=== PATIENT | male | born 1940 | race Caucasian/White ===

== ENCOUNTER 2017-08-29 15:02 | Inpatient (IN) | payer OTHER ==
[2017-08-29] MEDS: MORPHINE 2 MG/ML 1ML SYRINGE (J2270) IV ×2 (15:31→16:01)
[2017-08-29 15:45] LABS: BASO % 0.4 % (0.0-1.0); EOS # 0.3 10^3/uL (0.0-0.50); EOS % 3.6 % (0.0-3.0); HEMATOCRIT 42.8 % (42.0-52.0); HEMOGLOBIN 14.4 g/dl (13.5-17.5); IMMATURE GRANULOCYTE % 0.4 % (0-3.0); LYMPH % 14.3 % (24.0-44.0); MEAN CORPUSCULAR HGB CONC 33.6 g/dl (32.0-36.5); MEAN CORPUSCULAR VOLUME 92.2 fl (80.0-96.0); MONO # 0.8 10^3/uL (0.0-0.8); MONO % 10.8 % (0.0-5.0); NEUTROPHILS # 5.1 10^3/uL (1.8-7.7); NEUTROPHILS % 70.5 % (36.0-66.0); PLATELET COUNT, AUTOMATED 161 10^3/uL (150-450); RED BLOOD COUNT 4.64 10^6/uL (4.30-6.10); RED CELL DISTRIBUTION WIDTH 14.8 % (11.5-14.5); WHITE BLOOD COUNT 7.2 10^3/uL (4.0-10.0)
[2017-08-29 15:47] LABS: BEDSIDE GLUCOSE 108 MG/DL (83-110)
[2017-08-29 15:57] LABS: INR 1.03; PARTIAL THROMBOPLASTIN TIME 25.2 SECONDS (26.8-37.9); PROTHROMBIN TIME 13.6 SECONDS (12.4-14.5)
[2017-08-29 16:15] LABS: ANION GAP 7 MEQ/L (8-16); BLOOD UREA NITROGEN 32 MG/DL (7-18); CALCIUM LEVEL 8.2 MG/DL (8.8-10.2); CARBON DIOXIDE LEVEL 29 MEQ/L (21-32); CHLORIDE LEVEL 110 MEQ/L (98-107); CPK CREATINE PHOSPHOKINASE 180 U/L (39-308); CREATININE FOR GFR 1.56 MG/DL (0.70-1.30); FREE T4 1.19 NG/DL (0.76-1.46); GLOMERULAR FILTRATION RATE 46.4 (>42); GLUCOSE, FASTING 109 MG/DL (70-100); MAGNESIUM LEVEL 2.1 MG/DL (1.8-2.4); POTASSIUM SERUM 3.9 MEQ/L (3.5-5.1); SODIUM LEVEL 146 MEQ/L (136-145); TROPONIN I 0.05 NG/ML (< 0.10)
[2017-08-29 16:20] LABS: CK-MB VALUE MASS 2.6 NG/ML (<3.6); MB/CK RELATIVE INDEX 1.44 (< OR =4)
[2017-08-29] MEDS ORDERED: ONDANSETRON 4MG/2ML VIAL (J2405) IV (17:15)
[2017-08-29] MEDS ORDERED: GLUCOSE 4 GM CHEW TABLET PO (17:15)
[2017-08-29] MEDS ORDERED: GLUCAGON FOR INJ 1 MG VIAL (J1610) SC (17:15)
[2017-08-29] MEDS ORDERED: DEXTROSE 50% 50 ML SYRINGE IV (17:15)
[2017-08-29] MEDS: MORPHINE 4 MG/ML 1ML VIAL/SYRINGE (J2270) IV (18:07)
[2017-08-29 19:39] LABS: BEDSIDE GLUCOSE 93 MG/DL (83-110)
[2017-08-29] MEDS: NORCO, ANEXSIA 5/325MG TABLET (HYDROcodone/ACETAMINOPHEN) PO (19:47)
[2017-08-29] MEDS: HumaLOG INSULIN (NovoLOG) PER UNIT SC (19:58)
[2017-08-29] MEDS: LEVEMIR (INSULIN DETEMIR) 1 UNITS/0.01ML SC ×2 (21:00→21:39)
[2017-08-29 21:04] LABS: BEDSIDE GLUCOSE 113 MG/DL (83-110)
[2017-08-29] MEDS: HEPARIN SOD (PORCINE) 5000 UNITS/ML VIAL SC (21:23)
[2017-08-29] MEDS: CYCLOBENZAPRINE 5MG TABLET PO (21:29)
[2017-08-29] MEDS: SENOKOT S TAB PO (21:40)
[2017-08-29] MEDS: METOPROLOL TART 25 MG TABLET PO (21:40)
[2017-08-29] MEDS: DOCUSATE SODIUM 100 MG CAP PO (21:40)
[2017-08-29] MEDS: ASPIRIN 325 MG TAB PO (21:40)
[2017-08-29] MEDS: MAGNESIUM CHLORIDE 64 MG TABCR (SLO MAG) PO (23:02)
[2017-08-29] MEDS: HYDROmorphone HCL 1 MG/ML SYRINGE (J1170) IV (23:41)
[2017-08-30] MEDS: NORCO, ANEXSIA 5/325MG TABLET (HYDROcodone/ACETAMINOPHEN) PO ×2 (01:29→13:59)
[2017-08-30] MEDS: HYDROmorphone HCL 1 MG/ML SYRINGE (J1170) IV ×2 (02:16→08:57)
[2017-08-30] MEDS: CYCLOBENZAPRINE 5MG TABLET PO (05:39)
[2017-08-30] MEDS: HEPARIN SOD (PORCINE) 5000 UNITS/ML VIAL SC (05:51)
[2017-08-30] MEDS: HumaLOG INSULIN (NovoLOG) PER UNIT SC ×5 (06:00→20:24)
[2017-08-30] MEDS ORDERED: DEXTROSE 50% 50 ML SYRINGE IV (08:00)
[2017-08-30] MEDS ORDERED: GLUCAGON FOR INJ 1 MG VIAL (J1610) SC (08:00)
[2017-08-30] MEDS ORDERED: GLUCOSE 4 GM CHEW TABLET PO (08:00)
[2017-08-30 08:49] LABS: BEDSIDE GLUCOSE 96 MG/DL (83-110)
[2017-08-30] MEDS: DOCUSATE SODIUM 100 MG CAP PO ×2 (08:53→20:27)
[2017-08-30] MEDS: VITAMIN D 1,000 INTERNATIONAL UNITS TABLET PO (08:53)
[2017-08-30] MEDS: SENOKOT S TAB PO ×2 (08:53→20:27)
[2017-08-30] MEDS: PANTOPRAZOLE 40MG TAB (PROTONIX) PO (08:53)
[2017-08-30] MEDS: AMIODARONE 200 MG TAB (PACERONE) PO (08:53)
[2017-08-30] MEDS: NS 1,000 ML IV (08:53)
[2017-08-30] MEDS: METOPROLOL TART 25 MG TABLET PO ×2 (08:54→20:27)
[2017-08-30] MEDS: FUROSEMIDE 20 MG TAB PO (08:54)
[2017-08-30] MEDS: MAGNESIUM CHLORIDE 64 MG TABCR (SLO MAG) PO ×2 (08:56→20:26)
[2017-08-30] MEDS: oxyBUTYnin *DITROPAN XL* 5 MG TABCR PO (08:56)
[2017-08-30 09:25] LABS: HEMATOCRIT 45.5 % (42.0-52.0); HEMOGLOBIN 14.6 g/dl (13.5-17.5); MEAN CORPUSCULAR HEMOGLOBIN 30.5 pg (27.0-33.0); MEAN CORPUSCULAR HGB CONC 32.1 g/dl (32.0-36.5); MEAN CORPUSCULAR VOLUME 95.2 fl (80.0-96.0); PLATELET COUNT, AUTOMATED 145 10^3/uL (150-450); RED BLOOD COUNT 4.78 10^6/uL (4.30-6.10); RED CELL DISTRIBUTION WIDTH 14.9 % (11.5-14.5); WHITE BLOOD COUNT 6.4 10^3/uL (4.0-10.0)
[2017-08-30 10:16] LABS: ANION GAP 6 MEQ/L (8-16); BLOOD UREA NITROGEN 29 MG/DL (7-18); CALCIUM LEVEL 8.6 MG/DL (8.8-10.2); CARBON DIOXIDE LEVEL 30 MEQ/L (21-32); CHLORIDE LEVEL 108 MEQ/L (98-107); CREATININE FOR GFR 1.37 MG/DL (0.70-1.30); GLOMERULAR FILTRATION RATE 53.9 (>42); GLUCOSE, FASTING 99 MG/DL (70-100); MAGNESIUM LEVEL 2.4 MG/DL (1.8-2.4); POTASSIUM SERUM 4.3 MEQ/L (3.5-5.1); SODIUM LEVEL 144 MEQ/L (136-145)
[2017-08-30 11:59] LABS: BEDSIDE GLUCOSE 94 MG/DL (83-110)
[2017-08-30] MEDS: MORPHINE 4 MG/ML 1ML VIAL/SYRINGE (J2270) IV (12:15)
[2017-08-30] MEDS: HEPARIN SOD (PORCINE) 5000 UNITS/ML VIAL SQ ×2 (13:58→22:06)
[2017-08-30 17:06] LABS: BEDSIDE GLUCOSE 162 MG/DL (83-110)
[2017-08-30 20:21] LABS: BEDSIDE GLUCOSE 112 MG/DL (83-110)
[2017-08-30] MEDS: ATORVASTATIN 20 MG TAB PO (20:26)
[2017-08-30] MEDS: ASPIRIN 325 MG TAB PO (20:27)
[2017-08-31] MEDS: CYCLOBENZAPRINE 5MG TABLET PO (05:18)
[2017-08-31] MEDS: HEPARIN SOD (PORCINE) 5000 UNITS/ML VIAL SQ ×3 (05:18→21:35)
[2017-08-31 05:44] LABS: BASO % 0.4 % (0.0-1.0); EOS # 0.3 10^3/uL (0.0-0.50); EOS % 4.5 % (0.0-3.0); HEMOGLOBIN 14.2 g/dl (13.5-17.5); IMMATURE GRANULOCYTE % 0.5 % (0-3.0); LYMPH # 0.9 10^3/uL (1.5-4.5); MEAN CORPUSCULAR VOLUME 93.9 fl (80.0-96.0); MONO # 1.1 10^3/uL (0.0-0.8); MONO % 15.5 % (0.0-5.0); NEUTROPHILS # 4.9 10^3/uL (1.8-7.7); NEUTROPHILS % 67.1 % (36.0-66.0); PLATELET COUNT, AUTOMATED 138 10^3/uL (150-450); RED BLOOD COUNT 4.58 10^6/uL (4.30-6.10); RED CELL DISTRIBUTION WIDTH 14.9 % (11.5-14.5); WHITE BLOOD COUNT 7.4 10^3/uL (4.0-10.0)
[2017-08-31 05:57] LABS: ANION GAP 9 MEQ/L (8-16); BLOOD UREA NITROGEN 27 MG/DL (7-18); CALCIUM LEVEL 8.7 MG/DL (8.8-10.2); CARBON DIOXIDE LEVEL 30 MEQ/L (21-32); CHLORIDE LEVEL 103 MEQ/L (98-107); GLOMERULAR FILTRATION RATE 52.6 (>42); GLUCOSE, FASTING 119 MG/DL (70-100); MAGNESIUM LEVEL 2.1 MG/DL (1.8-2.4); POTASSIUM SERUM 3.9 MEQ/L (3.5-5.1); SODIUM LEVEL 142 MEQ/L (136-145)
[2017-08-31] MEDS: MOM 30ML SUSPENSION UDC PO (08:09)
[2017-08-31] MEDS: DOCUSATE SODIUM 100 MG CAP PO ×2 (08:09→21:34)
[2017-08-31] MEDS: MAGNESIUM CHLORIDE 64 MG TABCR (SLO MAG) PO ×2 (08:09→21:35)
[2017-08-31] MEDS: PANTOPRAZOLE 40MG TAB (PROTONIX) PO (08:09)
[2017-08-31] MEDS: VITAMIN D 1,000 INTERNATIONAL UNITS TABLET PO (08:10)
[2017-08-31] MEDS: FUROSEMIDE 20 MG TAB PO (08:10)
[2017-08-31] MEDS: oxyBUTYnin *DITROPAN XL* 5 MG TABCR PO (08:10)
[2017-08-31] MEDS: AMIODARONE 200 MG TAB (PACERONE) PO (08:10)
[2017-08-31] MEDS: SENOKOT S TAB PO ×2 (08:10→21:34)
[2017-08-31] MEDS: METOPROLOL TART 25 MG TABLET PO ×2 (08:10→21:34)
[2017-08-31] MEDS: MIRALAX *UNIT DOSE* 17GM PACKET PO (08:11)
[2017-08-31] MEDS: HumaLOG INSULIN (NovoLOG) PER UNIT SC ×4 (08:11→21:00)
[2017-08-31] MEDS: HYDROMORPHONE HCL 0.5 MG/ 0.5 ML SYRINGE (J1170 PER 1) IV ×2 (08:12→16:58)
[2017-08-31] MEDS: NYSTATIN 100,000 UNITS/GM TOPICAL PWD 15 GM TOP ×2 (09:00→21:00)
[2017-08-31 11:49] LABS: BEDSIDE GLUCOSE 106 MG/DL (83-110)
[2017-08-31 16:43] LABS: BEDSIDE GLUCOSE 116 MG/DL (83-110)
[2017-08-31 20:26] LABS: BEDSIDE GLUCOSE 133 MG/DL (83-110)
[2017-08-31] MEDS: ASPIRIN 325 MG TAB PO (21:34)
[2017-08-31] MEDS: ATORVASTATIN 20 MG TAB PO (21:34)
[2017-09-01] MEDS: HYDROMORPHONE HCL 0.5 MG/ 0.5 ML SYRINGE (J1170 PER 1) IV ×3 (00:23→21:16)
[2017-09-01 06:14] LABS: BASO % 0.2 % (0.0-1.0); EOS # 0.4 10^3/uL (0.0-0.50); EOS % 6.8 % (0.0-3.0); HEMATOCRIT 41.2 % (42.0-52.0); HEMOGLOBIN 13.6 g/dl (13.5-17.5); IMMATURE GRANULOCYTE % 0.6 % (0-3.0); LYMPH # 1.2 10^3/uL (1.5-4.5); LYMPH % 18.7 % (24.0-44.0); MEAN CORPUSCULAR HEMOGLOBIN 30.6 pg (27.0-33.0); MEAN CORPUSCULAR VOLUME 92.6 fl (80.0-96.0); MONO % 15.7 % (0.0-5.0); NEUTROPHILS # 3.7 10^3/uL (1.8-7.7); PLATELET COUNT, AUTOMATED 123 10^3/uL (150-450); RED BLOOD COUNT 4.45 10^6/uL (4.30-6.10); RED CELL DISTRIBUTION WIDTH 14.8 % (11.5-14.5); WHITE BLOOD COUNT 6.4 10^3/uL (4.0-10.0)
[2017-09-01] MEDS: HEPARIN SOD (PORCINE) 5000 UNITS/ML VIAL SQ ×3 (06:23→21:15)
[2017-09-01 06:32] LABS: ANION GAP 7 MEQ/L (8-16); BLOOD UREA NITROGEN 27 MG/DL (7-18); CALCIUM LEVEL 8.3 MG/DL (8.8-10.2); CARBON DIOXIDE LEVEL 31 MEQ/L (21-32); CHLORIDE LEVEL 104 MEQ/L (98-107); CREATININE FOR GFR 1.39 MG/DL (0.70-1.30); GLUCOSE, FASTING 95 MG/DL (70-100); MAGNESIUM LEVEL 2.3 MG/DL (1.8-2.4); POTASSIUM SERUM 3.6 MEQ/L (3.5-5.1); SODIUM LEVEL 142 MEQ/L (136-145)
[2017-09-01] MEDS: HumaLOG INSULIN (NovoLOG) PER UNIT SC ×4 (07:30→21:00)
[2017-09-01] MEDS ORDERED: SLF 3 ML SYR IV (09:00)
[2017-09-01] MEDS: MOM 30ML SUSPENSION UDC PO (09:13)
[2017-09-01] MEDS: VITAMIN D 1,000 INTERNATIONAL UNITS TABLET PO (09:14)
[2017-09-01] MEDS: SENOKOT S TAB PO ×2 (09:14→21:12)
[2017-09-01] MEDS: MAGNESIUM CHLORIDE 64 MG TABCR (SLO MAG) PO ×2 (09:14→21:12)
[2017-09-01] MEDS: PANTOPRAZOLE 40MG TAB (PROTONIX) PO (09:14)
[2017-09-01] MEDS: DOCUSATE SODIUM 100 MG CAP PO ×2 (09:14→21:12)
[2017-09-01] MEDS: MIRALAX *UNIT DOSE* 17GM PACKET PO (09:14)
[2017-09-01] MEDS: AMIODARONE 200 MG TAB (PACERONE) PO (09:14)
[2017-09-01] MEDS: oxyBUTYnin *DITROPAN XL* 5 MG TABCR PO (09:15)
[2017-09-01] MEDS: METOPROLOL TART 25 MG TABLET PO ×2 (09:15→21:12)
[2017-09-01] MEDS: NYSTATIN 100,000 UNITS/GM TOPICAL PWD 15 GM TOP ×2 (09:16→21:15)
[2017-09-01] MEDS: FUROSEMIDE 20 MG TAB PO (09:16)
[2017-09-01] MEDS: LEVEMIR (INSULIN DETEMIR) 1 UNITS/0.01ML SC ×2 (10:04→21:00)
[2017-09-01 11:50] LABS: BEDSIDE GLUCOSE 109 MG/DL (83-110)
[2017-09-01] MEDS: SLF 3 ML SYR IV ×2 (13:21→21:15)
[2017-09-01 16:40] LABS: BEDSIDE GLUCOSE 165 MG/DL (83-110)
[2017-09-01 20:43] LABS: BEDSIDE GLUCOSE 125 MG/DL (83-110)
[2017-09-01] MEDS: ASPIRIN 325 MG TAB PO (21:12)
[2017-09-01] MEDS: ATORVASTATIN 20 MG TAB PO (21:12)
[2017-09-02] MEDS: HYDROMORPHONE HCL 0.5 MG/ 0.5 ML SYRINGE (J1170 PER 1) IV (05:02)
[2017-09-02] MEDS: HEPARIN SOD (PORCINE) 5000 UNITS/ML VIAL SQ ×3 (06:00→21:40)
[2017-09-02] MEDS: SLF 3 ML SYR IV ×3 (06:01→21:45)
[2017-09-02 06:17] LABS: BASO % 0.5 % (0.0-1.0); EOS # 0.5 10^3/uL (0.0-0.50); EOS % 8.6 % (0.0-3.0); HEMATOCRIT 41.9 % (42.0-52.0); HEMOGLOBIN 13.7 g/dl (13.5-17.5); IMMATURE GRANULOCYTE % 0.5 % (0-3.0); LYMPH # 0.9 10^3/uL (1.5-4.5); MEAN CORPUSCULAR HEMOGLOBIN 30.5 pg (27.0-33.0); MEAN CORPUSCULAR HGB CONC 32.7 g/dl (32.0-36.5); MEAN CORPUSCULAR VOLUME 93.3 fl (80.0-96.0); MONO # 0.9 10^3/uL (0.0-0.8); MONO % 15.1 % (0.0-5.0); NEUTROPHILS # 3.6 10^3/uL (1.8-7.7); NEUTROPHILS % 60.3 % (36.0-66.0); PLATELET COUNT, AUTOMATED 134 10^3/uL (150-450); RED BLOOD COUNT 4.49 10^6/uL (4.30-6.10); RED CELL DISTRIBUTION WIDTH 14.5 % (11.5-14.5)
[2017-09-02 06:37] LABS: ANION GAP 7 MEQ/L (8-16); BLOOD UREA NITROGEN 32 MG/DL (7-18); CALCIUM LEVEL 8.3 MG/DL (8.8-10.2); CARBON DIOXIDE LEVEL 29 MEQ/L (21-32); CHLORIDE LEVEL 105 MEQ/L (98-107); CREATININE FOR GFR 1.22 MG/DL (0.70-1.30); GLOMERULAR FILTRATION RATE > 60.0 (>42); GLUCOSE, FASTING 105 MG/DL (70-100); MAGNESIUM LEVEL 2.4 MG/DL (1.8-2.4); POTASSIUM SERUM 3.7 MEQ/L (3.5-5.1); SODIUM LEVEL 141 MEQ/L (136-145)
[2017-09-02] MEDS: oxyBUTYnin *DITROPAN XL* 5 MG TABCR PO (08:15)
[2017-09-02] MEDS: VITAMIN D 1,000 INTERNATIONAL UNITS TABLET PO (08:15)
[2017-09-02] MEDS: AMIODARONE 200 MG TAB (PACERONE) PO (08:15)
[2017-09-02] MEDS: NORCO, ANEXSIA 5/325MG TABLET (HYDROcodone/ACETAMINOPHEN) PO ×2 (08:15→14:51)
[2017-09-02] MEDS: DOCUSATE SODIUM 100 MG CAP PO ×2 (08:15→21:41)
[2017-09-02] MEDS: METOPROLOL TART 25 MG TABLET PO ×2 (08:16→21:44)
[2017-09-02] MEDS: SENOKOT S TAB PO ×2 (08:17→21:41)
[2017-09-02] MEDS: PANTOPRAZOLE 40MG TAB (PROTONIX) PO (08:17)
[2017-09-02] MEDS: FUROSEMIDE 20 MG TAB PO (08:18)
[2017-09-02] MEDS: MOM 30ML SUSPENSION UDC PO (08:19)
[2017-09-02] MEDS: MAGNESIUM CHLORIDE 64 MG TABCR (SLO MAG) PO ×2 (08:19→21:40)
[2017-09-02] MEDS: MIRALAX *UNIT DOSE* 17GM PACKET PO (08:19)
[2017-09-02] MEDS: HumaLOG INSULIN (NovoLOG) PER UNIT SC ×4 (08:21→21:00)
[2017-09-02] MEDS: LEVEMIR (INSULIN DETEMIR) 1 UNITS/0.01ML SC ×2 (08:21→21:45)
[2017-09-02] MEDS: NYSTATIN 100,000 UNITS/GM TOPICAL PWD 15 GM TOP ×2 (08:25→21:45)
[2017-09-02 11:39] LABS: BEDSIDE GLUCOSE 115 MG/DL (83-110)
[2017-09-02 17:17] LABS: BEDSIDE GLUCOSE 107 MG/DL (83-110)
[2017-09-02 20:32] LABS: BEDSIDE GLUCOSE 123 MG/DL (83-110)
[2017-09-02] MEDS: ASPIRIN 325 MG TAB PO (21:41)
[2017-09-02] MEDS: ATORVASTATIN 20 MG TAB PO (21:41)
[2017-09-03] MEDS: NORCO, ANEXSIA 5/325MG TABLET (HYDROcodone/ACETAMINOPHEN) PO ×3 (01:12→21:09)
[2017-09-03] MEDS: SLF 3 ML SYR IV ×3 (05:05→22:00)
[2017-09-03] MEDS: HEPARIN SOD (PORCINE) 5000 UNITS/ML VIAL SQ ×3 (05:05→21:10)
[2017-09-03 05:47] LABS: BASO % 0.5 % (0.0-1.0); EOS # 0.4 10^3/uL (0.0-0.50); EOS % 7.6 % (0.0-3.0); HEMATOCRIT 40.8 % (42.0-52.0); HEMOGLOBIN 13.8 g/dl (13.5-17.5); IMMATURE GRANULOCYTE % 0.4 % (0-3.0); LYMPH # 1.2 10^3/uL (1.5-4.5); LYMPH % 21.3 % (24.0-44.0); MEAN CORPUSCULAR HEMOGLOBIN 30.9 pg (27.0-33.0); MEAN CORPUSCULAR HGB CONC 33.8 g/dl (32.0-36.5); MEAN CORPUSCULAR VOLUME 91.3 fl (80.0-96.0); MONO # 0.8 10^3/uL (0.0-0.8); MONO % 14.1 % (0.0-5.0); NEUTROPHILS # 3.1 10^3/uL (1.8-7.7); NEUTROPHILS % 56.1 % (36.0-66.0); PLATELET COUNT, AUTOMATED 143 10^3/uL (150-450); RED BLOOD COUNT 4.47 10^6/uL (4.30-6.10); RED CELL DISTRIBUTION WIDTH 14.4 % (11.5-14.5); WHITE BLOOD COUNT 5.5 10^3/uL (4.0-10.0)
[2017-09-03 06:20] LABS: ANION GAP 7 MEQ/L (8-16); BLOOD UREA NITROGEN 33 MG/DL (7-18); CALCIUM LEVEL 8.4 MG/DL (8.8-10.2); CARBON DIOXIDE LEVEL 30 MEQ/L (21-32); CHLORIDE LEVEL 105 MEQ/L (98-107); CREATININE FOR GFR 1.23 MG/DL (0.70-1.30); GLOMERULAR FILTRATION RATE > 60.0 (>42); GLUCOSE, FASTING 87 MG/DL (70-100); MAGNESIUM LEVEL 2.7 MG/DL (1.8-2.4); POTASSIUM SERUM 3.9 MEQ/L (3.5-5.1); SODIUM LEVEL 142 MEQ/L (136-145)
[2017-09-03] MEDS: HumaLOG INSULIN (NovoLOG) PER UNIT SC ×4 (07:13→21:00)
[2017-09-03] MEDS: VITAMIN D 1,000 INTERNATIONAL UNITS TABLET PO (09:03)
[2017-09-03] MEDS: MOM 30ML SUSPENSION UDC PO (09:03)
[2017-09-03] MEDS: oxyBUTYnin *DITROPAN XL* 5 MG TABCR PO (09:04)
[2017-09-03] MEDS: METOPROLOL TART 25 MG TABLET PO ×2 (09:04→21:10)
[2017-09-03] MEDS: SENOKOT S TAB PO ×2 (09:04→21:07)
[2017-09-03] MEDS: FUROSEMIDE 20 MG TAB PO (09:04)
[2017-09-03] MEDS: AMIODARONE 200 MG TAB (PACERONE) PO (09:04)
[2017-09-03] MEDS: MAGNESIUM CHLORIDE 64 MG TABCR (SLO MAG) PO ×2 (09:05→21:11)
[2017-09-03] MEDS: DOCUSATE SODIUM 100 MG CAP PO ×2 (09:05→21:09)
[2017-09-03] MEDS: PANTOPRAZOLE 40MG TAB (PROTONIX) PO (09:05)
[2017-09-03] MEDS: NYSTATIN 100,000 UNITS/GM TOPICAL PWD 15 GM TOP ×2 (09:08→21:18)
[2017-09-03] MEDS: LEVEMIR (INSULIN DETEMIR) 1 UNITS/0.01ML SC ×2 (09:08→21:12)
[2017-09-03] MEDS: MIRALAX *UNIT DOSE* 17GM PACKET PO (09:08)
[2017-09-03] MEDS: ENALAPRIL MALEATE 5 MG TAB PO (09:57)
[2017-09-03 11:48] LABS: BEDSIDE GLUCOSE 89 MG/DL (83-110)
[2017-09-03] MEDS: HYDROMORPHONE HCL 0.5 MG/ 0.5 ML SYRINGE (J1170 PER 1) IV (11:56)
[2017-09-03 16:58] LABS: BEDSIDE GLUCOSE 138 MG/DL (83-110)
[2017-09-03] MEDS: ATORVASTATIN 20 MG TAB PO (21:07)
[2017-09-03] MEDS: ASPIRIN 325 MG TAB PO (21:09)
[2017-09-03 21:22] LABS: BEDSIDE GLUCOSE 127 MG/DL (83-110)
[2017-09-04 05:09] LABS: BASO % 0.7 % (0.0-1.0); EOS # 0.5 10^3/uL (0.0-0.50); EOS % 8.7 % (0.0-3.0); HEMATOCRIT 41.7 % (42.0-52.0); HEMOGLOBIN 13.8 g/dl (13.5-17.5); IMMATURE GRANULOCYTE % 0.4 % (0-3.0); LYMPH # 1.2 10^3/uL (1.5-4.5); LYMPH % 20.6 % (24.0-44.0); MEAN CORPUSCULAR HEMOGLOBIN 30.5 pg (27.0-33.0); MEAN CORPUSCULAR HGB CONC 33.1 g/dl (32.0-36.5); MEAN CORPUSCULAR VOLUME 92.3 fl (80.0-96.0); MONO # 0.9 10^3/uL (0.0-0.8); MONO % 15.7 % (0.0-5.0); NEUTROPHILS % 53.9 % (36.0-66.0); PLATELET COUNT, AUTOMATED 164 10^3/uL (150-450); RED BLOOD COUNT 4.52 10^6/uL (4.30-6.10); RED CELL DISTRIBUTION WIDTH 14.6 % (11.5-14.5); WHITE BLOOD COUNT 5.6 10^3/uL (4.0-10.0)
[2017-09-04 05:24] LABS: ANION GAP 7 MEQ/L (8-16); BLOOD UREA NITROGEN 34 MG/DL (7-18); CALCIUM LEVEL 8.4 MG/DL (8.8-10.2); CARBON DIOXIDE LEVEL 30 MEQ/L (21-32); CHLORIDE LEVEL 105 MEQ/L (98-107); CREATININE FOR GFR 1.28 MG/DL (0.70-1.30); GLOMERULAR FILTRATION RATE 58.3 (>42); GLUCOSE, FASTING 83 MG/DL (70-100); MAGNESIUM LEVEL 2.7 MG/DL (1.8-2.4); POTASSIUM SERUM 3.9 MEQ/L (3.5-5.1); SODIUM LEVEL 142 MEQ/L (136-145)
[2017-09-04] MEDS: SLF 3 ML SYR IV ×3 (05:45→21:50)
[2017-09-04] MEDS: HEPARIN SOD (PORCINE) 5000 UNITS/ML VIAL SQ ×3 (05:45→21:50)
[2017-09-04] MEDS: HumaLOG INSULIN (NovoLOG) PER UNIT SC ×4 (07:30→20:23)
[2017-09-04] MEDS: LEVEMIR (INSULIN DETEMIR) 1 UNITS/0.01ML SC ×2 (08:18→20:24)
[2017-09-04] MEDS: MOM 30ML SUSPENSION UDC PO (08:19)
[2017-09-04] MEDS: SENOKOT S TAB PO ×2 (08:19→20:17)
[2017-09-04] MEDS: oxyBUTYnin *DITROPAN XL* 5 MG TABCR PO (08:19)
[2017-09-04] MEDS: DOCUSATE SODIUM 100 MG CAP PO ×2 (08:19→20:17)
[2017-09-04] MEDS: PANTOPRAZOLE 40MG TAB (PROTONIX) PO (08:19)
[2017-09-04] MEDS: ENALAPRIL MALEATE 5 MG TAB PO (08:20)
[2017-09-04] MEDS: VITAMIN D 1,000 INTERNATIONAL UNITS TABLET PO (08:20)
[2017-09-04] MEDS: FUROSEMIDE 20 MG TAB PO (08:20)
[2017-09-04] MEDS: METOPROLOL TART 25 MG TABLET PO ×2 (08:20→20:16)
[2017-09-04] MEDS: AMIODARONE 200 MG TAB (PACERONE) PO (08:21)
[2017-09-04] MEDS: MIRALAX *UNIT DOSE* 17GM PACKET PO (08:32)
[2017-09-04] MEDS: NORCO, ANEXSIA 5/325MG TABLET (HYDROcodone/ACETAMINOPHEN) PO ×3 (08:33→21:52)
[2017-09-04] MEDS: MAGNESIUM CHLORIDE 64 MG TABCR (SLO MAG) PO ×2 (09:00→20:17)
[2017-09-04 11:56] LABS: BEDSIDE GLUCOSE 89 MG/DL (83-110)
[2017-09-04] MEDS: NYSTATIN 100,000 UNITS/GM TOPICAL PWD 15 GM TOP ×2 (12:00→20:18)
[2017-09-04] MEDS: HYDROMORPHONE HCL 0.5 MG/ 0.5 ML SYRINGE (J1170 PER 1) IV (15:00)
[2017-09-04 17:35] LABS: BEDSIDE GLUCOSE 84 MG/DL (83-110)
[2017-09-04] MEDS: ATORVASTATIN 20 MG TAB PO (20:16)
[2017-09-04] MEDS: ASPIRIN 325 MG TAB PO (20:16)
[2017-09-04 20:40] LABS: BEDSIDE GLUCOSE 92 MG/DL (83-110)
[2017-09-05] MEDS: NORCO, ANEXSIA 5/325MG TABLET (HYDROcodone/ACETAMINOPHEN) PO ×3 (02:24→19:24)
[2017-09-05 04:56] LABS: BASO % 0.7 % (0.0-1.0); EOS # 0.5 10^3/uL (0.0-0.50); EOS % 8.6 % (0.0-3.0); HEMATOCRIT 40.6 % (42.0-52.0); HEMOGLOBIN 13.7 g/dl (13.5-17.5); IMMATURE GRANULOCYTE % 0.4 % (0-3.0); LYMPH % 17.3 % (24.0-44.0); MEAN CORPUSCULAR HEMOGLOBIN 30.9 pg (27.0-33.0); MEAN CORPUSCULAR HGB CONC 33.7 g/dl (32.0-36.5); MEAN CORPUSCULAR VOLUME 91.6 fl (80.0-96.0); MONO # 0.9 10^3/uL (0.0-0.8); MONO % 15.7 % (0.0-5.0); NEUTROPHILS # 3.3 10^3/uL (1.8-7.7); NEUTROPHILS % 57.3 % (36.0-66.0); PLATELET COUNT, AUTOMATED 167 10^3/uL (150-450); RED BLOOD COUNT 4.43 10^6/uL (4.30-6.10); RED CELL DISTRIBUTION WIDTH 14.6 % (11.5-14.5); WHITE BLOOD COUNT 5.7 10^3/uL (4.0-10.0)
[2017-09-05 05:08] LABS: ANION GAP 7 MEQ/L (8-16); BLOOD UREA NITROGEN 37 MG/DL (7-18); CALCIUM LEVEL 8.4 MG/DL (8.8-10.2); CARBON DIOXIDE LEVEL 29 MEQ/L (21-32); CHLORIDE LEVEL 105 MEQ/L (98-107); CREATININE FOR GFR 1.32 MG/DL (0.70-1.30); GLOMERULAR FILTRATION RATE 56.3 (>42); GLUCOSE, FASTING 71 MG/DL (70-100); MAGNESIUM LEVEL 2.6 MG/DL (1.8-2.4); POTASSIUM SERUM 4.1 MEQ/L (3.5-5.1); SODIUM LEVEL 141 MEQ/L (136-145)
[2017-09-05] MEDS: HEPARIN SOD (PORCINE) 5000 UNITS/ML VIAL SQ ×3 (05:51→20:25)
[2017-09-05] MEDS: SLF 3 ML SYR IV ×3 (05:52→20:25)
[2017-09-05] MEDS: HumaLOG INSULIN (NovoLOG) PER UNIT SC ×4 (07:30→20:24)
[2017-09-05] MEDS: PANTOPRAZOLE 40MG TAB (PROTONIX) PO (08:14)
[2017-09-05] MEDS: DOCUSATE SODIUM 100 MG CAP PO ×2 (08:14→20:22)
[2017-09-05] MEDS: MOM 30ML SUSPENSION UDC PO (08:14)
[2017-09-05] MEDS: LEVEMIR (INSULIN DETEMIR) 1 UNITS/0.01ML SC ×2 (08:14→20:24)
[2017-09-05] MEDS: MIRALAX *UNIT DOSE* 17GM PACKET PO (08:14)
[2017-09-05] MEDS: SENOKOT S TAB PO ×2 (08:14→20:23)
[2017-09-05] MEDS: METOPROLOL TART 25 MG TABLET PO ×2 (08:15→20:23)
[2017-09-05] MEDS: VITAMIN D 1,000 INTERNATIONAL UNITS TABLET PO (08:15)
[2017-09-05] MEDS: FUROSEMIDE 20 MG TAB PO (08:15)
[2017-09-05] MEDS: oxyBUTYnin *DITROPAN XL* 5 MG TABCR PO (08:15)
[2017-09-05] MEDS: AMIODARONE 200 MG TAB (PACERONE) PO (08:15)
[2017-09-05] MEDS: NYSTATIN 100,000 UNITS/GM TOPICAL PWD 15 GM TOP ×2 (08:16→20:24)
[2017-09-05] MEDS: MAGNESIUM CHLORIDE 64 MG TABCR (SLO MAG) PO ×2 (08:21→20:23)
[2017-09-05 11:37] LABS: BEDSIDE GLUCOSE 75 MG/DL (83-110)
[2017-09-05 17:55] LABS: BEDSIDE GLUCOSE 82 MG/DL (83-110)
[2017-09-05 20:22] LABS: BEDSIDE GLUCOSE 96 MG/DL (83-110)
[2017-09-05] MEDS: ATORVASTATIN 20 MG TAB PO (20:22)
[2017-09-05] MEDS: ASPIRIN 325 MG TAB PO (20:22)
[2017-09-05] MEDS: BUPIVACAINE/EPIN 0.5% 30 ML VIAL As Ordered (20:30)
[2017-09-06 05:51] LABS: BASO % 0.8 % (0.0-1.0); EOS # 0.4 10^3/uL (0.0-0.50); EOS % 8.4 % (0.0-3.0); HEMATOCRIT 41.9 % (42.0-52.0); IMMATURE GRANULOCYTE % 0.6 % (0-3.0); LYMPH # 1.1 10^3/uL (1.5-4.5); LYMPH % 21.8 % (24.0-44.0); MEAN CORPUSCULAR HEMOGLOBIN 30.4 pg (27.0-33.0); MEAN CORPUSCULAR HGB CONC 33.4 g/dl (32.0-36.5); MEAN CORPUSCULAR VOLUME 91.1 fl (80.0-96.0); MONO # 0.8 10^3/uL (0.0-0.8); MONO % 16.5 % (0.0-5.0); NEUTROPHILS # 2.7 10^3/uL (1.8-7.7); NEUTROPHILS % 51.9 % (36.0-66.0); PLATELET COUNT, AUTOMATED 184 10^3/uL (150-450); RED CELL DISTRIBUTION WIDTH 14.6 % (11.5-14.5); WHITE BLOOD COUNT 5.1 10^3/uL (4.0-10.0)
[2017-09-06] MEDS: SLF 3 ML SYR IV ×3 (05:51→22:00)
[2017-09-06 06:00] LABS: ANION GAP 7 MEQ/L (8-16); BLOOD UREA NITROGEN 34 MG/DL (7-18); CALCIUM LEVEL 8.6 MG/DL (8.8-10.2); CARBON DIOXIDE LEVEL 27 MEQ/L (21-32); CHLORIDE LEVEL 107 MEQ/L (98-107); CREATININE FOR GFR 1.36 MG/DL (0.70-1.30); GLOMERULAR FILTRATION RATE 54.4 (>42); GLUCOSE, FASTING 79 MG/DL (70-100); MAGNESIUM LEVEL 2.7 MG/DL (1.8-2.4); POTASSIUM SERUM 4.1 MEQ/L (3.5-5.1); SODIUM LEVEL 141 MEQ/L (136-145)
[2017-09-06] MEDS: HumaLOG INSULIN (NovoLOG) PER UNIT SC ×4 (07:20→21:00)
[2017-09-06] MEDS: LEVEMIR (INSULIN DETEMIR) 1 UNITS/0.01ML SC ×2 (07:36→21:00)
[2017-09-06] MEDS: MOM 30ML SUSPENSION UDC PO (08:33)
[2017-09-06] MEDS: MIRALAX *UNIT DOSE* 17GM PACKET PO (08:33)
[2017-09-06] MEDS: METOPROLOL TART 25 MG TABLET PO ×2 (08:33→21:00)
[2017-09-06] MEDS: FUROSEMIDE 20 MG TAB PO (08:33)
[2017-09-06] MEDS: SENOKOT S TAB PO ×2 (08:33→21:00)
[2017-09-06] MEDS: PANTOPRAZOLE 40MG TAB (PROTONIX) PO (08:33)
[2017-09-06] MEDS: DOCUSATE SODIUM 100 MG CAP PO ×2 (08:33→21:00)
[2017-09-06] MEDS: oxyBUTYnin *DITROPAN XL* 5 MG TABCR PO (08:33)
[2017-09-06] MEDS: AMIODARONE 200 MG TAB (PACERONE) PO (08:33)
[2017-09-06] MEDS: NYSTATIN 100,000 UNITS/GM TOPICAL PWD 15 GM TOP ×2 (08:34→21:00)
[2017-09-06] MEDS: VITAMIN D 1,000 INTERNATIONAL UNITS TABLET PO (08:34)
[2017-09-06] MEDS: MAGNESIUM CHLORIDE 64 MG TABCR (SLO MAG) PO ×2 (08:34→21:00)
[2017-09-06 12:03] LABS: BEDSIDE GLUCOSE 108 MG/DL (83-110)
[2017-09-06] MEDS: ceFAZolin 1GM INJ (J0690 PER 500MG) As Ordered ×2 (20:20→20:45)
[2017-09-06] MEDS: ASPIRIN 325 MG TAB PO (21:00)
[2017-09-06] MEDS: ATORVASTATIN 20 MG TAB PO (21:00)
[2017-09-06 21:13] LABS: BEDSIDE GLUCOSE 89 MG/DL (83-110)
[2017-09-06] MEDS ORDERED: LIDOCAINE 2% INJ 100 MG/5 ML SDV (FOR ANES.) As Ordered (21:19)
[2017-09-06] MEDS ORDERED: PHENYLEPHRINE INJ 10MG/ML VIAL (J2370) As Ordered (21:19)
[2017-09-06] MEDS ORDERED: fentaNYL 100 MCG/2 ML INJECTION (J3010) As Ordered (21:19)
[2017-09-06] MEDS ORDERED: ONDANSETRON 4MG/2ML VIAL (J2405) As Ordered (21:19)
[2017-09-06] MEDS ORDERED: KETAMINE HCL 200 MG/20 ML VIAL As Ordered (21:19)
[2017-09-06] MEDS ORDERED: MIDAZOLAM INJ 2 MG/2 ML VIAL (J2250) As Ordered (21:19)
[2017-09-06] MEDS ORDERED: PROPOFOL 500 MG/50 ML VIAL As Ordered (21:19)
[2017-09-06] MEDS ORDERED: BUPIVACAINE/DEXTROSE 0.75% 2 ML AMP As Ordered (21:19)
[2017-09-06] MEDS: EPINEPHrine INJ 1 MG/ML 1ML AMP As Ordered (21:30)
[2017-09-06] MEDS: TRANEXAMIC ACID 100 MG/ML 10ML VIAL As Ordered (21:50)
[2017-09-06] MEDS ORDERED: PROPOFOL 200 MG/20 ML VIAL As Ordered (21:51)
[2017-09-06] MEDS ORDERED: ONDANSETRON 4MG/2ML VIAL (J2405) IV ×2 (23:00→23:45)
[2017-09-06] MEDS: LR 1,000 ML IV (23:00)
[2017-09-06] MEDS ORDERED: fentaNYL 100 MCG/2 ML INJECTION (J3010) IV (23:00)
[2017-09-07] MEDS: PERCOCET 5MG/325MG TAB PO ×4 (00:46→21:14)
[2017-09-07] MEDS: ceFAZolin SOD 1 GM in D5W MINI-BAG PLUS 50 ML IV (05:42)
[2017-09-07] MEDS: SLF 3 ML SYR IV ×4 (05:43→21:13)
[2017-09-07] MEDS: MAGNESIUM CHLORIDE 64 MG TABCR (SLO MAG) PO ×2 (08:37→21:12)
[2017-09-07] MEDS: MIRALAX *UNIT DOSE* 17GM PACKET PO (08:37)
[2017-09-07] MEDS: MOM 30ML SUSPENSION UDC PO (08:37)
[2017-09-07] MEDS: LEVEMIR (INSULIN DETEMIR) 1 UNITS/0.01ML SC ×2 (08:38→21:13)
[2017-09-07] MEDS: FUROSEMIDE 20 MG TAB PO (08:39)
[2017-09-07] MEDS: HumaLOG INSULIN (NovoLOG) PER UNIT SC ×4 (08:39→21:00)
[2017-09-07] MEDS: SENOKOT S TAB PO ×2 (08:40→21:11)
[2017-09-07] MEDS: METOPROLOL TART 25 MG TABLET PO ×2 (08:40→21:12)
[2017-09-07] MEDS: oxyBUTYnin *DITROPAN XL* 5 MG TABCR PO (08:40)
[2017-09-07] MEDS: VITAMIN D 1,000 INTERNATIONAL UNITS TABLET PO (08:40)
[2017-09-07] MEDS: PANTOPRAZOLE 40MG TAB (PROTONIX) PO (08:40)
[2017-09-07] MEDS: DOCUSATE SODIUM 100 MG CAP PO ×2 (08:40→21:11)
[2017-09-07] MEDS: AMIODARONE 200 MG TAB (PACERONE) PO (08:42)
[2017-09-07] MEDS: NYSTATIN 100,000 UNITS/GM TOPICAL PWD 15 GM TOP ×2 (08:43→21:13)
[2017-09-07 09:23] LABS: HEMATOCRIT 43.1 % (42.0-52.0); HEMOGLOBIN 14.3 g/dl (13.5-17.5); MEAN CORPUSCULAR HEMOGLOBIN 30.6 pg (27.0-33.0); MEAN CORPUSCULAR HGB CONC 33.2 g/dl (32.0-36.5); MEAN CORPUSCULAR VOLUME 92.3 fl (80.0-96.0); PLATELET COUNT, AUTOMATED 184 10^3/uL (150-450); RED BLOOD COUNT 4.67 10^6/uL (4.30-6.10); RED CELL DISTRIBUTION WIDTH 14.4 % (11.5-14.5); WHITE BLOOD COUNT 9.6 10^3/uL (4.0-10.0)
[2017-09-07 10:02] LABS: ANION GAP 15 MEQ/L (8-16); BLOOD UREA NITROGEN 40 MG/DL (7-18); CALCIUM LEVEL 8.2 MG/DL (8.8-10.2); CARBON DIOXIDE LEVEL 23 MEQ/L (21-32); CHLORIDE LEVEL 103 MEQ/L (98-107); GLUCOSE, FASTING 175 MG/DL (70-100); POTASSIUM SERUM 4.8 MEQ/L (3.5-5.1); SODIUM LEVEL 141 MEQ/L (136-145)
[2017-09-07] MEDS: ENALAPRIL MALEATE 5 MG TAB PO (12:08)
[2017-09-07] MEDS: RIVAROXABAN 10 MG TAB (XARELTO) PO (17:08)
[2017-09-07 21:00] LABS: BEDSIDE GLUCOSE 168 MG/DL (83-110)
[2017-09-07 21:00] LABS: BEDSIDE GLUCOSE 218 MG/DL (83-110)
[2017-09-07 21:00] LABS: BEDSIDE GLUCOSE 215 MG/DL (83-110)
[2017-09-07 21:00] LABS: BEDSIDE GLUCOSE 174 MG/DL (83-110)
[2017-09-07] MEDS: ATORVASTATIN 20 MG TAB PO (21:11)
[2017-09-08 06:03] LABS: HEMATOCRIT 40.4 % (42.0-52.0); HEMOGLOBIN 13.3 g/dl (13.5-17.5); MEAN CORPUSCULAR HEMOGLOBIN 30.4 pg (27.0-33.0); MEAN CORPUSCULAR HGB CONC 32.9 g/dl (32.0-36.5); MEAN CORPUSCULAR VOLUME 92.4 fl (80.0-96.0); PLATELET COUNT, AUTOMATED 184 10^3/uL (150-450); RED BLOOD COUNT 4.37 10^6/uL (4.30-6.10); RED CELL DISTRIBUTION WIDTH 14.4 % (11.5-14.5); WHITE BLOOD COUNT 10.2 10^3/uL (4.0-10.0)
[2017-09-08] MEDS: PERCOCET 5MG/325MG TAB PO ×3 (06:03→18:30)
[2017-09-08] MEDS: SLF 3 ML SYR IV ×3 (06:04→21:08)
[2017-09-08 06:21] LABS: ANION GAP 9 MEQ/L (8-16); BLOOD UREA NITROGEN 43 MG/DL (7-18); CALCIUM LEVEL 8.9 MG/DL (8.8-10.2); CARBON DIOXIDE LEVEL 27 MEQ/L (21-32); CHLORIDE LEVEL 104 MEQ/L (98-107); CREATININE FOR GFR 1.52 MG/DL (0.70-1.30); GLOMERULAR FILTRATION RATE 47.8 (>42); GLUCOSE, FASTING 132 MG/DL (70-100); POTASSIUM SERUM 4.2 MEQ/L (3.5-5.1); SODIUM LEVEL 140 MEQ/L (136-145)
[2017-09-08] MEDS: HumaLOG INSULIN (NovoLOG) PER UNIT SC ×4 (08:06→21:00)
[2017-09-08] MEDS: MAGNESIUM CHLORIDE 64 MG TABCR (SLO MAG) PO ×2 (08:06→21:07)
[2017-09-08] MEDS: LEVEMIR (INSULIN DETEMIR) 1 UNITS/0.01ML SC ×2 (08:07→21:07)
[2017-09-08] MEDS: METOPROLOL TART 25 MG TABLET PO ×2 (08:07→21:08)
[2017-09-08] MEDS: AMIODARONE 200 MG TAB (PACERONE) PO (08:07)
[2017-09-08] MEDS: PANTOPRAZOLE 40MG TAB (PROTONIX) PO (08:07)
[2017-09-08] MEDS: VITAMIN D 1,000 INTERNATIONAL UNITS TABLET PO (08:07)
[2017-09-08] MEDS: SENOKOT S TAB PO ×2 (08:07→21:07)
[2017-09-08] MEDS: NYSTATIN 100,000 UNITS/GM TOPICAL PWD 15 GM TOP ×2 (08:08→21:07)
[2017-09-08] MEDS: DOCUSATE SODIUM 100 MG CAP PO ×2 (08:08→21:07)
[2017-09-08] MEDS: oxyBUTYnin *DITROPAN XL* 5 MG TABCR PO (08:08)
[2017-09-08] MEDS: FUROSEMIDE 20 MG TAB PO (08:08)
[2017-09-08] MEDS: MOM 30ML SUSPENSION UDC PO (08:11)
[2017-09-08] MEDS: MIRALAX *UNIT DOSE* 17GM PACKET PO (08:12)
[2017-09-08] MEDS: ENALAPRIL MALEATE 5 MG TAB PO (09:00)
[2017-09-08 14:18] LABS: BEDSIDE GLUCOSE 174 MG/DL (83-110)
[2017-09-08 17:03] LABS: BEDSIDE GLUCOSE 105 MG/DL (83-110)
[2017-09-08] MEDS: RIVAROXABAN 10 MG TAB (XARELTO) PO (17:28)
[2017-09-08 21:05] LABS: BEDSIDE GLUCOSE 143 MG/DL (83-110)
[2017-09-08] MEDS: ATORVASTATIN 20 MG TAB PO (21:07)
[2017-09-09] MEDS: PERCOCET 5MG/325MG TAB PO ×4 (02:04→19:31)
[2017-09-09 05:37] LABS: HEMATOCRIT 38.4 % (42.0-52.0); HEMOGLOBIN 12.6 g/dl (13.5-17.5); MEAN CORPUSCULAR HEMOGLOBIN 30.4 pg (27.0-33.0); MEAN CORPUSCULAR HGB CONC 32.8 g/dl (32.0-36.5); MEAN CORPUSCULAR VOLUME 92.5 fl (80.0-96.0); PLATELET COUNT, AUTOMATED 197 10^3/uL (150-450); RED BLOOD COUNT 4.15 10^6/uL (4.30-6.10); RED CELL DISTRIBUTION WIDTH 14.4 % (11.5-14.5); WHITE BLOOD COUNT 8.4 10^3/uL (4.0-10.0)
[2017-09-09 05:57] LABS: ANION GAP 8 MEQ/L (8-16); BLOOD UREA NITROGEN 45 MG/DL (7-18); CALCIUM LEVEL 8.7 MG/DL (8.8-10.2); CARBON DIOXIDE LEVEL 29 MEQ/L (21-32); CHLORIDE LEVEL 102 MEQ/L (98-107); CREATININE FOR GFR 1.34 MG/DL (0.70-1.30); GLOMERULAR FILTRATION RATE 55.3 (>42); GLUCOSE, FASTING 93 MG/DL (70-100); SODIUM LEVEL 139 MEQ/L (136-145)
[2017-09-09] MEDS: SLF 3 ML SYR IV ×3 (06:18→20:48)
[2017-09-09] MEDS: HumaLOG INSULIN (NovoLOG) PER UNIT SC ×4 (07:30→20:47)
[2017-09-09] MEDS: MOM 30ML SUSPENSION UDC PO (08:22)
[2017-09-09] MEDS: MAGNESIUM CHLORIDE 64 MG TABCR (SLO MAG) PO ×2 (08:23→20:44)
[2017-09-09] MEDS: LEVEMIR (INSULIN DETEMIR) 1 UNITS/0.01ML SC ×2 (08:23→20:48)
[2017-09-09] MEDS: NYSTATIN 100,000 UNITS/GM TOPICAL PWD 15 GM TOP ×2 (08:23→20:43)
[2017-09-09] MEDS: MIRALAX *UNIT DOSE* 17GM PACKET PO (08:23)
[2017-09-09] MEDS: DOCUSATE SODIUM 100 MG CAP PO ×2 (08:24→20:43)
[2017-09-09] MEDS: PANTOPRAZOLE 40MG TAB (PROTONIX) PO (08:24)
[2017-09-09] MEDS: FUROSEMIDE 20 MG TAB PO (08:24)
[2017-09-09] MEDS: ENALAPRIL MALEATE 5 MG TAB PO (08:24)
[2017-09-09] MEDS: AMIODARONE 200 MG TAB (PACERONE) PO (08:24)
[2017-09-09] MEDS: oxyBUTYnin *DITROPAN XL* 5 MG TABCR PO (08:25)
[2017-09-09] MEDS: VITAMIN D 1,000 INTERNATIONAL UNITS TABLET PO (08:25)
[2017-09-09] MEDS: SENOKOT S TAB PO ×2 (08:25→20:43)
[2017-09-09] MEDS: METOPROLOL TART 25 MG TABLET PO ×2 (08:26→20:43)
[2017-09-09 11:51] LABS: BEDSIDE GLUCOSE 118 MG/DL (83-110)
[2017-09-09 17:14] LABS: BEDSIDE GLUCOSE 82 MG/DL (83-110)
[2017-09-09] MEDS: RIVAROXABAN 10 MG TAB (XARELTO) PO (18:12)
[2017-09-09 20:25] LABS: BEDSIDE GLUCOSE 106 MG/DL (83-110)
[2017-09-09] MEDS: ATORVASTATIN 20 MG TAB PO (20:43)
[2017-09-10] MEDS: PERCOCET 5MG/325MG TAB PO ×5 (00:09→22:54)
[2017-09-10] MEDS: SLF 3 ML SYR IV ×3 (04:21→20:53)
[2017-09-10 06:22] LABS: HEMATOCRIT 37.9 % (42.0-52.0); HEMOGLOBIN 12.5 g/dl (13.5-17.5); PLATELET COUNT, AUTOMATED 226 10^3/uL (150-450); RED BLOOD COUNT 4.03 10^6/uL (4.30-6.10); RED CELL DISTRIBUTION WIDTH 14.4 % (11.5-14.5); WHITE BLOOD COUNT 6.7 10^3/uL (4.0-10.0)
[2017-09-10 06:29] LABS: ANION GAP 7 MEQ/L (8-16); BLOOD UREA NITROGEN 45 MG/DL (7-18); CALCIUM LEVEL 8.4 MG/DL (8.8-10.2); CARBON DIOXIDE LEVEL 32 MEQ/L (21-32); CHLORIDE LEVEL 102 MEQ/L (98-107); CREATININE FOR GFR 1.41 MG/DL (0.70-1.30); GLOMERULAR FILTRATION RATE 52.2 (>42); GLUCOSE, FASTING 79 MG/DL (70-100); POTASSIUM SERUM 4.1 MEQ/L (3.5-5.1); SODIUM LEVEL 141 MEQ/L (136-145)
[2017-09-10] MEDS: HumaLOG INSULIN (NovoLOG) PER UNIT SC ×4 (07:23→21:00)
[2017-09-10] MEDS: MAGNESIUM CHLORIDE 64 MG TABCR (SLO MAG) PO ×2 (08:31→20:55)
[2017-09-10] MEDS: NYSTATIN 100,000 UNITS/GM TOPICAL PWD 15 GM TOP ×2 (08:31→20:52)
[2017-09-10] MEDS: LEVEMIR (INSULIN DETEMIR) 1 UNITS/0.01ML SC ×2 (08:32→20:52)
[2017-09-10] MEDS: MIRALAX *UNIT DOSE* 17GM PACKET PO (08:32)
[2017-09-10] MEDS: oxyBUTYnin *DITROPAN XL* 5 MG TABCR PO (08:32)
[2017-09-10] MEDS: ENALAPRIL MALEATE 5 MG TAB PO (08:32)
[2017-09-10] MEDS: MOM 30ML SUSPENSION UDC PO (08:32)
[2017-09-10] MEDS: SENOKOT S TAB PO ×2 (08:33→20:50)
[2017-09-10] MEDS: VITAMIN D 1,000 INTERNATIONAL UNITS TABLET PO (08:33)
[2017-09-10] MEDS: DOCUSATE SODIUM 100 MG CAP PO ×2 (08:33→20:50)
[2017-09-10] MEDS: PANTOPRAZOLE 40MG TAB (PROTONIX) PO (08:33)
[2017-09-10] MEDS: FUROSEMIDE 20 MG TAB PO (08:33)
[2017-09-10] MEDS: AMIODARONE 200 MG TAB (PACERONE) PO (08:33)
[2017-09-10] MEDS: METOPROLOL TART 25 MG TABLET PO ×2 (08:34→20:51)
[2017-09-10 11:31] LABS: BEDSIDE GLUCOSE 121 MG/DL (83-110)
[2017-09-10] MEDS: RIVAROXABAN 10 MG TAB (XARELTO) PO (17:37)
[2017-09-10 17:51] LABS: BEDSIDE GLUCOSE 108 MG/DL (83-110)
[2017-09-10 20:45] LABS: BEDSIDE GLUCOSE 146 MG/DL (83-110)
[2017-09-10] MEDS: ATORVASTATIN 20 MG TAB PO (20:50)
[2017-09-11] MEDS: PERCOCET 5MG/325MG TAB PO ×3 (04:36→22:16)
[2017-09-11 05:19] LABS: HEMATOCRIT 37.8 % (42.0-52.0); HEMOGLOBIN 12.3 g/dl (13.5-17.5); MEAN CORPUSCULAR HEMOGLOBIN 30.5 pg (27.0-33.0); MEAN CORPUSCULAR HGB CONC 32.5 g/dl (32.0-36.5); MEAN CORPUSCULAR VOLUME 93.8 fl (80.0-96.0); PLATELET COUNT, AUTOMATED 267 10^3/uL (150-450); RED BLOOD COUNT 4.03 10^6/uL (4.30-6.10); RED CELL DISTRIBUTION WIDTH 14.2 % (11.5-14.5); WHITE BLOOD COUNT 6.1 10^3/uL (4.0-10.0)
[2017-09-11] MEDS: SLF 3 ML SYR IV ×3 (05:29→22:15)
[2017-09-11 05:34] LABS: ANION GAP 8 MEQ/L (8-16); BLOOD UREA NITROGEN 41 MG/DL (7-18); CALCIUM LEVEL 8.3 MG/DL (8.8-10.2); CARBON DIOXIDE LEVEL 31 MEQ/L (21-32); CHLORIDE LEVEL 102 MEQ/L (98-107); CREATININE FOR GFR 1.21 MG/DL (0.70-1.30); GLOMERULAR FILTRATION RATE > 60.0 (>42); GLUCOSE, FASTING 67 MG/DL (70-100); POTASSIUM SERUM 3.9 MEQ/L (3.5-5.1); SODIUM LEVEL 141 MEQ/L (136-145)
[2017-09-11] MEDS: HumaLOG INSULIN (NovoLOG) PER UNIT SC ×4 (07:30→22:12)
[2017-09-11] MEDS: DOCUSATE SODIUM 100 MG CAP PO ×2 (09:00→22:12)
[2017-09-11] MEDS: MIRALAX *UNIT DOSE* 17GM PACKET PO (09:00)
[2017-09-11] MEDS: VITAMIN D 1,000 INTERNATIONAL UNITS TABLET PO (09:28)
[2017-09-11] MEDS: MOM 30ML SUSPENSION UDC PO (09:28)
[2017-09-11] MEDS: LEVEMIR (INSULIN DETEMIR) 1 UNITS/0.01ML SC ×2 (09:29→22:13)
[2017-09-11] MEDS: NYSTATIN 100,000 UNITS/GM TOPICAL PWD 15 GM TOP ×2 (09:29→22:14)
[2017-09-11] MEDS: oxyBUTYnin *DITROPAN XL* 5 MG TABCR PO (09:29)
[2017-09-11] MEDS: FUROSEMIDE 20 MG TAB PO (09:30)
[2017-09-11] MEDS: PANTOPRAZOLE 40MG TAB (PROTONIX) PO (09:30)
[2017-09-11] MEDS: SENOKOT S TAB PO ×2 (09:30→22:12)
[2017-09-11] MEDS: AMIODARONE 200 MG TAB (PACERONE) PO (09:32)
[2017-09-11] MEDS: ENALAPRIL MALEATE 5 MG TAB PO (09:33)
[2017-09-11] MEDS: METOPROLOL TART 25 MG TABLET PO ×2 (09:33→22:09)
[2017-09-11] MEDS: MAGNESIUM CHLORIDE 64 MG TABCR (SLO MAG) PO ×3 (09:36→22:11)
[2017-09-11 12:18] LABS: BEDSIDE GLUCOSE 106 MG/DL (83-110)
[2017-09-11 17:31] LABS: BEDSIDE GLUCOSE 130 MG/DL (83-110)
[2017-09-11] MEDS: RIVAROXABAN 10 MG TAB (XARELTO) PO (18:22)
[2017-09-11 20:36] LABS: BEDSIDE GLUCOSE 91 MG/DL (83-110)
[2017-09-11] MEDS: ATORVASTATIN 20 MG TAB PO (22:10)
[2017-09-12 05:11] LABS: HEMATOCRIT 37.5 % (42.0-52.0); HEMOGLOBIN 12.4 g/dl (13.5-17.5); MEAN CORPUSCULAR HEMOGLOBIN 30.2 pg (27.0-33.0); MEAN CORPUSCULAR HGB CONC 33.1 g/dl (32.0-36.5); MEAN CORPUSCULAR VOLUME 91.5 fl (80.0-96.0); PLATELET COUNT, AUTOMATED 301 10^3/uL (150-450); RED CELL DISTRIBUTION WIDTH 14.1 % (11.5-14.5); WHITE BLOOD COUNT 6.9 10^3/uL (4.0-10.0)
[2017-09-12 05:28] LABS: ANION GAP 9 MEQ/L (8-16); BLOOD UREA NITROGEN 40 MG/DL (7-18); CALCIUM LEVEL 8.4 MG/DL (8.8-10.2); CARBON DIOXIDE LEVEL 27 MEQ/L (21-32); CHLORIDE LEVEL 104 MEQ/L (98-107); CREATININE FOR GFR 1.23 MG/DL (0.70-1.30); GLOMERULAR FILTRATION RATE > 60.0 (>42); GLUCOSE, FASTING 99 MG/DL (70-100); SODIUM LEVEL 140 MEQ/L (136-145)
[2017-09-12] MEDS: SLF 3 ML SYR IV ×3 (06:07→20:55)
[2017-09-12] MEDS: HumaLOG INSULIN (NovoLOG) PER UNIT SC ×4 (07:30→20:54)
[2017-09-12] MEDS: MIRALAX *UNIT DOSE* 17GM PACKET PO (09:00)
[2017-09-12] MEDS: MOM 30ML SUSPENSION UDC PO (09:00)
[2017-09-12] MEDS: MAGNESIUM CHLORIDE 64 MG TABCR (SLO MAG) PO ×2 (09:44→20:54)
[2017-09-12] MEDS: METOPROLOL TART 25 MG TABLET PO ×2 (09:45→20:53)
[2017-09-12] MEDS: ENALAPRIL MALEATE 5 MG TAB PO (09:45)
[2017-09-12] MEDS: SENOKOT S TAB PO ×2 (09:45→20:52)
[2017-09-12] MEDS: PANTOPRAZOLE 40MG TAB (PROTONIX) PO (09:45)
[2017-09-12] MEDS: DOCUSATE SODIUM 100 MG CAP PO ×2 (09:46→20:52)
[2017-09-12] MEDS: VITAMIN D 1,000 INTERNATIONAL UNITS TABLET PO (09:46)
[2017-09-12] MEDS: FUROSEMIDE 20 MG TAB PO (09:46)
[2017-09-12] MEDS: AMIODARONE 200 MG TAB (PACERONE) PO (09:46)
[2017-09-12] MEDS: oxyBUTYnin *DITROPAN XL* 5 MG TABCR PO (09:47)
[2017-09-12] MEDS: LEVEMIR (INSULIN DETEMIR) 1 UNITS/0.01ML SC ×2 (09:47→20:55)
[2017-09-12] MEDS: NYSTATIN 100,000 UNITS/GM TOPICAL PWD 15 GM TOP ×2 (09:52→20:54)
[2017-09-12 11:47] LABS: BEDSIDE GLUCOSE 147 MG/DL (83-110)
[2017-09-12] MEDS: PERCOCET 5MG/325MG TAB PO ×3 (12:16→20:54)
[2017-09-12 17:07] LABS: BEDSIDE GLUCOSE 108 MG/DL (83-110)
[2017-09-12] MEDS: RIVAROXABAN 10 MG TAB (XARELTO) PO (17:31)
[2017-09-12 20:37] LABS: BEDSIDE GLUCOSE 128 MG/DL (83-110)
[2017-09-12] MEDS: ATORVASTATIN 20 MG TAB PO (20:52)
[2017-09-13] MEDS ORDERED: UNRESOLVED CLARIFICATION ENTRY XX (00:01)
[2017-09-13 05:06] LABS: HEMATOCRIT 37.1 % (42.0-52.0); HEMOGLOBIN 12.3 g/dl (13.5-17.5); MEAN CORPUSCULAR HEMOGLOBIN 30.2 pg (27.0-33.0); MEAN CORPUSCULAR HGB CONC 33.2 g/dl (32.0-36.5); MEAN CORPUSCULAR VOLUME 91.2 fl (80.0-96.0); PLATELET COUNT, AUTOMATED 313 10^3/uL (150-450); RED BLOOD COUNT 4.07 10^6/uL (4.30-6.10); RED CELL DISTRIBUTION WIDTH 14.1 % (11.5-14.5); WHITE BLOOD COUNT 6.1 10^3/uL (4.0-10.0)
[2017-09-13 05:21] LABS: ANION GAP 8 MEQ/L (8-16); BLOOD UREA NITROGEN 39 MG/DL (7-18); CALCIUM LEVEL 8.1 MG/DL (8.8-10.2); CARBON DIOXIDE LEVEL 29 MEQ/L (21-32); CHLORIDE LEVEL 105 MEQ/L (98-107); CREATININE FOR GFR 1.34 MG/DL (0.70-1.30); GLOMERULAR FILTRATION RATE 55.3 (>42); GLUCOSE, FASTING 106 MG/DL (70-100); POTASSIUM SERUM 3.7 MEQ/L (3.5-5.1); SODIUM LEVEL 142 MEQ/L (136-145)
[2017-09-13] MEDS: SLF 3 ML SYR IV ×3 (05:34→20:18)
[2017-09-13] MEDS: PERCOCET 5MG/325MG TAB PO ×2 (07:38→16:39)
[2017-09-13] MEDS: MIRALAX *UNIT DOSE* 17GM PACKET PO (09:15)
[2017-09-13] MEDS: DOCUSATE SODIUM 100 MG CAP PO ×2 (09:16→20:17)
[2017-09-13] MEDS: LEVEMIR (INSULIN DETEMIR) 1 UNITS/0.01ML SC ×2 (09:16→20:16)
[2017-09-13] MEDS: AMIODARONE 200 MG TAB (PACERONE) PO (09:16)
[2017-09-13] MEDS: FUROSEMIDE 20 MG TAB PO (09:17)
[2017-09-13] MEDS: oxyBUTYnin *DITROPAN XL* 5 MG TABCR PO (09:17)
[2017-09-13] MEDS: METOPROLOL TART 25 MG TABLET PO ×2 (09:17→20:17)
[2017-09-13] MEDS: SENOKOT S TAB PO ×2 (09:17→20:17)
[2017-09-13] MEDS: MOM 30ML SUSPENSION UDC PO (09:18)
[2017-09-13] MEDS: VITAMIN D 1,000 INTERNATIONAL UNITS TABLET PO (09:18)
[2017-09-13] MEDS: PANTOPRAZOLE 40MG TAB (PROTONIX) PO (09:18)
[2017-09-13] MEDS: ENALAPRIL MALEATE 5 MG TAB PO (09:18)
[2017-09-13] MEDS: HumaLOG INSULIN (NovoLOG) PER UNIT SC ×4 (09:19→20:17)
[2017-09-13] MEDS: MAGNESIUM CHLORIDE 64 MG TABCR (SLO MAG) PO ×2 (09:19→20:16)
[2017-09-13] MEDS: NYSTATIN 100,000 UNITS/GM TOPICAL PWD 15 GM TOP ×2 (09:20→20:18)
[2017-09-13 11:34] LABS: BEDSIDE GLUCOSE 117 MG/DL (83-110)
[2017-09-13] MEDS: ACETAMINOPHEN 500 MG TAB PO ×2 (12:38→21:46)
[2017-09-13 17:09] LABS: BEDSIDE GLUCOSE 95 MG/DL (83-110)
[2017-09-13] MEDS: RIVAROXABAN 10 MG TAB (XARELTO) PO (17:25)
[2017-09-13 20:09] LABS: BEDSIDE GLUCOSE 149 MG/DL (83-110)
[2017-09-13] MEDS: ATORVASTATIN 20 MG TAB PO (20:17)
[2017-09-14] MEDS: SLF 3 ML SYR IV ×3 (05:32→20:37)
[2017-09-14 05:40] LABS: HEMATOCRIT 36.4 % (42.0-52.0); HEMOGLOBIN 12.2 g/dl (13.5-17.5); MEAN CORPUSCULAR HEMOGLOBIN 30.5 pg (27.0-33.0); MEAN CORPUSCULAR HGB CONC 33.5 g/dl (32.0-36.5); PLATELET COUNT, AUTOMATED 347 10^3/uL (150-450); RED CELL DISTRIBUTION WIDTH 14.3 % (11.5-14.5)
[2017-09-14 06:00] LABS: ANION GAP 9 MEQ/L (8-16); BLOOD UREA NITROGEN 35 MG/DL (7-18); CALCIUM LEVEL 8.7 MG/DL (8.8-10.2); CARBON DIOXIDE LEVEL 28 MEQ/L (21-32); CHLORIDE LEVEL 105 MEQ/L (98-107); GLOMERULAR FILTRATION RATE 57.3 (>42); GLUCOSE, FASTING 83 MG/DL (70-100); POTASSIUM SERUM 3.9 MEQ/L (3.5-5.1); SODIUM LEVEL 142 MEQ/L (136-145)
[2017-09-14] MEDS: HumaLOG INSULIN (NovoLOG) PER UNIT SC ×4 (07:30→20:38)
[2017-09-14] MEDS: PERCOCET 5MG/325MG TAB PO (08:37)
[2017-09-14] MEDS: LEVEMIR (INSULIN DETEMIR) 1 UNITS/0.01ML SC ×2 (08:52→20:39)
[2017-09-14] MEDS: NYSTATIN 100,000 UNITS/GM TOPICAL PWD 15 GM TOP ×2 (08:52→20:36)
[2017-09-14] MEDS: oxyBUTYnin *DITROPAN XL* 5 MG TABCR PO (08:52)
[2017-09-14] MEDS: ENALAPRIL MALEATE 5 MG TAB PO (08:53)
[2017-09-14] MEDS: SENOKOT S TAB PO ×2 (08:53→20:37)
[2017-09-14] MEDS: VITAMIN D 1,000 INTERNATIONAL UNITS TABLET PO (08:53)
[2017-09-14] MEDS: DOCUSATE SODIUM 100 MG CAP PO ×2 (08:53→20:37)
[2017-09-14] MEDS: PANTOPRAZOLE 40MG TAB (PROTONIX) PO (08:53)
[2017-09-14] MEDS: AMIODARONE 200 MG TAB (PACERONE) PO (08:53)
[2017-09-14] MEDS: FUROSEMIDE 20 MG TAB PO (08:53)
[2017-09-14] MEDS: MOM 30ML SUSPENSION UDC PO (08:54)
[2017-09-14] MEDS: METOPROLOL TART 25 MG TABLET PO (08:54)
[2017-09-14] MEDS: MIRALAX *UNIT DOSE* 17GM PACKET PO (08:54)
[2017-09-14] MEDS: MAGNESIUM CHLORIDE 64 MG TABCR (SLO MAG) PO ×2 (09:00→20:40)
[2017-09-14 09:57] LABS: MAGNESIUM LEVEL 2.4 MG/DL (1.8-2.4)
[2017-09-14 11:39] LABS: BEDSIDE GLUCOSE 116 MG/DL (83-110)
[2017-09-14] MEDS: ACETAMINOPHEN 500 MG TAB PO (15:22)
[2017-09-14 16:59] LABS: BEDSIDE GLUCOSE 70 MG/DL (83-110)
[2017-09-14] MEDS: RIVAROXABAN 10 MG TAB (XARELTO) PO (17:23)
[2017-09-14 19:58] LABS: BEDSIDE GLUCOSE 132 MG/DL (83-110)
[2017-09-14] MEDS: ATORVASTATIN 20 MG TAB PO (20:37)
[2017-09-14] MEDS: METOPROLOL TART 12.5 MG PER 1/2 TAB PO (20:38)
[2017-09-15 06:27] LABS: HEMATOCRIT 35.5 % (42.0-52.0); HEMOGLOBIN 11.9 g/dl (13.5-17.5); MEAN CORPUSCULAR HEMOGLOBIN 30.6 pg (27.0-33.0); MEAN CORPUSCULAR HGB CONC 33.5 g/dl (32.0-36.5); MEAN CORPUSCULAR VOLUME 91.3 fl (80.0-96.0); PLATELET COUNT, AUTOMATED 332 10^3/uL (150-450); RED BLOOD COUNT 3.89 10^6/uL (4.30-6.10); RED CELL DISTRIBUTION WIDTH 14.5 % (11.5-14.5)
[2017-09-15 06:43] LABS: ANION GAP 8 MEQ/L (8-16); BLOOD UREA NITROGEN 33 MG/DL (7-18); CALCIUM LEVEL 8.5 MG/DL (8.8-10.2); CARBON DIOXIDE LEVEL 28 MEQ/L (21-32); CHLORIDE LEVEL 105 MEQ/L (98-107); CREATININE FOR GFR 1.28 MG/DL (0.70-1.30); GLOMERULAR FILTRATION RATE 58.3 (>42); GLUCOSE, FASTING 107 MG/DL (70-100); SODIUM LEVEL 141 MEQ/L (136-145)
[2017-09-15 08:12] LABS: MAGNESIUM LEVEL 2.3 MG/DL (1.8-2.4)
[2017-09-15] MEDS: MOM 30ML SUSPENSION UDC PO (08:13)
[2017-09-15] MEDS: HumaLOG INSULIN (NovoLOG) PER UNIT SC ×4 (08:14→20:41)
[2017-09-15] MEDS: LEVEMIR (INSULIN DETEMIR) 1 UNITS/0.01ML SC ×2 (08:14→20:40)
[2017-09-15] MEDS: MIRALAX *UNIT DOSE* 17GM PACKET PO (08:14)
[2017-09-15] MEDS: SLF 3 ML SYR IV ×3 (08:14→20:42)
[2017-09-15] MEDS: ENALAPRIL MALEATE 5 MG TAB PO (08:15)
[2017-09-15] MEDS: DOCUSATE SODIUM 100 MG CAP PO ×2 (08:15→20:41)
[2017-09-15] MEDS: FUROSEMIDE 20 MG TAB PO (08:16)
[2017-09-15] MEDS: METOPROLOL TART 12.5 MG PER 1/2 TAB PO ×2 (08:16→20:39)
[2017-09-15] MEDS: SENOKOT S TAB PO ×2 (08:16→20:41)
[2017-09-15] MEDS: PANTOPRAZOLE 40MG TAB (PROTONIX) PO (08:16)
[2017-09-15] MEDS: oxyBUTYnin *DITROPAN XL* 5 MG TABCR PO (08:16)
[2017-09-15] MEDS: VITAMIN D 1,000 INTERNATIONAL UNITS TABLET PO (08:17)
[2017-09-15] MEDS: MAGNESIUM CHLORIDE 64 MG TABCR (SLO MAG) PO ×2 (08:17→20:39)
[2017-09-15] MEDS: AMIODARONE 200 MG TAB (PACERONE) PO (08:17)
[2017-09-15] MEDS: NYSTATIN 100,000 UNITS/GM TOPICAL PWD 15 GM TOP ×2 (08:18→20:41)
[2017-09-15 11:48] LABS: BEDSIDE GLUCOSE 111 MG/DL (83-110)
[2017-09-15] MEDS: PERCOCET 5MG/325MG TAB PO ×2 (12:12→20:40)
[2017-09-15 17:15] LABS: BEDSIDE GLUCOSE 93 MG/DL (83-110)
[2017-09-15] MEDS: RIVAROXABAN 10 MG TAB (XARELTO) PO (18:46)
[2017-09-15 20:01] LABS: BEDSIDE GLUCOSE 148 MG/DL (83-110)
[2017-09-15] MEDS: ATORVASTATIN 20 MG TAB PO (20:40)
[2017-09-16 05:32] LABS: HEMATOCRIT 35.8 % (42.0-52.0); HEMOGLOBIN 11.9 g/dl (13.5-17.5); MEAN CORPUSCULAR HEMOGLOBIN 30.8 pg (27.0-33.0); MEAN CORPUSCULAR HGB CONC 33.2 g/dl (32.0-36.5); MEAN CORPUSCULAR VOLUME 92.7 fl (80.0-96.0); PLATELET COUNT, AUTOMATED 334 10^3/uL (150-450); RED BLOOD COUNT 3.86 10^6/uL (4.30-6.10); RED CELL DISTRIBUTION WIDTH 14.6 % (11.5-14.5); WHITE BLOOD COUNT 6.9 10^3/uL (4.0-10.0)
[2017-09-16] MEDS: SLF 3 ML SYR IV ×3 (05:32→20:11)
[2017-09-16 05:45] LABS: ANION GAP 9 MEQ/L (8-16); BLOOD UREA NITROGEN 33 MG/DL (7-18); CALCIUM LEVEL 8.4 MG/DL (8.8-10.2); CARBON DIOXIDE LEVEL 28 MEQ/L (21-32); CHLORIDE LEVEL 104 MEQ/L (98-107); GLOMERULAR FILTRATION RATE 52.6 (>42); GLUCOSE, FASTING 93 MG/DL (70-100); MAGNESIUM LEVEL 2.4 MG/DL (1.8-2.4); POTASSIUM SERUM 3.8 MEQ/L (3.5-5.1); SODIUM LEVEL 141 MEQ/L (136-145)
[2017-09-16] MEDS: HumaLOG INSULIN (NovoLOG) PER UNIT SC ×4 (07:30→20:10)
[2017-09-16] MEDS: MOM 30ML SUSPENSION UDC PO (08:40)
[2017-09-16] MEDS: oxyBUTYnin *DITROPAN XL* 5 MG TABCR PO (08:40)
[2017-09-16] MEDS: ACETAMINOPHEN 500 MG TAB PO ×2 (08:40→14:52)
[2017-09-16] MEDS: AMIODARONE 200 MG TAB (PACERONE) PO (08:41)
[2017-09-16] MEDS: DOCUSATE SODIUM 100 MG CAP PO ×2 (08:41→20:10)
[2017-09-16] MEDS: PANTOPRAZOLE 40MG TAB (PROTONIX) PO (08:41)
[2017-09-16] MEDS: ENALAPRIL MALEATE 5 MG TAB PO (08:41)
[2017-09-16] MEDS: METOPROLOL TART 12.5 MG PER 1/2 TAB PO ×2 (08:41→20:10)
[2017-09-16] MEDS: VITAMIN D 1,000 INTERNATIONAL UNITS TABLET PO (08:41)
[2017-09-16] MEDS: SENOKOT S TAB PO ×2 (08:42→20:10)
[2017-09-16] MEDS: LEVEMIR (INSULIN DETEMIR) 1 UNITS/0.01ML SC ×2 (08:42→20:11)
[2017-09-16] MEDS: TAMSULOSIN 0.4 MG CAP PO (08:42)
[2017-09-16] MEDS: MAGNESIUM CHLORIDE 64 MG TABCR (SLO MAG) PO ×2 (08:42→20:10)
[2017-09-16] MEDS: NYSTATIN 100,000 UNITS/GM TOPICAL PWD 15 GM TOP ×2 (08:46→20:05)
[2017-09-16] MEDS: MIRALAX *UNIT DOSE* 17GM PACKET PO (09:00)
[2017-09-16 11:28] LABS: BEDSIDE GLUCOSE 149 MG/DL (83-110)
[2017-09-16 16:55] LABS: BEDSIDE GLUCOSE 105 MG/DL (83-110)
[2017-09-16] MEDS: RIVAROXABAN 10 MG TAB (XARELTO) PO (17:56)
[2017-09-16 19:55] LABS: BEDSIDE GLUCOSE 108 MG/DL (83-110)
[2017-09-16] MEDS: ATORVASTATIN 20 MG TAB PO (20:07)
[2017-09-17] MEDS: ACETAMINOPHEN 500 MG TAB PO ×2 (03:38→14:54)
[2017-09-17 05:14] LABS: HEMOGLOBIN 12.1 g/dl (13.5-17.5); MEAN CORPUSCULAR HEMOGLOBIN 31.3 pg (27.0-33.0); MEAN CORPUSCULAR HGB CONC 33.6 g/dl (32.0-36.5); PLATELET COUNT, AUTOMATED 322 10^3/uL (150-450); RED BLOOD COUNT 3.87 10^6/uL (4.30-6.10); RED CELL DISTRIBUTION WIDTH 14.4 % (11.5-14.5); WHITE BLOOD COUNT 5.8 10^3/uL (4.0-10.0)
[2017-09-17 05:40] LABS: ANION GAP 9 MEQ/L (8-16); BLOOD UREA NITROGEN 31 MG/DL (7-18); CALCIUM LEVEL 8.6 MG/DL (8.8-10.2); CARBON DIOXIDE LEVEL 27 MEQ/L (21-32); CHLORIDE LEVEL 105 MEQ/L (98-107); CREATININE FOR GFR 1.34 MG/DL (0.70-1.30); GLOMERULAR FILTRATION RATE 55.3 (>42); GLUCOSE, FASTING 76 MG/DL (70-100); SODIUM LEVEL 141 MEQ/L (136-145)
[2017-09-17 05:40] LABS: MAGNESIUM LEVEL 2.6 MG/DL (1.8-2.4)
[2017-09-17] MEDS: SLF 3 ML SYR IV (06:00)
[2017-09-17] MEDS: HumaLOG INSULIN (NovoLOG) PER UNIT SC ×4 (07:30→21:00)
[2017-09-17] MEDS: DOCUSATE SODIUM 100 MG CAP PO ×2 (09:00→21:24)
[2017-09-17] MEDS: SENOKOT S TAB PO ×2 (09:00→21:24)
[2017-09-17] MEDS: MOM 30ML SUSPENSION UDC PO (09:00)
[2017-09-17] MEDS: MIRALAX *UNIT DOSE* 17GM PACKET PO (09:00)
[2017-09-17] MEDS: VITAMIN D 1,000 INTERNATIONAL UNITS TABLET PO (10:30)
[2017-09-17] MEDS: PANTOPRAZOLE 40MG TAB (PROTONIX) PO (10:30)
[2017-09-17] MEDS: TAMSULOSIN 0.4 MG CAP PO (10:31)
[2017-09-17] MEDS: AMIODARONE 200 MG TAB (PACERONE) PO (10:31)
[2017-09-17] MEDS: oxyBUTYnin *DITROPAN XL* 5 MG TABCR PO (10:31)
[2017-09-17] MEDS: ENALAPRIL MALEATE 5 MG TAB PO (10:31)
[2017-09-17] MEDS: METOPROLOL TART 12.5 MG PER 1/2 TAB PO ×2 (10:33→21:00)
[2017-09-17] MEDS: PERCOCET 5MG/325MG TAB PO ×3 (10:33→22:06)
[2017-09-17] MEDS: LEVEMIR (INSULIN DETEMIR) 1 UNITS/0.01ML SC ×2 (10:34→22:06)
[2017-09-17] MEDS: FUROSEMIDE 20 MG TAB PO (10:46)
[2017-09-17 11:50] LABS: BEDSIDE GLUCOSE 106 MG/DL (83-110)
[2017-09-17] MEDS: NYSTATIN 100,000 UNITS/GM TOPICAL PWD 15 GM TOP ×2 (12:14→22:13)
[2017-09-17 16:47] LABS: BEDSIDE GLUCOSE 126 MG/DL (83-110)
[2017-09-17] MEDS: RIVAROXABAN 10 MG TAB (XARELTO) PO (17:26)
[2017-09-17 21:31] LABS: BEDSIDE GLUCOSE 132 MG/DL (83-110)
[2017-09-17] MEDS: ATORVASTATIN 20 MG TAB PO (22:12)
[2017-09-18 05:16] LABS: BEDSIDE GLUCOSE 92 MG/DL (83-110)
[2017-09-18 06:38] LABS: MAGNESIUM LEVEL 2.5 MG/DL (1.8-2.4)
[2017-09-18] MEDS: HumaLOG INSULIN (NovoLOG) PER UNIT SC ×4 (07:30→21:48)
[2017-09-18 08:19] LABS: BASO # 0.1 10^3/uL (0.0-0.2); BASO % 0.9 % (0.0-1.0); EOS # 0.2 10^3/uL (0.0-0.50); EOS % 3.5 % (0.0-3.0); HEMATOCRIT 35.4 % (42.0-52.0); HEMOGLOBIN 11.5 g/dl (13.5-17.5); IMMATURE GRANULOCYTE % 0.9 % (0-3.0); LYMPH # 1.4 10^3/uL (1.5-4.5); MEAN CORPUSCULAR HEMOGLOBIN 30.8 pg (27.0-33.0); MEAN CORPUSCULAR HGB CONC 32.5 g/dl (32.0-36.5); MEAN CORPUSCULAR VOLUME 94.9 fl (80.0-96.0); MONO # 0.8 10^3/uL (0.0-0.8); MONO % 13.1 % (0.0-5.0); NEUTROPHILS # 3.3 10^3/uL (1.8-7.7); NEUTROPHILS % 57.6 % (36.0-66.0); PLATELET COUNT, AUTOMATED 330 10^3/uL (150-450); RED BLOOD COUNT 3.73 10^6/uL (4.30-6.10); RED CELL DISTRIBUTION WIDTH 14.6 % (11.5-14.5); WHITE BLOOD COUNT 5.7 10^3/uL (4.0-10.0)
[2017-09-18 08:20] LABS: ANION GAP 7 MEQ/L (8-16); BLOOD UREA NITROGEN 35 MG/DL (7-18); CALCIUM LEVEL 8.8 MG/DL (8.8-10.2); CARBON DIOXIDE LEVEL 29 MEQ/L (21-32); CHLORIDE LEVEL 105 MEQ/L (98-107); CREATININE FOR GFR 1.51 MG/DL (0.70-1.30); GLOMERULAR FILTRATION RATE 48.2 (>42); GLUCOSE, FASTING 83 MG/DL (70-100); POTASSIUM SERUM 3.9 MEQ/L (3.5-5.1); SODIUM LEVEL 141 MEQ/L (136-145)
[2017-09-18] MEDS: SENOKOT S TAB PO ×2 (09:00→21:47)
[2017-09-18] MEDS: DOCUSATE SODIUM 100 MG CAP PO ×2 (09:00→21:47)
[2017-09-18] MEDS: MIRALAX *UNIT DOSE* 17GM PACKET PO (09:00)
[2017-09-18] MEDS: LEVEMIR (INSULIN DETEMIR) 1 UNITS/0.01ML SC ×3 (09:00→21:47)
[2017-09-18] MEDS: ENALAPRIL MALEATE 5 MG TAB PO (09:00)
[2017-09-18] MEDS: METOPROLOL TART 12.5 MG PER 1/2 TAB PO ×2 (09:00→21:47)
[2017-09-18] MEDS: MOM 30ML SUSPENSION UDC PO (09:00)
[2017-09-18] MEDS: PERCOCET 5MG/325MG TAB PO ×2 (09:26→21:48)
[2017-09-18] MEDS: TAMSULOSIN 0.4 MG CAP PO (09:26)
[2017-09-18] MEDS: AMIODARONE 200 MG TAB (PACERONE) PO (09:27)
[2017-09-18] MEDS: VITAMIN D 1,000 INTERNATIONAL UNITS TABLET PO (09:28)
[2017-09-18] MEDS: oxyBUTYnin *DITROPAN XL* 5 MG TABCR PO (09:28)
[2017-09-18] MEDS: FUROSEMIDE 20 MG TAB PO (09:29)
[2017-09-18] MEDS: PANTOPRAZOLE 40MG TAB (PROTONIX) PO (09:29)
[2017-09-18] MEDS: NYSTATIN 100,000 UNITS/GM TOPICAL PWD 15 GM TOP ×2 (10:50→21:48)
[2017-09-18 12:05] LABS: BEDSIDE GLUCOSE 102 MG/DL (83-110)
[2017-09-18] MEDS: ACETAMINOPHEN 500 MG TAB PO (14:31)
[2017-09-18 16:37] LABS: BEDSIDE GLUCOSE 133 MG/DL (83-110)
[2017-09-18] MEDS: RIVAROXABAN 10 MG TAB (XARELTO) PO (17:43)
[2017-09-18 20:00] LABS: BEDSIDE GLUCOSE 116 MG/DL (83-110)
[2017-09-18] MEDS: ATORVASTATIN 20 MG TAB PO (21:47)
[2017-09-19 06:47] LABS: BASO # 0.1 10^3/uL (0.0-0.2); BASO % 1.3 % (0.0-1.0); EOS # 0.2 10^3/uL (0.0-0.50); EOS % 4.2 % (0.0-3.0); HEMATOCRIT 34.2 % (42.0-52.0); HEMOGLOBIN 11.5 g/dl (13.5-17.5); IMMATURE GRANULOCYTE % 0.7 % (0-3.0); LYMPH # 1.5 10^3/uL (1.5-4.5); LYMPH % 27.5 % (24.0-44.0); MEAN CORPUSCULAR HEMOGLOBIN 30.8 pg (27.0-33.0); MEAN CORPUSCULAR HGB CONC 33.6 g/dl (32.0-36.5); MEAN CORPUSCULAR VOLUME 91.7 fl (80.0-96.0); MONO # 0.7 10^3/uL (0.0-0.8); MONO % 12.8 % (0.0-5.0); NEUTROPHILS # 2.9 10^3/uL (1.8-7.7); NEUTROPHILS % 53.5 % (36.0-66.0); PLATELET COUNT, AUTOMATED 334 10^3/uL (150-450); RED BLOOD COUNT 3.73 10^6/uL (4.30-6.10); RED CELL DISTRIBUTION WIDTH 14.5 % (11.5-14.5); WHITE BLOOD COUNT 5.5 10^3/uL (4.0-10.0)
[2017-09-19 06:56] LABS: ANION GAP 9 MEQ/L (8-16); BLOOD UREA NITROGEN 32 MG/DL (7-18); CALCIUM LEVEL 8.4 MG/DL (8.8-10.2); CARBON DIOXIDE LEVEL 27 MEQ/L (21-32); CHLORIDE LEVEL 105 MEQ/L (98-107); CREATININE FOR GFR 1.58 MG/DL (0.70-1.30); GLOMERULAR FILTRATION RATE 45.7 (>42); GLUCOSE, FASTING 87 MG/DL (70-100); MAGNESIUM LEVEL 2.1 MG/DL (1.8-2.4); POTASSIUM SERUM 3.6 MEQ/L (3.5-5.1); SODIUM LEVEL 141 MEQ/L (136-145)
[2017-09-19] MEDS: HumaLOG INSULIN (NovoLOG) PER UNIT SC ×4 (07:30→21:00)
[2017-09-19] MEDS: METOPROLOL TART 12.5 MG PER 1/2 TAB PO ×2 (08:36→21:35)
[2017-09-19] MEDS: TAMSULOSIN 0.4 MG CAP PO (08:36)
[2017-09-19] MEDS: AMIODARONE 200 MG TAB (PACERONE) PO (08:37)
[2017-09-19] MEDS: VITAMIN D 1,000 INTERNATIONAL UNITS TABLET PO (08:37)
[2017-09-19] MEDS: PERCOCET 5MG/325MG TAB PO ×3 (08:37→21:36)
[2017-09-19] MEDS: ENALAPRIL MALEATE 5 MG TAB PO (08:38)
[2017-09-19] MEDS: MOM 30ML SUSPENSION UDC PO (08:38)
[2017-09-19] MEDS: PANTOPRAZOLE 40MG TAB (PROTONIX) PO (08:38)
[2017-09-19] MEDS: DOCUSATE SODIUM 100 MG CAP PO ×2 (08:38→21:00)
[2017-09-19] MEDS: oxyBUTYnin *DITROPAN XL* 5 MG TABCR PO (08:38)
[2017-09-19] MEDS: MIRALAX *UNIT DOSE* 17GM PACKET PO (08:38)
[2017-09-19] MEDS: SENOKOT S TAB PO ×2 (08:39→21:00)
[2017-09-19] MEDS: NYSTATIN 100,000 UNITS/GM TOPICAL PWD 15 GM TOP ×2 (08:39→21:39)
[2017-09-19] MEDS: LEVEMIR (INSULIN DETEMIR) 1 UNITS/0.01ML SC ×2 (10:41→21:35)
[2017-09-19 12:07] LABS: BEDSIDE GLUCOSE 107 MG/DL (83-110)
[2017-09-19 17:52] LABS: BEDSIDE GLUCOSE 95 MG/DL (83-110)
[2017-09-19] MEDS: RIVAROXABAN 10 MG TAB (XARELTO) PO (18:55)
[2017-09-19] MEDS: ATORVASTATIN 20 MG TAB PO (21:36)
[2017-09-19 21:43] LABS: BEDSIDE GLUCOSE 133 MG/DL (83-110)
[2017-09-20 06:32] LABS: BASO % 0.8 % (0.0-1.0); EOS # 0.3 10^3/uL (0.0-0.50); HEMATOCRIT 33.1 % (42.0-52.0); IMMATURE GRANULOCYTE % 0.6 % (0-3.0); LYMPH # 1.2 10^3/uL (1.5-4.5); LYMPH % 21.9 % (24.0-44.0); MEAN CORPUSCULAR HEMOGLOBIN 30.6 pg (27.0-33.0); MEAN CORPUSCULAR HGB CONC 33.2 g/dl (32.0-36.5); MEAN CORPUSCULAR VOLUME 92.2 fl (80.0-96.0); MONO # 0.6 10^3/uL (0.0-0.8); MONO % 11.6 % (0.0-5.0); NEUTROPHILS # 3.2 10^3/uL (1.8-7.7); NEUTROPHILS % 60.1 % (36.0-66.0); PLATELET COUNT, AUTOMATED 299 10^3/uL (150-450); RED BLOOD COUNT 3.59 10^6/uL (4.30-6.10); RED CELL DISTRIBUTION WIDTH 14.6 % (11.5-14.5); WHITE BLOOD COUNT 5.3 10^3/uL (4.0-10.0)
[2017-09-20 06:44] LABS: ANION GAP 8 MEQ/L (8-16); BLOOD UREA NITROGEN 29 MG/DL (7-18); CALCIUM LEVEL 8.3 MG/DL (8.8-10.2); CARBON DIOXIDE LEVEL 27 MEQ/L (21-32); CHLORIDE LEVEL 106 MEQ/L (98-107); CREATININE FOR GFR 1.46 MG/DL (0.70-1.30); GLOMERULAR FILTRATION RATE 50.1 (>42); GLUCOSE, FASTING 64 MG/DL (70-100); MAGNESIUM LEVEL 2.2 MG/DL (1.8-2.4); POTASSIUM SERUM 3.7 MEQ/L (3.5-5.1); SODIUM LEVEL 141 MEQ/L (136-145)
[2017-09-20] MEDS: HumaLOG INSULIN (NovoLOG) PER UNIT SC ×4 (07:30→22:15)
[2017-09-20] MEDS: METOPROLOL TART 12.5 MG PER 1/2 TAB PO ×2 (08:56→22:14)
[2017-09-20] MEDS: oxyBUTYnin *DITROPAN XL* 5 MG TABCR PO (08:56)
[2017-09-20] MEDS: PANTOPRAZOLE 40MG TAB (PROTONIX) PO (08:56)
[2017-09-20] MEDS: VITAMIN D 1,000 INTERNATIONAL UNITS TABLET PO (08:57)
[2017-09-20] MEDS: AMIODARONE 200 MG TAB (PACERONE) PO (08:57)
[2017-09-20] MEDS: DOCUSATE SODIUM 100 MG CAP PO ×2 (08:57→22:13)
[2017-09-20] MEDS: TAMSULOSIN 0.4 MG CAP PO (08:57)
[2017-09-20] MEDS: ENALAPRIL MALEATE 5 MG TAB PO (08:57)
[2017-09-20] MEDS: SENOKOT S TAB PO ×2 (08:57→22:13)
[2017-09-20] MEDS: MOM 30ML SUSPENSION UDC PO (08:57)
[2017-09-20] MEDS: NYSTATIN 100,000 UNITS/GM TOPICAL PWD 15 GM TOP ×2 (08:58→22:16)
[2017-09-20] MEDS: MIRALAX *UNIT DOSE* 17GM PACKET PO (08:58)
[2017-09-20] MEDS: LEVEMIR (INSULIN DETEMIR) 1 UNITS/0.01ML SC ×2 (08:59→22:15)
[2017-09-20 12:07] LABS: BEDSIDE GLUCOSE 113 MG/DL (83-110)
[2017-09-20] MEDS: ACETAMINOPHEN 500 MG TAB PO ×2 (12:27→18:44)
[2017-09-20] MEDS: RIVAROXABAN 10 MG TAB (XARELTO) PO (18:43)
[2017-09-20 18:55] LABS: BEDSIDE GLUCOSE 72 MG/DL (83-110)
[2017-09-20 21:08] LABS: BEDSIDE GLUCOSE 131 MG/DL (83-110)
[2017-09-20] MEDS: ATORVASTATIN 20 MG TAB PO (22:14)
[2017-09-20] MEDS: PERCOCET 5MG/325MG TAB PO (22:16)
[2017-09-21 07:04] LABS: BASO % 0.5 % (0.0-1.0); EOS # 0.3 10^3/uL (0.0-0.50); EOS % 5.5 % (0.0-3.0); HEMATOCRIT 35.4 % (42.0-52.0); HEMOGLOBIN 11.5 g/dl (13.5-17.5); IMMATURE GRANULOCYTE % 0.5 % (0-3.0); LYMPH # 1.3 10^3/uL (1.5-4.5); LYMPH % 22.7 % (24.0-44.0); MEAN CORPUSCULAR HEMOGLOBIN 30.9 pg (27.0-33.0); MEAN CORPUSCULAR HGB CONC 32.5 g/dl (32.0-36.5); MEAN CORPUSCULAR VOLUME 95.2 fl (80.0-96.0); MONO # 0.7 10^3/uL (0.0-0.8); MONO % 11.6 % (0.0-5.0); NEUTROPHILS # 3.3 10^3/uL (1.8-7.7); NEUTROPHILS % 59.2 % (36.0-66.0); PLATELET COUNT, AUTOMATED 291 10^3/uL (150-450); RED BLOOD COUNT 3.72 10^6/uL (4.30-6.10); RED CELL DISTRIBUTION WIDTH 14.6 % (11.5-14.5); WHITE BLOOD COUNT 5.6 10^3/uL (4.0-10.0)
[2017-09-21 07:28] LABS: ANION GAP 7 MEQ/L (8-16); BLOOD UREA NITROGEN 30 MG/DL (7-18); CALCIUM LEVEL 8.4 MG/DL (8.8-10.2); CARBON DIOXIDE LEVEL 29 MEQ/L (21-32); CHLORIDE LEVEL 106 MEQ/L (98-107); CREATININE FOR GFR 1.57 MG/DL (0.70-1.30); GLOMERULAR FILTRATION RATE 46.1 (>42); GLUCOSE, FASTING 65 MG/DL (70-100); POTASSIUM SERUM 3.7 MEQ/L (3.5-5.1); SODIUM LEVEL 142 MEQ/L (136-145)
[2017-09-21] MEDS: HumaLOG INSULIN (NovoLOG) PER UNIT SC ×4 (07:30→20:51)
[2017-09-21] MEDS: MOM 30ML SUSPENSION UDC PO (08:54)
[2017-09-21] MEDS: MIRALAX *UNIT DOSE* 17GM PACKET PO (08:54)
[2017-09-21] MEDS: METOPROLOL TART 12.5 MG PER 1/2 TAB PO ×2 (08:58→20:51)
[2017-09-21] MEDS: DOCUSATE SODIUM 100 MG CAP PO ×2 (08:58→20:51)
[2017-09-21] MEDS: oxyBUTYnin *DITROPAN XL* 5 MG TABCR PO (08:58)
[2017-09-21] MEDS: ENALAPRIL MALEATE 5 MG TAB PO (08:58)
[2017-09-21] MEDS: LEVEMIR (INSULIN DETEMIR) 1 UNITS/0.01ML SC ×2 (08:58→20:52)
[2017-09-21] MEDS: TAMSULOSIN 0.4 MG CAP PO (08:58)
[2017-09-21] MEDS: SENOKOT S TAB PO ×2 (09:00→20:51)
[2017-09-21] MEDS: AMIODARONE 200 MG TAB (PACERONE) PO (09:00)
[2017-09-21] MEDS: PANTOPRAZOLE 40MG TAB (PROTONIX) PO (09:00)
[2017-09-21] MEDS: PERCOCET 5MG/325MG TAB PO ×2 (09:01→15:54)
[2017-09-21] MEDS: VITAMIN D 1,000 INTERNATIONAL UNITS TABLET PO (09:01)
[2017-09-21] MEDS: NYSTATIN 100,000 UNITS/GM TOPICAL PWD 15 GM TOP ×2 (09:02→20:52)
[2017-09-21 12:01] LABS: BEDSIDE GLUCOSE 128 MG/DL (83-110)
[2017-09-21 17:18] LABS: BEDSIDE GLUCOSE 134 MG/DL (83-110)
[2017-09-21] MEDS: RIVAROXABAN 10 MG TAB (XARELTO) PO (18:04)
[2017-09-21 19:43] LABS: BEDSIDE GLUCOSE 105 MG/DL (83-110)
[2017-09-21] MEDS: ATORVASTATIN 20 MG TAB PO (20:51)
[2017-09-21] MEDS: ACETAMINOPHEN 500 MG TAB PO (20:52)
[2017-09-22] MEDS: HumaLOG INSULIN (NovoLOG) PER UNIT SC ×4 (07:30→21:00)
[2017-09-22 07:35] LABS: BASO # 0.1 10^3/uL (0.0-0.2); BASO % 0.9 % (0.0-1.0); EOS # 0.4 10^3/uL (0.0-0.50); EOS % 6.3 % (0.0-3.0); HEMATOCRIT 36.5 % (42.0-52.0); HEMOGLOBIN 11.9 g/dl (13.5-17.5); IMMATURE GRANULOCYTE % 0.3 % (0-3.0); LYMPH # 1.8 10^3/uL (1.5-4.5); LYMPH % 30.6 % (24.0-44.0); MEAN CORPUSCULAR HEMOGLOBIN 30.5 pg (27.0-33.0); MEAN CORPUSCULAR HGB CONC 32.6 g/dl (32.0-36.5); MEAN CORPUSCULAR VOLUME 93.6 fl (80.0-96.0); MONO # 0.8 10^3/uL (0.0-0.8); MONO % 13.8 % (0.0-5.0); NEUTROPHILS # 2.8 10^3/uL (1.8-7.7); NEUTROPHILS % 48.1 % (36.0-66.0); PLATELET COUNT, AUTOMATED 311 10^3/uL (150-450); WHITE BLOOD COUNT 5.7 10^3/uL (4.0-10.0)
[2017-09-22 07:52] LABS: ANION GAP 7 MEQ/L (8-16); BLOOD UREA NITROGEN 26 MG/DL (7-18); CALCIUM LEVEL 8.7 MG/DL (8.8-10.2); CARBON DIOXIDE LEVEL 28 MEQ/L (21-32); CHLORIDE LEVEL 107 MEQ/L (98-107); CREATININE FOR GFR 1.53 MG/DL (0.70-1.30); GLOMERULAR FILTRATION RATE 47.5 (>42); GLUCOSE, FASTING 91 MG/DL (70-100); POTASSIUM SERUM 3.8 MEQ/L (3.5-5.1); SODIUM LEVEL 142 MEQ/L (136-145)
[2017-09-22] MEDS: LEVEMIR (INSULIN DETEMIR) 1 UNITS/0.01ML SC ×2 (08:36→21:33)
[2017-09-22] MEDS: DOCUSATE SODIUM 100 MG CAP PO ×2 (08:36→21:00)
[2017-09-22] MEDS: MIRALAX *UNIT DOSE* 17GM PACKET PO (08:36)
[2017-09-22] MEDS: MOM 30ML SUSPENSION UDC PO (08:36)
[2017-09-22] MEDS: PERCOCET 5MG/325MG TAB PO ×3 (08:36→21:33)
[2017-09-22] MEDS: SENOKOT S TAB PO ×2 (08:36→21:00)
[2017-09-22] MEDS: PANTOPRAZOLE 40MG TAB (PROTONIX) PO (08:37)
[2017-09-22] MEDS: VITAMIN D 1,000 INTERNATIONAL UNITS TABLET PO (08:37)
[2017-09-22] MEDS: oxyBUTYnin *DITROPAN XL* 5 MG TABCR PO (08:37)
[2017-09-22] MEDS: TAMSULOSIN 0.4 MG CAP PO (08:37)
[2017-09-22] MEDS: AMIODARONE 200 MG TAB (PACERONE) PO (08:41)
[2017-09-22] MEDS: ENALAPRIL MALEATE 5 MG TAB PO (08:41)
[2017-09-22] MEDS: METOPROLOL TART 12.5 MG PER 1/2 TAB PO ×2 (08:41→21:35)
[2017-09-22] MEDS: NYSTATIN 100,000 UNITS/GM TOPICAL PWD 15 GM TOP ×2 (08:41→21:33)
[2017-09-22 12:20] LABS: BEDSIDE GLUCOSE 137 MG/DL (83-110)
[2017-09-22 16:57] LABS: BEDSIDE GLUCOSE 103 MG/DL (83-110)
[2017-09-22] MEDS: RIVAROXABAN 10 MG TAB (XARELTO) PO (17:54)
[2017-09-22 20:04] LABS: BEDSIDE GLUCOSE 109 MG/DL (83-110)
[2017-09-22] MEDS: ATORVASTATIN 20 MG TAB PO (21:33)
[2017-09-23 06:57] LABS: BASO % 0.4 % (0.0-1.0); EOS # 0.4 10^3/uL (0.0-0.50); EOS % 8.2 % (0.0-3.0); HEMATOCRIT 34.7 % (42.0-52.0); HEMOGLOBIN 11.2 g/dl (13.5-17.5); IMMATURE GRANULOCYTE % 0.4 % (0-3.0); LYMPH # 1.3 10^3/uL (1.5-4.5); LYMPH % 27.3 % (24.0-44.0); MEAN CORPUSCULAR HEMOGLOBIN 30.7 pg (27.0-33.0); MEAN CORPUSCULAR HGB CONC 32.3 g/dl (32.0-36.5); MEAN CORPUSCULAR VOLUME 95.1 fl (80.0-96.0); MONO # 0.7 10^3/uL (0.0-0.8); MONO % 14.2 % (0.0-5.0); NEUTROPHILS # 2.3 10^3/uL (1.8-7.7); NEUTROPHILS % 49.5 % (36.0-66.0); PLATELET COUNT, AUTOMATED 264 10^3/uL (150-450); RED BLOOD COUNT 3.65 10^6/uL (4.30-6.10); RED CELL DISTRIBUTION WIDTH 14.9 % (11.5-14.5); WHITE BLOOD COUNT 4.7 10^3/uL (4.0-10.0)
[2017-09-23 07:11] LABS: ANION GAP 6 MEQ/L (8-16); BLOOD UREA NITROGEN 23 MG/DL (7-18); CALCIUM LEVEL 8.4 MG/DL (8.8-10.2); CARBON DIOXIDE LEVEL 29 MEQ/L (21-32); CHLORIDE LEVEL 107 MEQ/L (98-107); CREATININE FOR GFR 1.51 MG/DL (0.70-1.30); GLOMERULAR FILTRATION RATE 48.2 (>42); GLUCOSE, FASTING 73 MG/DL (70-100); POTASSIUM SERUM 3.8 MEQ/L (3.5-5.1); SODIUM LEVEL 142 MEQ/L (136-145)
[2017-09-23] MEDS: HumaLOG INSULIN (NovoLOG) PER UNIT SC ×4 (07:30→21:00)
[2017-09-23] MEDS: oxyBUTYnin *DITROPAN XL* 5 MG TABCR PO (08:43)
[2017-09-23] MEDS: TAMSULOSIN 0.4 MG CAP PO (08:43)
[2017-09-23] MEDS: VITAMIN D 1,000 INTERNATIONAL UNITS TABLET PO (08:44)
[2017-09-23] MEDS: PANTOPRAZOLE 40MG TAB (PROTONIX) PO (08:44)
[2017-09-23] MEDS: ENALAPRIL MALEATE 5 MG TAB PO (08:44)
[2017-09-23] MEDS: AMIODARONE 200 MG TAB (PACERONE) PO (08:44)
[2017-09-23] MEDS: METOPROLOL TART 12.5 MG PER 1/2 TAB PO ×2 (08:44→21:46)
[2017-09-23] MEDS: LEVEMIR (INSULIN DETEMIR) 1 UNITS/0.01ML SC ×2 (08:52→21:47)
[2017-09-23] MEDS: NYSTATIN 100,000 UNITS/GM TOPICAL PWD 15 GM TOP ×2 (08:52→21:48)
[2017-09-23] MEDS: MOM 30ML SUSPENSION UDC PO (09:00)
[2017-09-23] MEDS: MIRALAX *UNIT DOSE* 17GM PACKET PO (09:00)
[2017-09-23] MEDS: DOCUSATE SODIUM 100 MG CAP PO ×2 (09:00→21:46)
[2017-09-23] MEDS: SENOKOT S TAB PO ×2 (09:00→21:46)
[2017-09-23 12:35] LABS: BEDSIDE GLUCOSE 117 MG/DL (83-110)
[2017-09-23 16:49] LABS: BEDSIDE GLUCOSE 96 MG/DL (83-110)
[2017-09-23] MEDS: RIVAROXABAN 10 MG TAB (XARELTO) PO (17:33)
[2017-09-23 20:26] LABS: BEDSIDE GLUCOSE 127 MG/DL (83-110)
[2017-09-23] MEDS ORDERED: LEVEMIR (INSULIN DETEMIR) 1 UNITS/0.01ML SC (21:00)
[2017-09-23] MEDS: ATORVASTATIN 20 MG TAB PO (21:46)
[2017-09-24 06:55] LABS: BASO % 0.8 % (0.0-1.0); EOS # 0.4 10^3/uL (0.0-0.50); EOS % 7.2 % (0.0-3.0); HEMATOCRIT 34.4 % (42.0-52.0); HEMOGLOBIN 11.1 g/dl (13.5-17.5); IMMATURE GRANULOCYTE % 0.2 % (0-3.0); LYMPH # 1.3 10^3/uL (1.5-4.5); LYMPH % 26.1 % (24.0-44.0); MEAN CORPUSCULAR HEMOGLOBIN 30.2 pg (27.0-33.0); MEAN CORPUSCULAR HGB CONC 32.3 g/dl (32.0-36.5); MEAN CORPUSCULAR VOLUME 93.7 fl (80.0-96.0); MONO # 0.7 10^3/uL (0.0-0.8); MONO % 13.5 % (0.0-5.0); NEUTROPHILS # 2.6 10^3/uL (1.8-7.7); NEUTROPHILS % 52.2 % (36.0-66.0); PLATELET COUNT, AUTOMATED 256 10^3/uL (150-450); RED BLOOD COUNT 3.67 10^6/uL (4.30-6.10); RED CELL DISTRIBUTION WIDTH 15.1 % (11.5-14.5)
[2017-09-24 07:06] LABS: ANION GAP 6 MEQ/L (8-16); BLOOD UREA NITROGEN 21 MG/DL (7-18); CALCIUM LEVEL 8.4 MG/DL (8.8-10.2); CARBON DIOXIDE LEVEL 28 MEQ/L (21-32); CHLORIDE LEVEL 110 MEQ/L (98-107); CREATININE FOR GFR 1.29 MG/DL (0.70-1.30); GLOMERULAR FILTRATION RATE 57.8 (>42); GLUCOSE, FASTING 97 MG/DL (70-100); POTASSIUM SERUM 4.1 MEQ/L (3.5-5.1); SODIUM LEVEL 144 MEQ/L (136-145)
[2017-09-24] MEDS: HumaLOG INSULIN (NovoLOG) PER UNIT SC (07:17)
[2017-09-24] MEDS: METOPROLOL TART 12.5 MG PER 1/2 TAB PO (08:45)
[2017-09-24] MEDS: TAMSULOSIN 0.4 MG CAP PO (08:45)
[2017-09-24] MEDS: VITAMIN D 1,000 INTERNATIONAL UNITS TABLET PO (08:45)
[2017-09-24] MEDS: AMIODARONE 200 MG TAB (PACERONE) PO (08:45)
[2017-09-24] MEDS: LEVEMIR (INSULIN DETEMIR) 1 UNITS/0.01ML SC (08:45)
[2017-09-24] MEDS: PANTOPRAZOLE 40MG TAB (PROTONIX) PO (08:46)
[2017-09-24] MEDS: SENOKOT S TAB PO (08:46)
[2017-09-24] MEDS: ENALAPRIL MALEATE 5 MG TAB PO (08:46)
[2017-09-24] MEDS: oxyBUTYnin *DITROPAN XL* 5 MG TABCR PO (08:46)
[2017-09-24] MEDS: NYSTATIN 100,000 UNITS/GM TOPICAL PWD 15 GM TOP (08:46)
[2017-09-24] MEDS: MIRALAX *UNIT DOSE* 17GM PACKET PO (08:46)
[2017-09-24] MEDS: MOM 30ML SUSPENSION UDC PO (08:46)
[2017-09-24] MEDS: DOCUSATE SODIUM 100 MG CAP PO (08:46)
== END 2017-09-24 11:20 | disposition home or self-care (01) | DRG 470 ==
LOC: M PCU 08-30 11:20 → M MS5PR 09-20 16:38 → M PCU 09-16 22:11 → M MS5PR 09-17 20:29 → M ED 15:02 → M ED INP 17:12
PROC: 0SRR01Z Replacement of Right Hip Joint, Femoral Surface with Metal Synthetic Substitute, Open Approach (ICD-10-PCS; principal; 2017-09-06 15:15)
DX: S72.001A Fracture of unspecified part of neck of right femur, initial encounter for closed fracture (principal); Z68.43 Body mass index [BMI] 50.0-59.9, adult; I50.22 Chronic systolic (congestive) heart failure; I13.0 Hypertensive heart and chronic kidney disease with heart failure and stage 1 through stage 4 chronic kidney disease, or unspecified chronic kidney disease; N18.3 Chronic kidney disease, stage 3 (moderate); E66.01 Morbid (severe) obesity due to excess calories; I25.10 Atherosclerotic heart disease of native coronary artery without angina pectoris; G47.33 Obstructive sleep apnea (adult) (pediatric); I25.5 Ischemic cardiomyopathy; E11.22 Type 2 diabetes mellitus with diabetic chronic kidney disease; E78.5 Hyperlipidemia, unspecified; K21.9 Gastro-esophageal reflux disease without esophagitis; E78.00 Pure hypercholesterolemia, unspecified; Z95.810 Presence of automatic (implantable) cardiac defibrillator; Z95.5 Presence of coronary angioplasty implant and graft; W10.8XXA Fall (on) (from) other stairs and steps, initial encounter; Y92.007 Garden or yard of unspecified non-institutional (private) residence as the place of occurrence of the external cause; Y93.01 Activity, walking, marching and hiking; Z79.82 Long term (current) use of aspirin; Z79.4 Long term (current) use of insulin; Z87.891 Personal history of nicotine dependence; I25.2 Old myocardial infarction; Z79.02 Long term (current) use of antithrombotics/antiplatelets; Z79.899 Other long term (current) drug therapy

== ENCOUNTER → 2017-09-27 | Outpatient (REF) | payer OTHER ==
[2017-09-27 13:30] LABS: INR 2.24; PROTHROMBIN TIME 25.2 SECONDS (12.1-14.4)
== END ==
LOC: M SHH 13:03
DX: Z51.81 Encounter for therapeutic drug level monitoring (principal); Z79.01 Long term (current) use of anticoagulants
CPT/HCPCS: 85610

== ENCOUNTER → 2017-09-30 | Outpatient (REF) | payer OTHER ==
[2017-09-30 11:11] LABS: INR 3.13; PROTHROMBIN TIME 32.9 SECONDS (12.1-14.4)
== END ==
LOC: M SHH 10:20
DX: Z51.81 Encounter for therapeutic drug level monitoring (principal); Z79.01 Long term (current) use of anticoagulants
CPT/HCPCS: 85610

== ENCOUNTER → 2017-10-04 | Outpatient (REF) | payer OTHER ==
[2017-10-04 10:22] LABS: INR 3.47; PROTHROMBIN TIME 35.7 SECONDS (12.1-14.4)
== END ==
LOC: M SHH 10:03
DX: Z51.81 Encounter for therapeutic drug level monitoring (principal); Z79.01 Long term (current) use of anticoagulants; Z47.1 Aftercare following joint replacement surgery
CPT/HCPCS: 86140

== ENCOUNTER → 2017-10-04 | Outpatient (REF) | payer OTHER ==
[2017-10-04 13:53] LABS: C REACTIVE PROTEIN QUANTITATIV 1.04 MG/DL (0.00-0.30)
[2017-10-04 14:27] LABS: ERYTHROCYTE SEDIMENTATION RATE 52 mm/hr (0-20)
== END ==
LOC: M LABDRAW1 13:11
DX: Z47.1 Aftercare following joint replacement surgery (principal)

== ENCOUNTER → 2017-10-07 | Outpatient (REF) | payer OTHER ==
[2017-10-07 10:47] LABS: INR 2.07; PROTHROMBIN TIME 23.7 SECONDS (12.1-14.4)
== END ==
LOC: M SHH 10:13
DX: Z51.81 Encounter for therapeutic drug level monitoring (principal); Z79.01 Long term (current) use of anticoagulants
CPT/HCPCS: 85610

== ENCOUNTER → 2017-10-26 | Outpatient (REF) | payer OTHER ==
[2017-10-26 16:30] LABS: C REACTIVE PROTEIN QUANTITATIV 0.52 MG/DL (0.00-0.30)
== END ==
LOC: M LABDRAWP 13:07
DX: Z47.1 Aftercare following joint replacement surgery (principal)
CPT/HCPCS: 86140

== ENCOUNTER → 2017-12-15 | Outpatient (REF) | payer OTHER ==
[2017-12-15 12:14] LABS: HEMATOCRIT 46.1 % (42.0-52.0); HEMOGLOBIN 14.9 g/dl (13.5-17.5); MEAN CORPUSCULAR HEMOGLOBIN 30.2 pg (27.0-33.0); MEAN CORPUSCULAR HGB CONC 32.3 g/dl (32.0-36.5); MEAN CORPUSCULAR VOLUME 93.3 fl (80.0-96.0); PLATELET COUNT, AUTOMATED 191 10^3/uL (150-450); RED BLOOD COUNT 4.94 10^6/uL (4.30-6.10); RED CELL DISTRIBUTION WIDTH 14.6 % (11.5-14.5); WHITE BLOOD COUNT 5.4 10^3/uL (4.0-10.0)
[2017-12-15 12:48] LABS: ALBUMIN 3.5 GM/DL (3.2-5.2); ALBUMIN/GLOBULIN RATIO 1.06 (1.00-1.93); ALKALINE PHOSPHATASE 66 U/L (45-117); ALT/SGPT 21 U/L (12-78); ANION GAP 7 MEQ/L (8-16); AST/SGOT 23 U/L (7-37); BILIRUBIN,TOTAL 0.8 MG/DL (0.2-1.0); BLOOD UREA NITROGEN 28 MG/DL (7-18); CALCIUM LEVEL 9.5 MG/DL (8.8-10.2); CARBON DIOXIDE LEVEL 31 MEQ/L (21-32); CHLORIDE LEVEL 107 MEQ/L (98-107); CHOLESTEROL LEVEL 133 MG/DL (<200); CHOLESTEROL RISK RATIO 2.955 (<5); CREATININE FOR GFR 1.36 MG/DL (0.70-1.30); GLOMERULAR FILTRATION RATE 54.4 (>42); GLUCOSE, FASTING 86 MG/DL (70-100); HDL CHOLESTEROL 45 MG/DL (>40); LDL CHOLESTEROL 61 MG/DL (<100); MAGNESIUM LEVEL 2.3 MG/DL (1.8-2.4); NON-HDL-C 88 MG/DL; POTASSIUM SERUM 4.2 MEQ/L (3.5-5.1); SODIUM LEVEL 145 MEQ/L (136-145); TOTAL PROTEIN 6.8 GM/DL (6.4-8.2); TRIGLYCERIDES LEVEL 134 MG/DL (<150)
[2017-12-15 12:55] LABS: TOTAL 25(OH) VITAMIN D 32.6 NG/ML (30.0-100.0)
== END ==
LOC: M SFHCPLAZ 09:50
DX: I25.5 Ischemic cardiomyopathy (principal); E78.2 Mixed hyperlipidemia; E61.2 Magnesium deficiency; E55.9 Vitamin D deficiency, unspecified

== ENCOUNTER → 2018-09-20 | Outpatient (REF) | payer OTHER ==
[~2018-09-20] MED LIST: AMIO200T PO; ASPI325T PO; CLOP75TA2 PO; COLA100C5 PO; CRES40TA PO; ENAL5TAB PO; FURO20TA2 PO; INSULANT SC; LASI40TA PO; MAGN64TASA PO; METF1000 PO; METO1TAB87 PO; OXYB10TA PO; PANT40TA2 PO; PANT40TA3 PO; PERC5TAB12 PO; SERT-138 PO; SPIR25TA2 PO; TYLE325T5 PO; VITA-122 PO; XARE10TA PO; magnesium PO
[2018-09-20 19:36] LABS: ALBUMIN 3.6 GM/DL (3.2-5.2); BILIRUBIN,TOTAL 0.6 MG/DL (0.2-1.0); CALCIUM LEVEL 9.1 MG/DL (8.8-10.2); CHOLESTEROL RISK RATIO 3.13 (<5); CREATININE FOR GFR 1.85 MG/DL (0.70-1.30); POTASSIUM SERUM 4.3 MEQ/L (3.5-5.1)
== END ==
LOC: M SFHCADAM 15:13
PROVIDERS: ATTEND Physician Assistant
DX: I25.5 Ischemic cardiomyopathy (principal)

== ENCOUNTER → 2020-01-15 | Outpatient (CLI) | payer OTHER ==
[~2020-01-15] MED LIST changes: -AMIO200T PO; +AMIO200T3 PO; -OXYB10TA PO; +OXYB10TA23 PO; +PANT40TA29 PO; -PANT40TA3 PO
--- NOTE | 2020-01-15 14:24 | PFTRPT ---
Height: 68.00 Inches Weight: 310.00 Lbs BSA: 2.46 Diagnosis: Z79.899 DATE: 01/15/2020 ORDERING PHYSICIAN: Golden Benitez Pre and post bronchodilator studies have excellent technical quality. Forced vital capacity is normal. FEV1 is in proportion, obstructive index is therefore normal. Expiratory limit within the flow-volume loop is reasonably normal. No significant bronchodilator response is identified. Total lung capacity is normal. Residual volume is in proportion. Diffusing capacity is mildly reduced but appropriate for alveolar volume. No hemoglobin available for correction. Airway resistance and conductance are normal. IMPRESSION: Mild reduction in the absolute diffusing capacity requires further clinical correlation. Otherwise normal study. MTDD
== END ==
LOC: M CARPUL 13:45
PROVIDERS: ATTEND Nurse Practitioner Family
DX: Z79.899 Other long term (current) drug therapy (principal)

== ENCOUNTER 2020-04-06 13:15 | Inpatient (IN) | payer MEDICARE, OTHER ==
[~2020-04-06] VITALS: Ht 177.8 cm; Wt 176.2 kg
[2020-04-06] MEDS: LEVEMIR (INSULIN DETEMIR) 1 UNITS/0.01ML SC SCH (09:00)
[2020-04-06 13:50] LABS: ABG BASE EXCESS 1.2 (-2.0-2.0); ABG HCO3 23.2 MEQ/L (22.0-26.0); ABG O2 SATURATION 90.2 % (95.0-99.0); ABG PARTIAL PRESSURE CO2 30.4 mmHg (35.0-45.0); ABG STANDARD HCO3 25.3 MEQ/L (22.0-26.0); ABG TOTAL CO2 24.1 MEQ/L (23.0-31.0)
[2020-04-06 13:56] LABS: BASO % 0.4 % (0.0-1.0); EOS % 0.3 % (0.0-3.0); HEMATOCRIT 49.8 % (42.0-52.0); HEMOGLOBIN 16.4 g/dl (13.5-17.5); LYMPH # 0.9 10^3/uL (1.5-5.0); LYMPH % 12.7 % (24.0-44.0); MEAN CORPUSCULAR HEMOGLOBIN 30.1 pg (27.0-33.0); MEAN CORPUSCULAR HGB CONC 32.9 g/dl (32.0-36.5); MEAN CORPUSCULAR VOLUME 91.4 fl (80.0-96.0); MONO # 0.8 10^3/uL (0.0-0.8); MONO % 11.4 % (0.0-5.0); NEUTROPHILS # 5.4 10^3/uL (1.5-8.5); NEUTROPHILS % 74.6 % (36.0-66.0); PLATELET COUNT, AUTOMATED 266 10^3/uL (150-450); RED BLOOD COUNT 5.45 10^6/uL (4.30-6.10); WHITE BLOOD COUNT 7.3 10^3/uL (4.0-10.0)
[2020-04-06] MEDS ORDERED: NS 1,000 ML IV ONE ×2 (14:00→15:00)
[2020-04-06 14:08] LABS: FIBRINOGEN 751 MG/DL (221-452); INR 1.12; PROTHROMBIN TIME 14.6 SECONDS (12.5-14.3)
[2020-04-06 14:09] LABS: PARTIAL THROMBOPLASTIN TIME 44.7 SECONDS (24.2-38.5)
--- NOTE | 2020-04-06 14:16 | REP ---
INDICATION: Coronavirus workup. COMPARISON: 08/29/2017 TECHNIQUE: Portable FINDINGS: The technique utilized in obtaining the radiograph has magnified the cardiac silhouette and accentuated the interstitial markings. There is cardiomegaly accentuated by technique. Note is again made of previous median sternotomy. The dual chamber bipolar pacemaker to with AICD stable. The pleural angles are sharp. There is a diffuse increase in the interstitial markings throughout the lung wasserman representing a change from the prior exam. And early airspace opacity may be developing in the right upper lobe. IMPRESSION: There is evidence of interstitial edema and a possible developing right upper lobe airspace opacity. This is seen in conjunction with chronic cardiac changes as described above. Pulmonary edema from cardiogenic versus infectious etiology versus both. This needs to be correlated clinically with follow-up. <Electronically signed by Thomas Iraheta > 04/06/20 [id number]
[2020-04-06 14:17] LABS: RSV AMPLIFICATION NEGATIVE (NEGATIVE)
[2020-04-06 14:30] LABS: ALBUMIN 2.7 GM/DL (3.2-5.2); BILIRUBIN,TOTAL 1.3 MG/DL (0.2-1.0); C REACTIVE PROTEIN QUANTITATIV 17.2 MG/DL (0.00-0.30); CALCIUM LEVEL 9.5 MG/DL (8.8-10.2); CK-MB VALUE MASS 6.8 NG/ML (<3.6); CREATININE FOR GFR 3.73 MG/DL (0.70-1.30); GLOMERULAR FILTRATION RATE 16.8 (>42); MAGNESIUM LEVEL 2.8 MG/DL (1.8-2.4); MB/CK RELATIVE INDEX 1.26 (< OR =4); POTASSIUM SERUM 3.4 MEQ/L (3.5-5.1); TOTAL PROTEIN 8.1 GM/DL (6.4-8.2); TROPONIN I 0.28 NG/ML (< 0.10)
[2020-04-06 14:37] LABS: D-DIMER QUANT > 4000 ng/ml (<500)
[2020-04-06] MEDS ORDERED: ACETAMINOPHEN TAB 650MG DOSE (2X325MG) PO PRN (15:30)
[2020-04-06] MEDS ORDERED: ROSU40TA4 PO (15:39)
[2020-04-06] MEDS ORDERED: PLAV1TAB2 PO (15:39)
[2020-04-06] MEDS ORDERED: INSULADS SC (15:39)
[2020-04-06] MEDS ORDERED: FURO40TA2 PO (15:39)
[2020-04-06] MEDS ORDERED: SPIR-10 PO (15:39)
[2020-04-06] MEDS ORDERED: BAYE325T12 PO (15:39)
[2020-04-06] MEDS ORDERED: METO25TA4 PO (15:39)
[2020-04-06] MEDS ORDERED: VITA500030 PO (15:39)
[2020-04-06] MEDS ORDERED: APAP325T4 PO (15:39)
[2020-04-06] MEDS ORDERED: BUME1TAB3 PO (15:39)
--- NOTE | 2020-04-06 15:47 | HPEPDOC ---
General Date of Admission Apr 06, 2020 at 15:24 Date of Service: Apr 06, 2020 Chief Complaint The patient is a 80-year-old male admitted with a reason for visit of Wayne, Covid-19. Source: Patient Exam Limitations: No limitations Severity: Moderate History of Present Illness Patient is 80 years old male with past history of coronary artery diseases, type 2 diabetes, CHF, hypertension presented hospital with generalized weakness. Patient stated that around 5 days ago his has been tested positive for Covid 19. For past 3 days he has been having increased weakness with shortness of breath. In ER she was found to have no leukocytosis, creatinine 3.7, lactic acid 3.4, d-dimer more than 4000, ferritin 1173. There is evidence of interstitial edema and a possible developing right upper lobe airspace opacity. This is seen in conjunction with chronic cardiac changes as described above. Pulmonary edema from cardiogenic versus infectious etiology versus both. This needs to be correlated clinically with follow-up. Home Medications Scheduled Amiodarone HCl (Amiodarone HCl) 200 Mg Tab, 200 MG PO DAILY, (Reported) Aspirin (Aspirin) 325 Mg Tablet, 325 MG PO QHS, (Reported) Bumetanide (Bumetanide) 1 Mg Tablet, 1 MG PO DAILY, (Reported) Cholecalciferol (Vitamin D3) (Vitamin D3) 125 Mcg Tablet, 125 MCG PO DAILY, (Reported) Clopidogrel Bisulfate (Plavix) 75 Mg Tablet, 75 MG PO DAILY, (Reported) Docusate Sodium (Colace) 100 Mg Cap, 100 MG PO BID, (Reported) Furosemide (Furosemide) 40 Mg Tablet, 40 MG PO DAILY, (Reported) Insulin Glargine (Lantus) 100 Unit/1 Ml Vial, 40 UNITS SC BID, (Reported) Magnesium Chloride (Mag64) 64 Mg Tabcr, 64 MG PO BID, (Reported) Metoprolol Tartrate (Metoprolol Tartrate) 25 Mg Tablet, 25 MG PO BID, (Reported) Oxybutynin Chloride (Oxybutynin Chloride ER) 10 Mg Tab, 10 MG PO DAILY, (Reported) Pantoprazole Sodium (Pantoprazole Sodium) 40 Mg Tab, 40 MG PO DAILY, (Reported) Rosuvastatin Calcium (Rosuvastatin Calcium) 40 Mg Tablet, 40 MG PO DAILY, (Rep orted) Spironolactone (Spironolactone) 25 Mg Tablet, 12.5 MG PO QHS, (Reported) Scheduled PRN Acetaminophen (Acetaminophen) 325 Mg Tablet, 325 MG PO Q4H PRN for PAIN / FEVER, (Reported) Oxycodone HCl/Acetaminophen (Percocet 5-325 mg Tablet) 1 Tab Tab, 1 TAB PO Q4H PRN for PAIN Allergies Coded Allergies: No Known Allergies (Verified , 03/10/04) Past Medical History Medical History 1. CAD. 2. Insulin dependent diabetes. 3. CHF 4. Hypertension 5. Hypercholesterolemia 6. GERD Surgical History 1. CABG 2004- patient does not remember exactly 2. Cardiac cath and stent placement 3. AICD implantation 4. Ankle ORIF Family History I personally reviewed family history and found not pertinent Social History * Smoker: former Smoker Alcohol: Denies Drugs: denies A-FIB/CHADSVASC A-FIB History Current/History of A-Fib/PAF?: No Current PO Anticoag Therapy: No Review of Systems Constitutional: Reports: Chills, Weakness Eyes: Denies: Pain Skin: Denies: Rash, Lesions Pulmonary: Reports: Dyspnea Cardiovascular: Denies: Chest Pain Gastrointestinal: Denies: Nausea Genitourinary: Denies: Dysuria Hematologic: Denies: Bruising Endocrine: Denies: Polydipsia Musculoskeletal: Denies: Neck Pain Neurological: Denies: Weakness Psych: Reports: Mood Normal Physical Examination General Exam: Positive: Alert, Cooperative Eye Exam: Positive: PERRLA Neck Exam: Positive: Supple; Negative: thyromegaly Chest Exam: Positive: Diminished Heart Exam: Positive: Rate Normal Abdomen Exam: Positive: Normal bowel sounds Extremity Exam: Negative: Clubbing Skin Exam: Positive: Nl turgor and temperature Neuro Exam: Positive: Strength at 5/5 X4 ext Psych Exam: Positive: Mental status NL Vital Signs Vital Signs Date Time Temp Pulse Resp B/P (MAP) Pulse Ox O2 Delivery O2 Flow Rate FiO2 04/06/20 15:15 97.4 75 18 117/58 (77) 92 Nasal Cannula 2.0 Laboratory Data Labs 24H Laboratory Tests 2 04/06/20 13:18: Immature Granulocyte % (Auto) 0.6, Neutrophils (%) (Auto) 74.6H, Lymphocytes (%) (Auto) 12.7L, Monocytes (%) (Auto) 11.4H, Eosinophils (%) (Auto) 0.3, Basophils (%) (Auto) 0.4, Neutrophils # (Auto) 5.4, Lymphocytes # (Auto) 0.9L, Monocytes # (Auto) 0.8, Eosinophils # (Auto) 0.0, Basophils # (Auto) 0.0, Nucleated Red Blood Cells % (auto) 0.0, Prothrombin Time 14.6H, Prothromb Time International Ratio 1.12, Activated Partial Thromboplast Time 44.7H, Fibrinogen 751H, D-Dimer, Quantitative > 4000H, Anion Gap 10, Glomerular Filtration Rate 16.8L, Lactic Acid Level 3.4*H, Calcium Level 9.5, Magnesium Level 2.8H, Ferritin 1173H, Total Bilirubin 1.3H, Aspartate Amino Transf (AST/SGOT) 182H, Alanine Aminotransferase (ALT/SGPT) 119H, Alkaline Phosphatase 111, Lactate Dehydrogenase 534H, Total Creatine Kinase 540H, Creatine Kinase MB 6.8H, Creatine Kinase MB Relative Index 1.26, Troponin I 0.28H, C-Reactive Protein, Quantitative 17.20H, Total Protein 8.1, Albumin 2.7L, Albumin/Globulin Ratio 0.5 04/06/20 13:30: Blood Gas Bicarbonate Standard 25.3, Arterial Blood pH 7.500H, Arterial Blood Partial Pressure CO2 30.4L, Arterial Blood Partial Pressure O2 54.0L, Arterial Blood Total CO2 24.1, Arterial Blood HCO3 23.2, Arterial Blood Base Excess 1.2, Arterial Blood Oxygen Saturation 90.2L, Coronavirus (COVID-19)(PCR) POSITIVEA, Influenza Type A (RT-PCR) NEGATIVE, Influenza Type B (RT-PCR) NEGATIVE, Respiratory Syncytial Virus (PCR) NEGATIVE CBC/BMP Laboratory Tests 04/06/20 13:18 Microbiology Microbiology 04/06/20 Blood Culture, Received Pending 04/06/20 Blood Culture, Received Pending Assessment/Plan Patient is 80 years old male with past history of coronary artery diseases, type 2 diabetes, CHF, hypertension presented hospital with generalized weakness. Patient stated that around 5 days ago his has been tested positive for Covid 19. For past 3 days he has been having increased weakness with shortness of breath. In ER she was found to have no leukocytosis, creatinine 3.7, lactic acid 3.4, d-dimer more than 4000, ferritin 1173. There is evidence of interstitial edema and a possible developing right upper lobe airspace opacity. This is seen in conjunction with chronic cardiac changes as described above. Pulmonary edema from cardiogenic versus infectious etiology versus both. This needs to be correlated clinically with follow-up. Problems (1) COVID-19 Status: Acute Problem Text: Labs according to Covid protocol Remdesevir Iv, dexamethasone Telemetry Therapeutic anticoagulation with Lovenox (2) WAYNE (acute kidney injury) Status: Acute Problem Text: Acute on chronic Most likely secondary to dehydration Gentle IV fluids Continue to monitor (3) Diabetes mellitus Status: Chronic Problem Text: Diabetes diet Detemir twice a day Insulin sliding scale (4) Physical deconditioning Status: Acute Problem Text: Secondary to COVID 19 PT/OT (5) Hyperlipidemia Status: Chronic Problem Text: Continue statin (6) CHF (congestive heart failure) Status: Chronic Problem Text: Combined systolic and diastolic CHF Continue cardioprotective medications Diuretics on hold due to WAYNE and lactic acidosis (7) Pneumonia Status: Acute Problem Text: Secondary to Covid 19 Levofloxacin IV Await procalcitonin Plan / VTE VTE Prophylaxis Ordered?: Yes CHIP DUNN DO Apr 06, 2020 15:47
[2020-04-06] MEDS ORDERED: DEXTROSE 50% 50 ML SYRINGE IV PRN (16:00)
[2020-04-06] MEDS ORDERED: GLUCAGON INJ 1MG VIAL SC PRN (16:00)
[2020-04-06] MEDS ORDERED: GLUCOSE 4GM CHEW TABLET PO PRN (16:00)
[2020-04-06] MEDS ORDERED: COMMENTS (16:12)
[2020-04-06 17:15] VITALS: BP 108/55
[2020-04-06] MEDS: HumaLOG INSULIN (NovoLOG) PER UNIT SC SCH ×2 (17:30→20:19)
[2020-04-06] MEDS ORDERED: REMDESIVIR 200 MG in NS 250 ML IV ONE (18:00)
[2020-04-06] MEDS: dexameTHASONE 4 MG/ML 1ML VIAL (J1100 PER 1MG) IV SCH (18:31)
[2020-04-06] MEDS: NS 1,000 ML IV SCH (18:32)
[2020-04-06] MEDS: LevoFLOXacin IV 500 MG in IV 1 EA IV SCH (18:32)
[2020-04-06] MEDS ORDERED: SODIUM CHLORIDE 0.9% INJ 10 ML SYR IV ONE (20:00)
[2020-04-06] MEDS: ENOXAPARIN 100MG/1ML SYRINGE (J1650 PER 10MG) SC SCH (20:13)
[2020-04-06] MEDS: ASPIRIN 325 MG TAB PO SCH (20:14)
[2020-04-06] MEDS: ROSUVASTATIN 10 MG TAB (CRESTOR) PO SCH (20:14)
[2020-04-06] MEDS: METOPROLOL TART 25 MG TABLET PO SCH (20:17)
[2020-04-06 20:23] VITALS: BP 110/54
[2020-04-06 23:52] VITALS: BP 112/56
[2020-04-07 03:50] VITALS: BP 105/58
[2020-04-07 06:11] LABS: BASO % 0.2 % (0.0-1.0); HEMATOCRIT 42.1 % (42.0-52.0); LYMPH # 0.5 10^3/uL (1.5-5.0); LYMPH % 9.2 % (24.0-44.0); MEAN CORPUSCULAR HEMOGLOBIN 30.6 pg (27.0-33.0); MEAN CORPUSCULAR HGB CONC 33.7 g/dl (32.0-36.5); MEAN CORPUSCULAR VOLUME 90.7 fl (80.0-96.0); MONO # 0.4 10^3/uL (0.0-0.8); MONO % 6.9 % (0.0-5.0); NEUTROPHILS # 4.6 10^3/uL (1.5-8.5); NEUTROPHILS % 83.2 % (36.0-66.0); PLATELET COUNT, AUTOMATED 218 10^3/uL (150-450); RED BLOOD COUNT 4.64 10^6/uL (4.30-6.10); WHITE BLOOD COUNT 5.5 10^3/uL (4.0-10.0)
[2020-04-07 06:20] LABS: HEMOGLOBIN 14.2 g/dl (13.5-17.5)
[2020-04-07 07:05] LABS: ALBUMIN 2.1 GM/DL (3.2-5.2); BILIRUBIN,DIRECT 0.4 MG/DL (0.0-0.2); BILIRUBIN,TOTAL 0.7 MG/DL (0.2-1.0); CALCIUM LEVEL 7.9 MG/DL (8.8-10.2); CREATININE FOR GFR 3.23 MG/DL (0.70-1.30); GLOMERULAR FILTRATION RATE 19.9 (>42); MAGNESIUM LEVEL 2.4 MG/DL (1.8-2.4); POTASSIUM SERUM 2.9 MEQ/L (3.5-5.1); TOTAL PROTEIN 5.7 GM/DL (6.4-8.2)
[2020-04-07 07:39] LABS: D-DIMER QUANT 3158.42 ng/ml (<500)
[2020-04-07 07:41] LABS: C REACTIVE PROTEIN QUANTITATIV 16.7 MG/DL (0.00-0.30); TROPONIN I 0.23 NG/ML (< 0.10)
[2020-04-07 08:00] VITALS: BP 113/59
--- NOTE | 2020-04-07 08:12 | ECGEPIP ---
[facility] - ED Test Date: 2020-04-06 Pat Name: ANA BERMAN Department: Room: [place] [address] Gender: Male Keno Attendant: : 1940 Requested By: JERMAINE HILLMAN Order Number: [id number] Reading MD: Sathish Arzola Measurements Intervals [place] Rate: 77 P: 128 VT: 186 QRS: 157 QRSD: 218 T: -6 QT: 477 QTc: 541 Interpretive Statements ELECTRONIC ATRIAL PACEMAKER ELECTRONIC VENTRICULAR PACEMAKER SIMILAR TO 08/29/17 Electronically Signed on 04-07-2020 8:12:31 EST by Sathish Arzola
[2020-04-07] MEDS ORDERED: POTASSIUM CHLORIDE 10 MEQ SR TABLET PO ONE ×3 (09:00→17:00)
[2020-04-07] MEDS: HumaLOG INSULIN (NovoLOG) PER UNIT SC SCH ×4 (09:20→20:56)
[2020-04-07] MEDS: NS 1,000 ML IV SCH (09:20)
[2020-04-07] MEDS: LEVEMIR (INSULIN DETEMIR) 1 UNITS/0.01ML SC SCH (09:21)
[2020-04-07] MEDS: NYSTATIN 100,000 UNITS/GM TOPICAL PWD 15 GM TOP PRN ×2 (09:21→20:16)
[2020-04-07] MEDS: AMIODARONE 200 MG TAB (PACERONE) PO SCH (09:23)
[2020-04-07] MEDS: CLOPIDOGREL 75 MG TAB PO SCH (09:23)
[2020-04-07] MEDS: METOPROLOL TART 25 MG TABLET PO SCH ×2 (09:23→20:13)
[2020-04-07] MEDS: oxyBUTYnin *DITROPAN XL* 5 MG TABCR PO SCH (09:24)
[2020-04-07] MEDS: dexameTHASONE 4 MG/ML 1ML VIAL (J1100 PER 1MG) IV SCH (09:25)
--- NOTE | 2020-04-07 11:45 | IPNPDOC ---
Text Note Date of Service The patient was seen on 04/07/20. NOTE Subjective: Patient is a 80-year-old male with a PMHx of CAD, Diastolic CHF, HTN, DLP, IDDM2, GERD who presented to the emergency room with generalized weakness. Patient reported that he tested positive for COVID on 04/01. She has been expressing progressive weakness and shortness of breath. Patient was admitted to the hospital service for further evaluation and management. Patient was seen and examined at the bedside. Patient reports that his breathing is doing relatively fine. Reports a mild cough. Denies any chest pain, palpitations, nausea, vomiting, abdominal pain, diarrhea, or urinary discomfort Objective: Vitals (See below) General: Lying in bed, no acute distress, comfortable, AAOx3 HEENT: NC, AT CVS: +S1S2 Lungs: Fair air entry b/l, -w/r/r Abdomen: Soft, ND, NT Extremities: No appreciable edema, - Calf tenderness Imaging: CXR 04/06: There is evidence of interstitial edema and a possible developing right upper lobe airspace opacity. This is seen in conjunction with chronic cardiac changes as described above. Pulmonary edema from cardiogenic versus infectious etiology versus both. This needs to be correlated clinically with follow-up. Assessment and plan: Acute hypoxic respiratory failure - likely 2/2 COVID 19 pneumonia; possibly 2/2 superimposed bacterial infection - Clinically reports that his breathing is doing fine - Hemodynamically stable and afebrile - Currently saturating well on 2 L nasal cannula oxygen - Inflammatory markers improving - c/w Remdesivir and Dexamethasone (Day #2) - c/w Levofloxacin (Day #2); will trend procalcitonin - Will start incentive spirometry / acapella JAYCEE - likely 2/2 pre-renal etiology - Baseline creatinine of 1.85 (09/2018) - Creatinine is trending down - c/w Gentle IV fluid hydration only HTN - BP well controlled - c/w Metoprolol IDDM2 - c/w ISS and Levemir Decondition - c/w PT and OT DLP - c/w Rosuvastatin Diabolic CHF - No evidence of exacerbation clinically; no signs of volume overload - Imaging noted - however in light of COVID19; likely 2/2 viral infection - Will check BNP - Diuretics on hold DVT prophylaxis - c/w Lovenox weight-based prophylactic dosing Disposition: - Awaiting clinical improvement VS,Ronibone, I+O VS, Fishbone, I+O Laboratory Tests 04/06/20 13:18 04/07/20 05:58 Vital Signs Date Time Temp Pulse Resp B/P (MAP) Pulse Ox O2 Delivery O2 Flow Rate FiO2 04/07/20 09:23 75 117/58 04/07/20 08:00 97.9 19 92 Nasal Cannula 1.0 I&O- Last 24 Hours up to 6 AM 04/07/20 06:00 Intake Total 2070 ml Output Total 400 ml Balance 1670 ml JOSE ARMANDO ARNOLD MD Apr 07, 2020 11:45
[2020-04-07 14:00] VITALS: BP 110/56
[2020-04-07 16:00] LABS: CALCIUM LEVEL 8.4 MG/DL (8.8-10.2); CREATININE FOR GFR 3.43 MG/DL (0.70-1.30); GLOMERULAR FILTRATION RATE 18.6 (>42); MAGNESIUM LEVEL 2.5 MG/DL (1.8-2.4); POTASSIUM SERUM 3.2 MEQ/L (3.5-5.1)
[2020-04-07] MEDS: LevoFLOXacin IV 500 MG in IV 1 EA IV SCH (16:55)
--- NOTE | 2020-04-07 17:36 | REPVR ---
PROCEDURE INFORMATION: Exam: US Retroperitoneal Limited, Kidneys Exam date and time: 04/07/2020 5:09 PM Age: 80 years old Clinical indication: Condition or disease; Other: Wayne TECHNIQUE: Imaging protocol: Real-time ultrasound of the retroperitoneum with image documentation. Examination was focused on the kidneys. COMPARISON: No relevant prior studies available. FINDINGS: Right kidney measures 12 cm in length. Left kidney measures 12.4 cm in length. Renal parenchymal echotexture and cortical thickness are normal. No solid renal mass, hydronephrosis or shadowing, echogenic foci suggestive of stones. Bilateral simple renal cysts. Right kidney demonstrates a 3.7 cm upper pole cyst and a 3.9 cm midpole cyst. Left kidney demonstrates a 2.1 cm upper pole cyst and 19 mm midpole cyst. These have simple fluid density Bladder is unremarkable. IMPRESSION: No evidence of obstructive uropathy or sonographic evidence of medical renal disease. Bilateral simple fluid density renal cysts. These are benign Electronically signed by: Arun Ba On 04/07/2020 17:36:16 PM
[2020-04-07] MEDS: REMDESIVIR 100 MG in NS 250 ML IV SCH (18:50)
[2020-04-07] MEDS: SODIUM CHLORIDE 0.9% INJ 10 ML SYR IV SCH (19:00)
[2020-04-07 20:00] VITALS: BP 108/77
[2020-04-07] MEDS: ASPIRIN 325 MG TAB PO SCH (20:13)
[2020-04-07] MEDS: ROSUVASTATIN 10 MG TAB (CRESTOR) PO SCH (20:14)
[2020-04-07] MEDS: ENOXAPARIN 100MG/1ML SYRINGE (J1650 PER 10MG) SC SCH (20:14)
[2020-04-07] MEDS ORDERED: CEPACOL LOZENGE PO PRN (21:45)
[2020-04-08] VITALS: BP 111/50
[2020-04-08] MEDS: NS 1,000 ML IV SCH ×2 (00:26→05:30)
[2020-04-08 02:33] LABS: OSMOLALITY URINE 469 MOSM/KG (500-800)
[2020-04-08 02:57] LABS: CREATININE,RANDOM URINE 85.3 MG/DL; SODIUM,RANDOM URINE 37 MEQ/L
[2020-04-08 03:13] VITALS: BP 117/57
[2020-04-08] MEDS: HumaLOG INSULIN (NovoLOG) PER UNIT SC SCH ×4 (07:30→20:55)
[2020-04-08 07:51] VITALS: BP 108/57
[2020-04-08] MEDS: CLOPIDOGREL 75 MG TAB PO SCH (08:36)
[2020-04-08] MEDS: oxyBUTYnin *DITROPAN XL* 5 MG TABCR PO SCH (08:36)
[2020-04-08] MEDS: dexameTHASONE 4 MG/ML 1ML VIAL (J1100 PER 1MG) IV SCH (08:36)
[2020-04-08] MEDS: LEVEMIR (INSULIN DETEMIR) 1 UNITS/0.01ML SC SCH (08:37)
[2020-04-08] MEDS: AMIODARONE 200 MG TAB (PACERONE) PO SCH (08:37)
[2020-04-08] MEDS: METOPROLOL TART 25 MG TABLET PO SCH ×2 (08:37→21:00)
[2020-04-08 09:36] LABS: BASO % 0.2 % (0.0-1.0); HEMATOCRIT 42.1 % (42.0-52.0); HEMOGLOBIN 13.6 g/dl (13.5-17.5); LYMPH # 0.8 10^3/uL (1.5-5.0); MEAN CORPUSCULAR HEMOGLOBIN 29.8 pg (27.0-33.0); MEAN CORPUSCULAR HGB CONC 32.3 g/dl (32.0-36.5); MEAN CORPUSCULAR VOLUME 92.1 fl (80.0-96.0); MONO # 0.9 10^3/uL (0.0-0.8); MONO % 7.6 % (0.0-5.0); NEUTROPHILS # 9.8 10^3/uL (1.5-8.5); NEUTROPHILS % 84.2 % (36.0-66.0); PLATELET COUNT, AUTOMATED 295 10^3/uL (150-450); RED BLOOD COUNT 4.57 10^6/uL (4.30-6.10); WHITE BLOOD COUNT 11.6 10^3/uL (4.0-10.0)
[2020-04-08 09:48] LABS: INR 1.41; PROTHROMBIN TIME 17.6 SECONDS (12.5-14.3)
[2020-04-08 09:49] LABS: PARTIAL THROMBOPLASTIN TIME 69.7 SECONDS (24.2-38.5)
[2020-04-08 10:04] LABS: ALBUMIN 2.1 GM/DL (3.2-5.2); BILIRUBIN,DIRECT 0.3 MG/DL (0.0-0.2); BILIRUBIN,TOTAL 0.5 MG/DL (0.2-1.0); CALCIUM LEVEL 8.2 MG/DL (8.8-10.2); CREATININE FOR GFR 3.09 MG/DL (0.70-1.30); GLOMERULAR FILTRATION RATE 20.9 (>42); MAGNESIUM LEVEL 2.4 MG/DL (1.8-2.4); POTASSIUM SERUM 3.8 MEQ/L (3.5-5.1); TOTAL PROTEIN 5.7 GM/DL (6.4-8.2); TROPONIN I 0.18 NG/ML (< 0.10)
[2020-04-08 12:00] VITALS: BP 97/54
[2020-04-08] MEDS ORDERED: NS 1,000 ML IV SCH (15:00)
--- NOTE | 2020-04-08 15:19 | IPNPDOC ---
Date Seen The patient was seen on 04/08/20. Progress Note SUBJECTIVE: 80 yo M with a hx of CAD, Diastolic CHF, HTN, DLP, IDDM2, GERD who presented to the emergency room with generalized weakness. Patient reported that he tested positive for COVID on 04/01. Admitted for management of COVID-19. Patient was seen at bedside. He appears comfortable in bed, although the deconditioned. He is oxygenating appropriately on 1 L nasal cannula. He is not acutely short of breath. Denies chest pain, palpitations, nausea, vomiting, subjective fevers and chills. OBJECTIVE PHYSICAL EXAMINATION: VITAL SIGNS: please see below General: Obese HEENT: PERRLA, EOMI, sclerae clear Neck: supple, normal ROM, no JVD Respiratory: lungs CTAB, no wheeze, no rales, no crackles CVS: RRR, normal S1, S2, no murmurs Abdo: soft, no masses, no hepatosplenomegaly, BS+, no rebound tenderness Extremities: no edema, pulses 2+ MSK: no joint deformities, normal ROM Neuro: no focal neuro deficits, moving all 4 extremities, CN2-12 intact. Strength 5/5 in all 4 extremities. No nystagmus. Psych: calm, cooperative, AAO x 3 LABORATORY DATA, IMAGING STUDIES, MICROBIOLOGY: Please see below. CXR 04/06: There is evidence of interstitial edema and a possible developing right upper lobe airspace opacity. This is seen in conjunction with chronic cardiac changes as described above. Pulmonary edema from cardiogenic versus infectious etiology versus both. This needs to be correlated clinically with follow-up. DVT prophylaxis ordered?: SCDs. TEDs. Lovenox. ASSESSMENT AND PLAN: #COVID-19 - saturating appopriately on 1L NC. Clinically appears to be stable - Remdesivir (Day 3), Dexamethasone (Day 3) - Levaquin (Day 3) - continue to trend procalcitonin - C/w incentive spirometer and acapella. #Bacterial Pneumonia - WBC slightly elevated on 04/08, likely due to steroid use - procal 0.13 - c/w levaquin (day 3) - tessalon, mucinex #JAYCEE - likely prerenal secondary to fluid depletion, FeNa 0.9% - Baseline Cr 1.85. 3.73 on arrival. - presently improving with gently IVF to 3.09 - continue NS at 80 cc/hr - judicious use of fluids due to poor EF ~20% #HTN - monitor BP - metoprolol #DM2 - ISS, FSBS AC and HS, hypoglycemic precautions #HLD - statin #Chx of biventricular CHF - poor EF, ~20%, secondary to ischemic cardiomyopathy - appears euvolemic on exam - BNP 08849 - c/w cardioprotective meds - gently IVF #Hx of CAD - ASA/plavix/statin - troponin mildly elevated at 0.28 on admission, trending down. - no anginal symptoms - hx og CABG, single vessel to LAD - follows with Dr. Barker #Hx of ventricular tachycardia - I spoke to Dr. Barker to obtain more hx - patient has hx of VT, s/p AICD - follows with EP time study statistician in [place] - Dr. Tinsley - he was planned for AICD replacement as it was due for exchange due to battery - delayed due to covid-19 - requires close f/u with Dr. Barker and EP Dr. Tinsley in [place] for AICD exchange - continue amiodarone. - check TSH DVT ppx: lovenox weight based prophylactic dosing VS, I&O, 24H, Fishbone Vital Signs/I&O Vital Signs Date Time Temp Pulse Resp B/P (MAP) Pulse Ox O2 Delivery O2 Flow Rate FiO2 04/08/20 12:00 1.0 04/08/20 12:00 95.9 75 19 97/54 (68) 93 Room Air I&O- Last 24 Hours up to 6 AM 04/08/20 06:00 Intake Total 1700 ml Output Total 500 ml Balance 1200 ml Laboratory Data 24H LABS Laboratory Tests 2 04/07/20 15:16: Anion Gap 11, Glomerular Filtration Rate 18.6L, Osmolality 308H, Calcium Level 8.4L, Magnesium Level 2.5H 04/07/20 16:47: Bedside Glucose (Misc Panel) 164H 04/07/20 19:21: Bedside Glucose (Misc Panel) 171H 04/08/20 02:19: Urine Color YELLOW, Urine Appearance CLOUDYH, Urine pH 5.0, Urine Specific Pierce 1.015, Urine Protein 2+H, Urine Glucose (UA) NEGATIVE, Urine Ketones NEGATIVE, Urine Blood 2+H, Urine Nitrite NEGATIVE, Urine Bilirubin NEGATIVE, Urine Urobilinogen 0.2, Urine Leukocyte Esterase NEGATIVE, Urine WBC (Auto) 4H, Urine RBC (Auto) 2, Urine Hyaline Casts (Auto) 0, Urine Bacteria (Auto) 1+H, Urine Squamous Epithelial Cells 0, Urine Transitional Epithelial Cells <1, Urine Amorphous Sediment SMALLH, Urine Sperm (Auto) , Urine Random Osmolality 469L, Urine Random Creatinine 85.3, Urine Random Sodium 37 04/08/20 07:47: Bedside Glucose (Misc Panel) 103 04/08/20 08:54: Immature Granulocyte % (Auto) 1.0, Neutrophils (%) (Auto) 84.2H, Lymphocytes (%) (Auto) 7.0L, Monocytes (%) (Auto) 7.6H, Eosinophils (%) (Auto) 0.0, Basophils (%) (Auto) 0.2, Neutrophils # (Auto) 9.8H, Lymphocytes # (Auto) 0.8L, Monocytes # (Auto) 0.9H, Eosinophils # (Auto) 0.0, Basophils # (Auto) 0.0, Nucleated Red Blood Cells % (auto) 0.0, Prothrombin Time 17.6H, Prothromb Time International R atio 1.41, Activated Partial Thromboplast Time 69.7H, Fibrinogen 586H, Anion Gap 12, Glomerular Filtration Rate 20.9L, Calcium Level 8.2L, Magnesium Level 2.4, Ferritin 853H, Total Bilirubin 0.5, Direct Bilirubin 0.3H, Aspartate Amino Transf (AST/SGOT) 110H, Alanine Aminotransferase (ALT/SGPT) 85H, Alkaline Phosphatase 91, Lactate Dehydrogenase 457H, Total Creatine Kinase 296, Troponin I 0.18#H, BO-Peo-R-Type Natriuretic Peptide 44560Y, Total Protein 5.7L, Albumin 2.1L, Albumin/Globulin Ratio 0.6, Procalcitonin 0.13 04/08/20 12:02: Bedside Glucose (Misc Panel) 178H CBC/BMP Laboratory Tests 04/07/20 15:16 04/08/20 08:54 Microbiology Microbiology 04/06/20 Blood Culture - Preliminary, Resulted No Growth after 48 hours. All Specime... 04/06/20 Blood Culture - Preliminary, Resulted No Growth after 48 hours. All Specime... POLINKEVYCH,PATIENCE MD Apr 08, 2020 15:19
[2020-04-08] MEDS: LevoFLOXacin IV 500 MG in IV 1 EA IV SCH (16:12)
[2020-04-08] MEDS: REMDESIVIR 100 MG in NS 250 ML IV SCH (18:02)
[2020-04-08] MEDS: SODIUM CHLORIDE 0.9% INJ 10 ML SYR IV SCH (18:03)
[2020-04-08 20:00] VITALS: BP 137/66; O2SAT 94
[2020-04-08] MEDS: ASPIRIN 325 MG TAB PO SCH (21:00)
[2020-04-08] MEDS: ROSUVASTATIN 10 MG TAB (CRESTOR) PO SCH (21:00)
[2020-04-08] MEDS: ENOXAPARIN 100MG/1ML SYRINGE (J1650 PER 10MG) SC SCH (21:00)
[2020-04-09] VITALS (7 sets, daily range): BP systolic 106–137; BP diastolic 51–64; O2SAT 93–96
[2020-04-09] MEDS: HumaLOG INSULIN (NovoLOG) PER UNIT SC SCH ×4 (07:30→21:00)
[2020-04-09 07:50] LABS: BASO % 0.2 % (0.0-1.0); HEMATOCRIT 40.4 % (42.0-52.0); HEMOGLOBIN 13.4 g/dl (13.5-17.5); LYMPH # 0.7 10^3/uL (1.5-5.0); LYMPH % 7.7 % (24.0-44.0); MEAN CORPUSCULAR HEMOGLOBIN 30.6 pg (27.0-33.0); MEAN CORPUSCULAR HGB CONC 33.2 g/dl (32.0-36.5); MEAN CORPUSCULAR VOLUME 92.2 fl (80.0-96.0); MONO # 0.9 10^3/uL (0.0-0.8); NEUTROPHILS # 6.9 10^3/uL (1.5-8.5); NEUTROPHILS % 80.7 % (36.0-66.0); PLATELET COUNT, AUTOMATED 254 10^3/uL (150-450); RED BLOOD COUNT 4.38 10^6/uL (4.30-6.10); WHITE BLOOD COUNT 8.6 10^3/uL (4.0-10.0)
[2020-04-09 08:21] LABS: CALCIUM LEVEL 8.3 MG/DL (8.8-10.2); CREATININE FOR GFR 2.69 MG/DL (0.70-1.30); GLOMERULAR FILTRATION RATE 24.6 (>42); MAGNESIUM LEVEL 2.3 MG/DL (1.8-2.4)
[2020-04-09 08:26] LABS: C REACTIVE PROTEIN QUANTITATIV 6.99 MG/DL (0.00-0.30)
[2020-04-09] MEDS: dexameTHASONE 4 MG/ML 1ML VIAL (J1100 PER 1MG) IV SCH (09:54)
[2020-04-09] MEDS: LEVEMIR (INSULIN DETEMIR) 1 UNITS/0.01ML SC SCH (09:54)
[2020-04-09] MEDS: METOPROLOL TART 25 MG TABLET PO SCH ×2 (09:55→21:24)
[2020-04-09] MEDS: oxyBUTYnin *DITROPAN XL* 5 MG TABCR PO SCH (09:55)
[2020-04-09] MEDS: CLOPIDOGREL 75 MG TAB PO SCH (09:55)
[2020-04-09] MEDS: AMIODARONE 200 MG TAB (PACERONE) PO SCH (09:55)
--- NOTE | 2020-04-09 12:54 | IPNPDOC ---
Text Note Date of Service The patient was seen on 04/09/20. NOTE Subjective: Patient is a 80-year-old male with a PMHx of CAD, Diastolic CHF, HTN, DLP, IDDM2, GERD who presented to the emergency room with generalized weakness. Patient reported that he tested positive for COVID on 04/01. She has been expressing progressive weakness and shortness of breath. Patient was admitted to the hospital service for further evaluation and management. Patient was seen and examined at the bedside. Patient was seen sitting up at that adjusted the bed working with physical therapy. He denies any nausea, vomiting, abdominal pain, constipation or diarrhea. Denies any urinary discomfort. Patient reports his breathing is doing relatively fine. Denies any significant cough. Objective: Vitals (See below) General: Sitting up at the edge of the bed, appears to be comfortable, is awake, alert and oriented 3 HEENT: NC, AT CVS: +S1S2 Lungs: Fair air entry b/l, no significant wheezing, rhonchi or rales Abdomen: Soft but obese, nondistended, nontender Extremities: Again lower extremities are free of any pitting edema, - Calf tenderness Imaging: CXR 04/06: There is evidence of interstitial edema and a possible developing right upper lobe airspace opacity. This is seen in conjunction with chronic cardiac changes as described above. Pulmonary edema from cardiogenic versus infectious etiology versus both. This needs to be correlated clinically with follow-up. Assessment and plan: Acute hypoxic respiratory failure - likely 2/2 COVID 19 pneumonia; possibly 2/2 superimposed bacterial infection - Patient reports that his breathing has improved. No significant cough or shortness of breath noted this morning - Hemodynamically stable and afebrile - Saturating well on room air to 1 L nasal cannula oxygen - Inflammatory markers continue to improve - c/w Remdesivir and Dexamethasone (Day #4) - c/w Levofloxacin (Day #4); Procardia calcitonin trending down - c/w incentive spirometry / acapella JAYCEE - likely 2/2 pre-renal etiology - Baseline creatinine of 1.85 (09/2018) - FENa of 0.9% - Creatinine is improving - Diuretics on hold - s/p IV fluids - Nephrology on consultation Chronic Diabolic CHF - likely 2/2 ischemic cardiomyopathy - No evidence of exacerbation clinically; no signs of volume overload - poor EF, ~20% - Diuretics on hold - s/p Fluids CAD s/p CABG - Patient denies any chest pain or palpitations - Troponin trending down / stable - c/w ASA, Plavix, Rosuvastatin - Follows with Dr. Barker Hx of Ventricular tachycardia - s/p AICD - c/w Amiodarone - follows with EP pipe coverer in [place] - Dr. Tinsley - he was planned for AICD replacement as it was due for exchange due to battery; delayed due to covid-19 - requires close f/u with Dr. Barker and EP Dr. Tinsley in [place] for AICD exchange upon discharge HTN - BP well controlled - c/w Metoprolol IDDM2 - c/w ISS and Levemir Decondition - c/w PT and OT DLP - c/w Rosuvastatin DVT prophylaxis - c/w Lovenox weight-based prophylactic dosing Disposition: - Anticipate discharge within the next 24 hours VS,Ronibone, I+O VS, Fishbone, I+O Laboratory Tests 04/09/20 07:03 Vital Signs Date Time Temp Pulse Resp B/P (MAP) Pulse Ox O2 Delivery O2 Flow Rate FiO2 04/09/20 09:55 76 125/58 04/09/20 08:00 96.8 18 93 Nasal Cannula 1.0 I&O- Last 24 Hours up to 6 AM 04/09/20 06:00 Intake Total 1080 ml Output Total 1500 ml Balance -420 ml JOSE ARMANDO ARNOLD MD Apr 09, 2020 12:54
[2020-04-09] MEDS: LevoFLOXacin IV 500 MG in IV 1 EA IV SCH (16:48)
[2020-04-09] MEDS: REMDESIVIR 100 MG in NS 250 ML IV SCH (18:14)
[2020-04-09] MEDS: SODIUM CHLORIDE 0.9% INJ 10 ML SYR IV SCH (19:00)
[2020-04-09] MEDS: NYSTATIN 100,000 UNITS/GM TOPICAL PWD 15 GM TOP PRN (21:23)
[2020-04-09] MEDS: ENOXAPARIN 100MG/1ML SYRINGE (J1650 PER 10MG) SC SCH (21:23)
[2020-04-09] MEDS: ASPIRIN 325 MG TAB PO SCH (21:24)
[2020-04-09] MEDS: ROSUVASTATIN 10 MG TAB (CRESTOR) PO SCH (21:24)
[2020-04-10] VITALS: O2SAT 89
[2020-04-10 00:05] VITALS: O2SAT 91
[2020-04-10 04:00] VITALS: O2SAT 93
[2020-04-10] MEDS: HumaLOG INSULIN (NovoLOG) PER UNIT SC SCH ×2 (07:30→11:50)
[2020-04-10 08:00] VITALS: BP 125/73
[2020-04-10 08:00] LABS: INR 1.45
[2020-04-10 08:02] LABS: PARTIAL THROMBOPLASTIN TIME 75.4 SECONDS (24.2-38.5)
[2020-04-10 08:07] LABS: BASO % 0.1 % (0.0-1.0); HEMATOCRIT 41.1 % (42.0-52.0); HEMOGLOBIN 13.4 g/dl (13.5-17.5); LYMPH # 0.7 10^3/uL (1.5-5.0); LYMPH % 9.4 % (24.0-44.0); MEAN CORPUSCULAR HEMOGLOBIN 30.1 pg (27.0-33.0); MEAN CORPUSCULAR HGB CONC 32.6 g/dl (32.0-36.5); MEAN CORPUSCULAR VOLUME 92.4 fl (80.0-96.0); MONO # 0.8 10^3/uL (0.0-0.8); MONO % 11.4 % (0.0-5.0); NEUTROPHILS # 5.5 10^3/uL (1.5-8.5); NEUTROPHILS % 76.6 % (36.0-66.0); PLATELET COUNT, AUTOMATED 258 10^3/uL (150-450); RED BLOOD COUNT 4.45 10^6/uL (4.30-6.10); WHITE BLOOD COUNT 7.2 10^3/uL (4.0-10.0)
[2020-04-10] MEDS: AMIODARONE 200 MG TAB (PACERONE) PO SCH (08:27)
[2020-04-10] MEDS: CLOPIDOGREL 75 MG TAB PO SCH (08:27)
[2020-04-10] MEDS: METOPROLOL TART 25 MG TABLET PO SCH (08:27)
[2020-04-10] MEDS: oxyBUTYnin *DITROPAN XL* 5 MG TABCR PO SCH (08:27)
[2020-04-10] MEDS: LEVEMIR (INSULIN DETEMIR) 1 UNITS/0.01ML SC SCH (08:28)
[2020-04-10] MEDS: dexameTHASONE 4 MG/ML 1ML VIAL (J1100 PER 1MG) IV SCH (08:28)
[2020-04-10 08:30] VITALS: O2SAT 92
[2020-04-10 08:37] LABS: BILIRUBIN,DIRECT 0.2 MG/DL (0.0-0.2); BILIRUBIN,TOTAL 0.3 MG/DL (0.2-1.0); CALCIUM LEVEL 8.2 MG/DL (8.8-10.2); CREATININE FOR GFR 2.47 MG/DL (0.70-1.30); GLOMERULAR FILTRATION RATE 27.1 (>42); MAGNESIUM LEVEL 2.3 MG/DL (1.8-2.4); POTASSIUM SERUM 4.2 MEQ/L (3.5-5.1); TOTAL PROTEIN 5.2 GM/DL (6.4-8.2); TROPONIN I 0.11 NG/ML (< 0.10)
[2020-04-10] MEDS ORDERED: LEVO750T13 PO (09:45)
[2020-04-10] MEDS ORDERED: PRED10TA2 PO (09:45)
--- NOTE | 2020-04-10 10:14 | ECHO ---
DATE OF PROCEDURE: 04/08/2020 Age: 80 Gender: Male Height: 178 cm Weight: 176 kg REFERRING PHYSICIAN: Jonny Jorge M.D. INDICATION: Congestive heart failure. MEASUREMENTS: IVS 1.0 cm LV 7.7 cm LVPW 1.1 cm LA 5.8 cm Aorta 3.5 cm IVC 1.6 cm Mitral E wave velocity 82 Mitral A wave 53 FINDINGS: This study is of poor technical quality. Underlying sinus rhythm with ventricular pacing. Left ventricle is severely dilated and globally hypokinetic. Based on very limited views, I estimate EF around 20% to 25%. Right ventricle is also dilated and hypokinetic. Both atria appear enlarged. Aortic valve is sclerotic, but it has three cusps and overall preserved mobility. There are degenerative abnormalities of the mitral valve with mitral annular calcifications. Tricuspid valve appears normal. Pulmonic valve also appears normal. An echo artifact is seen in the right-sided heart chamber is consistent with ICD lead. No pericardial effusion is noted. Inferior vena cava is of normal size. Aortic root is normal. Aortic arch and abdominal aorta were poorly visualized. Doppler interrogation of the aortic valve reveals no stenosis and mild insufficiency. There is also mild mitral insufficiency and mild tricuspid insufficiency. Calculated pulmonary artery pressure is in the 30s corresponding to mild pulmonary hypertension. Trace pulmonic insufficiency is seen. Evaluation of diastolic function is incomplete, but likely advanced diastolic dysfunction is present. CONCLUSIONS: 1. Study is of very limited technical quality. Underlying sinus rhythm with ventricular pacing. 2. Severely dilated globally hypokinetic left ventricle, estimated EF 20% to 25%. Unable to estimate diastolic function. 3. Dilated right ventricle. 4. Biatrial enlargement. 5. Aortic sclerosis with no stenosis and mild insufficiency. 6. Mild mitral and tricuspid insufficiency. 7. Likely normal central venous pressure, but at least mild pulmonary hypertension. MTDD
--- NOTE | 2020-04-10 12:26 | DS.PDOC ---
Discharge Summary General Date of Admission Apr 06, 2020 at 15:24 Date of Discharge 04/10/2020 Discharge Summary PROCEDURES PERFORMED DURING STAY: [None]. ADMITTING DIAGNOSES / DISCHARGE DIAGNOSES: Acute hypoxic respiratory failure - likely 2/2 COVID-19 pneumonia; possibly 2/2 superimposed bacterial infection JAYCEE on CKD3 - likely 2/2 pre-renal etiology Chronic Diabolic CHF - likely 2/2 ischemic cardiomyopathy CAD s/p CABG Hx of Ventricular tachycardia - s/p AICD HTN IDDM2 Decondition DLP DVT prophylaxis COMPLICATIONS/CHIEF COMPLAINT: Generalized weakness HISTORY OF PRESENT ILLNESS: Patient is a 80-year-old male with a PMHx of CAD, Diastolic CHF, HTN, DLP, IDDM2, GERD who presented to the emergency room with generalized weakness. Patient reported that he tested positive for COVID on 04/01. She has been expressing progressive weakness and shortness of breath. Patient was admitted to the hospital service for further evaluation and management. HOSPITAL COURSE: Acute hypoxic respiratory failure - likely 2/2 COVID 19 pneumonia; possibly 2/2 superimposed bacterial infection - Patient reports that his breathing is back to his baseline - Hemodynamically stable and afebrile - Saturating well on RA: requires oxygen with exertion - Inflammatory markers continue to improve - c/w Remdesivir and Dexamethasone (Day #5); Will provide prednisone taper on discharge - c/w Levofloxacin (Day #5); Procardia calcitonin trending down - will complete course as outpatient - c/w incentive spirometry / acapella JAYCEE on CKD3 - likely 2/2 pre-renal etiology - Baseline creatinine of 1.85 (09/2018) - likely higher baseline - FENa of 0.9% - Creatinine is improving - s/p IV fluids - Nephrology on consultation; case discussed - will resume diuresis on discharge (Bumetanide / Spironolactone; Will DC furosemide) Chronic Diabolic CHF - likely 2/2 ischemic cardiomyopathy - No evidence of exacerbation clinically; no signs of volume overload - poor EF, ~20% - s/p Fluids - Will resume diuretics on discharge CAD s/p CABG - Patient denies any chest pain or palpitations - Troponin trending down / stable - c/w ASA, Plavix, Rosuvastatin - Follows with Dr. Barker Hx of Ventricular tachycardia - s/p AICD - c/w Amiodarone - follows with EP refuse driver in [place] - Dr. Tinsley - he was planned for AICD replacement as it was due for exchange due to battery; delayed due to covid-19 - Requires close f/u with Dr. Barker and EP Dr. Tinsley in [place] for AICD exchange upon discharge; will have follow up on discharge HTN - BP well controlled - c/w Metoprolol IDDM2 - c/w ISS and Levemir Decondition - c/w PT and OT; cleared for DC home with services DLP - c/w Rosuvastatin DVT prophylaxis - c/w Lovenox weight-based prophylactic dosing DISCHARGE MEDICATIONS: Please see below. ALLERGIES: Please see below. PHYSICAL EXAMINATION ON DISCHARGE: Vitals (See below) General: Laying in bed, appears to be comfortable, is awake, alert and oriented 3 HEENT: NC, AT CVS: +S1S2 Lungs: Again, air entry is fair bilaterally without any appreciated, rhonchi, rales or wheezing Abdomen: Soft, morbidly obese, nondistended and nontender Extremities: Lower extremities are free of any pitting edema, - Calf tenderness LABORATORY DATA: Please see below. IMAGING: CXR 04/06: There is evidence of interstitial edema and a possible developing right upper lobe airspace opacity. This is seen in conjunction with chronic cardiac changes as described above. Pulmonary edema from cardiogenic versus infectious etiology versus both. This needs to be correlated clinically with follow-up. ACTIVITY: [As tolerated]. DISCHARGE PLAN: Follow-up with primary care provider, refuse driver, and oil rigger within 7 days Remain complaint with treatment plan and medications Return to the ER if you experience any problems DISPOSITION: Home with services DISCHARGE CONDITION: [Stable]. TIME SPENT ON DISCHARGE: 35 minutes Vital Signs/I&Os Vital Signs Date Time Temp Pulse Resp B/P (MAP) Pulse Ox O2 Delivery O2 Flow Rate FiO2 04/10/20 08:30 92 Room Air 04/10/20 08:00 97.8 79 19 125/73 (90) 2.0 I&O- Last 24 Hours up to 6 AM 04/10/20 06:00 Intake Total 1130 ml Output Total 1100 ml Balance 30 ml Laboratory Data Labs 24H Laboratory Tests 2 04/09/20 16:42: Bedside Glucose (Misc Panel) 200H 04/09/20 21:18: Bedside Glucose (Misc Panel) 198H 04/10/20 05:29: Bedside Glucose (Misc Panel) 80L 04/10/20 07:08: Immature Granulocyte % (Auto) 2.5, Neutrophils (%) (Auto) 76.6H, Lymphocytes (%) (Auto) 9.4L, Monocytes (%) (Auto) 11.4H, Eosinophils (%) (Auto) 0.0, Basophils (%) (Auto) 0.1, Neutrophils # (Auto) 5.5, Lymphocytes # (Auto) 0.7L, Monocytes # (Auto) 0.8, Eosinophils # (Auto) 0.0, Basophils # (Auto) 0.0, Nucleated Red Blood Cells % (auto) 0.0, Prothrombin Time 18.0H, Prothromb Time International Ratio 1.45, Activated Partial Thromboplast Time 75.4H, Fibrinogen 500H, Anion Gap 12, Glomerular Filtration Rate 27.1L, Calcium Level 8.2L, Magnesium Level 2.3, Ferritin 727H, Total Bilirubin 0.3, Direct Bilirubin 0.2, Aspartate Amino Transf (AST/SGOT) 93H, Alanine Aminotransferase (ALT/SGPT) 79H, Alkaline Phosphatase 85, Lactate Dehydrogenase 421H, Total Creatine Kinase 128, Troponin I 0.11#H, KQ-Gcl-X-Type Natriuretic Peptide 13527P, Total Protein 5.2L, Albumin 2.0L, Albumin/Globulin Ratio 0.6, Procalcitonin 0.08 04/10/20 11:42: Bedside Glucose (Misc Panel) 88 CBC/BMP Laboratory Tests 04/10/20 07:08 FSBS Laboratory Tests Test 04/09/20 16:42 04/09/20 21:18 04/10/20 05:29 04/10/20 11:42 Range/Units Bedside Glucose (Misc Panel) 200 198 80 88 83-110 MG/DL Microbiology Microbiology 04/06/20 Blood Culture - Preliminary, Resulted No Growth after 72 hours. All specime... 04/06/20 Blood Culture - Preliminary, Resulted No Growth after 72 hours. All specime... Discharge Medications Scheduled Amiodarone HCl (Amiodarone HCl) 200 Mg Tab, 200 MG PO DAILY, (Reported) Aspirin (Aspirin) 325 Mg Tablet, 325 MG PO QHS, (Reported) Bumetanide (Bumetanide) 1 Mg Tablet, 1 MG PO DAILY, (Reported) Cholecalciferol (Vitamin D3) (Vitamin D3) 125 Mcg Tablet, 125 MCG PO DAILY, (Reported) Clopidogrel Bisulfate (Plavix) 75 Mg Tablet, 75 MG PO DAILY, (Reported) Docusate Sodium (Colace) 100 Mg Cap, 100 MG PO BID, (Reported) Insulin Glargine (Lantus) 100 Unit/1 Ml Vial, 40 UNITS SC DAILY, (Reported) Levofloxacin (Levofloxacin) 750 Mg Tablet, 750 MG PO Q48H Magnesium Chloride (Mag64) 64 Mg Tabcr, 64 MG PO BID, (Reported) Metoprolol Tartrate (Metoprolol Tartrate) 25 Mg Tablet, 25 MG PO BID, (Reported) Oxybutynin Chloride (Oxybutynin Chloride ER) 10 Mg Tab, 10 MG PO DAILY, (Reported) Prednisone (Prednisone) 10 Mg Tablet, 10 MG PO TAPER Take 4 tabs daily x 3 days, then 3 tabs daily x 3 days, then 2 tabs daily x 3 days, then 1 tab daily x 3 days and stop Rosuvastatin Calcium (Rosuvastatin Calcium) 40 Mg Tablet, 40 MG PO QHS, (Reported) Spironolactone (Spironolactone) 25 Mg Tablet, 12.5 MG PO QHS, (Reported) Scheduled PRN Acetaminophen (Acetaminophen) 325 Mg Tablet, 325 MG PO Q4H PRN for PAIN / FEVER, (Reported) Miscellaneous Medications [Comments] , (Reported) MED LIST OBTAINED WITH HELP FROM EspinelaRebecca Allergies Coded Allergies: No Known Allergies (Verified , 03/10/04) JOSE ARMANDO ARNOLD MD Apr 10, 2020 12:26
[2020-04-10] MEDS ORDERED: LevoFLOXacin 750 MG TABLET PO SCH (16:00)
== END 2020-04-10 15:00 | disposition home health service (06) | DRG 177 ==
LOC: EDBD 13:15 → M ED 13:15 → M ED INP 15:24 → M 4MAIN 17:07
PROVIDERS: ADMIT Internal Medicine; ATTEND Internal Medicine
PROC: XW033E5 Introduction of Remdesivir Anti-infective into Peripheral Vein, Percutaneous Approach, New Technology Group 5 (ICD-10-PCS; principal; 2020-04-06)
PROC: 3E0333Z Introduction of Anti-inflammatory into Peripheral Vein, Percutaneous Approach (ICD-10-PCS; 2020-04-06)
DX: U07.1 COVID-19 (principal); J15.9 Unspecified bacterial pneumonia; J96.01 Acute respiratory failure with hypoxia; J12.89 Other viral pneumonia; N17.9 Acute kidney failure, unspecified; I50.32 Chronic diastolic (congestive) heart failure; E87.2 Acidosis; I25.10 Atherosclerotic heart disease of native coronary artery without angina pectoris; I11.0 Hypertensive heart disease with heart failure; E78.00 Pure hypercholesterolemia, unspecified; K21.9 Gastro-esophageal reflux disease without esophagitis; E78.5 Hyperlipidemia, unspecified; I25.5 Ischemic cardiomyopathy; E11.9 Type 2 diabetes mellitus without complications; Z95.5 Presence of coronary angioplasty implant and graft; Z95.810 Presence of automatic (implantable) cardiac defibrillator; Z87.81 Personal history of (healed) traumatic fracture; Z79.82 Long term (current) use of aspirin; Z79.899 Other long term (current) drug therapy; Z79.4 Long term (current) use of insulin; Z79.02 Long term (current) use of antithrombotics/antiplatelets

== ENCOUNTER 2020-04-17 18:33 | Inpatient (IN) | payer OTHER, MEDICARE ==
[~2020-04-17] VITALS: Ht 177.8 cm; Wt 135.0 kg
[~2020-04-17 18:33] MED LIST changes: +APAP325T4 PO; +BAYE325T12 PO; +BUME1TAB3 PO; +COMMENTS; +FURO40TA2 PO; +INSULADS SC; +LEVO750T13 PO; +METO25TA4 PO; +PLAV1TAB2 PO; +PRED10TA2 PO; +ROSU40TA4 PO; +SPIR-10 PO; +VITA500030 PO
[2020-04-17 19:22] LABS: BASO % 0.4 % (0.0-1.0); HEMATOCRIT 47.5 % (42.0-52.0); HEMOGLOBIN 15.3 g/dl (13.5-17.5); LYMPH # 0.8 10^3/uL (1.5-5.0); LYMPH % 8.5 % (24.0-44.0); MEAN CORPUSCULAR HEMOGLOBIN 29.7 pg (27.0-33.0); MEAN CORPUSCULAR HGB CONC 32.2 g/dl (32.0-36.5); MEAN CORPUSCULAR VOLUME 92.1 fl (80.0-96.0); MONO # 0.6 10^3/uL (0.0-0.8); MONO % 5.7 % (0.0-5.0); NEUTROPHILS # 8.1 10^3/uL (1.5-8.5); PLATELET COUNT, AUTOMATED 124 10^3/uL (150-450); RED BLOOD COUNT 5.16 10^6/uL (4.30-6.10); WHITE BLOOD COUNT 9.8 10^3/uL (4.0-10.0)
--- NOTE | 2020-04-17 19:22 | REP ---
INDICATION: Coronavirus workup COMPARISON: 04/06/2020 TECHNIQUE: Portable AP view of the chest FINDINGS: The mediastinum and cardiac silhouette are stable and cardiomegaly with sternotomy, pacemaker and CABG again noted. The lung wasserman demonstrate chronic changes and improved aeration with improved decreased scattered infiltrates as compared to prior examination. No effusion. No pneumothorax. IMPRESSION: Improved aeration with decreased infiltrates as compared to prior examination <Electronically signed by Paco Joshua > 04/17/20 [id number]
[2020-04-17 19:34] LABS: CK-MB VALUE MASS 10.8 NG/ML (<3.6); MB/CK RELATIVE INDEX 1.38 (< OR =4); TROPONIN I 0.15 NG/ML (< 0.10)
--- OUTSIDE RECORDS SUMMARY | 2020-04-17 19:48 | CCD ---
Author Author [facility] Organization [facility] Address Unknown Phone Unavailable Care Team Providers Care Certified Rehabilitation Counselor Name Role Phone Shama Mendoza Unavailable PROBLEMS Type Condition ICD9-CM Code [id number] Code Onset Dates Condition S tatus SNOMED Code Notes Problem Mixed hyperlipidemia E78.2 Active 372255119 Problem Hypertriglyceridemia E78.1 Active 147428967 W e discussed that generally fat intake is the cause of elevated triglycerides and we discussed diet in terms of cutting down on fat Problem Vitamin D deficiency E55.9 Active 84182579 Problem Ischemic cardiomyopathy I25.5 Active [id number] 4 Stable, per the records from his ostomy nurse. We will continue to prescribe medications and to order blood work as needed. I asked him to work on diet, and again instructed him on upper body exercises that he can do to achieve aerobic exercise. I will see him back in 6 months, sooner if needed ALLERGIES No Known Allergies ENCOUNTERS from 1940 to 2020-02-02 Encounter Location Date Provider Diagnosis [address] [id number] Jan, Shama Mendoza IMMUNIZATIONS No Information SOCIAL HISTORY Tobacco Use: Social History Observation Description Date Details (start date - stop date) Former Smoker Sex Assigned At : Social History Observation Description Sex Assigned At Unknown Alcohol Screening: Question Answer Notes Did you have a drink containing alcohol in the past year? Ye s Points 1 Interpretation Negative How often did you have a drink containing alcohol in t he past year? Monthly or less (1 point) Tobacco Use: Question Answer Notes Are you a: former smoker How long has it been since you last smoked? > 10 years REASON FOR REFERRAL No Information VITAL SIGNS No information MEDICATIONS Medication SIG (Take, Route, Frequency, Duration) Notes Start Da te End Date Status Pantoprazole Sodium 40 MG 1 tablet Orally Once a day Active Oxybutynin Chloride ER 10 MG 1 tablet Orally Once a day Active Amiodarone HCl 200 MG 1 tablet Orally Once a day Active Stool Softener 100 MG 1 capsule as needed Orally Once a day Active Spironolactone 25 mg 1/2 tablet Orally Once a day for 90 Active Rosuvastatin Calcium 40 MG 1 tablet Orally Once a day Active Insulin Glargine 100 UNIT/ML as directed Subcutaneous 40units/BID Active Metoprolol Tartrate 25 MG 1 tablet with food Orally Twice a day Active Clopidogrel Bisulfate 75 MG 1 tablet Orally Once a day Active Magnesium 65 MG 1 tablet Orally Once a day Active Aspirin 325 MG 1 tablet Orally Once a day Active Furosemide 20 MG 2 tablet Orally Once a day for 90 days Active Vitamin D-3 1000 UNIT 1 capsule Orally Once a day Active Betamethasone Dipropionate 0.05 % 1 application 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 for 14 days Jan, Active PROCEDURES No Information RESULTS No Results REASON FOR VISIT eczema MEDICAL (GENERAL) HISTORY Type Description Date Medical History first heart attack 1976, 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 Medical History multiple catheterizations, C ABG, stents since that time (see records from the [facility]) Medical History ischemic cardiomyopathy Medical History hypertension Medical History hyperlipidemia Medical History GERD Medical History magnesium deficiency Medical History vitamin D deficiency Surgical History multiple heart catheterizations Hospitalization History multiple for heart disease Goals Section No Information Health Concerns No Information MEDICAL EQUIPMENT No Information MENTAL STATUS No Information FUNCTIONAL STATUS No Information ASSESSMENTS No Information PLAN OF TREATMENT Medication Medication Name Sig Start Date Stop Date Betamethasone Dipropionate 0.05 % 1 application 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
--- OUTSIDE RECORDS SUMMARY | 2020-04-17 19:48 | CCD ---
Author Author [facility] Organization [facility] Address Unknown Phone Unavailable Care Team Providers Care Manufacturing Production Manager Name Role Phone NON, PHYSICIAN STAFF Unavailable Unavailable Racquel Sparks MD Unavailable Unavailable Racquel Sparks MD Unavailable Unavailable Racquel Sparks MD Unavailable Unavailable Racquel Sparks MD Unavailable Unavailable Racquel Sparks MD Unavailable Unavailable Racquel Sparks MD Unavailable Unavailable Racquel Sparks MD Unavailable Unavailable Racquel Sparks MD Unavailable Unavailable Racquel Sparks MD Unavailable Unavailable Racquel Sparks MD Unavailable Unavailable Racquel Sparks MD Unavailable Unavailable Racquel Sparks MD Unavailable Unavailable Racquel Sparks MD Unavailable Unavailable Racquel Sparks MD Unavailable Unavailable Racquel Sparks MD Unavailable Unavailable Racquel Sparks MD Unavailable Unavailable Racquel Sparks MD Unavailable Unavailable Racquel Sparks MD Unavailable Unavailable Racquel Sparks MD Unavailable Unavailable Racquel Sparks MD Unavailable Unavailable Racquel Sparks MD Unavailable Unavailable Racquel Sparks MD Unavailable Unavailable Racquel Sparks MD Unavailable Unavailable Racquel Sparks MD Unavailable Unavailable Racquel Sparks MD Unavailable Unavailable Racquel Sparks MD Unavailable Unavailable Racquel Sparks MD Unavailable Unavailable Racquel Sparks MD Unavailable Unavailable Racquel Sparks MD Unavailable Unavailable [place], N Golden FEDERAL LAW CLERK Unavailable Unavailable Eli, N Golden FEDERAL LAW CLERK Unavailable Unavailable Eli, N Golden FEDERAL LAW CLERK Unavailable Unavailable [place], N Golden FEDERAL LAW CLERK Unavailable Unavailable Eli, N Golden FEDERAL LAW CLERK Unavailable Unavailable Eli, N Golden FEDERAL LAW CLERK Unavailable Unavailable Eli, N Golden FEDERAL LAW CLERK Unavailable Unavailable Eli, N Golden FEDERAL LAW CLERK Unavailable Unavailable Eli, N Golden FEDERAL LAW CLERK Unavailable Unavailable Eli, N Golden FEDERAL LAW CLERK Unavailable Unavailable Eli, N Golden FEDERAL LAW CLERK Unavailable Unavailable Eli, N Golden FEDERAL LAW CLERK Unavailable Unavailable [place], N Golden FEDERAL LAW CLERK Unavailable Unavailable Eli, N Golden FEDERAL LAW CLERK Unavailable Unavailable [place], N Golden FEDERAL LAW CLERK Unavailable Unavailable [place], N Golden FEDERAL LAW CLERK Unavailable Unavailable [place], N Golden FEDERAL LAW CLERK Unavailable Unavailable Eli, N Golden FEDERAL LAW CLERK Unavailable Unavailable Eli, N Golden FEDERAL LAW CLERK Unavailable Unavailable Eli, N Golden FEDERAL LAW CLERK Unavailable Unavailable Eli, N Golden FEDERAL LAW CLERK Unavailable Unavailable Eli, N Golden FEDERAL LAW CLERK Unavailable Unavailable [place], N Golden FEDERAL LAW CLERK Unavailable Unavailable [place], N Golden FEDERAL LAW CLERK Unavailable Unavailable Eli, N Golden FEDERAL LAW CLERK Unavailable Unavailable Eli, N Golden FEDERAL LAW CLERK Unavailable Unavailable [place], N Golden FEDERAL LAW CLERK Unavailable Unavailable Eli, N Golden FEDERAL LAW CLERK Unavailable Unavailable [place], N Golden FEDERAL LAW CLERK Unavailable Unavailable [place], N Golden FEDERAL LAW CLERK Unavailable Unavailable [place], N Golden FEDERAL LAW CLERK Unavailable Unavailable Al Kari A Chris GARNETT Unavailable Unavailable Al Pau Pierce MD Unavailable Unavailable Al Pau Pierce MD Unavailable Unavailable Al Pau Pierce MD Unavailable Unavailable Al Kari A Chris GARNETT Unavailable Unavailable Al Kari A Chris GARNETT Unavailable Unavailable Al Kari A Chris GARNETT Unavailable Unavailable Al Kari A Chirs GARNETT Unavailable Unavailable Al Kari A Chris GARNETT Unavailable Unavailable Al Kari A Chris GARNETT Unavailable Unavailable Al Kari A Chris GARNETT Unavailable Unavailable Al Kari A Chris GARNETT Unavailable Unavailable Al Kari A Chris GARNETT Unavailable Unavailable Al Kari A Chris GARNETT Unavailable Unavailable Al Pau Pierce MD Unavailable Unavailable Al Kari A Chris GARNETT Unavailable Unavailable Al Kari A Chris GARNETT Unavailable Unavailable Al Kari A Chris GARNETT Unavailable Unavailable Al Kari, A Chris GARNETT Unavailable Unavailable Al Kari A Chris GARNETT Unavailable Unavailable Al Kari A Chris GARNETT Unavailable Unavailable Al Kari A Chris GARNETT Unavailable Unavailable Al Kari, A Chris GARNETT Unavailable Unavailable Al Kari, A Chris GARNETT Unavailable Unavailable Al Kari, A Chris GARNETT Unavailable Unavailable Al Kari, A Chris GARNETT Unavailable Unavailable Al Kari A Chris GARNETT Unavailable Unavailable Al Mudamgha, A Ali MD Unavailable Unavailable Al Mudamgha, A Ali MD Unavailable Unavailable Al Mudamgha, A Ali MD Unavailable Unavailable Al Mudamgha, A Ali MD Unavailable Unavailable Al Mudamgha, A Ali MD Unavailable Unavailable Al Mudamgha, A Ali MD Unavailable Unavailable Al Mudamgha, A Ali MD Unavailable Unavailable Al Mudamgha, A Ali MD Unavailable Unavailable Al Mudamgha, A Ali MD Unavailable Unavailable Al Mudamgha, A Ali MD Unavailable Unavailable Al Mudamgha, A Ali MD Unavailable Unavailable Al Mudamgha, A Ali MD Unavailable Unavailable Al Mudamgha, A Ali MD Unavailable Unavailable Al Mudamgha, A Ali MD Unavailable Unavailable Al Mudamgha, A Ali MD Unavailable Unavailable Al Mudamgha, A Ali MD Unavailable Unavailable Al Mudamgha, A Ali MD Unavailable Unavailable Al Mudamgha, A Ali MD Unavailable Unavailable Al Mudamgha, A Ali MD Unavailable Unavailable Al Mudamgha, A Ali MD Unavailable Unavailable Al Mudamgha, A Ali MD Unavailable Unavailable Al Mudamgha, A Ali MD Unavailable Unavailable Al Mudamgha, A Ali MD Unavailable Unavailable Al Mudamgha, A Ali MD Unavailable Unavailable Al Mudamgha, A Ali MD Unavailable Unavailable Al Mudamgha, A Ali MD Unavailable Unavailable Al Mudamgha, A Ali MD Unavailable Unavailable Al Mudamgha, A Ali MD Unavailable Unavailable Al Mudamgha, A Ali MD Unavailable Unavailable Al Mudamgha, A Ali MD Unavailable Unavailable Al Mudamgha, A Ali MD Unavailable Unavailable Al Mudamgha, A Ali MD Unavailable Unavailable Al Mudamgha, A Ali MD Unavailable Unavailable Al Mudamgha, A Ali MD Unavailable Unavailable Al Mudamgha, A Ali MD Unavailable Unavailable Al Mudamgha, A Ali MD Unavailable Unavailable Al Mudamgha, A Ali MD Unavailable Unavailable Al Mudamgha, A Ali MD Unavailable Unavailable Al Mudamgha, A Ali MD Unavailable Unavailable Al Mudamgha, A Ali MD Unavailable Unavailable Al Mudamgha, A Ali MD Unavailable Unavailable Al Mudamgha, A Ali MD Unavailable Unavailable Al Mudamgha, A Ali MD Unavailable Unavailable Al Mudamgha, A Ali MD Unavailable Unavailable Al Mudamgha, A Ali MD Unavailable Unavailable Al Mudamgha, A Ali MD Unavailable Unavailable Al Mudamgha, A Chris GARNETT Unavailable Unavailable Al Mudamgha, A Ali MD Unavailable Unavailable Al Mudamgha, A Chris GARNETT Unavailable Unavailable Al Mudamgha, A Chris GARNETT Unavailable Unavailable Al Mudamgha, A Ali MD Unavailable Unavailable Al Mudamgha, A Ali MD Unavailable Unavailable Al Mudamgha, A Ali MD Unavailable Unavailable Re-disclosure Warning The records that you are about to access may contain information from federally-assisted alcohol or drug abuse programs. If such information is present, then the following federally mandated warning applies: This information has been disclosed to you from records protected by federal confidentiality rules (42 CFR part 2). The federal rules prohibit you from making any further disclosure of this information unless further disclosure is expressly permitted by the written consent of the person to whom it pertains or as otherwise permitted by 42 CFR part 2. A general authorization for the release of medical or other information is NOT sufficient for this purpose. The Federal rules restrict any use of the information to criminally investigate or prosecute any alcohol or drug abuse patient.The records that you are about to access may contain highly sensitive health information, the redisclosure of which is protected by Article 27-F of the [facility] Public Health law. If you continue you may have access to information: Regarding HIV / AIDS; Provided by facilities licensed or operated by the [facility] Office of Mental Health; or Provided by the [facility] Office for People With Developmental Disabilities. If such information is present, then the following [facility] mandated warning applies: This information has been disclosed to you from confidential records which are protected by state law. State law prohibits you from making any further disclosure of this information without the specific written consent of the person to whom it pertains, or as otherwise permitted by law. Any unauthorized further disclosure in violation of state law may result in a fine or residential sentence or both. A general authorization for the release of medical or other information is NOT sufficient authorization for further disc losure. Allergies and Adverse Reactions Type Description Substance Reaction Status Data Source(s ) No Known Drug Allergies No Known Drug Allergies [facility] No Known Environmental Allergies No Known Environmental Al lergies [facility] No Known Food Allergies No Known Food Allergies [facility] Family History Family Member Name Family Member Gender Family Member Status Date o f Status Description Data Source(s) Unknown Male Encounters Encounter Providers Location Date Indications Data Source(s ) Outpatient Attender: Chris Tinsley MDAdmitter: Chris Lee MD [email or web address]-[email or web address].CVAU 03/27/2020 09:31:31 AM EST [facility] Outpatient [id number] 03/26/2020 10:44:38 AM EST [facility] Unknown [address], [facility] [address] 02/02/2020 12:00:00 AM EST eCW1 ([facility]) [facility] [place] [address] [address] 01/31/2020 12:00:00 AM EST eCW1 ([facility]) Outpatient Attender: Chris Tinsley MDReferrer: Golden dukes NP BF-BF.CVS 01/24/2020 07:13:08 AM EST [facility] Outpatient [email or web address].CT-[email or web address].SYR 01/05/2020 09:46:15 AM EDT [facility] Outpatient Attender: Golden GONZALEZ.ELSA-SJP.ELSA 020 12:00:00 AM EDT - 01/02/2020 03:34:02 PM EDT [facility] Outpatient SJP.CT-SJP.SYR 11/30/2019 12:23:28 PM EDT [facility] Outpatient [email or web address].CT-[email or web address].SYR 11/03/2019 07:53:19 AM EDT [facility] Outpatient SJP.ELSA-SJP.ELSA 09/28/2019 10:13 :24 AM EDT - 09/28/2019 10:35:39 AM EDT [facility] Outpatient Attender: Golden GONZALEZ.ELSA-SJP.ELSA 020 12:00:00 AM EDT - 09/26/2019 02:22:27 PM EDT [facility] [address] [address] 07/31/2019 12:00:00 AM EDT eCW1 ([facility]) [facility] [place] [address], [facility] [address] 06/28/2019 12:00:00 AM EDT eCW1 ([facility]) Outpatient CT-SJP.SYR 06/22/2019 09:21 :25 AM EDT - 06/22/2019 09:27:41 AM EDT [facility] Outpatient Attender: Golden LACYELSA 020 12:00:00 AM EDT - 06/20/2019 01:40:27 PM EDT [facility] Outpatient Attender: Racquel Sparks MDConsultant: STAFF NON 04/19/2019 07:15:00 AM EST - 04/19/2019 11:37:00 AM EST [facility] Patient discharged. Outpatient Attender: Racquel Sparks MDConsultant: STAFF NON 02/14/2019 10:30:00 AM EST - 02/14/2019 12:35:00 PM EST [facility] Patient discharged. Medications Medication Brand Name Start Date Product Form Dose Route Admi nistrative Instructions Pharmacy Instructions Status Indications Reaction Description Data Source(s) Rosuvastatin calcium 40 MG Oral Tablet rosuvastatin (C RESTOR) 40 MG tablet rosuvastatin (CRESTOR) 40 MG tablet 03/21/2020 12:00:00 AM EST active Hyperlipidemia, unspecified hyperlipidemia type TAKE 1 TABLE T BY MOUTH DAILY [facility] Hyperlipidemia, unspecified hyperlipidem ia type Furosemide 40 MG Oral Tablet furosemide (LASIX) 40 MG tablet furosemide (LASIX) 40 MG tablet 03/21/2020 12:00:00 AM EST activ e TAKE 1 TABLET BY MOUTH DAILY [facility] Amiodarone hydrochloride 200 MG Oral Tablet amiodarone (PACERONE) 200 MG tablet amiodarone (PACERONE) 200 MG tablet 03/21/2020 12:00:00 AM EST active TAKE 1 TABLET BY MOUTH DAILY [facility] Betamethasone 0.5 MG/ML Topical Cream Betamethasone Di propionate 0.05 % Betamethasone Dipropionate 0.05 % 02/02/2020 12:00:00 AM EST 1.0 {application} active Betamethasone Dipropiona te 0.05 % eCW1 ([facility]) Metoprolol Tartrate 25 MG Oral Tablet me toprolol tartrate (LOPRESSOR) 25 MG tablet metoprolol tartrate (LOPRESSOR) 25 MG tablet 11/16/2019 12:0 0:00 AM EDT 25 mg Oral active Take 1 tablet (2 5 mg total) by mouth 2 (two) times a day [facility] clopidogrel 75 MG Oral Tablet clopidogrel (PLAVIX) 75 MG tablet clopidogrel (PLAVIX) 75 MG tablet 08/18/2019 12:00:00 AM EDT 75 mg Oral active Take 1 tablet (75 mg total) by mouth daily [facility] 24 HR Oxybutynin chloride 10 MG Extended Release Oral Tablet oxybutynin (DITROPAN-XL) 10 MG 24 hr tablet oxybutynin (DITROPAN-XL) 10 MG 24 hr tablet 08/16/2019 12:00:00 AM EDT 10 mg Oral active Take 1 tablet (10 mg total) by mouth daily [facility] Spironolactone 25 MG Oral Tablet spironolactone (ALDAC TONE) 25 MG tablet spironolactone (ALDACTONE) 25 MG tablet 06/20/2019 12:00:00 AM EDT 12.5 mg Oral active Take 0.5 tablets (12 .5 mg total) by mouth daily [facility] Insurance Providers Payer name Policy type / Coverage type Policy ID Covered green party ID Covered green party's relationship to godoy Policy God[place] Plan Information OPTUM [facility] [id number] SP [id number] 'S ADMINISTRATION [id number] SP [id number] [facility] [id number] SP [id number] [facility] CLAIM ADMIN WORK COMP [id number] SP [id number] SPECIAL FUNDS [facility] [id number] SP [id number] INSURANCE COVID-19 [id number] WORKER'S COMP [id number] WORKER'S COMP [id number] Emp [id number] COMMERCIAL GENERIC [id number] Sola [id number] COMMERCIAL GENERIC [id number] Sola [id number] COMMERCIAL GENERIC [id number] Sola [id number] COMMERCIAL GENERIC [id number] Sola [id number] WORKER'S COMP [id number] Emp [id number] SPECIAL FUNDS CONSERVATION-DEW [id number] SP [id number] WORKER'S COMP [id number] Emp [id number] WORKER'S COMP UNAVAILABLE Emp UNAV AILABLE WORKER'S COMP [id number] Emp [id number] WORKER'S COMP [id number] Emp [id number] WORKER'S COMP [id number] Emp [id number] ADMINSTRATION -O/P [id number] 18 [id number] ANSI-Commercial [id number] ANSI-Commercial [id number] ANSI-Commercial [id number] [employer] Commercial [id number] Self [id number] [employer] Commercial [id number] Self [id number] TODAYS OPTIONS [id number] SP [id number] MEDICARE [id number] SP [id number] A Todays Options Commercial [id number] Self [id number] [facility] Expa Health Maintenance Organization ([facility]) [id number] Self [id number] [place] Medigap Part B [id number] Self [id number] Medicare Natl Govt Servic Medicare Primary [id number] Self [id number] Special Funds Cons.Com Workers Compensation [id number] Se lf [id number] Todays Option Medicare Commercial [id number] Self [id number] [facility] Expa Health Maintenance Organization ([facility]) [id number] Self [id number] [place] [employer] [place] Medigap Part B [id number] Self [id number] Medicare Natl Govt Servic Medicare Primary [id number] Self [id number] Special Funds Cons.Com Workers Compensation [id number] Se lf [id number] Todays Option Medicare Commercial [id number] Self [id number] [facility] Expa Health Maintenance Organization ([facility]) [id number] Self [id number] [place] [employer] [place] Medigap Part B [id number] Self [id number] Medicare Natl Govt Servic Medicare Primary [id number] Self [id number] Special Funds Cons.Com Workers Compensation [id number] Se lf [id number] Tod[employer] Option Medicare Commercial [id number] Self [id number] SPECIAL FUNDS CONSERVATION-DEW [id number] SP [id number] [facility] Expa Health Maintenance Organization ([facility]) [id number] Self [id number] [place] [employer] [place] Medigap Part B [id number] Self [id number] Medicare Natl Govt Servic Medicare Primary [id number] Self [id number] Special Funds Cons.Com Workers Compensation [id number] Se lf [id number] Todays Option Medicare Commercial [id number] Self [id number] TODAYS OPTIONS [id number] SP [id number] [facility] Blue Health Maintenance Organization (O) Se lf [place] [employer] [place] Medigap Part B Self Medicare Natl Govt Servic Medicare Primary Self Special Funds Cons.Com Workers Compensation Self Todays Option Medicare Commercial Advantage 200 Ppo Self Advantage 200 Ppo [place] Prog-Today's Opt Commercial Self SELF PAY UNAVAILABLE SP UNAVAILA BLE SPECIAL FUNDS CONSERVATION-DEW [id number] SP [id number] TODAYS OPTIONS/SURINAMESE P [id number] S [id number] SPECIAL FUNDS P [id number] S [id number] SPECIAL FUNDS CONSERVATION-DEW [id number] SP [id number] SPECIAL FUNDS CONSERVATION-DEW [id number] SP [id number] SELF PAY 2 UNAVAILABLE 1 UNAVAILA BLE MUTUAL OF [employer]F IRA [id number] 1 [id number] MEDICARE 4 [id number] 1 [id number] A SPECIAL FUNDS 8 [id number] 1 [id number] SPECIAL FUNDS CONSERVATION-DEW [id number] SP [id number] SPECIAL FUNDS CONSERVATION-[facility] [id number] SP [id number] SPECIAL FUNDS CONSERVATION-[facility] [id number] SP [id number] Problems, Conditions, and Diagnoses Code Display Name Description Problem Type Effective Dates Data Source(s) Z79.899 High risk medication use High risk medication use 6457 200009/26/2019 12:00:00 AM EDT [facility] I47.2 Ventricular tachycardia Ventricular tachycardia Diagno sis 03/27/2020 11:47:35 AM EST [facility] Z79.899 Other assistant terminal 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 (current) drug therapy O ther mcc (current) drug therapy Diagnosis 01/02/2020 01:49:10 PM EDT [facility] 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 Presence of automatic (implantable) card Diagnosis 01/02/2020 01:49:10 PM EDT [facility] E66.01 Morbid (severe) obesity due to excess ca lories Morbid (severe) obesity due to excess ca Diagnosis 01/02/2020 01:49:10 PM EDT [facility] I25.5 Ischemic cardiomyopathy Ischemic cardiomyopathy Diagno sis 01/02/2020 01:49:10 PM EDT [facility] I25.10 Atherosclerotic heart diseas e of [place] coronary artery without angina pectoris Atherosclerotic heart disease of [place] Diagnosis 01/02/2020 01:49:10 PM EDT [facility] E78.5 Hyperlipidemia, unspecified Hyperlipidemia, unspecifie d Diagnosis 06/20/2019 01:20:44 PM EDT [facility] N18.9 Chronic kidney disease, unspecified Chronic kidn ey disease, unspecified Diagnosis 06/20/2019 01:20:44 PM EDT [facility] H268 Other specified cataract Other specified cataract Diag nosis 04/19/2019 07:15:00 AM EST [facility] Results ID Date Data Source [id number] 04/06/2020 01:30:00 PM EST [facility] Name Value Range Interpretation Code Description Data Heena rce(s) Supporting Document(s) SARS coronavirus 2 RNA [Presence] in Res piratory specimen by LUIS FERNANDO with probe detection POSITIVE [facility] This lab was ordered by [facility] a nd reported by [facility]. ID Date Data Source [id number] 01/24/2020 10:40:00 AM EST [facility]FORMATIONPatient MRN Name Date of Age Gend*PT [id number] Ana Berman 1940 79 years M ---PT Location Admission Date/Time Visit ID Attending Provider --- --- --- --- EPI ID CSN Admitting Provider [id number] ---[facility] [id number] [facility], [address] (First Floor)[place], [place] [address]Sd.: Fax: Gatient: Ana Berman : 2Date: 01/24/20CARDIOLOGY ELECTROPHYSIOLOGY TELEMEDICINE CONSULTPatient was identified by name and date of .Verbal consent was obtained from the patient for this telemedicine visit.Patient is aware of the risks, limitations, and benefits of a telemedicinevisit.This telemedicine assessment was conducted remotely with the assistance ofHuodongxing communication technology. Telephone Only Codes 21594: 21-30 minutesof medical discussion: Telephone Only .Subjective:I was asked by Dr. Barker to consult on this 79 years male with congestive heartfailureHISTORY OF PRESENT ILLNESS: Patient is a 79-year-old gentleman with a history ofcongestive heart failure as a biventricular ICD which is reached recommendedreplacement time. Patient has not received any shocks. He denies any syncopeor near syncope. He denies any fatigue. He denies any significant shortness ofbreath or dyspnea on exertionPast Medical History:Diagnosis Date Biventricular ICD (implantable cardioverter-defibrillator) in place 2004 epicardial lead placed 2006 an [facility]. 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 Patent MARC to mLAD. LV EF 25%. CKD (chronic kidney disease) CVA (cerebral vascular accident) 1997 DM (diabetes mellitus) EGD 05/2015 [facility], reported negative HLD (hyperlipidemia) HTN (hypertension) OK (myocardial infarction) 1976 medical management Morbid obesity KENJI on CPAP PFTs 11/21/2015 78% FVC, 80% FEV1, 96% DLCO. Regadenoson PET 06/01/2016 EF 28%, extensive infarct without ischemia Ventricular tachycardia On amiodarone since 07/2012FAMILY HISTORY: family history includes Myocardial Infarction (OK) in hisfather.SOCIAL HISTORY: reports that he quit smoking about 43 years ago. He has neverused smokeless tobacco. He reports that he drank alcohol. He reports that hedoes not use drugs.REVIEW OF SYSTEMS: Constitutional: Denies fatigue. Denies fever, chills, weightloss or gain. Eyes: Denies blindness. Cardiovascular: Denies chest pain orpalpitations. Respiratory: Denies shortness of breath and dyspnea on exertion.GI: Denies abdominal pain, nausea or vomiting. : Denies dysuria or hematuria.Musculoskeletal: Negative lower extremity edema. Integumentary: Denies rash.Neurologic: Denies seizures. Psychiatric: Denies depression or anxiety.Hematologic: Denies anemia.Current Outpatient Medications: amiodarone (PACERONE) 200 MG tablet, Take 1 tablet (200 mg total) by mouthdaily, Disp: 90 tablet, Rfl: 3 aspirin 325 MG tablet, Take 325 mg by mouth daily, Disp: , Rfl: cholecalciferol (VITAMIN D3) 25 MCG (1000 UT) capsule, Take 1,000 Units bymouth daily, Disp: , Rfl: clopidogrel (PLAVIX) 75 MG tablet, Take 1 tablet (75 mg total) by mouthdaily, Disp: 14 tablet, Rfl: 0 docusate sodium (COLACE) 100 MG capsule, Take 100 mg by mouth RT ONCE DAILYAS NEEDED, Disp: , Rfl: furosemide (LASIX) 40 MG tablet, Take 1 tablet (40 mg total) by mouth daily,Disp: 90 tablet, Rfl: 3 insulin aspart (NOVOLOG) 100 UNIT/ML injection, NOVOLOG 100 UNIT/ML SOLN,Disp: , Rfl: Insulin Glargine (LANTUS SOLOSTAR) 100 UNIT/ML SOPN, LANTUS SOLOSTAR 100UNIT/ML SOPN, Disp: , Rfl: magnesium chloride ER (SLOW-MAG) 535 (64 MG) MG TBCR, Take 64 mg by mouth 2(two) times a day, Disp: , Rfl: metoprolol tartrate (LOPRESSOR) 25 MG tablet, Take 1 tablet (25 mg total) bymouth 2 (two) times a day, Disp: 180 tablet, Rfl: 1 oxybutynin (DITROPAN-XL) 10 MG 24 hr tablet, Take 1 tablet (10 mg total) bymouth daily, Disp: 90 tablet, Rfl: 2 rosuvastatin (CRESTOR) 40 MG tablet, Take 1 tablet (40 mg total) by mouthdaily, Disp: 90 tablet, Rfl: 3 spironolactone (ALDACTONE) 25 MG tablet, Take 0.5 tablets (12.5 mg total) bymouth daily, Disp: 45 tablet, Rfl: 3ALLERGIES: is allergic to valorie inhibitor s.Objective:PHYSICAL EXAMINATION: Deferred due to Telemedicine encounterEKG: Deferred due to telemedicine encounter.Assessment/Plan:ASSESSMENT/PLAN: This is a 79-year-old gentleman with a history of a Saint Judebiventricular ICD which is reached recommend placement time. This is not thefirst time that the patient has had a generator replacement. The surgicalprocedure was explained to the patient and his . The risks including butnot limited to infection, hematoma formation issues related to sedation anddeath were all explained. He is willing to proceed and will be scheduled on anelective basisI have spent 30 minutes with the patient, counseling/coordinating the patient'scare. I discussed the diagnosis of ICD management and discussed Managementoption risks and benefitsFollow Up generator replacementSignature: Chris Carrington MD, [facility], RSCardiac Electrophysiology and Arrhythmia ServiceDate: January 24, 2020Time: 10:35 AMThis document or parts of this document, were dictated using [employer]. A reasonable attempt at proofreading has been made to minimize errors.Please call with any questions or corrections. Name Value Range Interpretation Code Description Data Heena rce(s) Supporting Document(s) ID Date Data Source [id number] 09/28/2019 10:56:13 AM EDT [facility] Name Value Range Interpretation Code Description Data Heena rce(s) Supporting Document(s) &PDF [facility] DUSODi2hNqRQNhVt57/ISCvzUUYzu8GlCCokXEf6OBbiABRjZ5WshCueNFqSG4tAGLAmM3rPEBcGUVNP 0b3 [file] AgICAgICAgICAgICAgICAgICAgICAgICAgICAgICAgICAgICAgICAgICAgICAgICAgICAgICAgICAgIC UnKCLkIKWnMUFoSXNtAWJjENVfHEDtSQ7UVPHtUNHh ICAgICAgICAgICAgICAgICAgICAgICAgICAgICAgICAgICAgICAgICAgICAgICAgICAgICAgICAgICAg MLKxGDNgFXWiNWQjXCYcCUYlDSSjDKNuIDDwIEEsBXJhDK2HPBMrTTUxYWDpTHDbSWZgKXAlBOCwSYGv ICAgICAgICAgICAgICAgICAgICAgICAgICAgICAgIC WwFXNrYLYxGPYlKUBmDWAuYSZfLGGmYBHhILYpMTNtTPLsPPEfCBOyQHJqZD0BGKQlHMJuHVSuCYBsDM AgICAgICAgICAgICAgICAgICAgICAgICAgICAgICAgICAgICAgICAgICAgICAgICAgICAgICAgICAgIC OkXOOlFOAhFXWxMBTyEATzZQJeBQYhLDLhLJ6HCVDn ICAgICAgICAgICAgICAgICAgICAgICAgICAgICAgICAgICAgICAgICAgICAgICAgICAgICAgICAgICAg LEZwCXQoMFGsYBVgAUUmGRUbDMFfAYMmRDTrMKAwNZEmXWIpSE6UZWOeDLCkPFNiQRHaMGMuKMGhFRJe ICAgICAgICAgICAgICAgICAgICAgICAgICAgICAgIC SqIOQcCPKaVFRcGVQpHZUsQQUfUPItARMrGUWzKEWqJWTdCNBpKVHtZRQlAJZyFO2FEYKjTZRsLGXdVR AgICAgICAgICAgICAgICAgICAgICAgICAgICAgICAgICAgICAgICAgICAgICAgICAgICAgICAgICAgIC HdTOIzNZQdTUGiMBJcMXMtTAHrPMGpORXhSCQpPJ4N ICAgICAgICAgICAgICAgICAgICAgICAgICAgICAgICAgICAgICAgICAgICAgICAgICAgICAgICAgICAg GNBrBFBxXXFvAUTsRCVpHMIzISCkLAKbDDCuUZDyAYQqLDMjKSHiWC6ADPJwMKUjGFFiCTBbWMJyYEYd ICAgICAgICAgICAgICAgICAgICAgICAgICAgICAgIC GuRJOsVXNxEXBzXHJmSPXuAUSeIQFwESCqFKXnLGKtEVPxHCTyKXTpTKRwDXUrTCNyGO9YAHCzENHbAH AgICAgICAgICAgICAgICAgICAgICAgICAgICAgICAgICAgICAgICAgICAgICAgICAgICAgICAgICAgIC AgICAgICAgICAgICAgICAgICAgICAgICAgICAgICAg MS9JMZ91dWYcb5Q6TGIvCD5wcco/Rd0OKSigawJjcCUeII1LMyWkTI9qdr4YJcEwMX6uuv7KLKbNJnSb A8G2eUGyVATfCKEEStFwB69hKAyhIx17XAnvMWVoReIhCQh8Xk0LPmAzJ5hcPMYbKhM3XWVnNoH3HYQi MoTbYOytBC4Yw9NayGIlPRe+Em5XPS1sq5MfHOomYD JqKR9gxu9VTGjQEgVeE7H7rSCcZ3N9OMxjZg7EERJnAZHwGBvcQVPFZOusTS6RGV0jezT8YE8VuVXzLC ClNNOnzPNnHUo7X26egAPkIImbNT4SQHS+Lee Ann+Qh8LMWBnXFOcHMOcAcQcKTSNZdRlT04zuFFwTMZwUN FiEYIrRg8ZIADsG7RgeqMgxLrekwEzGRQyDBCGAZ1A DUqbbmCjyXCceIpcDL65iChvSA3SPm1TAaMhAO1sls7UiUEoIj5MINVqOp4AWJXpLRUhDPGrIAT5QLHw OxBfMAyvKRNyPKXpVOV1KADhYESxLK2TVzMzRAMbXWvbXDAcNCXkKRQenx1THKJsFPZcYNokLPQxAHUr ISBrMPthKJVgTUXwFFx7FQIiWELhUW3YJcRnLDTuWX O5MGPkNTShKSMpiv5HPYYrLIZbGfwyKfWnNCZrGUYbZXufUDWnZUC1DOC2CADuAFQnVG9OWiVsEFIxCV KmMkTpJSUgGAFnxf7UCWYtOWDyHSS2QLSiAHEbFQOkXYagKSMsRVG7QUz7ZGHqFPPjCP6GLpUbQLOeDN I2UNolGOFoLWTzza8LXGBsPHWlOeUbFyXcMCDgQUOz CYhjLLXdXRX2AIP6NVNhXPFwJB6GHzVdRLOtZPioVPRuNLLqCPWxfy9VRQBpXQAeGvl5YDQhQCTgSPJz LIeeLDRjRSK4EDH8CAWlPRNvWC7HCcGvTBBuAHslIUIxVDMsNHYwxn3QMPVsUJQkDLZ9FqRgDKNhBCUv CPvtHRLoHZQ9BXFgBTTvKIJsYP1CJkFyPQKdHHk1QH AyYIPjHPDekw1ZDBWzCALzQLlwSNEfQPWzTPRcATt2cuHfrOEoUWc3LN4IP1XxeoJeTlVZYt9Sh759VW ZtEWNfOt2EG7xnQb9yZLNfMIKNEc8XSPw9XqAjQdgwIxBwCkPcNPWiO3CbPGOwXZIiMDv8KEVlHtA+ID taJYM1OKZkHIT5LuI5KUV3MZFuOwEgDeAoFLyeEyCu UT2cMIUFAu6+UXqlbSAwhCfbCQUCJyT3BLLwULipHYVLPr4X ID Date Data Source [id number] 04/28/2019 11:17:00 [place] [address] OPERATIVE SUMMARYNAME: ANTONELLA Brush DATE OF : 1940TTENDING PHYS: Racquel Sparks MD DATE: 04/19/19 MR#: [id number] PROCEDURE: 04/19/19PREOPERATIVE DIAGNOSIS: Cataract and floppy iris, right eye.POSTOPERATIVE DIAGNOSIS: Cataract and floppy iris, right eye.PROCEDURE: Phacoemulsification with intraocular lens implantation, AUOOTO Power 16.5and also placement of a Malyugin Ring 7 mm.SURGEON: Racquel Sparks MDASSISTANT: None.COMPLICATIONS: None.INDICATION: Decreased vision interfering with daily activities.DETAILS OF PROCEDURE:The patient was brought into the operating room and laid in the supine position. The eye wasprepped and draped in a sterile fashion for ophthalmic surgery, following which a lid speculum wasplaced. A side port incision was made and EndoCoat was injected into the anterior chamber. Aclear corneal incision was made with a 2.4 mm Keratome, followed by capsulorhexis.Hydrodissection was then done using a balanced salt solution and the nucleus rotated within thecapsular bag. Phacoemulsification was then done in a ozlkak-tic-tdctbxm method within thecapsular bag. Excess cortical material was then aspirated using irrigation and aspiration cannula.Visco was then placed into the capsular bag and intraocular lens power 16.5, Model AUOOTO wasthen inserted into the capsular bag. Excess Viscoelastic was then aspirated, followed by hydrationof the corneal wounds. No leaks were noted. Intracameral antibiotics and subtenon steroidinjections were then given. The patient was returned to the recovery room after the lid speculumwas removed and postop instructions were given out in detail.ADDENDUM:Before capsulorhexis, a Malyugin Ring 7 mm was introduced into the anterior with the help of theMalyugin hook. The pupil was dilated because of the floppy iris syndrome and this ring wassubsequently removed after successful placement of the intraocular lens.DD: Racquel Sparks MD 04/27/19 14:53DT: DANIEL 04/28/19 11:12DS: Racquel Sparks MD 05/03/19 14:41 [address] [place] [address] OPERATIVE SUMMARYNAME: ANTONELLA Brush DATE OF : 1940TTENDING PHYS: Racquel Sparks MD DATE: 04/19/19 MR#: [id number] Name Value Range Interpretation Code Description Data Heena rce(s) Supporting Document(s) ID Date Data Source [id number] 03/10/2019 03:44:00 [place] [address] OPERATIVE SUMMARYNAME: ANTONELLA Brush DATE OF : 1940TTENDING PHYS: Racquel Sparks MD DATE: 02/14/19 MR#: [id number] OF PROCEDURE: 02/14/19PREOPERATIVE DIAGNOSIS: Cataract, left eye.POSTOPERATIVE DIAGNOSIS: Cataract, left eyePROCEDURE: Phacoemulsification with intraocular lens implantation, AUOOTO Power 15.5.SURGEON: Racquel Sparks MDASSISTANT: None.COMPLICATIONS: None.INDICATION: Decreased vision interfering with daily activities.DETAILS OF PROCEDURE:The patient was brought into the operating room and laid in the supine position. The eye wasprepped and draped in a sterile fashion for ophthalmic surgery, following which a lid speculum wasplaced. A side port incision was made and EndoCoat was injected into the anterior chamber. Aclear corneal incision was made with a 2.4 mm Keratome, followed by capsulorhexis.Hydrodissection was then done using a balanced salt solution and the nucleus rotated within thecapsular bag. Phacoemulsification was then done in a cmnjah-tyf-dsiqjni method within thecapsular bag. Excess cortical material was then aspirated using irrigation and aspiration cannula.Visco was then placed into the capsular bag and intraocular lens power 15.5, Model AUOOTO wasthen inserted into the capsular bag. Excess Viscoelastic was then aspirated, followed by hydrationof the corneal wounds. No leaks were noted. Intracameral antibiotics and subtenon steroidinjections were then given. The patient was returned to the recovery room after the lid speculumwas removed and postop instructions were given out in detail.DD: Racquel Sparks MD 03/09/19 04:27DT: DANIEL 03/10/19 03:43DS: Racquel Sparks MD 03/22/19 11:00 1 Name Value Range Interpretation Code Description Data Heena rce(s) Supporting Document(s) Procedure Social History Code Duration Value Status Description Data Source(s ) Smoking 02/02/2020 12:00:00 AM EST Former Smoker completed Former Smoker [facility] ([facility]) Alcohol intake 01/23/2020 12:00:00 AM EST Not Currently completed [facility] Smoking 01/23/2020 12:00:00 AM EST Former smoker completed Former smoker [facility] Vital Signs ID Date Data Source UNK Name Value Range Interpretation Code Description Data Source(s) Diastolic blood pressure 58 mm[Hg] 58 mm[Hg] eCW1 ([facility]) Systolic blood pressure 132 mm[Hg] 132 mm[Hg] e CW1 ([facility]) Body temperature 96.5 [degF] 96.5 [degF] eCW1 ( [facility]) Respiratory rate 18 /min 18 /min eCW1 ([facility]) Heart rate 78 /min 78 /min eCW1 ([facility]) Body mass index (BMI) [Ratio] 47.34 kg/m2 47.34 kg/m2 [facility] ([facility]) Body height 69 [in_us] 69 [in_us] W1 ([facility]) Body weight Measured 320.6 [lb_av] 320.6 [lb_av ] [facility] ([facility]) ID Date Data Source [id number] 05/03/2019 02:43:18 PM EST [facility] Name Value Range Interpretation Code Description Data Source(s) WEIGHT RECORDED 305.00 pounds 305.00 pounds [facility] Height 70 Inches 070 Inches [facility] Hospital ID Date Data Source [id number] 03/22/2019 11:02:56 AM EST [facility] Name Value Range Interpretation Code Description Data Source(s) WEIGHT RECORDED 310.00 pounds 310.00 pounds [facility] Height 69 Inches 069 Inches [facility] Patient Treatment Plan of Care Planned Activity Planned Date Details Description Data Source (s) Furosemide 40 MG Oral Tablet 03/21/2020 12:00:00 AM EST [facility] Amiodarone hydrochloride 200 MG Oral Tablet 03/21/2020 12:00:00 AM EST [facility] Rosuvastatin calcium 40 MG Oral Tablet 03/21/2020 12:00:00 AM EST [facility] Betamethasone 0.5 MG/ML Topical Cream 02/02/2020 12:00:00 AM EST eCW1 ([facility]) Metoprolol Tartrate 25 MG Oral Tablet 11/16/2019 12:00:00 AM EDT [facility] clopidogrel 75 MG Oral Tablet 08/18/2019 12:00:00 AM EDT [facility] 24 HR Oxybutynin chloride 10 MG Extended Release Oral Tablet 08/16/2019 12:00:00 AM EDT [facility] Spironolactone 25 MG Oral Tablet 06/20/2019 12:00:00 AM EDT [facility]
[2020-04-17 19:59] LABS: INR 1.02; PROTHROMBIN TIME 13.6 SECONDS (12.5-14.3)
[2020-04-17 20:07] LABS: ALBUMIN 2.3 GM/DL (3.2-5.2); BILIRUBIN,TOTAL 0.7 MG/DL (0.2-1.0); C REACTIVE PROTEIN QUANTITATIV 1.18 MG/DL (0.00-0.30); CALCIUM LEVEL 8.5 MG/DL (8.8-10.2); CREATININE FOR GFR 2.01 MG/DL (0.70-1.30); GLOMERULAR FILTRATION RATE 34.4 (>42); POTASSIUM SERUM 4.9 MEQ/L (3.5-5.1); TOTAL PROTEIN 6.3 GM/DL (6.4-8.2)
[2020-04-17 20:17] LABS: D-DIMER QUANT > 4000 ng/ml (<500)
[2020-04-17 20:24] LABS: ABG BASE EXCESS -4.7 (-2.0-2.0); ABG HCO3 17.9 MEQ/L (22.0-26.0); ABG O2 SATURATION 98.8 % (95.0-99.0); ABG PARTIAL PRESSURE CO2 27.5 mmHg (35.0-45.0); ABG PARTIAL PRESSURE O2 136.8 mmHg (75.0-100.0); ABG STANDARD HCO3 20.7 MEQ/L (22.0-26.0); ABG TOTAL CO2 18.8 MEQ/L (23.0-31.0); ABG pH (ARTERIAL) 7.432 UNITS (7.350-7.450)
[2020-04-17] MEDS ORDERED: PRED10TA2 PO (21:15)
--- NOTE | 2020-04-17 22:11 | HPEPDOC ---
[facility] Medical History & Physical Date of Admission Apr 17, 2020 Date of Service: Apr 17, 2020 History and Physical CHIEF COMPLAINT: Weakness HISTORY OF PRESENT ILLNESS: Patient is 80 year old male with PMH DM, CAD s/p CABG, HTN, CHF, HLD, GERD with recent COVID-19 infection presented to the ER with concern for progressive weakness at home. He was diagnosed with COVID-19 on 04/01 several weeks ago and was admitted to the hospital on 04/06 and treated with Abx, remdesivir, steroids and discharged on 04/10 on course of steroid taper. He stated that he was doing fair for the first 2 days that he was home but continued to get weak again and unable to take care of himself at home due to limited mobility. Denies any significant physical complaints apart from weakness including any chest pain, SOB, fever or chills. PAST MEDICAL HISTORY: Refer to HPI PAST SURGICAL HISTORY: CABG 2004 Cardiac cath with AICD placement L. ankle ORIF SOCIAL HISTORY: Former smoker. Denies alcohol or illicit drug use. FAMILY HISTORY: Mother- PE Father- IN ALLERGIES: Please see below. REVIEW OF SYSTEMS: 10 point review of system negative except as stated in HPI HOME MEDICATIONS: Please see below. PHYSICAL EXAMINATION: General: No acute distress, Alert, morbidly obese Eyes: Normal sclera, EOMI HENT: Atraumatic Cardiovascular: Normal rate, normal rhythm. Pulmonary: Clear to auscultation b/l, no wheezing appreciated. GI: Soft, nontender, nondistended Skin: Warm and dry. Abrasion to R knee. Neuro: CN grossly intact. No focal deficits. Strengths equal b/l with 2/5 weakness in b/l LE. Psych: oriented x 3 LABORATORY DATA: See below. IMAGING: CXR: Improved aeration with decreased infiltrates as compared to prior examin ation. MICROBIOLOGY: Please see below. ASSESSMENT AND PLAN: 1. POST COVID Infection w/ residual weakness - Persistent weakness post infection. Completed treatment with PT at home but did not improve. - s/p treatment with Remesivir, Dexaethasone and Levaquin. Admitted 04/06 and discharged 04/10 from [facility]. - PT and OT to evaluate and treat. 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 3. HTN - PB controlled on metoprolol. 4. HLD - rosuvastatin 5. CAD - s/p CABG. c/w ASA, statin, Plavix. - Follows with Dr. Barker outpatient. 6. Hx Ventricular tachycardia s/p AICD - c/w Amiodarone. - Supposed to get AICD exchange with Dr. Tinsley in [place] post discharge. 7. Chronic HFpEF - euvolemic. c/w bumex. DVT ppx: SCD Code status: Full code Vital Signs Vital Signs Date Time Temp Pulse Resp B/P (MAP) Pulse Ox O2 Delivery O2 Flow Rate FiO2 04/17/20 19:01 98.3 92 20 119/63 92 Room Air Laboratory Data Labs 24H Laboratory Tests 2 04/17/20 18:47: Prothrombin Time 13.6, Prothromb Time International Ratio 1.02, Activated Partial Thromboplast Time 40.0H, D-Dimer, Quantitative > 4000H 04/17/20 18:54: Immature Granulocyte % (Auto) 2.4, Neutrophils (%) (Auto) 83.0H, Lymphocytes (%) (Auto) 8.5L, Monocytes (%) (Auto) 5.7H, Eosinophils (%) (Auto) 0.0, Basophils (%) (Auto) 0.4, Neutrophils # (Auto) 8.1, Lymphocytes # (Auto) 0.8L, Monocytes # (Auto) 0.6, Eosinophils # (Auto) 0.0, Basophils # (Auto) 0.0, Nucleated Red Blood Cells % (auto) 0.0, Lactic Acid Level 1.8 04/17/20 18:55: Anion Gap 7L, Glomerular Filtration Rate 34.4L, Calcium Level 8.5L, Ferritin 806H, Total Bilirubin 0.7, Aspartate Amino Transf (AST/SGOT) 153H, Alanine Aminotransferase (ALT/SGPT) 141H, Alkaline Phosphatase 107, Lactate Dehydrogenase 476H, Total Creatine Kinase 785H, Creatine Kinase MB 10.8H, Creatine Kinase MB Relative Index 1.38, Troponin I 0.15H, C-Reactive Protein, Quantitative 1.18H, Total Protein 6.3L, Albumin 2.3L, Albumin/Globulin Ratio 0.6, Procalcitonin 0.09 04/17/20 20:05: Blood Gas Bicarbonate Standard 20.7L, Arterial Blood pH 7.432, Arterial Blood Partial Pressure CO2 27.5L, Arterial Blood Partial Pressure O2 136.8H, Arterial Blood Total CO2 18.8L, Arterial Blood HCO3 17.9L, Arterial Blood Base Excess - 4.7L, Arterial Blood Oxygen Saturation 98.8 CBC/BMP Laboratory Tests 04/17/20 18:54 04/17/20 18:55 Home Medications Scheduled Amiodarone HCl (Amiodarone HCl) 200 Mg Tab, 200 MG PO DAILY Aspirin (Aspirin) 325 Mg Tablet, 325 MG PO QHS Bumetanide (Bumetanide) 1 Mg Tablet, 1 MG PO DAILY Cholecalciferol (Vitamin D3) (Vitamin D3) 125 Mcg Tablet, 125 MCG PO DAILY Clopidogrel Bisulfate (Plavix) 75 Mg Tablet, 75 MG PO DAILY Docusate Sodium (Colace) 100 Mg Cap, 100 MG PO BID Insulin Glargine (Lantus) 100 Unit/1 Ml Vial, 40 UNITS SC DAILY Magnesium Chloride (Mag64) 64 Mg Tabcr, 64 MG PO BID Metoprolol Tartrate (Metoprolol Tartrate) 25 Mg Tablet, 25 MG PO BID Oxybutynin Chloride (Oxybutynin Chloride ER) 10 Mg Tab, 10 MG PO DAILY Prednisone (Prednisone) 10 Mg Tablet, 10 MG PO TAPER 40MG FOR 3 DAYS, 30MG FOR 3 DAYS, 20MG FOR 3 DAYS, 10MG FOR 3 DAYS. PATIENT IS UNSURE OF WHERE HE IS ON REGIMEN BUT STATED LAST DOSE WAS 30MG. Rosuvastatin Calcium (Rosuvastatin Calcium) 40 Mg Tablet, 40 MG PO QHS Spironolactone (Spironolactone) 25 Mg Tablet, 12.5 MG PO QHS Miscellaneous Medications [Comments] MED REC COMPLETED VIA PREVIOUS DISCHARGE PAPERWORK (04/10/20) Allergies Coded Allergies: No Known Allergies (Verified , 03/10/04) A-FIB/CHADSVASC A-FIB History Current/History of A-Fib/PAF?: No ENDER OCAMPO MD Apr 17, 2020 22:11
--- OUTSIDE RECORDS SUMMARY | 2020-04-17 22:49 | CCD ---
Author Author [facility] Organization [facility] Address Unknown Phone Unavailable Care Team Providers Care Interventional Nurse Name Role Phone NON, PHYSICIAN STAFF Unavailable [...] Unavailable Unavailable Racquel Sparks MD Unavailable Unavailable [place], N Golden CERAMICS MACHINE OPERATOR Unavailable Unavailable Eli, N Golden CERAMICS MACHINE OPERATOR Unavailable Unavailable Eli, N Golden CERAMICS MACHINE OPERATOR Unavailable Unavailable [place], N Golden CERAMICS MACHINE OPERATOR Unavailable Unavailable Eli, N Golden CERAMICS MACHINE OPERATOR Unavailable Unavailable Eli, N Golden CERAMICS MACHINE OPERATOR Unavailable Unavailable Eli, N Golden CERAMICS MACHINE OPERATOR Unavailable Unavailable Eli, N Golden CERAMICS MACHINE OPERATOR Unavailable Unavailable Eli, N Golden CERAMICS MACHINE OPERATOR Unavailable Unavailable Eli, N Golden CERAMICS MACHINE OPERATOR Unavailable Unavailable Eli, N Golden CERAMICS MACHINE OPERATOR Unavailable Unavailable Eli, N Golden CERAMICS MACHINE OPERATOR Unavailable Unavailable [place], N Golden CERAMICS MACHINE OPERATOR Unavailable Unavailable Eli, N Golden CERAMICS MACHINE OPERATOR Unavailable Unavailable [place], N Golden CERAMICS MACHINE OPERATOR Unavailable Unavailable [place], N Golden CERAMICS MACHINE OPERATOR Unavailable Unavailable [place], N Golden CERAMICS MACHINE OPERATOR Unavailable Unavailable Eli, N Golden CERAMICS MACHINE OPERATOR Unavailable Unavailable Eli, N Golden CERAMICS MACHINE OPERATOR Unavailable Unavailable Eli, N Golden CERAMICS MACHINE OPERATOR Unavailable Unavailable Eli, N Golden CERAMICS MACHINE OPERATOR Unavailable Unavailable Eli, N Golden CERAMICS MACHINE OPERATOR Unavailable Unavailable [place], N Golden CERAMICS MACHINE OPERATOR Unavailable Unavailable [place], N Golden CERAMICS MACHINE OPERATOR Unavailable Unavailable Eli, N Golden CERAMICS MACHINE OPERATOR Unavailable Unavailable Eli, N Golden CERAMICS MACHINE OPERATOR Unavailable Unavailable [place], N Golden CERAMICS MACHINE OPERATOR Unavailable Unavailable Eli, N Golden CERAMICS MACHINE OPERATOR Unavailable Unavailable [place], N Golden CERAMICS MACHINE OPERATOR Unavailable Unavailable [place], N Golden CERAMICS MACHINE OPERATOR Unavailable Unavailable [place], N Golden CERAMICS MACHINE OPERATOR Unavailable Unavailable Al Kari A Chris GARNETT [...] is protected by Article 27-F of the [facility] Public Health law. If you continue you may have access to information: Regarding HIV / AIDS; Provided by facilities licensed or operated by the [facility] Office of Mental Health; or Provided by the [facility] Office for People With Developmental Disabilities. If such information is present, then the following [facility] mandated warning applies: This information has been [...] law may result in a fine or chcf sentence or both. A general authorization for the release of medical or other information is NOT sufficient authorization for further disc losure. Allergies and Adverse Reactions Type Description Substance Reaction Status Data Source(s ) No Known Drug Allergies No Known Drug Allergies [facility] No Known Environmental Allergies No Known Environmental Al lergies [facility] No Known Food Allergies No Known Food Allergies [facility] Family History Family Member Name Family Member Gender Family Member Status Date o f Status Description Data Source(s) Unknown Male Encounters Encounter Providers Location Date Indications Data Source(s ) Outpatient Attender: Chris Tinsley MDAdmitter: Chris Lee MD [email or web address].CVAU 03/27/2020 09:31:31 AM EST [facility] Outpatient [id number] 03/26/2020 10:44:38 AM EST [facility] Unknown [address], [facility] [address] 02/02/2020 12:00:00 AM EST eCW1 (Formerly [facility]) [facility] [place] [address] [address] 01/31/2020 12:00:00 AM EST eCW1 (Formerly [facility]) Outpatient Attender: Chris Tinsley MDReferrer: Golden dukes NP BF-BF.CVS 01/24/2020 07:13:08 AM EST [facility] Outpatient SJP.CT-SJP.SYR 01/05/2020 09:46:15 AM EDT [facility] Outpatient Attender: Golden GONZALEZ.ELSA-SJP.ELSA 020 12:00:00 AM EDT - 01/02/2020 03:34:02 PM EDT [facility] Outpatient SJP.CT-SJP.SYR 11/30/2019 12:23:28 PM EDT [facility] Outpatient SJP.CT-SJP.SYR 11/03/2019 07:53:19 AM EDT [facility] Outpatient SJP.ELSA-SJP.ELSA 09/28/2019 10:13 :24 AM EDT - 09/28/2019 10:35:39 AM EDT [facility] Outpatient Attender: Golden GONZALEZ.ELSA-SJP.ELSA 020 12:00:00 AM EDT - 09/26/2019 02:22:27 PM EDT [facility] [address] [address] 07/31/2019 12:00:00 AM EDT eCW1 (Formerly [facility]) [facility] [place] [address], [facility] [address] 06/28/2019 12:00:00 AM EDT eCW1 (Formerly [facility]) Outpatient CT-SJP.SYR 06/22/2019 09:21 :25 AM EDT - 06/22/2019 09:27:41 AM EDT [facility] Outpatient Attender: Golden LACYELSA 020 12:00:00 AM EDT - 06/20/2019 01:40:27 PM EDT [facility] Outpatient Attender: Racquel Sparks MDConsultant: STAFF NON 04/19/2019 07:15:00 AM EST - 04/19/2019 11:37:00 AM EST [facility] Patient discharged. Outpatient Attender: Racquel Sparks MDConsultant: STAFF NON 02/14/2019 10:30:00 AM EST - 02/14/2019 12:35:00 PM EST [facility] Patient discharged. Medications Medication Brand Name Start Date Product Form Dose Route Admi nistrative Instructions Pharmacy Instructions Status Indications Reaction Description Data Source(s) Rosuvastatin calcium 40 MG Oral Tablet rosuvastatin (C RESTOR) 40 MG tablet rosuvastatin (CRESTOR) 40 MG tablet 03/21/2020 12:00:00 AM EST active Hyperlipidemia, unspecified hyperlipidemia type TAKE 1 TABLE T BY MOUTH DAILY [facility] Hyperlipidemia, unspecified hyperlipidem ia type Furosemide 40 MG Oral Tablet furosemide (LASIX) 40 MG tablet furosemide (LASIX) 40 MG tablet 03/21/2020 12:00:00 AM EST activ e TAKE 1 TABLET BY MOUTH DAILY [facility] Amiodarone hydrochloride 200 MG Oral Tablet amiodarone (PACERONE) 200 MG tablet amiodarone (PACERONE) 200 MG tablet 03/21/2020 12:00:00 AM EST active TAKE 1 TABLET BY MOUTH DAILY [facility] Betamethasone 0.5 MG/ML Topical Cream Betamethasone Di propionate 0.05 % Betamethasone Dipropionate 0.05 % 02/02/2020 12:00:00 AM EST 1.0 {application} active Betamethasone Dipropiona te 0.05 % eCW1 ([facility]) Metoprolol Tartrate 25 MG Oral Tablet me toprolol tartrate (LOPRESSOR) 25 MG tablet metoprolol tartrate (LOPRESSOR) 25 MG tablet 11/16/2019 12:0 0:00 AM EDT 25 mg Oral active Take 1 tablet (2 5 mg total) by mouth 2 (two) times a day [facility] clopidogrel 75 MG Oral Tablet clopidogrel (PLAVIX) 75 MG tablet clopidogrel (PLAVIX) 75 MG tablet 08/18/2019 12:00:00 AM EDT 75 mg Oral active Take 1 tablet (75 mg total) by mouth daily [facility] 24 HR Oxybutynin chloride 10 MG Extended Release Oral Tablet oxybutynin (DITROPAN-XL) 10 MG 24 hr tablet oxybutynin (DITROPAN-XL) 10 MG 24 hr tablet 08/16/2019 12:00:00 AM EDT 10 mg Oral active Take 1 tablet (10 mg total) by mouth daily [facility] Spironolactone 25 MG Oral Tablet spironolactone (ALDAC TONE) 25 MG tablet spironolactone (ALDACTONE) 25 MG tablet 06/20/2019 12:00:00 AM EDT 12.5 mg Oral active Take 0.5 tablets (12 .5 mg total) by mouth daily [facility] Insurance Providers Payer name Policy type / Coverage type Policy ID Covered libertarian ID Covered libertarian's relationship to godoy Policy Godoy Plan Information 'S ADMINISTRATION [id number] SP [id number] [facility] [id number] SP [id number] [facility] [id number] SP [id number] ELIER CLAIM ADMIN WORK COMP [id number] SP [id number] SPECIAL FUNDS [facility] [id number] SP [id number] INSURANCE COVID-19 [id number] 2 [id number] WORKER'S COMP [id number] WORKER'S COMP [id number] Emp [id number] COMMERCIAL GENERIC [id number] Sola [id number] COMMERCIAL GENERIC [id number] Sola [id number] COMMERCIAL GENERIC [id number] Sola [id number] COMMERCIAL GENERIC [id number] Sola [id number] WORKER'S COMP [id number] Emp [id number] SPECIAL FUNDS CONSERVATION-DEW [id number] SP [id number] WORKER'S COMP [id number] Emp [id number] WORKER'S COMP UNAVAILABLE Emp UNAV AILABLE WORKER'S COMP [id number] Emp [id number] WORKER'S COMP [id number] Emp [id number] WORKER'S COMP [id number] Emp [id number] ADMINSTRATION -O/P [id number] 18 [id number] ANSI-Commercial [id number] ANSI-Commercial [id number] ANSI-Commercial [id number] [employer] Commercial [id number] Self [id number] [employer] Commercial [id number] Self [id number] TODAYS OPTIONS [id number] SP [id number] MEDICARE [id number] SP [id number] A Tod[employer] Options Commercial [id number] Self [id number] [facility] One True [employer] Health Maintenance Organization ([facility]) [id number] Self [id number] [place] Medigap Part B [id number] Self [id number] Medicare Natl Govt Servic Medicare Primary [id number] Self [id number] Special Funds Cons.Com Workers Compensation [id number] Se lf [id number] Todays Option Medicare Commercial [id number] Self [id number] [facility] [employer] Health Maintenance Organization ([facility]) [id number] Self [id number] [place] Medigap Part B [id number] Self [id number] Medicare Natl Govt Servic Medicare Primary [id number] Self [id number] Special Funds Cons.Com Workers Compensation [id number] Se lf [id number] Todays Option Medicare Commercial [id number] Self [id number] [facility] [employer] Health Maintenance Organization ([facility]) [id number] Self [id number] [place] Medigap Part B [id number] Self [id number] Medicare Natl Govt Servic Medicare Primary [id number] Self [id number] Special Funds Cons.Com Workers Compensation [id number] Se lf [id number] Todays Option Medicare Commercial [id number] Self [id number] SPECIAL FUNDS CONSERVATION-DEW [id number] SP [id number] [facility] [employer] Health Maintenance Organization ([facility]) [id number] Self [id number] [place] Medigap Part B [id number] Self [id number] Medicare Natl Govt Servic Medicare Primary [id number] Self [id number] Special Funds Cons.Com Workers Compensation [id number] Se lf [id number] Todays Option Medicare Commercial [id number] Self [id number] TODAYS OPTIONS [id number] SP [id number] [facility] Blue Health Maintenance Organization (O) Se lf [place] Medigap Part B Self Medicare Natl Govt Servic Medicare Primary Self Special Funds Cons.Com Workers Compensation Self Todays Option Medicare Commercial Advantage 200 Ppo Self Advantage 200 Ppo [place] Prog-Today's Opt Commercial Self SELF PAY UNAVAILABLE SP UNAVAILA BLE SPECIAL FUNDS CONSERVATION-DEW [id number] SP [id number] TODAYS OPTIONS/MALIAN P [id number] S [id number] SPECIAL FUNDS P [id number] S [id number] SPECIAL FUNDS CONSERVATION-DEW [id number] SP [id number] SPECIAL FUNDS CONSERVATION-DEW [id number] SP [id number] SELF PAY 2 UNAVAILABLE 1 UNAVAILA BLE [employer] [place] 2 [id number] MEDICARE 4 [id number] 1 [id number] A SPECIAL FUNDS 8 [id number] SPECIAL FUNDS CONSERVATION-DEW [id number] SP [id number] SPECIAL FUNDS CON[facility]ATION-[facility] [id number] SP [id number] SPECIAL FUNDS CONSERVATION-[facility] [id number] SP [id number] Problems, Conditions, and Diagnoses Code Display Name Description Problem Type Effective Dates Data Source(s) Z79.899 High risk medication use High risk medication use 6457 200009/26/2019 12:00:00 AM EDT [facility] I47.2 Ventricular tachycardia Ventricular tachycardia Diagno sis 03/27/2020 11:47:35 AM EST [facility] Z79.899 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 O ther long-term (current) drug therapy Diagnosis 01/02/2020 01:49:10 PM EDT [facility] 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 Presence of automatic (implantable) card Diagnosis 01/02/2020 01:49:10 PM EDT [facility] E66.01 Morbid (severe) obesity due to excess ca lories Morbid (severe) obesity due to excess ca Diagnosis 01/02/2020 01:49:10 PM EDT [facility] I25.5 Ischemic cardiomyopathy Ischemic cardiomyopathy Diagno sis 01/02/2020 01:49:10 PM EDT [facility] I25.10 Atherosclerotic heart diseas e of [place] coronary artery without angina pectoris Atherosclerotic heart disease of [place] Diagnosis 01/02/2020 01:49:10 PM EDT [facility] E78.5 Hyperlipidemia, unspecified Hyperlipidemia, unspecifie d Diagnosis 06/20/2019 01:20:44 PM EDT [facility] N18.9 Chronic kidney disease, unspecified Chronic kidn ey disease, unspecified Diagnosis 06/20/2019 01:20:44 PM EDT [facility] H268 Other specified cataract Other specified cataract Diag nosis 04/19/2019 07:15:00 AM EST [facility] Results ID Date Data Source [id number] 04/06/2020 01:30:00 PM EST [facility] Name Value Range Interpretation Code Description Data Heena rce(s) Supporting Document(s) SARS coronavirus 2 RNA [Presence] in Res piratory specimen by LUIS FERNANDO with probe detection POSITIVE [facility] This lab was ordered by [facility] a nd reported by [facility]. ID Date Data Source [id number] 01/24/2020 10:40:00 AM EST [facility] INFORMATIONPatient MRN Name Date of Age Gend*PT [id number] Ana Berman 1940 79 years M ---PT Location Admission Date/Time Visit ID Attending Provider --- --- --- --- EPI ID CSN Admitting Provider [id number] ---[facility] Cardiovascular [address] [facility], [address] (First Floor)[place], [place] [address]Th.: Fax: Ratient: Ana Berman : 2Date: 01/24/20CARDIOLOGY ELECTROPHYSIOLOGY TELEMEDICINE CONSULTPatient was identified by name and date of .Verbal consent was obtained from the patient for this telemedicine visit.Patient is aware of the risks, limitations, and benefits of a telemedicinevisit.This telemedicine assessment was conducted remotely with the assistance ofPulse communication technology. Telephone Only Codes 24650: 21-30 minutesof medical discussion: Telephone Only .Subjective:I [...] place 2004 epicardial lead placed 2006 an [facility]. 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 Patent MARC to mLAD. LV EF 25%. CKD (chronic kidney disease) CVA (cerebral vascular accident) 1997 DM (diabetes mellitus) EGD 05/2015 [facility], reported negative HLD (hyperlipidemia) HTN (hypertension) [...] benefitsFollow Up generator replacementSignature: Chris Carrington MD, [facility], RSCardiac Electrophysiology and Arrhythmia ServiceDate: January 24, 2020Time: 10:35 AMThis document or parts of this document, were dictated using [employer]trolware. A reasonable attempt at proofreading has been made to minimize errors.Please call with any questions or corrections. Name Value Range Interpretation Code Description Data Heena rce(s) Supporting Document(s) ID Date Data Source [id number] 09/28/2019 10:56:13 AM EDT [facility] Name Value Range Interpretation Code Description Data Heena rce(s) Supporting Document(s) &PDF [facility] SZBUGe3pWeKPPgQz59/FZMmcPYSoh5PlBEbdSWl2JXlmARAtT1IfsVekYCiET8sSXJEyI3qFNWoJNUMB 0b3 [file] AgICAgICAgICAgICAgICAgICAgICAgICAgICAgICAgICAgICAgICAgICAgICAgICAgICAgICAgICAgIC XdCEUcIPVvXJDpBWSgQZTzZTAkEZTqCC3JJJFgSBJc ICAgICAgICAgICAgICAgICAgICAgICAgICAgICAgICAgICAgICAgICAgICAgICAgICAgICAgICAgICAg MHEfDQHxUBWgFUNpHUOnTLIkJYRmVDIlBDGsQVDbZANiIO5GCSUgJJItWGMwBINzJPMbDJReETMbOILl ICAgICAgICAgICAgICAgICAgICAgICAgICAgICAgIC YdLMTlLSYtOCRmXUUoITOkFIMpINNlNMNmWMSqZAWmMEQkGMXbPDOfNNMzIY3XUXYvNEEpOIKmMTMxEA AgICAgICAgICAgICAgICAgICAgICAgICAgICAgICAgICAgICAgICAgICAgICAgICAgICAgICAgICAgIC BxEZLpFBOjARNbWXWyTJGvPNXaCWRtLRAuHK0PLDJr ICAgICAgICAgICAgICAgICAgICAgICAgICAgICAgICAgICAgICAgICAgICAgICAgICAgICAgICAgICAg XHVkUNLtRHTmPJLjSORxVNSsRYQhMEVaHWYdCHErSSNoTFXzNE9CQVUuDOAwECRmETBzGNKdNXEeLTNp ICAgICAgICAgICAgICAgICAgICAgICAgICAgICAgIC KzRPSqCJJvOYZaYRElSHRvNNPlADHoUAUdNPPaSNVoRAPmMDHsWZDfQBQlPYKgVS9VTKAjRBClBXSmXZ AgICAgICAgICAgICAgICAgICAgICAgICAgICAgICAgICAgICAgICAgICAgICAgICAgICAgICAgICAgIC AaQGVeCWTwSEVgWZFdUTKaFYBqOTUhSFNrIPNbFS9S ICAgICAgICAgICAgICAgICAgICAgICAgICAgICAgICAgICAgICAgICAgICAgICAgICAgICAgICAgICAg MCImFDIkHHLqDDYsQADsKYExWWLzCUZgHQXjDBUyHYFnECMcTOQoGN6HTILwFEOzWLAjPEXmGGDmYCUo ICAgICAgICAgICAgICAgICAgICAgICAgICAgICAgIC XzJORnEIPvVQMwDQPoBEChEENjUQDoHEVlDXVwKLElDMOwJNQvDRXxZIIgMWHmLCEqTG7MTOQoBUEkNF AgICAgICAgICAgICAgICAgICAgICAgICAgICAgICAgICAgICAgICAgICAgICAgICAgICAgICAgICAgIC AgICAgICAgICAgICAgICAgICAgICAgICAgICAgICAg WY4RJS97fRUgp3A6YZAkLG8tfiz/Nu8HKLipleAcyWPvCA8PDePlMH5iim6VUuSvFN2mzr5NWOjRHxSs S7M4eNLqRUPhKTUCNnEjU39kESefAp43YSptJVXmKyFbMWg5Hq4HStEzS5ztEVNwQaE5YGPqMjW7ELNc MsSpRMazMM9Os7EhdNBiUPn+Sr6CLW8nj1VoFJfhJQ XcLB4iin6KCJwETsDaG2P8rCIuL8U7QYtmJk8NGILoVTTtMDegDFJSPXwmDK8PXQ2hxrL1GH3ExDAhPU LaIRAdgSExDDx2G01unIKiGDinZY5NEXP+Lee Ann+Bf8CKPMbTTDdDRSlPoWjYHYQPsDgE70aqLVuRPZgJL WdZONlNr9OJTFlP8OvomOwgOwvfsPsIQGyEGBSFD2D NMcroiYijTVhxJtlQS17fZocIJ1CIq5EEaXjJL9myd3IoKWoIb8LWTMmBb7XBMFoLXFcDNEqLHW1GFYt TcYdSVuuPMDpZSDeNIA1UDXwIIVwOW8XUxYtWCQvKYmfOSMzCMRkGIHzzv6PSEMvMCGqRLkhNZCiRIUb VEEdXQypUTNvFSDwBZp8SCCjDKUcUJ8QLkEyAIDnSK Z3HKRgSKPfLEUxcy9MALRnJQGtRxqhPpKhEBFeVQAyMKwmBWFnCCC4MDV2HRDzOHMuQO6PMjZmOJWgWH JcVnFdXIMiXESzsx8UJTSdERTnSCP3IKEhVGQdOZBuTVvyADSaUSJ9DIb7ZHSyHXJzUB3PKzLlSVKfLU W1YZzuDZSgXLAxrd6VXCMqMFOrYsRvTwImEMNcEFOi JSpqJAGxODU9MCS0SKUxWTFmQP4GFgQhYOPrDIjjMRNpJMCtAJFbeq3FDBVkCRRlYdp2JKHkWEYiNHVb BHxjWJNvZVA4ZVY5QHGnXBWqMH5QToWlWTFyVPvhRARlTZCvFAAkrl8PYAEmFSNmWVL6BwLuYXRmMFOk STqeCHAlEJI1MAPjCXDqKCYbOP1FVkEbHMChKXk5EB KvFGJzHLDkod6BEDIeBCRjINtaYYMlVIVuAIHpUTm4fmPycLYqJNm1QG4XS1RfqlZoKoKCMg4Fe676BA JsYRVoBr9HQ4eySr1yUAQsWRDKJr9TPYz8CiAgJtmmEnDaTjQdGTEuG6TxPNEhZUMvPEb2CJEbBuU+ID ceDOH1TQQtQDF5FlU2OZC0NQCbLsJxAnMhFLqnBnBp UU0pYBCKEu5+HGfanTXuuZbhDOGCIvP7EWKfXAviQQMTAn6G ID Date Data Source [id number] 04/28/2019 11:17:00 [place] [address] OPERATIVE SUMMARYNAME: ANTONELLA Brush DATE OF : 1940TTENDING PHYS: Racquel Sparks MD DATE: 04/19/19 MR#: [id number] OF PROCEDURE: 04/19/19PREOPERATIVE DIAGNOSIS: Cataract and floppy [...] bag. Phacoemulsification was then done in a uccnjz-dgd-ynaooug method within thecapsular bag. Excess cortical material [...] 11:12DS: Racquel Sparks MD 05/03/19 14:41 1 [place] [address] OPERATIVE SUMMARYNAME: ANTONELLA Brush DATE OF : 1940TTENDING PHYS: Racquel Sparks MD DATE: 04/19/19 MR#: [id number] 2 Name Value Range Interpretation Code Description Data Heena rce(s) Supporting Document(s) ID Date Data Source [id number] 03/10/2019 03:44:00 [place] [address] OPERATIVE SUMMARYNAME: ANTONELLA Brush DATE OF : 1940TTENDING PHYS: Racquel Sparks MD DATE: 02/14/19 MR#: [id number] OF PROCEDURE: 02/14/19PREOPERATIVE DIAGNOSIS: Cataract, left eye.POSTOPERATIVE [...] bag. Phacoemulsification was then done in a vharyu-wni-ovzqaak method within thecapsular bag. Excess cortical material [...] AM EST Former Smoker completed Former Smoker [facility] ([facility]) Alcohol intake 01/23/2020 12:00:00 AM EST Not Currently completed [facility] Smoking 01/23/2020 12:00:00 AM EST Former smoker completed Former smoker [facility] Vital Signs ID Date Data Source UNK Name Value Range Interpretation Code Description Data Source(s) Diastolic blood pressure 58 mm[Hg] 58 mm[Hg] eCW1 ([facility]) Systolic blood pressure 132 mm[Hg] 132 mm[Hg] e CW1 ([facility]) Body temperature 96.5 [degF] 96.5 [degF] eCW1 ( [facility]) Respiratory rate 18 /min 18 /min eCW1 ([facility]) Heart rate 78 /min 78 /min eCW1 ([facility]) Body mass index (BMI) [Ratio] 47.34 kg/m2 47.34 kg/m2 [facility] ([facility]) Body height 69 [in_us] 69 [in_us] W1 ([facility]) Body weight Measured 320.6 [lb_av] 320.6 [lb_av ] [facility] ([facility]) ID Date Data Source [id number] 05/03/2019 02:43:18 PM EST [facility] Name Value Range Interpretation Code Description Data Source(s) WEIGHT RECORDED 305.00 pounds 305.00 pounds [facility] Height 70 Inches 070 Inches [facility] ID Date Data Source [id number] 03/22/2019 11:02:56 AM EST [facility] Name Value Range Interpretation Code Description Data Source(s) WEIGHT RECORDED 310.00 pounds 310.00 pounds [facility] Height 69 Inches 069 Inches [facility] Patient Treatment Plan of Care Planned Activity Planned Date Details Description Data Source (s) Furosemide 40 MG Oral Tablet 03/21/2020 12:00:00 AM EST [facility] Amiodarone hydrochloride 200 MG Oral Tablet 03/21/2020 12:00:00 AM EST [facility] Rosuvastatin calcium 40 MG Oral Tablet 03/21/2020 12:00:00 AM EST [facility] Betamethasone 0.5 MG/ML Topical Cream 02/02/2020 12:00:00 AM EST eCW1 ([facility]) Metoprolol Tartrate 25 MG Oral Tablet 11/16/2019 12:00:00 AM EDT [facility] clopidogrel 75 MG Oral Tablet 08/18/2019 12:00:00 AM EDT [facility] 24 HR Oxybutynin chloride 10 MG Extended Release Oral Tablet 08/16/2019 12:00:00 AM EDT [facility] Spironolactone 25 MG Oral Tablet 06/20/2019 12:00:00 AM EDT [facility]
[2020-04-18 01:10] VITALS: BP 134/56
[2020-04-18] MEDS ORDERED: GLUCOSE 4GM CHEW TABLET PO PRN (05:00)
[2020-04-18] MEDS ORDERED: GLUCAGON INJ 1MG VIAL SC PRN (05:00)
[2020-04-18] MEDS ORDERED: DEXTROSE 50% 50 ML SYRINGE IV PRN (05:00)
[2020-04-18 06:00] VITALS: BP 113/54
[2020-04-18] MEDS: HumaLOG INSULIN (NovoLOG) PER UNIT SC SCH ×4 (07:30→22:38)
--- NOTE | 2020-04-18 07:42 | ECGEPIP ---
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
[2020-04-18 07:56] LABS: HEMATOCRIT 46.3 % (42.0-52.0); HEMOGLOBIN 14.7 g/dl (13.5-17.5); MEAN CORPUSCULAR HEMOGLOBIN 29.2 pg (27.0-33.0); MEAN CORPUSCULAR HGB CONC 31.7 g/dl (32.0-36.5); PLATELET COUNT, AUTOMATED 106 10^3/uL (150-450); RED BLOOD COUNT 5.03 10^6/uL (4.30-6.10); WHITE BLOOD COUNT 9.9 10^3/uL (4.0-10.0)
[2020-04-18 08:25] LABS: CALCIUM LEVEL 8.4 MG/DL (8.8-10.2); CREATININE FOR GFR 1.92 MG/DL (0.70-1.30); GLOMERULAR FILTRATION RATE 36.2 (>42); POTASSIUM SERUM 3.3 MEQ/L (3.5-5.1)
[2020-04-18] MEDS: LEVEMIR (INSULIN DETEMIR) 1 UNITS/0.01ML SC SCH (09:00)
[2020-04-18] MEDS: DOCUSATE SODIUM 100MG CAPSULE PO SCH ×2 (09:29→22:29)
[2020-04-18] MEDS: oxyBUTYnin *DITROPAN XL* 5 MG TABCR PO SCH (09:30)
[2020-04-18] MEDS: CLOPIDOGREL 75 MG TAB PO SCH (09:30)
[2020-04-18] MEDS: AMIODARONE 200 MG TAB (PACERONE) PO SCH (09:30)
[2020-04-18] MEDS: METOPROLOL TART 25 MG TABLET PO SCH ×2 (09:30→22:30)
[2020-04-18] MEDS: BUMETANIDE 1 MG TAB PO SCH (09:31)
[2020-04-18] MEDS: predniSONE 10 MG TAB PO SCH (09:31)
[2020-04-18] MEDS: ENOXAPARIN 40MG/0.4ML SYRINGE (J1650 PER 10MG) SC SCH (09:31)
--- NOTE | 2020-04-18 13:05 | IPNPDOC ---
Date Seen The patient was seen on 04/18/20. Progress Note SUBJECTIVE: 80 year old male with PMH DM, CAD s/p CABG, hx of VT (s/p AICD on amiodarone), HTN, CHF, HLD, GERD with recent COVID-19 infection, discharged from [facility] on 04/10 , after treatment with doxycycline, remdesivir and dexamethasone, with prednisone taper on DC. He returns to [facility] due to debility and significant bilateral leg weakness. Patient was seen and examined at bedside. Doing well. No acute events overnight. Vital signs stable. No fever overnight. Patient complains of burning sensation on the roof of the mouth, tongue. Denies chest pain, shortness of breath, nausea, vomiting, diarrhea and subjective fevers or chills OBJECTIVE PHYSICAL EXAMINATION: VITAL SIGNS: please see below General: NAD, comfortable HEENT: PERRLA, EOMI, sclerae clear Neck: supple, normal ROM, no JVD Respiratory: lungs CTAB, no wheeze, no rales, no crackles CVS: RRR, normal S1, S2, no murmurs Abdo: soft, no masses, no hepatosplenomegaly, BS+, no rebound tenderness Extremities: no edema, pulses 2+ MSK: no joint deformities, normal ROM Neuro: no focal neuro deficits, moving all 4 extremities, CN2-12 intact. Strength 4/5 in legs. No nystagmus. Psych: calm, cooperative, AAO x 3 LABORATORY DATA, IMAGING STUDIES, MICROBIOLOGY: Please see below. DVT prophylaxis ordered?: Lovenox 40 mg SC daily, SCDs, TEDs. ASSESSMENT AND PLAN: #Post covid infection #Debility - completed treatment with remdisivir, leva jeovanny, dexamethasone. Prednisone taper - low suspicion for steroid induced myopathy given relatively short course of therapy - patient had completed treatment with home PT after discharge on 04/10/20 - ongoing weakness in bilateral LE - PT and OT eval #Oral pain - patient describes pain on tongue and roof of mouth - on exam, some erythema seen on hard palate, patient does wear dentures - suspect oral candidiasis, possibly atrophic type but likely pseudomembranous - will treat with clotrimazole troches 5x day x 7 days. IDDM - ISS, FSBS AC and HS - hypoglycemic precautions HTN - c/w metoprolol. HLD - rosuvastatin CAD - mild trop elevation, c/w levels seen on prior admission - no CP pain. - Check EKG - s/p CABG. c/w ASA, statin, Plavix. - Follows with Dr. Barker outpatient. CK3 - Cr is near baseline Hx Ventricular tachycardia s/p AICD - c/w Amiodarone. - Supposed to get AICD exchange with Dr. Tinsley in [place] post discharge. Biventricular CHF - echo from 04/12/20, showing EF 20-25%, global hypokinesis of L ventricle. - euvolemic. c/w bumex. metoprolol. VS, I&O, 24H, Fishbone Vital Signs/I&O Vital Signs Date Time Temp Pulse Resp B/P (MAP) Pulse Ox O2 Delivery O2 Flow Rate FiO2 04/18/20 09:30 75 113/54 04/18/20 06:00 97.5 18 90 Room Air I&O- Last 24 Hours up to 6 AM 04/18/20 06:00 Intake Total 200 ml Output Total 450 ml Balance -250 ml Laboratory Data 24H LABS Laboratory Tests 2 04/17/20 18:47: Prothrombin Time 13.6, Prothromb Time International Ratio 1.02, Activated Partial Thromboplast Time 40.0H, D-Dimer, Quantitative > 4000H 04/17/20 18:54: Immature Granulocyte % (Auto) 2.4, Neutrophils (%) (Auto) 83.0H, Lymphocytes (%) (Auto) 8.5L, Monocytes (%) (Auto) 5.7H, Eosinophils (%) (Auto) 0.0, Basophils (%) (Auto) 0.4, Neutrophils # (Auto) 8.1, Lymphocytes # (Auto) 0.8L, Monocytes # (Auto) 0.6, Eosinophils # (Auto) 0.0, Basophils # (Auto) 0.0, Nucleated Red Bloo d Cells % (auto) 0.0, Lactic Acid Level 1.8 04/17/20 18:55: Anion Gap 7L, Glomerular Filtration Rate 34.4L, Calcium Level 8.5L, Ferritin 806H, Total Bilirubin 0.7, Aspartate Amino Transf (AST/SGOT) 153H, Alanine Aminotransferase (ALT/SGPT) 141H, Alkaline Phosphatase 107, Lactate Dehydrogenase 476H, Total Creatine Kinase 785H, Creatine Kinase MB 10.8H, Creatine Kinase MB Relative Index 1.38, Troponin I 0.15H, C-Reactive Protein, Quantitative 1.18H, Total Protein 6.3L, Albumin 2.3L, Albumin/Globulin Ratio 0.6, Procalcitonin 0.09 04/17/20 20:05: Blood Gas Bicarbonate Standard 20.7L, Arterial Blood pH 7.432, Arterial Blood Partial Pressure CO2 27.5L, Arterial Blood Partial Pressure O2 136.8H, Arterial Blood Total CO2 18.8L, Arterial Blood HCO3 17.9L, Arterial Blood Base Excess - 4.7L, Arterial Blood Oxygen Saturation 98.8 04/18/20 00:43: Urine Color YELLOW, Urine Appearance HAZY, Urine pH 5.0, Urine Specific [place] 1.019, Urine Protein 2+H, Urine Glucose (UA) 2+H, Urine Ketones NEGATIVE, Urine Blood 3+H, Urine Nitrite NEGATIVE, Urine Bilirubin NEGATIVE, Urine Urobilinogen 0.2, Urine Leukocyte Esterase NEGATIVE, Urine WBC (Auto) 1, Urine RBC (Auto) 1, Urine Hyaline Casts (Auto) 0, Urine Bacteria (Auto) NEGATIVE, Urine Squamous Epithelial Cells 0, Urine Sperm (Auto) 04/18/20 06:51: Nucleated Red Blood Cells % (auto) 0.0, Anion Gap 11, Glomerular Filtration Rate 36.2L, Calcium Level 8.4L CBC/BMP Laboratory Tests 04/17/20 18:54 04/17/20 18:55 04/18/20 06:51 PATIENCE RETANA MD Apr 18, 2020 13:05
[2020-04-18 13:28] VITALS: BP 132/68
[2020-04-18] MEDS: CLOTRIMAZOLE 10 MG TROCHE PO SCH ×3 (13:53→22:29)
[2020-04-18] MEDS ORDERED: POTASSIUM CHLORIDE 10 MEQ SR TABLET PO ONE (15:00)
[2020-04-18 20:00] VITALS: BP 119/58
[2020-04-18] MEDS: ASPIRIN 325 MG TAB PO SCH (22:27)
[2020-04-18] MEDS: SPIRONOLACTONE 12.5MG PER 1/2 TABLET PO SCH (22:29)
[2020-04-18] MEDS: ROSUVASTATIN 10 MG TAB (CRESTOR) PO SCH (22:29)
[2020-04-19 04:00] VITALS: BP 110/56
[2020-04-19] MEDS: CLOTRIMAZOLE 10 MG TROCHE PO SCH ×5 (06:40→20:15)
[2020-04-19] MEDS: HumaLOG INSULIN (NovoLOG) PER UNIT SC SCH ×4 (07:30→19:52)
[2020-04-19 07:44] LABS: HEMATOCRIT 44.7 % (42.0-52.0); HEMOGLOBIN 14.3 g/dl (13.5-17.5); MEAN CORPUSCULAR HEMOGLOBIN 29.5 pg (27.0-33.0); MEAN CORPUSCULAR VOLUME 92.4 fl (80.0-96.0); PLATELET COUNT, AUTOMATED 89 10^3/uL (150-450); RED BLOOD COUNT 4.84 10^6/uL (4.30-6.10); WHITE BLOOD COUNT 8.8 10^3/uL (4.0-10.0)
[2020-04-19 08:10] LABS: CALCIUM LEVEL 8.1 MG/DL (8.8-10.2); CREATININE FOR GFR 2.14 MG/DL (0.70-1.30); POTASSIUM SERUM 3.6 MEQ/L (3.5-5.1)
[2020-04-19 08:23] VITALS: BP 150/7
[2020-04-19] MEDS: LEVEMIR (INSULIN DETEMIR) 1 UNITS/0.01ML SC SCH (09:00)
[2020-04-19] MEDS: ENOXAPARIN 40MG/0.4ML SYRINGE (J1650 PER 10MG) SC SCH (10:03)
[2020-04-19] MEDS: BUMETANIDE 1 MG TAB PO SCH (10:03)
[2020-04-19] MEDS: METOPROLOL TART 25 MG TABLET PO SCH ×2 (10:04→20:15)
[2020-04-19] MEDS: predniSONE 10 MG TAB PO SCH (10:05)
[2020-04-19] MEDS: DOCUSATE SODIUM 100MG CAPSULE PO SCH ×2 (10:05→20:16)
[2020-04-19] MEDS: CLOPIDOGREL 75 MG TAB PO SCH (10:06)
[2020-04-19] MEDS: AMIODARONE 200 MG TAB (PACERONE) PO SCH (10:06)
[2020-04-19] MEDS: oxyBUTYnin *DITROPAN XL* 5 MG TABCR PO SCH (10:10)
--- NOTE | 2020-04-19 10:39 | IPNPDOC ---
Date Seen The patient was seen on 04/19/20. Progress Note SUBJECTIVE: 80 year old male with PMH DM, CAD s/p CABG, hx of VT (s/p AICD on amiodarone), HTN, CHF, HLD, GERD with recent COVID-19 infection, discharged from [facility] on 04/10 , after treatment with doxycycline, remdesivir and dexamethasone, with prednisone taper on DC. He returns to [facility] due to debility and significant bilateral leg weakness. Patient was seen and examined at bedside. Doing well. No acute events overnight. Vital signs stable. No fever overnight. Patient complains of burning sensation on the roof of the mouth, tongue. Denies chest pain, shortness of breath, nausea, vomiting, diarrhea and subjective fevers or chills OBJECTIVE PHYSICAL EXAMINATION: VITAL SIGNS: please see below General: NAD, comfortable HEENT: PERRLA, EOMI, sclerae clear Neck: supple, normal ROM, no JVD Respiratory: lungs CTAB, no wheeze, no rales, no crackles CVS: RRR, normal S1, S2, no murmurs Abdo: soft, no masses, no hepatosplenomegaly, BS+, no rebound tenderness Extremities: no edema, pulses 2+ MSK: no joint deformities, normal ROM Neuro: no focal neuro deficits, moving all 4 extremities, CN2-12 intact. Strength 4/5 in legs. No nystagmus. Psych: calm, cooperative, AAO x 3 LABORATORY DATA, IMAGING STUDIES, MICROBIOLOGY: Please see below. DVT prophylaxis ordered?: Lovenox 40 mg SC daily, SCDs, TEDs. ASSESSMENT AND PLAN: #Post covid infection #Debility - completed treatment with remdisivir, leva jeovanny, dexamethasone. Prednisone taper - low suspicion for steroid induced myopathy given relatively short course of therapy - patient had completed treatment with home PT after discharge on 04/10/20 - ongoing weakness in bilateral LE - PT and OT eval #Oral pain - patient describes pain on tongue and roof of mouth - on exam, some erythema seen on hard palate, patient does wear dentures - suspect oral candidiasis, possibly atrophic type but likely pseudomembranous - will treat with clotrimazole troches 5x day x 7 days. IDDM - ISS, FSBS AC and HS - hypoglycemic precautions HTN - c/w metoprolol. HLD - rosuvastatin CAD - mild trop elevation, c/w levels seen on prior admission - no CP pain. - Check EKG - s/p CABG. c/w ASA, statin, Plavix. - Follows with Dr. Barker outpatient. CK3 - Cr is near baseline Hx Ventricular tachycardia s/p AICD - c/w Amiodarone. - Supposed to get AICD exchange with Dr. Tinsley in [place] post discharge. Biventricular CHF - echo from 04/12/20, showing EF 20-25%, global hypokinesis of L ventricle. - euvolemic. c/w bumex. metoprolol. VS, I&O, 24H, Fishbone Vital Signs/I&O Vital Signs Date Time Temp Pulse Resp B/P (MAP) Pulse Ox O2 Delivery O2 Flow Rate FiO2 04/19/20 10:04 88 150/70 04/19/20 08:23 20 90 Room Air 04/19/20 04:00 97.8 I&O- Last 24 Hours up to 6 AM 04/19/20 06:00 Intake Total 1300 ml Output Total 1000 ml Balance 300 ml Laboratory Data 24H LABS Laboratory Tests 2 04/18/20 11:50: Bedside Glucose (Misc Panel) 117H 04/18/20 16:47: Bedside Glucose (Misc Panel) 149H 04/18/20 20:05: Bedside Glucose (Misc Panel) 272H 04/19/20 06:17: Bedside Glucose (Misc Panel) 58L 04/19/20 07:14: Bedside Glucose (Misc Panel) 59L 04/19/20 07:25: Nucleated Red Blood Cells % (auto) 0.0, Immature Platelet Fraction 3.6, Bedside Glucose Confirm (Misc) 64, Anion Gap 8, Glomerular Filtration Rate 32.0L, Calcium Level 8.1L 04/19/20 10:00: Bedside Glucose (Misc Panel) 116H CBC/BMP Laboratory Tests 04/19/20 07:25 PATIENCE RETANA MD Apr 19, 2020 10:39
[2020-04-19 13:57] VITALS: BP 118/58
[2020-04-19 19:49] VITALS: BP 124/64
[2020-04-19] MEDS: ROSUVASTATIN 10 MG TAB (CRESTOR) PO SCH (20:14)
[2020-04-19] MEDS: ASPIRIN 325 MG TAB PO SCH (20:15)
[2020-04-19] MEDS: SPIRONOLACTONE 12.5MG PER 1/2 TABLET PO SCH (20:15)
[2020-04-20 04:47] VITALS: BP 103/57
[2020-04-20] MEDS: CLOTRIMAZOLE 10 MG TROCHE PO SCH ×2 (05:20→08:07)
[2020-04-20] MEDS: HumaLOG INSULIN (NovoLOG) PER UNIT SC SCH ×4 (07:30→20:27)
[2020-04-20] MEDS: predniSONE 10 MG TAB PO SCH (08:06)
[2020-04-20] MEDS: BUMETANIDE 1 MG TAB PO SCH (08:06)
[2020-04-20] MEDS: oxyBUTYnin *DITROPAN XL* 5 MG TABCR PO SCH (08:06)
[2020-04-20] MEDS: DOCUSATE SODIUM 100MG CAPSULE PO SCH ×2 (08:06→20:38)
[2020-04-20] MEDS: CLOPIDOGREL 75 MG TAB PO SCH (08:06)
[2020-04-20] MEDS: ENOXAPARIN 40MG/0.4ML SYRINGE (J1650 PER 10MG) SC SCH (08:07)
[2020-04-20 08:13] VITALS: BP 105/59
[2020-04-20] MEDS: METOPROLOL TART 25 MG TABLET PO SCH ×2 (08:20→20:39)
[2020-04-20] MEDS: AMIODARONE 200 MG TAB (PACERONE) PO SCH (08:21)
[2020-04-20 09:29] LABS: HEMATOCRIT 45.5 % (42.0-52.0); HEMOGLOBIN 14.9 g/dl (13.5-17.5); MEAN CORPUSCULAR HEMOGLOBIN 30.4 pg (27.0-33.0); MEAN CORPUSCULAR HGB CONC 32.7 g/dl (32.0-36.5); MEAN CORPUSCULAR VOLUME 92.9 fl (80.0-96.0); WHITE BLOOD COUNT 8.4 10^3/uL (4.0-10.0)
[2020-04-20 09:35] LABS: PLATELET COUNT, AUTOMATED 94 10^3/uL (150-450)
[2020-04-20 09:43] LABS: CALCIUM LEVEL 8.1 MG/DL (8.8-10.2); CREATININE FOR GFR 2.01 MG/DL (0.70-1.30); GLOMERULAR FILTRATION RATE 34.4 (>42); POTASSIUM SERUM 3.7 MEQ/L (3.5-5.1)
[2020-04-20] MEDS ORDERED: AMIODARONE 100MG TABLET (PACERONE) PO ONE (10:00)
--- NOTE | 2020-04-20 11:43 | IPNPDOC ---
Subjective Date Seen The patient was seen on 04/20/20. Subjective Chief Complaint/HPI Complains of soreness of the mouth and throat. No fever or chills, no abdominal pain or nausea or vomiting or odynophagia. Not needing any oxygen. Objective Physical Examination General Exam: Positive: Alert, Cooperative, No Acute Distress Eye Exam: Positive: PERRLA, Conjunctiva & lids normal, EOMI; Negative: Sclera icteric ENT Exam: Positive: Atraumatic, Pharynx Normal, Other ENT (tongue is red with some fissures in it. ) Neck Exam: Positive: Supple; Negative: JVD, thyromegaly Chest Exam: Positive: Clear to auscultation, Normal air movement Heart Exam: Positive: Rate Normal, Regular Rhythm, Normal S1, Normal S2; Negative: Murmurs, Rubs Abdomen Exam: Positive: Normal bowel sounds, Soft; Negative: Tenderness, Hepatospenomegaly Extremity Exam: Negative: Clubbing, Cyanosis, Edema Psych Exam: Positive: Mental status NL, Mood NL, Memory Intact, Oriented x 3 Assessment /Plan Assessment 80 year old male with PMH DM, CAD s/p CABG, hx of VT (s/p AICD on amiodarone), HTN, CHF, HLD, GERD, KENJI with recent COVID-19 infection, discharged from [facility] on 04/10 , after treatment with doxycycline, remdesivir and dexamethasone, with prednisone taper on DC. He returns to [facility] due to debility and significant bilateral leg weakness. #Post covid infection debility - COVID positive on 04/06 - completed treatment with remdisivir, leva jeovanny, dexamethasone. Prednisone taper - low suspicion for steroid induced myopathy given relatively short course of therapy - patient had completed treatment with home PT after discharge on 04/10/20 - ongoing weakness in bilateral LE - PT and OT eval Possible oral candidiasis will give Nystatin and magic mouth wash. IDDM - Hypoglycemia - will hold levemir for now. - ISS, FSBS AC and HS - hypoglycemic precautions HTN - c/w metoprolol. HLD - rosuvastatin CAD - mild trop elevation, c/w levels seen on prior admission - s/p CABG. c/w ASA, statin, Plavix. - Follows with Dr. Barker outpatient. CK3 - Cr is near baseline Hx Ventricular tachycardia s/p AICD - c/w Amiodarone. - Supposed to get AICD exchange with Dr. Tinsley in [place] post discharge. 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 - euvolemic. c/w bumex. spironolactone, metoprolol. Morbid obesity/ BMI 43.1 -complicating care KENJI -reports compliant with CPAP at home Thrombocytopenia - Platelet a little better than yesterday - will continue on Lovenox for now. If drops below 75 k will stop it. Plan/VTE VTE Prophylaxis Ordered?: Yes VS, I&O, 24H, Fishbone Vital Signs/I&O Vital Signs Date Time Temp Pulse Resp B/P (MAP) Pulse Ox O2 Delivery O2 Flow Rate FiO2 04/20/20 08:20 75 105/59 04/20/20 04:47 95.9 17 91 Room Air I&O- Last 24 Hours up to 6 AM 04/20/20 05:59 Intake Total 1140 ml Output Total 1500 ml Balance -360 ml Laboratory Data 24H LABS Laboratory Tests 2 04/19/20 11:53: Bedside Glucose (Misc Panel) 93 04/19/20 17:02: Bedside Glucose (Misc Panel) 165H 04/19/20 19:51: Bedside Glucose (Misc Panel) 179H 04/20/20 07:28: Bedside Glucose (Misc Panel) 78L 04/20/20 07:49: Nucleated Red Blood Cells % (auto) 0.0, Immature Platelet Fraction 4.2, Anion Gap 8, Glomerular Filtration Rate 34.4L, Calcium Level 8.1L CBC/BMP Laboratory Tests 04/20/20 07:49 OCTAVIO CHAVEZ MD Apr 20, 2020 11:26
[2020-04-20] MEDS: MAGIC MOUTHWASH SUSPENSION BTL SSP SCH ×2 (12:00→16:45)
[2020-04-20] MEDS: NYSTATIN 500,000 U/5 ML SUSP UDC SS SCH ×3 (13:56→20:37)
[2020-04-20 14:00] VITALS: BP 120/57
[2020-04-20 20:08] VITALS: BP 103/55
[2020-04-20] MEDS: ASPIRIN 325 MG TAB PO SCH (20:37)
[2020-04-20] MEDS: ROSUVASTATIN 10 MG TAB (CRESTOR) PO SCH (20:37)
[2020-04-20] MEDS: SPIRONOLACTONE 12.5MG PER 1/2 TABLET PO SCH (20:38)
[2020-04-21 05:18] VITALS: BP 112/57
[2020-04-21] MEDS: HumaLOG INSULIN (NovoLOG) PER UNIT SC SCH ×2 (06:55→12:00)
[2020-04-21 08:07] LABS: HEMATOCRIT 46.7 % (42.0-52.0); HEMOGLOBIN 14.7 g/dl (13.5-17.5); MEAN CORPUSCULAR HEMOGLOBIN 29.3 pg (27.0-33.0); MEAN CORPUSCULAR HGB CONC 31.5 g/dl (32.0-36.5); RED BLOOD COUNT 5.02 10^6/uL (4.30-6.10); WHITE BLOOD COUNT 9.5 10^3/uL (4.0-10.0)
[2020-04-21 08:11] LABS: PLATELET COUNT, AUTOMATED 99 10^3/uL (150-450)
[2020-04-21 08:29] LABS: CALCIUM LEVEL 8.7 MG/DL (8.8-10.2); CREATININE FOR GFR 2.03 MG/DL (0.70-1.30); POTASSIUM SERUM 3.7 MEQ/L (3.5-5.1)
[2020-04-21] MEDS: MAGIC MOUTHWASH SUSPENSION BTL SSP SCH ×3 (08:42→16:47)
[2020-04-21] MEDS: ENOXAPARIN 40MG/0.4ML SYRINGE (J1650 PER 10MG) SC SCH (08:43)
[2020-04-21] MEDS: NYSTATIN 500,000 U/5 ML SUSP UDC SS SCH ×4 (08:43→21:20)
[2020-04-21] MEDS: CLOPIDOGREL 75 MG TAB PO SCH (08:44)
[2020-04-21] MEDS: oxyBUTYnin *DITROPAN XL* 5 MG TABCR PO SCH (08:44)
[2020-04-21] MEDS: BUMETANIDE 1 MG TAB PO SCH (08:44)
[2020-04-21] MEDS: DOCUSATE SODIUM 100MG CAPSULE PO SCH ×2 (08:44→21:20)
[2020-04-21] MEDS: AMIODARONE 200 MG TAB (PACERONE) PO SCH (08:45)
[2020-04-21] MEDS: METOPROLOL TART 25 MG TABLET PO SCH ×2 (08:45→21:20)
[2020-04-21] MEDS: ROSUVASTATIN 10 MG TAB (CRESTOR) PO SCH (21:18)
[2020-04-21] MEDS: ASPIRIN 325 MG TAB PO SCH (21:20)
[2020-04-21] MEDS: SPIRONOLACTONE 12.5MG PER 1/2 TABLET PO SCH (21:21)
[2020-04-21 21:25] VITALS: BP 112/56
[2020-04-22 04:00] VITALS: BP 115/86
[2020-04-22] MEDS: MAGIC MOUTHWASH SUSPENSION BTL SSP SCH ×3 (07:16→17:07)
[2020-04-22 08:22] LABS: BASO % 0.2 % (0.0-1.0); EOS # 0.1 10^3/uL (0.0-0.5); EOS % 1.5 % (0.0-3.0); HEMATOCRIT 45.1 % (42.0-52.0); HEMOGLOBIN 14.5 g/dl (13.5-17.5); LYMPH # 1.1 10^3/uL (1.5-5.0); LYMPH % 12.7 % (24.0-44.0); MEAN CORPUSCULAR HEMOGLOBIN 29.5 pg (27.0-33.0); MEAN CORPUSCULAR HGB CONC 32.2 g/dl (32.0-36.5); MEAN CORPUSCULAR VOLUME 91.7 fl (80.0-96.0); MONO # 0.7 10^3/uL (0.0-0.8); MONO % 8.1 % (0.0-5.0); NEUTROPHILS # 6.6 10^3/uL (1.5-8.5); NEUTROPHILS % 76.9 % (36.0-66.0); PLATELET COUNT, AUTOMATED 101 10^3/uL (150-450); RED BLOOD COUNT 4.92 10^6/uL (4.30-6.10); WHITE BLOOD COUNT 8.6 10^3/uL (4.0-10.0)
[2020-04-22] MEDS: ENOXAPARIN 40MG/0.4ML SYRINGE (J1650 PER 10MG) SC SCH (08:40)
[2020-04-22] MEDS: NYSTATIN 500,000 U/5 ML SUSP UDC SS SCH ×4 (08:40→21:43)
[2020-04-22] MEDS: AMIODARONE 200 MG TAB (PACERONE) PO SCH (08:41)
[2020-04-22] MEDS: BUMETANIDE 1 MG TAB PO SCH (08:41)
[2020-04-22] MEDS: METOPROLOL TART 25 MG TABLET PO SCH ×2 (08:41→21:43)
[2020-04-22] MEDS: DOCUSATE SODIUM 100MG CAPSULE PO SCH ×2 (08:41→21:43)
[2020-04-22] MEDS: CLOPIDOGREL 75 MG TAB PO SCH (08:41)
[2020-04-22] MEDS: oxyBUTYnin *DITROPAN XL* 5 MG TABCR PO SCH (08:41)
[2020-04-22 08:48] LABS: CALCIUM LEVEL 8.4 MG/DL (8.8-10.2); GLOMERULAR FILTRATION RATE 34.6 (>42); MAGNESIUM LEVEL 2.1 MG/DL (1.8-2.4); POTASSIUM SERUM 3.3 MEQ/L (3.5-5.1)
[2020-04-22 20:00] VITALS: BP 139/65
[2020-04-22] MEDS: ROSUVASTATIN 10 MG TAB (CRESTOR) PO SCH (21:42)
[2020-04-22] MEDS: SPIRONOLACTONE 12.5MG PER 1/2 TABLET PO SCH (21:43)
[2020-04-22] MEDS: ASPIRIN 325 MG TAB PO SCH (21:43)
[2020-04-23 04:00] VITALS: BP 129/70
[2020-04-23 08:18] VITALS: BP 97/53
[2020-04-23] MEDS: METOPROLOL TART 25 MG TABLET PO SCH ×2 (09:00→21:15)
[2020-04-23] MEDS: MAGIC MOUTHWASH SUSPENSION BTL SSP SCH ×3 (09:02→18:12)
[2020-04-23] MEDS: DOCUSATE SODIUM 100MG CAPSULE PO SCH ×2 (09:02→21:14)
[2020-04-23] MEDS: oxyBUTYnin *DITROPAN XL* 5 MG TABCR PO SCH (09:02)
[2020-04-23] MEDS: NYSTATIN 500,000 U/5 ML SUSP UDC SS SCH ×4 (09:03→21:14)
[2020-04-23] MEDS: AMIODARONE 200 MG TAB (PACERONE) PO SCH (09:03)
[2020-04-23] MEDS: ENOXAPARIN 40MG/0.4ML SYRINGE (J1650 PER 10MG) SC SCH (09:03)
[2020-04-23] MEDS: CLOPIDOGREL 75 MG TAB PO SCH (09:03)
[2020-04-23] MEDS: BUMETANIDE 1 MG TAB PO SCH (09:03)
[2020-04-23 20:00] VITALS: BP 115/75
[2020-04-23] MEDS: SPIRONOLACTONE 12.5MG PER 1/2 TABLET PO SCH (21:14)
[2020-04-23] MEDS: ASPIRIN 325 MG TAB PO SCH (21:14)
[2020-04-23] MEDS: ROSUVASTATIN 10 MG TAB (CRESTOR) PO SCH (21:14)
[2020-04-24 04:00] VITALS: BP 110/65
[2020-04-24] MEDS: ENOXAPARIN 40MG/0.4ML SYRINGE (J1650 PER 10MG) SC SCH (08:14)
[2020-04-24] MEDS: MAGIC MOUTHWASH SUSPENSION BTL SSP SCH ×3 (08:14→16:34)
[2020-04-24] MEDS: oxyBUTYnin *DITROPAN XL* 5 MG TABCR PO SCH (08:15)
[2020-04-24] MEDS: NYSTATIN 500,000 U/5 ML SUSP UDC SS SCH ×4 (08:15→20:03)
[2020-04-24] MEDS: AMIODARONE 200 MG TAB (PACERONE) PO SCH (08:15)
[2020-04-24] MEDS: BUMETANIDE 1 MG TAB PO SCH (08:16)
[2020-04-24] MEDS: METOPROLOL TART 25 MG TABLET PO SCH ×2 (08:16→20:02)
[2020-04-24] MEDS: CLOPIDOGREL 75 MG TAB PO SCH (08:16)
[2020-04-24] MEDS: DOCUSATE SODIUM 100MG CAPSULE PO SCH ×2 (08:16→20:02)
[2020-04-24 12:15] VITALS: BP 109/56
--- NOTE | 2020-04-24 13:41 | IPNPDOC ---
Text Note Date of Service The patient was seen on 04/24/20. NOTE Subjective: Patient is a 80-year-old male with a PMHx of CAD, Diastolic CHF, Hx of VT (on Amiodarone, s/p AICD), HTN, DLP, IDDM2, GERD who presented to the emergency room on 04/06 with generalized weakness and had tested positive for COVID on 04/01. Patient remained in hospital until 04/10. . He completed a course of redness of urine dexamethasone. He was discharged with supplemental oxygen and prednisone taper. He is presented back to the emergency room on 04/17 for generalized weakness. Cathy chodwhury worked with physical therapy and has been transition to ALC status on 04/20. Patient was seen and examined at the bedside. Patient is seen sitting up, does not appear to be in any distress. Denies any chest pain, shortness breath, palpitations. Has not experience any nausea, vomiting, abdominal pain. Bowel movement reported 2 days ago. Objective: Vitals (See below) General: Sitting up in bed, appears comfortable, AAOx3 HEENT: NC, AT CVS: +S1S2 Lungs: Fair air entry b/l, no appreciable wheezing, rhonchi or rales Abdomen: Soft, ND, NT, Obese Extremities: No pitting edema, - Calf tenderness Assessment and plan: Debility - likely 2/2 Post-COVID19 infection; less likely 2/2 steroid induced myopathy (re: relatively short course of therapy) - COVID positive on 04/01 - s/p Treatment with Remdesivir, Levaquin, dexamethasone (and Prednisone taper) - Patient had completed treatment with home PT after discharge on 04/10/20, however had continued to experience ongoing weakness in bilateral LE - c/w PT and OT; recommending rehab Possible oral candidiasis - c/w Nystatin and magic mouth wash PRN IDDM2 with Hypoglycemia - Levemir on hold - c/w ISS HTN - BP well controlled - c/w Bumetanide, Spironolactone, Metoprolol DLP - c/w Rosuvastatin CAD s/p CABG - Mild troponin elevation; appears at prior levels - c/w ASA, Plavix, Rosuvastatin - Follows with Dr. Barker as an outpatient CK3 - Cr is near baseline of approximately 2 Hx Ventricular tachycardia s/p AICD - c/w Amiodarone. - Supposed to get AICD exchange with Dr. 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 - c/w Bumetanide, Spironolactone, Metoprolol Morbid obesity - BMI 43.1 - Complicating care KENJI - c/w home CPAP use while inpatient Thrombocytopenia - Platelet count had remained stable DVT prophylaxis - c/w Lovenox Disposition: - c/w PT and OT; awaiting rehabilitation - c/w ALC status VS,Fishbone, I+O VS, Fishbone, I+O Vital Signs Date Time Temp Pulse Resp B/P (MAP) Pulse Ox O2 Delivery O2 Flow Rate FiO2 04/24/20 12:15 98.0 75 20 109/56 (73) 93 04/23/20 08:18 Room Air I&O- Last 24 Hours up to 6 AM 04/24/20 06:00 Intake Total 1820 ml Output Total 1450 ml Balance 370 ml JOSE ARMANDO ARNOLD MD Apr 24, 2020 13:41
[2020-04-24 14:12] LABS: BASO % 0.3 % (0.0-1.0); EOS # 0.3 10^3/uL (0.0-0.5); EOS % 3.3 % (0.0-3.0); HEMATOCRIT 44.8 % (42.0-52.0); HEMOGLOBIN 14.4 g/dl (13.5-17.5); LYMPH # 0.9 10^3/uL (1.5-5.0); LYMPH % 10.4 % (24.0-44.0); MEAN CORPUSCULAR HEMOGLOBIN 29.9 pg (27.0-33.0); MEAN CORPUSCULAR HGB CONC 32.1 g/dl (32.0-36.5); MEAN CORPUSCULAR VOLUME 93.1 fl (80.0-96.0); MONO # 0.6 10^3/uL (0.0-0.8); MONO % 7.2 % (0.0-5.0); NEUTROPHILS # 6.8 10^3/uL (1.5-8.5); NEUTROPHILS % 78.3 % (36.0-66.0); PLATELET COUNT, AUTOMATED 141 10^3/uL (150-450); RED BLOOD COUNT 4.81 10^6/uL (4.30-6.10); WHITE BLOOD COUNT 8.7 10^3/uL (4.0-10.0)
[2020-04-24 14:35] LABS: CALCIUM LEVEL 8.6 MG/DL (8.8-10.2); CREATININE FOR GFR 2.21 MG/DL (0.70-1.30); GLOMERULAR FILTRATION RATE 30.8 (>42); MAGNESIUM LEVEL 2.2 MG/DL (1.8-2.4); POTASSIUM SERUM 3.4 MEQ/L (3.5-5.1)
[2020-04-24] MEDS ORDERED: POTASSIUM CHLORIDE 10 MEQ SR TABLET PO ONE (15:00)
[2020-04-24] MEDS ORDERED: NYSTATIN 100,000 UNITS/GM TOPICAL PWD 15 GM TOP PRN (19:15)
[2020-04-24] MEDS: ASPIRIN 325 MG TAB PO SCH (20:02)
[2020-04-24] MEDS: SPIRONOLACTONE 12.5MG PER 1/2 TABLET PO SCH (20:02)
[2020-04-24] MEDS: ROSUVASTATIN 10 MG TAB (CRESTOR) PO SCH (20:02)
[2020-04-25 05:00] VITALS: BP 76/40
[2020-04-25 05:12] VITALS: BP 100/60
[2020-04-25 07:06] LABS: BASO % 0.5 % (0.0-1.0); EOS # 0.3 10^3/uL (0.0-0.5); EOS % 5.1 % (0.0-3.0); HEMATOCRIT 39.1 % (42.0-52.0); HEMOGLOBIN 12.9 g/dl (13.5-17.5); LYMPH # 0.8 10^3/uL (1.5-5.0); LYMPH % 12.8 % (24.0-44.0); MEAN CORPUSCULAR HEMOGLOBIN 30.4 pg (27.0-33.0); MEAN CORPUSCULAR VOLUME 92.2 fl (80.0-96.0); MONO # 0.5 10^3/uL (0.0-0.8); MONO % 8.2 % (0.0-5.0); NEUTROPHILS # 4.4 10^3/uL (1.5-8.5); NEUTROPHILS % 72.7 % (36.0-66.0); PLATELET COUNT, AUTOMATED 111 10^3/uL (150-450); RED BLOOD COUNT 4.24 10^6/uL (4.30-6.10); WHITE BLOOD COUNT 6.1 10^3/uL (4.0-10.0)
[2020-04-25 07:26] LABS: CALCIUM LEVEL 8.2 MG/DL (8.8-10.2); CREATININE FOR GFR 1.92 MG/DL (0.70-1.30); GLOMERULAR FILTRATION RATE 36.2 (>42); MAGNESIUM LEVEL 2.1 MG/DL (1.8-2.4); POTASSIUM SERUM 3.4 MEQ/L (3.5-5.1)
[2020-04-25] MEDS: oxyBUTYnin *DITROPAN XL* 5 MG TABCR PO SCH (07:32)
[2020-04-25] MEDS: MAGIC MOUTHWASH SUSPENSION BTL SSP SCH ×2 (07:32→13:02)
[2020-04-25] MEDS: DOCUSATE SODIUM 100MG CAPSULE PO SCH (07:32)
[2020-04-25] MEDS: NYSTATIN 500,000 U/5 ML SUSP UDC SS SCH ×2 (07:32→13:00)
[2020-04-25 07:33] VITALS: BP 100/60
[2020-04-25] MEDS: CLOPIDOGREL 75 MG TAB PO SCH (07:33)
[2020-04-25] MEDS: AMIODARONE 200 MG TAB (PACERONE) PO SCH (07:33)
[2020-04-25] MEDS: METOPROLOL TART 25 MG TABLET PO SCH (07:33)
[2020-04-25] MEDS: ENOXAPARIN 40MG/0.4ML SYRINGE (J1650 PER 10MG) SC SCH (07:34)
[2020-04-25] MEDS: BUMETANIDE 1 MG TAB PO SCH (07:34)
[2020-04-25] MEDS ORDERED: POTASSIUM CHLORIDE 10 MEQ SR TABLET PO ONE (09:30)
--- NOTE | 2020-04-25 10:23 | DS.PDOC ---
Discharge Summary General Date of Admission Apr 17, 2020 at 21:56 Date of Discharge 04/25/2020 Discharge Summary PROCEDURES PERFORMED DURING STAY: [None]. 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 Patient remained in hospital until 04/10. . He completed a course of redness of urine dexamethasone. He was discharged with supplemental oxygen and prednisone taper. He is presented back to the ER on 04/17 for generalized weakness. Patient worked with physical therapy and has been transition to ALC status on 04/20. Patient was seen and examined at the bedside reports that he has had an uneventful evening denies any chest pain, shortness of breath, palpitations, nausea, vomiting, abdominal pain or diarrhea. Has been working with physical therapy. HOSPITAL COURSE: Debility - likely 2/2 Post-COVID19 infection; less likely 2/2 steroid induced myopathy (re: relatively short course of therapy) - COVID positive on 04/01 - s/p Treatment with Remdesivir, Levaquin, dexamethasone (and Prednisone taper) - Patient had completed treatment with home PT after discharge on 04/10/20, however had continued to experience ongoing weakness in bilateral LE - c/w PT and OT; recommending rehab Possible oral candidiasis - c/w Nystatin and magic mouth wash PRN IDDM2 with Hypoglycemia - Levemir on hold; will be discontinue on discharge - Has not required ISS HTN - BP well controlled - c/w Bumetanide, Spironolactone, Metoprolol DLP - c/w Rosuvastatin CAD s/p CABG - Denies any CP, SOB or palpitations - Mild troponin elevation; similar to prior levles - c/w ASA, Plavix, Rosuvastatin - Follows with Dr. Barker as an outpatient CK3 - Cr is near baseline of approximately 2 Hx Ventricular tachycardia s/p AICD - c/w Amiodarone. - Supposed to get AICD exchange with Dr. Tinsley in [place] post discharge - Will have follow up within 7 days Chronic Systolic and diastolic CHF with mild pulmonary hypertension - Currently does not display any signs of fluid overload; appears euvolemic - ECHO 04/12/20: EF 20-25%, global hypokinesis of L ventricle. - c/w Bumetanide, Spironolactone, Metoprolol Morbid obesity - BMI 43.1 - Complicating medical care KENJI - c/w home CPAP use while inpatient Thrombocytopenia - Platelet count continues to remain stable DVT prophylaxis - c/w Lovenox DISCHARGE MEDICATIONS: Please see below. ALLERGIES: Please see below. PHYSICAL EXAMINATION ON DISCHARGE: Vitals (See below) General: Laying in bed, appears to be comfortable, does not appear to be in any acute distress, is awake, alert, oriented to person, place and time HEENT: NC, AT CVS: +S1S2 Lungs: Air entry appears to be fair bilaterally without any appreciated rhonchi, wheezing or crackles on auscultation Abdomen: Remains soft without any appreciated tenderness or distention, but is obese Extremities: Lower tremors are without any edema LABORATORY DATA: Please see below. ACTIVITY: [As tolerated]. DISCHARGE PLAN: Follow-up with primary care provider, and cardiology in [place] within the next 7 days Remain compliant with treatment plan and medications Return to the ER if you experience any problems DISPOSITION: Swing bed at [facility] DISCHARGE CONDITION: [Stable]. TIME SPENT ON DISCHARGE: 35 minutes. Vital Signs/I&Os Vital Signs Date Time Temp Pulse Resp B/P (MAP) Pulse Ox O2 Delivery O2 Flow Rate FiO2 04/25/20 07:33 75 100/60 04/25/20 05:00 99.3 19 92 Room Air I&O- Last 24 Hours up to 6 AM 04/25/20 06:00 Intake Total 1500 ml Output Total 625 ml Balance 875 ml Laboratory Data Labs 24H Laboratory Tests 2 04/24/20 13:50: Immature Granulocyte % (Auto) 0.5, Neutrophils (%) (Auto) 78.3H, Lymphocytes (%) (Auto) 10.4L, Monocytes (%) (Auto) 7.2H, Eosinophils (%) (Auto) 3.3H, Basophils (%) (Auto) 0.3, Neutrophils # (Auto) 6.8, Lymphocytes # (Auto) 0.9L, Monocytes # (Auto) 0.6, Eosinophils # (Auto) 0.3, Basophils # (Auto) 0.0, Nucleated Red Blood Cells % (auto) 0.0, Anion Gap 11, Glomerular Filtration Rate 30.8L, Calcium Level 8.6L, Magnesium Level 2.2 04/24/20 16:50: Bedside Glucose (Misc Panel) 173H 04/25/20 04:59: Bedside Glucose (Misc Panel) 93 04/25/20 06:04: Immature Granulocyte % (Auto) 0.7, Neutrophils (%) (Auto) 72.7H, Lymphocytes (%) (Auto) 12.8L, Monocytes (%) (Auto) 8.2H, Eosinophils (%) (Auto) 5.1H, Basophils (%) (Auto) 0.5, Neutrophils # (Auto) 4.4, Lymphocytes # (Auto) 0.8L, Monocytes # (Auto) 0.5, Eosinophils # (Auto) 0.3, Basophils # (Auto) 0.0, Nucleated Red Blood Cells % (auto) 0.0, Anion Gap 10, Glomerular Filtration Rate 36.2L, Calcium Level 8.2L, Magnesium Level 2.1 CBC/BMP Laboratory Tests 04/24/20 13:50 04/25/20 06:04 FSBS Laboratory Tests Test 04/24/20 16:50 04/25/20 04:59 Range/Units Bedside Glucose (Misc Panel) 173 93 83-110 MG/DL Discharge Medications Scheduled Amiodarone HCl (Amiodarone HCl) 200 Mg Tab, 200 MG PO DAILY, (Reported) Aspirin (Aspirin) 325 Mg Tablet, 325 MG PO QHS, (Reported) Bumetanide (Bumetanide) 1 Mg Tablet, 1 MG PO DAILY, (Reported) Cholecalciferol (Vitamin D3) (Vitamin D3) 125 Mcg Tablet, 125 MCG PO DAILY, (Reported) Clopidogrel Bisulfate (Plavix) 75 Mg Tablet, 75 MG PO DAILY, (Reported) Docusate Sodium (Colace) 100 Mg Cap, 100 MG PO BID, (Reported) Magnesium Chloride (Mag64) 64 Mg Tabcr, 64 MG PO BID, (Reported) Metoprolol Tartrate (Metoprolol Tartrate) 25 Mg Tablet, 25 MG PO BID, (Reported) Oxybutynin Chloride (Oxybutynin Chloride ER) 10 Mg Tab, 10 MG PO DAILY, (Reported) Rosuvastatin Calcium (Rosuvastatin Calcium) 40 Mg Tablet, 40 MG PO QHS, (Reported) Spironolactone (Spironolactone) 25 Mg Tablet, 12.5 MG PO QHS, (Reported) Allergies Coded Allergies: No Known Allergies (Verified , 03/10/04) JOSE ARMANDO ARNOLD MD Apr 25, 2020 10:23
== END 2020-04-25 16:03 | disposition home or self-care (01) | DRG 948 ==
LOC: M ED 18:33 → EDBD 18:33 → M ED INP 21:56 → ENRESERV 23:21 → M 4MAIN 04-18 01:10 → M MS5PR 04-24 12:10
PROVIDERS: ADMIT Student in an Organized Health Care Education/Training Program; ATTEND Internal Medicine
DX: R53.81 Other malaise (principal); I50.42 Chronic combined systolic (congestive) and diastolic (congestive) heart failure; B37.0 Candidal stomatitis; I13.0 Hypertensive heart and chronic kidney disease with heart failure and stage 1 through stage 4 chronic kidney disease, or unspecified chronic kidney disease; Z68.41 Body mass index [BMI] 40.0-44.9, adult; R53.1 Weakness; Z86.16 Personal history of COVID-19; E66.01 Morbid (severe) obesity due to excess calories; B94.8 Sequelae of other specified infectious and parasitic diseases; I25.10 Atherosclerotic heart disease of native coronary artery without angina pectoris; N18.30 Chronic kidney disease, stage 3 unspecified; I27.20 Pulmonary hypertension, unspecified; G47.33 Obstructive sleep apnea (adult) (pediatric); E11.649 Type 2 diabetes mellitus with hypoglycemia without coma; D69.6 Thrombocytopenia, unspecified; K21.9 Gastro-esophageal reflux disease without esophagitis; Z79.82 Long term (current) use of aspirin; Z79.899 Other long term (current) drug therapy; Z95.2 Presence of prosthetic heart valve; Z87.891 Personal history of nicotine dependence

== ENCOUNTER 2021-02-15 13:03 | Inpatient (IN) | payer OTHER, MEDICARE ==
[~2021-02-15] VITALS: Ht 175.3 cm; Wt 131.3 kg
--- OUTSIDE RECORDS SUMMARY | 2021-02-15 13:07 | CCD ---
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 Name Role Phone Shama Mendoza Unavailable PROBLEMS Type Condition ICD9-CM Code UPH62-CF Code Onset Dates Condition S tatus W/U Status Risk SNOMED Code Notes Problem Mixed hyperlipidemia E78.2 Active confirmed 362322736 Problem Hypertriglyceridemia E78.1 Active confirmed [id number] We discussed that generally fat intake is the cause of elevated triglycerides and we discussed diet in terms of cutting down on fat Problem Vitamin D deficiency E55.9 Active confirmed [id number] Problem Ischemic cardiomyopathy I25.5 Active confirmed [id number] Stable, per 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 We will continue to prescribe medications and to order blood work as needed. I asked him to work on diet, and again instructed him on upper body exercises that he can do to achieve aerobic exercise. I will see him back in 6 months, sooner if needed ALLERGIES No Known Allergies ENCOUNTERS from 1940 to 2020-12-03 Encounter Location Date Provider Diagnosis [address] [phone] [place] [address] Nov, Shama Mendoza Ischemic cardiomyopathy I25. 5 and Mixed hyperlipidemia E78.2 IMMUNIZATIONS No Information SOCIAL HISTORY Tobacco Use: [...] REASON FOR REFERRAL No Information VITAL SIGNS Weight 295 lbs Nov, Weight-kg 133.81 kg Nov, Height 69 in Nov, BMI 43.56 kg/m2 Nov, Heart Rate 70 /min Nov, Respiratory Rate 18 /min Nov, Temperature 97.4 degrees Fahrenheit Nov, Oximetry 94 Nov, Blood pressure systolic 124 mm Hg Nov, Blood pressure diastolic 64 mm Hg Nov, MEDICATIONS Medication SIG (Take, Route, Frequency, Duration) Notes Start Da te End Date Status Rosuvastatin Calcium 40 MG 1 tablet Orally Once a day Active Magnesium 65 MG 1 tablet Orally Once a day Active Betamethasone Dipropionate 0.05 % 1 application Neurology Director ally Twice a day for 14 days Jan, Not-Taking Metoprolol Tartrate 25 MG 1 tablet with food Orally Twice a day Active Vitamin D-3 1000 UNIT 1 capsule Orally Once a day Active Aspirin 325 MG 1 tablet Orally Once a day Active Pantoprazole Sodium 40 MG 1 tablet Orally Once a day Not-Taking Insulin Glargine 100 UNIT/ML as directed Subcutaneous 40unit s/BID per pt hold for low BS Active Amiodarone HCl 200 MG 1 tablet Orally Once a day Active Spironolactone 25 mg 1/2 tablet Orally Once a day for 90 Active Clopidogrel Bisulfate 75 MG 1 tablet Orally Once a day Active Stool Softener 100 MG 1 capsule as needed Orally Once a day Not-Taking PROCEDURES No Information RESULTS No Results REASON FOR VISIT 3 Months, 60 min (Reason: w/c - heart disease) MEDICAL (GENERAL) HISTORY Type Description Date Medical History first heart attack 1976, 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 Medical History multiple catheterizations, C ABG, stents since that time (see records from [facility]) Medical History ischemic cardiomyopathy Medical History hypertension Medical History hyperlipidemia Medical History GERD Medical History magnesium deficiency Medical History vitamin D deficiency Surgical History multiple heart catheterizations Surgical History ICD generator change 05/17/2020 Hospitalization History multiple for heart disease Hospitalization History COVID (Kristy) 03/2020 - 06/01 21 Goals Section No Information Health Concerns No Information MEDICAL EQUIPMENT No Information MENTAL STATUS No Information FUNCTIONAL STATUS No Information ASSESSMENTS Encounter Date Diagnosis Assessment Notes Treatment Notes Treatm ent Clinical Notes Nov, Ischemic cardiomyopathy (ICD-10 - I25.5) Stable, per 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 We will continue to prescribe medications and to order blood work as needed. I asked him to work on diet, and again instructed him on upper body exercises that he can do to achieve aerobic exercise. I will see him back in 6 months, sooner if needed Nov, Mixed hyperlipidemia (ICD-10 - E78.2) PLAN OF TREATMENT Next Appt Details 6 Months, 60 minutes Reason:w/c - heart disease Provider Name:Shama Mendoza, 2021-02- 6 03:00:00 PM, [address] [facility], , [place], [address], Follow Up:6 Months, 60 minutesw/c - heart disease Insurance Providers Payer Name Payer Address Payer Phone Insured Name Patient Relati onship to Insured Coverage Start Date Coverage End Date [employer] CLAIM ADMIN WORK COMP [address] [facility] [address] [facility] [id number] ANA BERMAN 1974
--- OUTSIDE RECORDS SUMMARY | 2021-02-15 13:08 | CCD ---
Author Author [facility] Organization [facility] Address Unknown Phone Unavailable Care Team Providers Care Travel Accommodations Rater Name Role Phone DOMINIQUE WINN J CORINNE PA-C Unavailable Unavailable PRAVEENERAL , J CORINNE PA-C Unavailable Unavailable PICKERAL , J CORINNE PA-C Unavailable Unavailable PICKERAL JR, J CORINNE PA-C Unavailable Unavailable PICKERAL , J CORINNE PA-C Unavailable Unavailable PICKERAL JR, J CORINNE PA-C Unavailable Unavailable PICKERAL JR, J CORINNE PA-C Unavailable Unavailable PICKERAL JR, J CORINNE PA-C Unavailable Unavailable PICKERAL JR, J CORINNE PA-C Unavailable Unavailable PICKERAL JR, J CORINNE PA-C Unavailable Unavailable PICKERAL JR, J CORINNE PA-C Unavailable Unavailable PICKERAL JR, J CORINNE PA-C Unavailable Unavailable PICKERAL JR, J CORINNE PA-C Unavailable Unavailable PICKERAL JR, J CORINNE PA-C Unavailable Unavailable PICKERAL JR, J CORINNE PA-C Unavailable Unavailable PICKERAL JR, J CORINNE PA-C Unavailable Unavailable PICKERAL JR, J CORINNE PA-C Unavailable Unavailable PICKERAL JR, J CORINNE PA-C Unavailable Unavailable PICKERAL JR, J CORINNE PA-C Unavailable Unavailable PICKERAL JR, J CORINNE PA-C Unavailable Unavailable PICKERAL JR, J CORINNE PA-C Unavailable Unavailable PICKERAL JR, J CORINNE PA-C Unavailable Unavailable PICKERAL JR, J CORINNE PA-C Unavailable Unavailable PICKERAL JR, J CORINNE PA-C Unavailable Unavailable PICKERAL JR, J CORINNE PA-C Unavailable Unavailable PICKERAL JR, J CORINNE PA-C Unavailable Unavailable PICKERAL , J CORINNE PA-C Unavailable Unavailable Radha Giordano Unavailable Unavailable Radha Giordano Unavailable Unavailable Giordano, L Zita PA Unavailable Unavailable Giordano, L Zita PA Unavailable Unavailable Giordano, L Zita PA Unavailable Unavailable Giordano, L Zita PA Unavailable Unavailable Giordano, L Zita PA Unavailable Unavailable Giordano, L Zita PA Unavailable Unavailable Giordano, L Zita PA Unavailable Unavailable Giordano, L Zita PA Unavailable Unavailable Giordano, L Zita PA Unavailable Unavailable Giordano, L Zita PA Unavailable Unavailable Giordano, L Zita PA Unavailable Unavailable Giordano, L Zita PA Unavailable Unavailable Giordano, L Zita PA Unavailable Unavailable Giordano, L Zita PA Unavailable Unavailable Giordano, L Zita PA Unavailable Unavailable Giordano, L Zita PA Unavailable Unavailable Giordano, L Zita PA Unavailable Unavailable Giordano, L Zita PA Unavailable Unavailable Giordano, L Zita PA Unavailable Unavailable Giordano, L Zita PA Unavailable Unavailable Giordano, L Zita PA Unavailable Unavailable Giordano, L Zita PA Unavailable Unavailable Giordano, L Zita PA Unavailable Unavailable Giordano, L Zita PA Unavailable Unavailable Giordano, L Zita PA Unavailable Unavailable Giordano, L Zita PA Unavailable Unavailable Giordano, L Zita PA Unavailable Unavailable Giordano, L Zita PA Unavailable Unavailable Giordano, L Zita PA Unavailable Unavailable Giordano, L Zita PA Unavailable Unavailable Giordano, L Zita PA Unavailable Unavailable Giordano, L Zita PA Unavailable Unavailable Giordano, L Zita PA Unavailable Unavailable Giordano, L Zita PA Unavailable Unavailable Giordano, L Zita PA Unavailable Unavailable Giordano, L Zita PA Unavailable Unavailable Giordano, L Zita PA Unavailable Unavailable DR TAMIR OCAMPO [facility] Unavailable Unavailable MD ARIAN ENNIS Unavailable Unavailable Miles, N Arian MOBILE UNIT ASSISTANT Unavailable Unavailable Miles, N Arian MOBILE UNIT ASSISTANT Unavailable Unavailable Eli, N Arian MOBILE UNIT ASSISTANT Unavailable Unavailable Eli, N Arian MOBILE UNIT ASSISTANT Unavailable Unavailable Miles, N Arian MOBILE UNIT ASSISTANT Unavailable Unavailable Eli, N Arian MOBILE UNIT ASSISTANT Unavailable Unavailable Eli, N Arian MOBILE UNIT ASSISTANT Unavailable Unavailable Miles, N Arian MOBILE UNIT ASSISTANT Unavailable Unavailable Eli, N Arian MOBILE UNIT ASSISTANT Unavailable Unavailable Eli, N Arian MOBILE UNIT ASSISTANT Unavailable Unavailable Miles, N Arian MOBILE UNIT ASSISTANT Unavailable Unavailable Miles, N Arian MOBILE UNIT ASSISTANT Unavailable Unavailable Miles, N Arian MOBILE UNIT ASSISTANT Unavailable Unavailable Eli, N Arian MOBILE UNIT ASSISTANT Unavailable Unavailable Miles, N Arian MOBILE UNIT ASSISTANT Unavailable Unavailable Miles, N Arian MOBILE UNIT ASSISTANT Unavailable Unavailable Eli, N Arian MOBILE UNIT ASSISTANT Unavailable Unavailable Eli, N Arian MOBILE UNIT ASSISTANT Unavailable Unavailable Eli, N Arian MOBILE UNIT ASSISTANT Unavailable Unavailable Miles, N Arian MOBILE UNIT ASSISTANT Unavailable Unavailable Eli, N Arian MOBILE UNIT ASSISTANT Unavailable Unavailable Eli, N Arian MOBILE UNIT ASSISTANT Unavailable Unavailable Miles, N Arian MOBILE UNIT ASSISTANT Unavailable Unavailable Miles, N Arian MOBILE UNIT ASSISTANT Unavailable Unavailable Eli, N Arian MOBILE UNIT ASSISTANT Unavailable Unavailable Eli, N Arian MOBILE UNIT ASSISTANT Unavailable Unavailable Eli, N Arian MOBILE UNIT ASSISTANT Unavailable Unavailable Miles, N Arian MOBILE UNIT ASSISTANT Unavailable Unavailable Miles, N Arian MOBILE UNIT ASSISTANT Unavailable Unavailable Eli, N Arian MOBILE UNIT ASSISTANT Unavailable Unavailable Eli, N Arian MOBILE UNIT ASSISTANT Unavailable Unavailable Miles, N Arian MOBILE UNIT ASSISTANT Unavailable Unavailable Miles, N Arian MOBILE UNIT ASSISTANT Unavailable Unavailable Al Mudamfreddy, A Chris GARNETT Unavailable Unavailable Al Mudamcampbella, A Chris GARNETT Unavailable Unavailable Al Gabyamfreddy, A Chris GARNETT Unavailable Unavailable Al Kari, A Chris GARNETT Unavailable Unavailable Al Mudamfreddy, A Chris GARNETT Unavailable Unavailable Al Gabyamfreddy, A Chris GARNETT Unavailable Unavailable Al Gabyamfreddy, A Chris GARNETT Unavailable Unavailable Al Kari, A Chris GARNETT Unavailable Unavailable Al Kari, A Chris GARNETT Unavailable Unavailable Al Mudamfreddy, A Chris GARNETT Unavailable Unavailable Al Gabyamfreddy, A Chris GARNETT Unavailable Unavailable Al Gabyamfreddy, A Chris MD Unavailable Unavailable Al Gabyamfreddy, A Chris GARNETT Unavailable Unavailable Al Gabyamfreddy, A Chris GARNETT Unavailable Unavailable Al Gabyamfreddy, A Chris GARNETT Unavailable Unavailable Al Gabyamfreddy, A Chris GARNETT Unavailable Unavailable Al Gabyamfreddy, A Chris GARNETT Unavailable Unavailable Al Gabyamfreddy, A Chris GARNETT Unavailable Unavailable Al Gabyamfreddy, A Chris GARNETT Unavailable Unavailable Al Kari A Chris GARNETT Unavailable Unavailable Al Kari A Chris GARNETT Unavailable Unavailable Al Mudamfreddy, A Chris GARNETT Unavailable Unavailable Al Mudamfreddy, A Chris GARNETT Unavailable Unavailable Al Mudamfreddy, A Ali Unavailable Unavailable Al Gabyamfreddy, A Chris GARNETT Unavailable Unavailable Al Gabyamfreddy, A Chris GARNETT Unavailable Unavailable Al Gabyamfreddy, A Chris GRANETT Unavailable Unavailable Al Gabyamfreddy, A Chris GRANETT Unavailable Unavailable Al Mudamfreddy, A Chris GARNETT Unavailable Unavailable Al Mudamfreddy, A Chris GARNETT Unavailable Unavailable Al Gabyamfreddy, A Chris GARNETT Unavailable Unavailable Al Gabyamfreddy, A Chris GARNETT Unavailable Unavailable Al Gabyamfreddy, A Ali MD Unavailable Unavailable Al Mudamgha, [...] is protected by Article 27-F of the [facility] Public Health law. If you continue you may have access to information: Regarding HIV / AIDS; Provided by facilities licensed or operated by the [facility] Office of Mental Health; or Provided by the [facility] Office for People With Developmental Disabilities. If such information is present, then the following [facility] mandated warning applies: This information has [...] law may result in a fine or prison sentence or both. A general authorization for the release of medical or other information is NOT sufficient authorization for further disc losure. Allergies and Adverse Reactions Type Description Substance Reaction Status Data Source(s ) Miscellaneous allergy No Known Drug Allergies No Known Drug Allergies [facility] Family History Family Member Name Family Member Gender Family Member Status Date o f Status Description Data Source(s) Unknown Male Encounters Encounter Providers Location Date Indications Data Source(s ) Outpatient Attender: CORINNE laboy 02/15/2021 10:00:00 AM EST [facility] ([facility] Outpatient Attender: Arian POSTELSA-SJP.ELSA 021 12:00:00 AM EST - 01/28/2021 10:53:58 AM EST [facility] Outpatient Attender: Arian POSTELSA-SJP.ELSA 12/16/2020 12 :00:00 AM EDT [facility] Outpatient CT-SJP.SYR 12/12/2020 02:40:23 PM EDT [facility] Out[facility] [address] [facility] [place] [address] 11/28/2020 12:00:00 AM EDT eCW1 ([facility]) Outpatient Attender: Arian BIGGS-SJP.ELSA 021 12:00:00 AM EDT - 10/29/2020 01:59:44 PM EDT [facility] Outpatient KALYAN-LISA 09/07/2020 11:46:58 AM EDT [facility] Outpatient ESTHERPJennyELSA-SJP.ELSA 09/05/2020 12:00:00 AM EDT [facility] [address] [facility] [place] [address] 08/16/2020 12:00:00 AM EDT eCW1 ([facility]) Outpatient CT-SJP.SYR 08/09/2020 02:11:02 PM EDT [facility] Unknown [address] [facility] [place] [address] 06/27/2020 12:00:00 AM EDT eCW1 ([facility]) Outpatient Attender: Arian POSTELSA-SJP.ELSA 021 02:39:45 PM EDT - 06/25/2020 03:30:28 PM EDT [facility] Outpatient SJP.ELSA-SJP 06/17/2020 10:30:45 AM EDT [facility] Outpatient Attender: Zita RUSSELL SJP.ELSA-SJP.ELSA 04/2020 12:00:00 AM EDT - 06/14/2020 04:33:08 PM EDT [facility] Outpatient SJP.ELSA-SJP.ELSA 06/13/2020 10:50:49 AM EDT [facility] Outpatient SJP.ELSA-SJP.ELSA 05/31/2020 12:00:00 AM EDT [facility] 05/23/2020 12:00:00 AM EST - 021 08:36:36 AM EST [facility]) Outpatient Attender: Chris Tinsley MD Admitter: Chris Tinsley MDReferrer: Chris Tinsley MD ES1-SJ.CVAU 05/17/2020 11:34:00 AM EST - 05/17/2020 02:17:00 PM EST [facility] Patient discharged. Outpatient [id number] 05/14/2020 02:13:29 PM EST [facility] Inpatient Attender: DR ENDER Young er: DR HANDLEY TRANReferrer: DR ENDER OCAMPOConsultant: ARIAN ENNIS [phone] 04/25/2020 05:29:00 PM EST - 05/21/2020 10:00:00 AM EST SWING BED [facility] SWING BED Patient discharged. Outpatient Attender: Chris Tinsley MDAdmitter: Chris Lee MD ES1-SJ.CVAU 03/27/2020 09:31:31 AM EST [facility] Outpatient [id number] 03/26/2020 10:44:38 AM EST [facility] Unknown [address] [facility] [place] [address] 02/02/2020 12:00:00 AM EST eCW1 ([facility]) [facility] [place] [address] [facility] [place] [address] 01/31/2020 12:00:00 AM EST eCW1 ([facility]) Outpatient Attender: Chris Mccartneybaldo MDReferrer: Arian dukes NP BF-BF.CVS 01/24/2020 07:13:08 AM EST [facility] Outpatient SJP.CT-SJP.SYR 01/05/2020 09:46:15 AM EDT [facility] Outpatient Attender: Arian POSTELSA-SJP.ELSA 020 12:00:00 AM EDT - 01/02/2020 03:34:02 PM EDT [facility] Immunizations Vaccine Date Status Description Data Source(s) COVID-19 VACCINE Moderna 02/07/2021 12:00:00 AM EST completed [facility] Vaccine Series Complete: YESThis Data wa s Submitted to [facility] Via [employer]. COVID-19 VACCINE Alverto 05/20/2020 12:00:00 AM EST completed [facility] Vaccine Series Complete: YESThis Data wa s Submitted to [facility] Via [employer]. Medications Medication Brand Name Start Date Product Form Dose Route Admi nistrative Instructions Pharmacy Instructions Status Indications Reaction Description Data Source(s) Spironolactone 25 MG Oral Tablet Spironolactone 02/15/2021 12:00:00 A M EST active [facility] ([facility], [facility]) clopidogrel 75 MG Oral Tablet [Plavix] Plavix 02/15/2021 12:00:00 A M EST active [facility] ([facility], [facility]) Rosuvastatin calcium 40 MG Oral Tablet rosuvastatin (C RESTOR) 40 MG tablet rosuvastatin (CRESTOR) 40 MG tablet 11/27/2020 12:00:00 AM EDT 40 mg Oral active Take 1 tablet (40 mg total) by m outh daily [facility] Amiodarone hydrochloride 200 MG Oral Tablet amiodarone (PACERONE) 200 MG tablet amiodarone (PACERONE) 200 MG tablet 11/27/2020 12:00:00 AM EDT 200 mg Oral active Take 1 tablet (200 mg total) by mouth daily [facility] clopidogrel 75 MG Oral Tablet clopidogrel (Plavix) 75 MG tablet clopidogrel (Plavix) 75 MG tablet 11/27/2020 12:00:00 AM EDT 75 mg Oral active Cardiomyopathy, ischemic Take 1 tablet (75 mg total) by mout h daily [facility] Cardiomyopathy, ischemic torsemide 20 MG Oral Tablet torsemide (DEMADEX) 20 MG tablet torsemide (DEMADEX) 20 MG tablet 09/02/2020 12:00:00 AM EDT 20 mg Oral active Cardiomyopathy, ischemic Take 1 tablet (20 mg total) by mouth batool ly [facility] Cardiomyopathy, ischemic Amiodarone hydrochloride 200 MG Oral Tablet amiodarone (PACERONE) 200 MG tablet amiodarone (PACERONE) 200 MG tablet 09/02/2020 12:00:00 AM EDT 200 mg Oral active Take 1 tablet (200 mg total) by mouth daily [facility] Rosuvastatin calcium 40 MG Oral Tablet rosuvastatin (C RESTOR) 40 MG tablet rosuvastatin (CRESTOR) 40 MG tablet 09/02/2020 12:00:00 AM EDT 40 mg Oral active Take 1 tablet (40 mg total) by m outh daily [facility] Spironolactone 25 MG Oral Tablet spironolactone (ALDAC TONE) 25 MG tablet spironolactone (ALDACTONE) 25 MG tablet 08/22/2020 12:00:00 AM EDT active TAKE 1/2 TABLET BY MOUTH ONCE A DAY [facility] torsemide 20 MG Oral Tablet torsemide (DEMADEX) 20 MG tablet torsemide (DEMADEX) 20 MG tablet 06/14/2020 12:00:00 AM EDT 20 mg Oral active Cardiomyopathy, ischemic Take 1 tablet (20 mg total) by mouth batool ly [facility] Cardiomyopathy, ischemic clopidogrel 75 MG Oral Tablet clopidogrel (PLAVIX) 75 MG tablet clopidogrel (PLAVIX) 75 MG tablet 06/07/2020 12:00:00 AM EDT 75 mg Oral active Cardiomyopathy, ischemic Take 1 tablet (75 mg total) by mout h daily [facility] Cardiomyopathy, ischemic normal saline flush 0.9 % injection 3 mL 16182-040-03 05/17/2020 02:00:00 PM EST 3 mL Intravenous active 3 mL , Intravenous, Every 8 hours (scheduled), First dose on Wed05/17/20 at 1400, Pre-op
Rapid push positive pressure flushing shall be performed with a 10 cc normal saline syringe to check the PATENCY of a PIV site prior to any infusion therapy initiation unless resistance is met.
[facility] Medication administered onsite Magnesium Chloride 0.87463 MEQ/ML / Pota ssium Chloride 0.0497 MEQ/ML / Sodium Acetate 0.0163 MEQ/ML / Sodium Chloride 0.0899 MEQ/ML / Sodium gluconate 5.02 MG/ML Injectable Solution [Normosol-R] electrolyte-R (NORMOSOL-R/PLASMALYTE-R) solution electrolyte-R (NORMOSOL-R/PLASMALYTE-R) solution 05/17 01:00:00 PM EST Intravenous active at 3 0 mL/hr, Intravenous, Continuous, Starting Wed05/17/20 at 1300, Pre-op [facility] Medication administered onsite Epinephrine 0.01 MG/ML / Lidocaine [place] chloride 10 MG/ML Injectable Solution lidocaine-EPINEPHrine (XYLOCAINE W/EPI) 1 %-1:496407 injection lidocaine- EPINEPHrine (XYLOCAINE W/EPI) 1 %-1:772774 injection 05/17/2020 12:50:31 PM EST active As needed, Start ing Wed05/17/20 at 1250, Intra-Procedure [facility] Medication administered onsite 2 ML Midazolam 1 MG/ML Injection midazolam (VERSED) in jection midazolam (VERSED) injection 05/17/2020 12:45:53 PM EST active As needed, Starting Wed05/17/20 at 1245, IntraProcedure [facility] Medication administered onsite fentaNYL Citrate (PF) (SUBLIMAZE) injection 1506-0285-46 05/17/2020 12:45:48 PM EST active As neede d, Starting Wed05/17/20 at 1245, Intra-Procedure [facility] Medication administered onsite Cefazolin 1000 MG Injection ceFAZolin (ANCEF) injectio n ceFAZolin (ANCEF) injection 05/17/2020 12:45:35 PM EST active As needed, Starting Wed05/17/20 at 1245, Intra-Procedure [facility] Medication administered onsite Furosemide 40 MG Oral Tablet furosemide (LASIX) 40 MG tablet furosemide (LASIX) 40 MG tablet 03/21/2020 12:00:00 AM EST abort ed TAKE 1 TABLET BY MOUTH DAILY [facility] Rosuvastatin calcium 40 MG Oral Tablet rosuvastatin (C RESTOR) 40 MG tablet rosuvastatin (CRESTOR) 40 MG tablet 03/21/2020 12:00:00 AM EST aborted Hyperlipidemia, unspecified hyperlipidemia type TAKE 1 TABLET BY MOUTH DAILY [facility] Hyperlipidemia, unspecified hyperlipidem ia type Amiodarone hydrochloride 200 MG Oral Tablet amiodarone (PACERONE) 200 MG tablet amiodarone (PACERONE) 200 MG tablet 03/21/2020 12:00:00 AM EST active TAKE 1 TABLET BY MOUTH DAILY [facility] Betamethasone 0.5 MG/ML Topical Cream Betamethasone Di propionate 0.05 % Betamethasone Dipropionate 0.05 % 02/02/2020 12:00:00 AM EST 1.0 {application} suspended Betamethasone Dipropio paul 0.05 % eCW1 ([facility]) Betamethasone 0.5 MG/ML Topical Cream Betamethasone Di propionate 0.05 % Betamethasone Dipropionate 0.05 % 02/02/2020 12:00:00 AM EST 1.0 {application} active Betamethasone Dipropiona te 0.05 % eCW1 ([facility]) Betamethasone 0.5 MG/ML Topical Cream Betamethasone Di propionate 0.05 % Betamethasone Dipropionate 0.05 % 02/02/2020 12:00:00 AM EST 1.0 {application} active Betamethasone Dipropiona te 0.05 % eCW1 ([facility]) Betamethasone 0.5 MG/ML Topical Cream Betamethasone Di propionate 0.05 % Betamethasone Dipropionate 0.05 % 02/02/2020 12:00:00 AM EST 1.0 {application} active Betamethasone Dipropiona te 0.05 % eCW1 ([facility]) Metoprolol Tartrate 25 MG Oral Tablet me toprolol tartrate (LOPRESSOR) 25 MG tablet metoprolol tartrate (LOPRESSOR) 25 MG tablet 11/16/2019 12:0 0:00 AM EDT 25 mg Oral aborted Take 1 tablet (2 5 mg total) by mouth 2 (two) times a day [facility] 24 HR Oxybutynin chloride 10 MG Extended Release Oral Tablet oxybutynin (DITROPAN-XL) 10 MG 24 hr tablet oxybutynin (DITROPAN-XL) 10 MG 24 hr tablet 08/16/2019 12:00:00 AM EDT 10 mg Oral aborted Take 1 tablet (10 mg total) by mouth daily [facility] Spironolactone 25 MG Oral Tablet spironolactone (ALDAC TONE) 25 MG tablet spironolactone (ALDACTONE) 25 MG tablet 06/20/2019 12:00:00 AM EDT 12.5 mg Oral aborted Take 0.5 tablets (12 .5 mg total) by mouth daily [facility] Magnesium Chloride 535 MG Delayed Releas e Oral Tablet magnesium chloride ER (SLOW-MAG) 535 (64 MG) MG TBCR magnesium chloride ER (SLOW-MAG) 535 (64 MG) MG TBCR 64 mg Oral aborted Take 64 mg by mout h 2 (two) times a day [facility] atorvastatin 20 MG Oral Tablet atorvastatin (LIPITOR) 20 MG tablet atorvastatin (LIPITOR) 20 MG tablet 20 mg Oral aborted T herlinda 20 mg by mouth daily [facility] Bumetanide 1 MG Oral Tablet bumetanide (BUMEX) 1 MG ta blet bumetanide (BUMEX) 1 MG tablet 1 mg Oral aborted Take 1 mg by m outh daily [facility] tramadol hydrochloride 50 MG Oral Tablet traMADol (ULT TISHA) 50 MG tablet traMADol (ULTRAM) 50 MG tablet 50 mg Oral aborted Take 50 mg by mouth every 6 (six) hours as needed for pain [facility] Insurance Providers Payer name Policy type / Coverage type Policy ID Covered libertarian ID Covered libertarian's relationship to olivas Policy Olivas Plan Information WORKER'S COMP [id number] Emp [id number] WORKER'S COMP [id number] Emp [id number] WORKER'S COMP [id number] Emp [id number] WORKER'S COMP UNAVAILABLE Emp UNAV AILABLE [employer] Workers Compensation [id number] Self 1 [id number] [employer] Workers Compensation [id number] Self 1 [id number] [employer] Workers Compensation [id number] Self 1 [id number] WORKER'S COMP [id number] SPECIAL FUNDS [id number] 1 [id number] [employer] Workers Compensation [id number] Self 1 [id number] WORKER'S COMP [id number] Emp [id number] WORKER'S COMP [id number] Emp [id number] WORKER'S COMP [id number] Emp [id number] WORKER'S COMP [id number] Emp [id number] WORKER'S COMP [id number] Emp [id number] WORKER'S COMP [id number] Emp [id number] WORKER'S COMP [id number] xxxxxxxxxxx [id number] [employer] Workers Compensation [id number] Self Medicare Natl Govt Servic Medicare Primary [id number] Self 0 [id number] Medicare Natl Govt Servic Medicare Primary [id number] Self 0 [id number] Medicare Natl Govt Servic Medicare Primary [id number] Self 0 [id number] Medicare Natl Govt Servic Medicare Primary [id number] Self Medicare Natl Govt Servic Medicare Primary [id number] Self 0 [id number] MEDICARE 4 [id number] 1 [id number] A [facility] [employer] (HMO) [id number] Se lf o [employer] (HMO) [id number] Self Y [id number] [facility] [employer] (O) [id number] Self Y [id number] [facility] [employer] (O) [id number] Self Y [id number] [facility] [employer] (O) [id number] Self Y [id number] [employer] Commercial [id number] Self [id number] [employer] Commercial [id number] Self [id number] [employer] Medicare Commercial Advantage 200 Ppo [id number] Self Advantage 200 Ppo [employer] Medicare Commercial [id number] Self [id number] [employer] Medicare Commercial [id number] Self [id number] [employer] FUN[employer] CONSERVATION-DEW [id number] SP [id number] SPECIAL FUNDS CONSERVATION-DEW [id number] SP [id number] SPECIAL FUNDS CONSERVATION-DEW [id number] SP [id number] SPECIAL FUNDS CONSERVATION-DEW [id number] SP [id number] SPECIAL FUNDS CONSERVATION-DEW [id number] SP [id number] COMMERCIAL GENERIC [id number] Sola [id number] COMMERCIAL GENERIC [id number] Sola [id number] COMMERCIAL GENERIC [id number] xxxxxxxxxxx [id number] COMMERCIAL GENERIC [id number] Sola [id number] COMMERCIAL GENERIC [id number] Sola [id number] INSURANCE COVID-19 [id number] [id number] WORKER'S COMP UNAVAILABLE Sola UNAV AILABLE WORKER'S COMP [id number] Sola [id number] 49 [id number] A [employer] [id number] SP [id number] [employer] CLAIM ADMIN WORK COMP [id number] SP [id number] [employer] [id number] undefined [id number] [employer] HE[employer] PLANS - IP [id number] undefined [id number] [employer] [place] CCN [id number] SP [id number] [place] [place] O [id number] S [id number] SPECIAL FUNDS CONSERVATION-DEW [id number] SP [id number] SPECIAL FUNDS CONSERVATION-DEW [id number] SP [id number] ADMINSTRATION -O/P [id number] 18 [id number] ANSI-Commercial [id number] ANSI-Commercial [id number] ANSI-Commercial [id number] [employer] Commercial [id number] Self [id number] [employer] Commercial [id number] Self [id number] TODAYS OPTIONS [id number] SP [id number] MEDICARE [id number] SP [id number] A [employer]ays Options Commercial [id number] Self [id number] [place] Medigap Part B [id number] Self [id number] [place] Medigap Part B [id number] Self [id number] [place] Medigap Part B [id number] Self [id number] SPECIAL FUNDS CONSERVATION-DEW [id number] SP [id number] [place] Medigap Part B [id number] Self [id number] TOD[employer] OPTIONS [id number] SP [id number] [place] Medigap Part B [id number] Self Japanese Prog-Today's Opt Commercial [id number] Self SELF PAY UNAVAILABLE SP UNAVAILA BLE TODAYS OPTIONS/CYMRAES P [id number] S [id number] SPECIAL FUNDS P [id number] S 16 [id number] SELF PAY 2 UNAVAILABLE 1 UNAVAILA BLE MUTUAL OF THREE AFFILIATED 2 [id number] SPECIAL FUNDS CONSERVATION-DEW [id number] SP [id number] ADMINISTRATION [id number] SP [id number] Problems, Conditions, and Diagnoses Code Display Name Description Problem Type Effective Dates Data Source(s) 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 Presence of automatic (implantable) card Diagnosis 01/28/2021 10:20:37 AM EST [facility] I47.2 Ventricular tachycardia Ventricular tachycardia Diagno sis 01/28/2021 10:20:37 AM EST [facility] I25.5 Ischemic cardiomyopathy Ischemic cardiomyopathy Diagno sis 01/28/2021 10:20:37 AM EST [facility] I25.10 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 Diagnosis 01/28/2021 10:20:37 AM EST [facility] Z79.899 Other custodial (current) drug therapy O ther rn long term care (current) drug therapy Diagnosis 12/16/2020 10:51:48 AM EDT [facility] E66.01 Morbid (severe) obesity due to excess ca lories Morbid (severe) obesity due to excess ca Diagnosis 06/14/2020 02:56:54 PM EDT [facility] K219 Gastro-esophageal reflux disease without esophagitis Gastro-esophageal reflux disease without esophagitis Diagnosis 04/25/2020 05:29:00 PM [facility] I10 Essential (primary) hypertension Essential (primary) h ypertension Diagnosis 04/25/2020 05:29:00 PM [facility] I509 Heart failure, unspecified Heart failure, unspecified Diagnosis 04/25/2020 05:29:00 PM [facility] 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 Diagnosis 04/25/2020 05:29:00 PM [facility] 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 Diagnosis 04/25/2020 05:29:00 PM [facility] E119 Type 2 diabetes mellitus without complic ations Type 2 diabetes mellitus without complications Diagnosis 04/25/2020 05:29:00 PM [facility] R5381 Other malaise Other malaise Diagnosis 04/25/2020 05:29:00 PM EST [facility] U071 COVID-19 COVID-19 Diagnosis 04/25/2020 05:29:00 PM MIYA Palacios [facility] Z5189 Encounter for other specified aftercare Encounter for other specified aftercare Diagnosis 04/25/2020 05:29:00 PM EST [facility] Z01.810 Preop cardiovascular exam Preop cardiovascular exam [id number] 01/28/2021 12:00:00 AM EST [facility] U07.1 COVID-19 COVID-19 Problem 05/01/2020 12:00:00 AM MIYA Palacios [facility]NTHIA ([facility]) Surgeries/Procedures Procedure Description Date Indications Data Source(s) OFFICE OUTPATIENT NEW 45 MINUTES 02/15/2021 12:00:00 A M EST RORY ([facility], [facility]) POCT AMB EKG <td>POCT AMB EKG</td><td>Gian chandler</td><td>06/14/2020 4:46 PM EDT</td><td> Ventricular tachycardia, nonsustained Cardiomyopathy, ischemic Automatic implantable cardioverter-defibrillator</td><td> </td> 06/14/2020 08:46:00 PM EDT Automatic implantable cardioverter-defib rillatorCardiomyopathy, ischemicVentricular tachycardia, nonsustained [facility] Automatic implantable cardioverter-defib rillator Cardiomyopathy, ischemic Ventricular tachycardia, nonsustained EP STUDY <td>EP STUDY</td><td>Routine </td><td>05/17/2020 12:57 PM EST</td><td> Ventricular tachycardia, nonsustained</td><td> </td> 05/17/2020 05:57:54 PM EST Ventricular tachycardia, nonsustained [facility] Ventricular tachycardia, nonsustained GLUC BLD GLUC MNTR DEV CLEARED FDA SPEC HOME USE <td>P OCT GLUCOSE</td><td>Routine</td><td>05/17/2020 11:55 AM EST</td><td></td><td> </td> 05/17/2020 04:55:00 PM EST [facility] TROPONIN QUANTITATIVE <td>TROPONIN I</td><td>Routine</td><td>04/07/2020</td><td></td><td> </td> 04/07/2020 12:00:00 AM EST [facility] BASIC METABOLIC PANEL CALCIUM TOTAL <td>BASIC METABOLI C PANEL</td><td>Routine</td><td>04/07/2020</td><td></td><td> </td> 04/07/2020 12:00:00 AM EST [facility] Results ID Date Data Source [id number] 12/17/2020 10:03:11 PM EDT [facility] Name Value Range Interpretation Code Description Data Heena rce(s) Supporting Document(s) WBC 6.1 10*3/uL (4.1-11.0) [facility] [place] RBC 4.58 10*6/uL (4.60-6.10) L [facility] HGB 14.0 g/dL (13.5-18.0) [facility] HCT 44.3 % (41.0-53.0) [facility] MCV 96.8 fL (80.0-95.0) H [facility] MCH 30.6 pg (27.0-32.0) [facility] MCHC 31.6 g/dL (32.0-36.0) L [facility] RDW 19.7 % (10.5-14.5) H [facility] PLT 182 10*3/uL (150-450) [facility] MPV 9.3 fL (7.1-10.7) [facility] ID Date Data Source [id number] 09/07/2020 11:45:41 AM EDT [facility] Name Value Range Interpretation Code Description Data Heena rce(s) Supporting Document(s) &PDF [facility] FDLALs2lUxLSTcEo38/NMOklDZMbq9OpDLccGVg7SCbbKIBrT7SulGylZDhSD1pDVWVyI1zWRGdECPSF 0b3 [file] dGVyIFsvRmxhdGVEZWNvZGVdDQo+Ys5Ze8LyECIwQUqNxLYrTOOhFoEBNZGb/5+HxBV++f//electronics specialist+338g [file] ICAgICAgICAgICAgICAgICAgICAgICAgICAgICAgIC UgJRNzEMLiTYOaRREqDQAgGOMiMZTlGWApARKrRDLeEC4SNUZmIUShRVXaIQHeFSVwEAMdWEBwUVVqGS AgICAgICAgICAgICAgICAgICAgICAgICAgICAgICAgICAgICAgICAgICAgICAgICAgICAgICAgICAgIC UyAPXwJUUjCNNeMPOmRG2AOCWuKZKuATGzJJLyLVYi ICAgICAgICAgICAgICAgICAgICAgICAgICAgICAgICAgICAgICAgICAgICAgICAgICAgICAgICAgICAg KNApKCBoLUTdJLOkDHUaXUOrNQJrXCZhLU7PVASbFKKaRUWrFKKqGQLjIWWkQTAkCMFoAKFlYZYlRJLd ICAgICAgICAgICAgICAgICAgICAgICAgICAgICAgIC OoWGWfDCIoJJSoBFPtVRHfSTTgSMKjSJZkAHFtJPAnCDAhZS3FNKOnLUDoHCWbOCXkDYWjFRXvDZEaAR AgICAgICAgICAgICAgICAgICAgICAgICAgICAgICAgICAgICAgICAgICAgICAgICAgICAgICAgICAgIC MfXQHlAAJmOCAcFVGhNCWtZY6WDHNqYRCuVDBrQPZj ICAgICAgICAgICAgICAgICAgICAgICAgICAgICAgICAgICAgICAgICAgICAgICAgICAgICAgICAgICAg QVCnNABrBNNyXSDaNIReNNUeDBNqBCEiWPHpSB0GTJDyIHAkCWTaGDJdTOBgVRIaVWQjFZNeOOEhAMNe ICAgICAgICAgICAgICAgICAgICAgICAgICAgICAgIC VjIZEsZGRiZXNmJCOdMGHvIIMcCBKwLEHyFKTiTCTqFIYuBMGrWS6AMWPgMZUgMNUgXRUiYIZtUZPlVX AgICAgICAgICAgICAgICAgICAgICAgICAgICAgICAgICAgICAgICAgICAgICAgICAgICAgICAgICAgIC PdNWJhLDLfNTAbJTOoERAmISBwVH4BSWVmHUBrSSPa ICAgICAgICAgICAgICAgICAgICAgICAgICAgICAgICAgICAgICAgICAgICAgICAgICAgICAgICAgICAg YSOeEAWkJBAiRAAuVABvDPTkTRIzAMThVQDwRQVfCK6ANSOnGGXeGNLcNXIuXNLuUFLzTTUtEACeDEAr ICAgICAgICAgICAgICAgICAgICAgICAgICAgICAgIC RaJXVdJQXxFEJiNWSjUKBxYWFvLYPtSCBjZYIiKPNiQFPnLNEbRCSwIP7MIK35jYOhy0S1PYFsLU3aqb c/Jx3RFJjcxkLyiRAqFC0GMtLqQL6pbu6CUhShII4oeg8LGWtREyUcL4F2fZIvDMAhWPJTPqNtV37dVZ nwYk08YIwnVYInFtHlLDv6Af5ENdUsQ8blACWgKeD0 UMZkQoS0HQXpFoYzEGvzNT4Pz1RzrTUaZFv+Ir3SFH5pv5QjGFfaQrZrMT5uvm1KXWtSMgIjV2D6xKRt L9O4ZYyxPt9YLZIlGXNeNwDeNNFRLKtpQN8XWJ2zrvY6XI4VyHKtWWLlSTIkhWJjGAv3E21sxHIeWWsf CK8KMHO+Lee Ann+Qq4XCGDhWBHoLLGkBuDtJGRTFrRnJ9 9kqADiDXOiLQYiJIHoSp5OQOZkA3AupoOeuJpcpwGpWINkKPLYHD3RFYfzxqJwnIDoeYtqTS09nBnfQA 0CQq3SSeYcCY2wmr6SiHIhNc5QTOLpDA1GOQHaHWEsFAHoRAR3MKJqFwHdHVgbNEHrYGEsGHI9RRCuJG QdSG5ROmAcHDOeETv1DjDaPSGyTPDlvo2XECHeMXGs AFFgHMKbKUKtGTAhAFywKAItRJRqQVj1ODEoKQHdDE7QHhWhWMEwTXY8DECqGHTqLVSnph2OXBXiVRUt Uyy0MMFrZLZiWHJcOZpySCCaYSZ4ZdNbSVYdDMPpGJ4EMjBvHQMwINW5PEQuQASgSYYgof0LPNJuCYGc HTcnCoYmDZHaVKMtBSybACTbZTX8KLK2XCQlSZIsQL 9AGpJvKVXySKBoEZIgSCIxKXJxwo1IVDTpOMDiXpZ9RPRqPRByDLDyOIluZGUyMOZ4YYBcHGGwYQSvWR 9NBmSdSGNvYTq6ZfdjOBXjTUNpdg4KYWYyLIMlYzW8ITOuAHEkUJOeYTyqAYSuMMMhKHVlPABbCDHqWC 8YRlGeAWCrBRViGfBcQKTgYQRkxh6LZZQoFGMxOvM8 TINqUGPsOQDxIEbvGHViDSDuQKIrGBBePZMhTB0DPrAyVWAaHSYrGNWtMHOjJCPyjx4IRCPvMOHuQLEb ZNRlSAAvIGOaUImbCEMjFUU8DrKsGGEuNVIzTB8JHhUoJWMeBHJ5RIFhRMSpAQCrut1ETWNgPHYnTVnh RTKgGNLoVLAjUDjdAACxLDT2HIX5LKUoVQHgGA4JFp BpZPXuZZZyPvzhSGUcVGYckc8WVCQfGFFkQzT5JBGnPXLxXEBwLBwdPRUgTFJ7GOs4ZLTjWYIwWB8NGn IuRSRwWDocMIRfGLUjZJObze0TPODtCRSbRrR2VgRdFQUnICLyBPsfKMNeTIP5BaL7PGLrFXGsOH6BGf UmKNXpGTixVDdeFPYdIPTfnj2JBEYxFTAoTYkcRjEy MSMxJQYhABn1pdYyiHQeOYi9OY5MI8YmonBwRpREGb1Sm003EVYkPHRiMx5OA1hcAi2hOTOePMUGRv7T PSg6DCEiAdfzAkQvCjV4RxG8UKL0IUFxTfH1AHMdXMDnYjX+ZTjhDGC0FXEtKVVbUYB0VYQaFqj4SIAs IdVgHyM4LRLbRu1eNBQKIm6+IAjcnAKhlRwbMXFPFxF0WNTdEGaqRXHNIx0L ID Date Data Source [id number] 06/17/2020 10:29:35 AM EDT [facility] Name Value Range Interpretation Code Description Data Heena rce(s) Supporting Document(s) &PDF [facility] CCLLJq2zTbBZPiGs60/YHNdaCCOck8ZtVZlbYOm1NOagTGUrE3IweLtjASaVB8xHCGLzS2yROQgIMTMX vci [file] ogICAgICAgICAgICAgICAgICAgICAgICAgICAgICAgICAgICAgICAgICAgICAgICAgICAgICAgICAgIC AgICAgICAgICAgICAgICAgICAgICAgICAgICAgICAg ICAgICAgICAgDQogICAgICAgICAgICAgICAgICAgICAgICAgICAgICAgICAgICAgICAgICAgICAgICAg ICAgICAgICAgICAgICAgICAgICAgICAgICAgICAgICAgICAgICAgICAgICAgICAgICAgDQogICAgICAg ICAgICAgICAgICAgICAgICAgICAgICAgICAgICAgIC AgICAgICAgICAgICAgICAgICAgICAgICAgICAgICAgICAgICAgICAgICAgICAgICAgICAgICAgICAgIC AgDQogICAgICAgICAgICAgICAgICAgICAgICAgICAgICAgICAgICAgICAgICAgICAgICAgICAgICAgIC AgICAgICAgICAgICAgICAgICAgICAgICAgICAgICAg ICAgICAgICAgICAgDQogICAgICAgICAgICAgICAgICAgICAgICAgICAgICAgICAgICAgICAgICAgICAg ICAgICAgICAgICAgICAgICAgICAgICAgICAgICAgICAgICAgICAgICAgICAgICAgICAgICAgDQogICAg ICAgICAgICAgICAgICAgICAgICAgICAgICAgICAgIC AgICAgICAgICAgICAgICAgICAgICAgICAgICAgICAgICAgICAgICAgICAgICAgICAgICAgICAgICAgIC AgICAgDQogICAgICAgICAgICAgICAgICAgICAgICAgICAgICAgICAgICAgICAgICAgICAgICAgICAgIC AgICAgICAgICAgICAgICAgICAgICAgICAgICAgICAg ICAgICAgICAgICAgICAgDQogICAgICAgICAgICAgICAgICAgICAgICAgICAgICAgICAgICAgICAgICAg ICAgICAgICAgICAgICAgICAgICAgICAgICAgICAgICAgICAgICAgICAgICAgICAgICAgICAgICAgDQog ICAgICAgICAgICAgICAgICAgICAgICAgICAgICAgIC AgICAgICAgICAgICAgICAgICAgICAgICAgICAgICAgICAgICAgICAgICAgICAgICAgICAgICAgICAgIC AgICAgICAgDQogICAgICAgICAgICAgICAgICAgICAgICAgICAgICAgICAgICAgICAgICAgICAgICAgIC AgICAgICAgICAgICAgICAgICAgICAgICAgICAgICAg RGRaMMQzGPSbRWCjAMXbQIDaNVo7S5rqCPTpWLPeCW1eIEm8Er1+TZzOYtKuINQ8dvNpkU0WLY3bl8Dw EBcxFHIha7CiXNc4XC0GDRXzODztSE7QVSjjae1CKRMgGELljUQTi5rpTwZbOCI6SCAgCxgzNI5TTWFv F7qmsvWqVLTtURIBTMesRKXXSK0REyQiO7LsxE59BY INCj4+QPjnwmOuYhpKEhW9ITVkv7EiZFr3GI7XBWYyEOxaXK9DCWIfnU9mPBpkCM9CSaUbOYIqEOSGLm LtL36orKGnCDt0J8PhEsJzOCMdFpkyHLMjKOqrTmRtWPVxRaGlAQfgWQ3+ID4+NLikIN0MXAklzaSdXB ZeSd2ONNPiUSK0JRJpdHPoGeGtIMRWMRhnKZ6DxSKh KNP4qG9hTTfkISCaEQJeX1kZMwPwaRasVT17aGfchlBldVZqETh+Be3ERD1gc0EqKRr0hnPwWStzNPF8 XWidATCrOODuSTSjPCA1KEE2RBLXTiTkJEAoTBMhAZveIJRdSNIwra5YAOJhVGIxObH7JhWaZJOcZMRr WAckSYTpQAY7KGP2ZRJbNSOfCR5OGlVjSEWpNSVeDJ FcOMAoNLHbvz5NGBRlHODsGxBmSfFgMFRhMDFmWChwTQTzJGTpOhQ2VGGzYGIzYK7KAqBfRHFcNLD7WN sjMSTlPETwec5MMUCzBAQuQOG4CyLzTACnXUHqHAxzPAFuKDI8FzTcXKJlKNMzAC1ZWoCdDFTsVRV6AG ohGMHeHPFogt7AWVKeEWEbNKc1FNQgNPFoKHGhWVir YRPrPMB9BVA8ZLIrGCCgWS7RJqQmDOGjNQhlFRpmRRIfBIAxck1FOSIcGYYbErS8OzEaJWMrGNDoWHgx PBLoLYLxYxYqYQBmUIAbHT7SNxFlSQIoBVC5RlHwNDZzKJEghp4TVXJqRVWwOyxgKlMrVIJhVVWmTNjd OVSzRLCwHJhhYRJwJQIhBC4AOcOpRFYmMHSqMZhzAR WeVZLmwx6FBDQiNDGoUCB9ZOUlXBZuOPYqOTvgBHXgUUA6JaG5ZLDmCBElTD2CLtFdIBIxFYL1DAlePN FbMLPyzn7MMDOyRCRtWJNbGrKoIPSjVQVyQCmmEKHyDGUhTWGaDUNjLWHgUC7WPfDqRNPqIbM2JqanQU ZrJMNfjh2FBSNaZVMvTFGaJbWvNQNyQWGuQDy2lrKh dDAgXXa6TV1TX5ZycdGcXijSWg2Ub272FWY4RXRyMs1XS9vgKh8pHZZhWKJQLj4YBWx9VIL9WcW3WYop BZRoKTnoXiQsG4BgLzKpPLA6UMM6NlG+REz2EQubCQIjQKR5SlP2UEJwWFH3CnC5YrQ1JJzyYvdhKm6s XSANCj4+LZzokOPiwZotUZRWRbG5MOk0XMqrJSNTVn4Z ID Date Data Source [id number] 05/21/2020 08:54:12 AM EST [facility] Name Value Range Interpretation Code Description Data Heena rce(s) Supporting Document(s) Discharge Note [facility] HKIGBa2gXfYMSxgumE9OTUBiXF7ncpt4UThnA3FyDHMwdvBsBJDhK2gfTIHBHYHTNMTlmJ6uKQYlMevM vYm uLZQkFIRBoLhJxQuEmL5ctapb6nUA6ANLfKgpsEW6CuOi6JVJeM7KjDEXbEHKsm4NrPe9+WkT3ikBjrK d4mK4ZI2BEEQuQ20xeIf1zEDDbkTkcqJKq9yTCkwjRn0AkgevYMSHwSREMIKsMVZMSW70IPAVIQuRRBZ kdtu4hm9GoNd7tXxrA92/ZrfmxtVVb+2f7/Yfdu8OX kJLwf4a2pzrDiRuxniBYUTcPwLHZ8py44yYAsiODwIsMF3nIBDjQXg0UQjM54aSEkfOsJB+R08SGEhxm 6wjWc8+Manoj+6Ciyp6R4/Haiecvf6/3etNiLRdtUaQbGpPlZVzrAj63gEVySWqgXUhg9JRPBHPx5fSg9 [file] x4OCgw7kHw3fbWn3+ELECTROTYPE FINISHER/Kd36hmFPYYuMHltPV4756Qgn/z/dC+4ryd0a9fILzzWkTzezh6MIzvhbMXoL [file] 9GCg== ID Date Data Source [id number] 05/21/2020 07:06:00 AM EST [facility] Name Value Range Interpretation Code Description Data Heena rce(s) Supporting Document(s) Glucose [Moles/volume] in Capillary blood by Glucometer 90 mg/dL 70 - 100 [facility] RESULTS < 40 mg/dL OR > 500 mg /dL WILL REQUIRE CONFIRMATION BY LAB ID Date Data Source [id number] 05/20/2020 07:18:00 AM EST [facility] Name Value Range Interpretation Code Description Data Heena rce(s) Supporting Document(s) Glucose [Moles/volume] in Capillary blood by Glucometer 94 mg/dL 70 - 100 [facility] RESULTS < 40 mg/dL OR > 500 mg /dL WILL REQUIRE CONFIRMATION BY LAB ID Date Data Source [id number] 05/19/2020 07:51:00 AM EST [facility] Name Value Range Interpretation Code Description Data Heena rce(s) Supporting Document(s) Glucose [Moles/volume] in Capillary blood by Glucometer 75 mg/dL 70 - 100 [facility] RESULTS < 40 mg/dL OR > 500 mg /dL WILL REQUIRE CONFIRMATION BY LAB ID Date Data Source [id number] 05/18/2020 08:31:00 AM EST [facility] Name Value Range Interpretation Code Description Data Heena rce(s) Supporting Document(s) Glucose [Moles/volume] in Capillary blood by Glucometer 109 mg/d L 70 - 100 Above high normal [facility] RESULTS < 40 mg/dL OR > 500 mg /dL WILL REQUIRE CONFIRMATION BY LAB ID Date Data Source [id number] 05/18/2020 07:35:00 AM EST [facility] Name Value Range Interpretation Code Description Data Heena rce(s) Supporting Document(s) BASIC METABOLIC PANEL [facility] BASIC METABOLIC PANEL Sodium [Moles/volume] in Serum or Plasma 144 mEq/L 136 - 145 [facility] Potassium [Moles/volume] in Serum or Plasma 4.2 mEq/L 3.5 - 5.1 [facility] Chloride [Moles/volume] in Serum or Plasma 107 mEq/L 98 - 107 [facility] Carbon dioxide, total [Moles/volume] in Serum or Plasma 28.5 mEq /L 21.0 - 32.0 [facility] Glucose [Mass/volume] in Serum or Plasma 96 mg/dL 70 - 100 [facility] Urea nitrogen [Mass/volume] in Serum or Plasma 27 mg/dL 7 - 18 Above high normal [facility] CREATININE SERUM 1.98 mg/dL 0.70 - 1.30 Above high normal [facility] 80 [facility].00 INCH[facility] ital eGFR NON-AFR AMR 33 [facility] eGFR AFR AMR 40 [facility] BUN/CREAT 14 6 - 25 [facility] l Calcium [Mass/volume] in Serum or Plasma 8.3 mg/dL 8.8 - 10.2 Below low normal [facility] ANION GAP 9 7 - 15 [facility] l Estimated GFR reference r frederick: > 60 mL/min/1.73m >18 years: Calculated using IDMS traceable MDRD Study Equation <18 years: Calculated using IDMS traceable Bedside Mccullough Equation ID Date Data Source [id number] 05/18/2020 07:35:00 AM EST [facility] Name Value Range Interpretation Code Description Data Heena rce(s) Supporting Document(s) CBC [facility] COMPLETE BLOOD COUNT Leukocytes [#/volume] in Blood by Automated count 6.2 K/uL 4.0 - 10 .0 [facility] Erythrocytes [#/volume] in Blood by Automated count 3.95 M/uL 4.30 - 6.10 Below low normal [facility] Hemoglobin [Mass/volume] in Blood 11.9 g/dL 13.5 - 17.5 Below low no rmal [facility] Hematocrit [Volume Fraction] of Blood by Automated count 38.2 % 39.0 - 50.0 Below low normal [facility] Erythrocyte mean corpuscular volume [Entitic volume] by Auto mated count 96.7 fL 80.0 - 96.0 Above high normal [facility] Erythrocyte mean corpuscular hemoglobin [Entitic mass] by Automated count 30.1 pg 26.0 - 34.0 [facility] Erythrocyte mean corpuscular hemoglobin concentration [Mass/volume] by Automated count 31.2 g/dL 32.0 - 36.0 Below low normal [facility] Erythrocyte distribution width [Ratio] by Automated count 16.9 % 11.6 - 14.8 Above high normal [facility] Platelets [#/volume] in Blood by Automated count 186 K/uL 150 - 450 [facility] Platelet mean volume [Entitic volume] in Blood by Automated count 9.5 fL 7.1 - 10.4 [facility] Neutrophils [#/volume] in Blood by Automated count 3.63 K/uL 1.70 - 7.70 [facility] Lymphocytes [#/volume] in Blood by Automated count 1.16 K/uL 1.50 - 6.00 Below low normal [facility] Monocytes [#/volume] in Blood by Automated count 0.79 K/uL 0.00 - 1. 00 [facility] Eosinophils [#/volume] in Blood by Automated count 0.53 K/uL 0.00 - 0.30 Above high normal [facility] Basophils [#/volume] in Blood by Automated count 0.05 K/uL 0.00 - 0. 10 [facility] 0.04 Urinalysis macro (dipstick) panel - Urine 0.000 10^3/uL 0.000 - 0.012 [facility] Neutrophils/100 leukocytes in Blood by Automated count 58.7 % 42. 2 - 75.2 [facility] Lymphocytes/100 leukocytes in Blood by Automated count 18.7 % 15. 0 - 41.0 [facility] Monocytes/100 leukocytes in Blood by Automated count 12.7 % 0.0 - 12.0 Above high normal [facility] Eosinophils/100 leukocytes in Blood by Automated count 8.5 % 0.0 - 7.0 Above high normal [facility] 0.80.60 NRBC 0.0 % [facility] MANUAL DIFF NOT INDICATED [facility] RBC MORPH NOT INDICATED [facility] ID Date Data Source [id number] 05/17/2020 01:07:53 PM EST [facility] Name Value Range Interpretation Code Description Data Heena rce(s) Supporting Document(s) &PDF [facility] ZTYCTd6hBvAELmOt11/VLLjkKCLjg0LjOZdoPMi6OQanTEOvO0WawTnoYSiZC0kRFTXbT3gZBKiCWZRI vci eDtXcnHXR5f9KfqOCfR92vsW9rABLnf17vLIebMQ7+DQplbmRvYmoNCjQgMCBvYmoNCiAgPDwvRmlsdG IyRW6QnOR7IHPeP18vGSYrZVFsB7OmVHBcOuu+Ao7QGBCchLSiNG9TTpwF9Hflm+M2Ev9+kB9KIDsrfk D02rVdkANo9GdYGq9AD+Jiq0CzF7bcLsv5qGCXGjY/ fUlRr+Nx4ZYg6/MRQgHrM7K/3EloqxNgNDHKz0+sn8BeuDI+qR/HqWNLPa63p3knwreisZh1FeGnrjFW G6HqWufNhVEB4EgSpL6upJFVFjRJuqWCCWR4dNg/Ggr7LdQ2NOKJ2a8FNV9JPZNTScSlOT4N52h/RTf/ HmJRLUv4EZQYEWmQpGOXJlXsY7YVIYYbLmKvUt1pU3 [file] st15PlUkcniZvJxAweI75zhnJxykHu6WbFpz38/[place] [file] FSKIDQmnBD9DTI7zzaV3YI3IuUJpHQFoXWYjpYSvAHg6I42ebMHbJEfqMK3NUSY+Lee Ann+Pd0FUKPaECKm HKEgJbGkREFOCiJxH2VpP5FBw9CoE5RsCE47wTcjao YrJUpsXP1NCT2cNFDvVLYZKT1LcERvmJ5kuoTgTPDeZIDWEqZyR20feDKpRFQfZGP6NWGpVn0UYPPmV0 MyipHnqMougsAeNVKeCGNSIU7GWVueuyPfwVVpeSvsJF33fBjlUY6PVn1UZeTpCH2tnt6KvOOaGc6YQA M2LJ1DCZKpHEPyZHNiGUW5YFMhWgDkVMirWJBsTYYx OMG5QASgNKOrNJ4ZKgWnNMMyIGKhIVFwVSDmHMOjhk2TCYYgVFEsEbolSYJxNJGxFXWiLQupEQTyWHYw UXxgAKNdAVWlJA3ISjBnSXErHXQ9MCYaTDEvBUDpce1HGNWvTSDvNRLfZvHnKJAtYOIkGBrqXJLnUPU4 NzcnAZWzTGSuXL5CGnKrXHFyYEb4OpXhXSXlWTBgrj 8QEEJqCFFjWKjdIaGwAVOpXVFlNWilOOZtNOK4ZLY1LWQaGTNnKP8DSqMhWSWpEWqfDctuOGXlSMFvef 5NGKMbWEJgUJJeVDJsXQUpFIMdFBivKNFwYRK6IgnsAOCkEBZgPS3ASfYlKBHlTSr1YfWqSQIkTVCwnl 7UZZJwFAEbIYqdDGTpWERyVNOmSZtoUXGsMSS4UWjv CVRmNVGcHP7ICdJqLRLjRuJiEGwxJBJqUBBrlw5FYQYwATEjUqXdYiXfZTCzPLItMPznAAWtDMZ6ItNz WNJmHQIxIR6THwNuWPHsMyOkDmHeCVApAJQgmp2XRJKvGUWoODG2ZhYpNKRzXGTwECrgZYSrKIUpHNDl DQBfLCXzVA2VIsMfYBYcMeP7PpEeIGHlWVRryk6PAA TnGYDyVYq5VCOuAAExFOFxXWxvZMOaHPXnHOS2OYIyYBNzUV6VUoZlWZIzNYH4OincVZAdXCQpee3AFL DmIYAqJlK4BcYwKOFwEJFcIXvmCMKsEGH8QHQaTYRcNYRmNK0BMvOlPKCaRUq5WvOsZXVxCNKqgv5EVM UwVRKnCVGsPGImJKXsMBDmRNghOTUxFRL0HjMnELJu HFQkFV5MTeTgDPRfYPMwJdWkUVVfZLWflo1FUQCcVOScRIE6LSHeHYIoOOIaQZlgJBUwXFVpETZlUCVt IVOlBX0QVvVyVFVlKBGvOQUfGNFkDPOhpw0VXGMmAMOuRbP5UCGfXQTfROEcFTgmGHCmMZZ8FPe7GRVo VAZoUL7AYrVcGYMiBQiwRvTqTCYfRAJypt5JDYZlKU PtGWMnAzXoBQMkRTSbZBypZCBgLXSiKkFlABSjYIQbUA8LYtBpTXzwFHXEWaa1NJtkR3t8ZUA4ZF2BB5 Dme1KiAJMdZXWDLWaqTL9lvtNlWXNiSg1WC8kVGbatGqApU5QvGoXjPuGuMVC4HKZeS4YvEcxjIOBbAI fuGo0rXRI5UECoWoQ5PuCtXCB2Arn5ORVtAAAgG4Uv MuD0A8PuKvShJW7YLq5GNfW7KCA7vNYqBg5WVyZ3SwXUNsAtWZ1VHFu= ID Date Data Source [id number] 05/17/2020 11:57:57 AM EST [facility] [place] [facility] [place] Name Value Range Interpretation Code Description Data Heena rce(s) Supporting Document(s) POC NOVA GLU 101 mg/dL (70-99) H [facility] [place] [facility] [place] PERFORMED BY [facility]INICAL STAFF ID Date Data Source [id number] 05/17/2020 11:45:57 AM EST [facility] INFORMATIONPatient MRN Name Date of Age Gend*PT [id number] Ana Nicole 1940 80 years M HOPPT Location Admission Date/Time Visit ID Attending Provider-05/17/20 1134 --- Chris Carrington MD([id number]) EPI ID CSN Admitting Provider [id number] Chris Pierce MD([id number])History and PhysicalPatient Name: Ana Rivera: 1940The patient presents for ICD generator replacement1Past Medical History:Diagnosis Date Biventricular ICD (implantable cardioverter-defibrillator) in place 2005 epicardial lead placed 2006 an [facility]. 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 Patent MARC to mLAD. LV EF 25%. CKD (chronic kidney disease) CVA (cerebral vascular accident) 1997 DM (diabetes mellitus) EGD 05/2015 [facility], reported negative HLD (hyperlipidemia) HTN (hypertension) GA (myocardial infarction) 1976 medical management Morbid obesity KENJI on CPAP PFTs 11/21/2015 78% FVC, 80% FEV1, 96% DLCO. Regadenoson PET 06/01/2016 EF 28%, extensive infarct without ischemia Ventricular tachycardia On amiodarone since 07/2012Past Surgical History:Procedure Laterality Date ANKLE SURGERY Left CARDIAC DEFIBRILLATOR PLACEMENT CORONARY ARTERY BYPASS GRAFT 2004 HIP ARTHROPLASTY 2018 ORCHIECTOMYMedications Prior to AdmissionMedication Sig amiodarone (PACERONE) 200 MG tablet TAKE 1 TABLET BY MOUTH DAILY aspirin 325 MG tablet Take 325 mg by mouth daily cholecalciferol (VITAMIN D3) 25 MCG (1000 UT) capsule Take 1,000 Units bymouth daily clopidogrel (PLAVIX) 75 MG tablet Take 1 tablet (75 mg total) by mouth daily docusate sodium (COLACE) 100 MG capsule Take 100 mg by mouth RT ONCE DAILY A SNEEDED furosemide (LASIX) 40 MG tablet TAKE 1 TABLET BY MOUTH DAILY insulin aspart (NOVOLOG) 100 UNIT/ML injection NOVOLOG 100 UNIT/ML SOLN Insulin Glargine (LANTUS SOLOSTAR) 100 UNIT/ML SOPN LANTUS SOLOSTAR 100UNIT/ML SOPN magnesium chloride ER (SLOW-MAG) 535 (64 MG) MG TBCR Take 64 mg by mouth 2(two) times a day metoprolol tartrate (LOPRESSOR) 25 MG tablet Take 1 tablet (25 mg total) bymouth 2 (two) times a day oxybutynin (DITROPAN-XL) 10 MG 24 hr tablet Take 1 tablet (10 mg total) bymouth daily rosuvastatin (CRESTOR) 40 MG tablet TAKE 1 TABLET BY MOUTH DAILY spironolactone (ALDACTONE) 25 MG tablet Take 0.5 tablets (12.5 mg total) bymouth dailyALLERGIES/SENSITIVITIES: Magen inhibitorsPhysical ExamGeneral: NADHEENT: NC/ATNeck: JVP FlatLungs: CTAHeart: [id number]: This is a 80 years male who presents for ICD generatorreplacement. The risks including but not limited to vascular injury, infection,hematoma formation and were all explained. The patient is agreeable toproceed.Signature: Chris Pierce MD, [facility], [facility] CENTERCardiac Electrophysiology and Arrhythmia ServiceDate: May 17, 2020Time: 11:45 AMThis document or parts of this document, were dictated using [employer]kope[employer]. A reasonable attempt at proofreading has been made to minimize errors.Please call with any questions or corrections. Name Value Range Interpretation Code Description Data Heena rce(s) Supporting Document(s) ID Date Data Source [id number] 05/17/2020 07:05:00 AM EST [facility] Name Value Range Interpretation Code Description Data [facility] rce(s) Supporting Document(s) Phosphate [Mass/volume] in Serum or Plasma 3.5 mg/dL 2.5 - 4.9 [facility] ID Date Data Source [id number] 05/17/2020 07:05:00 AM [facility] Name Value Range Interpretation Code Description Data [facility] rce(s) Supporting Document(s) Magnesium [Mass/volume] in Serum or Plasma 2.0 mg/dL 1.8 - 2.4 [facility] ID Date Data Source [id number] 05/17/2020 07:05:00 AM [facility] Name Value Range Interpretation Code Description Data [facility] rce(s) Supporting Document(s) LIVER PROFILE [facility] pital HEPATIC PANEL Protein [Mass/volume] in Serum or Plasma 5.3 g/dL 6.0 - 8.3 Below low normal [facility] Albumin [Mass/volume] in Serum or Plasma 2.1 g/dL 3.8 - 5.4 Below low normal [facility] GLOBULIN 3.2 g/dL 2.0 - 4.0 [facility] l A/G RATIO 0.7 0.8 - 2.0 Below low normal [facility] Bilirubin.total [Mass/volume] in Serum or Plasma 0.7 mg/dL 0.2 - 1.0 [facility] Bilirubin.direct [Mass/volume] in Serum or Plasma 0.3 mg/dL 0.0 - 0.2 Above high normal [facility] INDIRECT BILI 0.4 mg/dL 0.0 - 1.1 [facility] pital ALK PHOSPHATASE 92 U/L 40 - 129 [facility] ospital Aspartate aminotransferase [Enzymatic ac tivity/volume] in Serum or Plasma by With P-5'-P 38 IU/L 7 - 37 Above high normal [facility] ital Alanine aminotransferase [Enzymatic acti vity/volume] in Serum or Plasma by With P-5'-P 34 IU/L 12 - 78 [facility] ID Date Data Source [id number] 05/17/2020 07:05:00 AM EST [facility] Name Value Range Interpretation Code Description Data Heena rce(s) Supporting Document(s) BASIC METABOLIC PANEL [facility] BASIC METABOLIC PANEL Sodium [Moles/volume] in Serum or Plasma 143 mEq/L 136 - 145 [facility] Potassium [Moles/volume] in Serum or Plasma 3.4 mEq/L 3.5 - 5.1 Below low normal [facility] Chloride [Moles/volume] in Serum or Plasma 105 mEq/L 98 - 107 [facility] Carbon dioxide, total [Moles/volume] in Serum or Plasma 29.2 mEq /L 21.0 - 32.0 [facility] Glucose [Mass/volume] in Serum or Plasma 93 mg/dL 70 - 100 [facility] Urea nitrogen [Mass/volume] in Serum or Plasma 29 mg/dL 7 - 18 Above high normal [facility] CREATININE SERUM 2.15 mg/dL 0.70 - 1.30 Above high normal [facility] AGE 80 yrs [facility] l HEIGHT 70.00 INCHES [facility] ital eGFR NON-AFR AMR 30 [facility] eGFR AFR AMR 36 [facility] ital BUN/CREAT 13 6 - 25 [facility] l Calcium [Mass/volume] in Serum or Plasma 8.2 mg/dL 8.8 - 10.2 Below low normal [facility] ANION GAP 9 7 - 15 [facility] l Estimated GFR reference r frederick: > 60 mL/min/1.73m >18 years: Calculated using IDMS traceable MDRD Study Equation <18 years: Calculated using IDMS traceable Bedside Mccullough Equation ID Date Data Source [id number] 05/17/2020 07:05:00 AM EST [facility] Name Value Range Interpretation Code Description Data Heena rce(s) Supporting Document(s) CBC [facility] l COMPLETE BLOOD COUNT Leukocytes [#/volume] in Blood by Automated count 6.3 K/uL 4.0 - 10 .0 [facility] Erythrocytes [#/volume] in Blood by Automated count 4.04 M/uL 4.30 - 6.10 Below low normal [facility] Hemoglobin [Mass/volume] in Blood 12.2 g/dL 13.5 - 17.5 Below low no rmal [facility] Hematocrit [Volume Fraction] of Blood by Automated count 38.9 % 39.0 - 50.0 Below low normal [facility] Erythrocyte mean corpuscular volume [Entitic volume] by Auto mated count 96.3 fL 80.0 - 96.0 Above high normal [facility] Erythrocyte mean corpuscular hemoglobin [Entitic mass] by Automated count 30.2 pg 26.0 - 34.0 [facility] Erythrocyte mean corpuscular hemoglobin concentration [Mass/volume] by Automated count 31.4 g/dL 32.0 - 36.0 Below low normal [facility] cecile Erythrocyte distribution width [Ratio] by Automated count 16.6 % 11.6 - 14.8 Above high normal [facility] Platelets [#/volume] in Blood by Automated count 211 K/uL 150 - 450 [facility] Platelet mean volume [Entitic volume] in Blood by Automated count 9.3 fL 7.1 - 10.4 [facility] Neutrophils [#/volume] in Blood by Automated count 3.18 K/uL 1.70 - 7.70 [facility] Lymphocytes [#/volume] in Blood by Automated count 1.38 K/uL 1.50 - 6.00 Below low normal [facility] Monocytes [#/volume] in Blood by Automated count 0.85 K/uL 0.00 - 1. 00 [facility] Eosinophils [#/volume] in Blood by Automated count 0.73 K/uL 0.00 - 0.30 Above high normal [facility] Basophils [#/volume] in Blood by Automated count 0.06 K/uL 0.00 - 0. 10 [facility] 0.07 Urinalysis macro (dipstick) panel - Urine 0.000 10^3/uL 0.000 - 0.012 [facility] Neutrophils/100 leukocytes in Blood by Automated count 50.7 % 42. 2 - 75.2 [facility] Lymphocytes/100 leukocytes in Blood by Automated count 22.0 % 15. 0 - 41.0 [facility] Monocytes/100 leukocytes in Blood by Automated count 13.6 % 0.0 - 12.0 Above high normal [facility] Eosinophils/100 leukocytes in Blood by Automated count 11.6 % 0.0 - 7.0 Above high normal [facility] 1.01.10 NRBC 0.0 % [facility] NOT INDICATED [facility] ospital RBC MORPH NOT INDICATED [facility] pital ID Date Data Source [id number] 05/16/2020 07:38:00 AM EST [facility] Name Value Range Interpretation Code Description Data Heena rce(s) Supporting Document(s) Glucose [Moles/volume] in Capillary blood by Glucometer 92 mg/dL 70 - 100 [facility] RESULTS < 40 mg/dL OR > 500 mg /dL WILL REQUIRE CONFIRMATION BY LAB ID Date Data Source [id number] 05/16/2020 06:55:00 AM EST [facility] Name Value Range Interpretation Code Description Data Heena rce(s) Supporting Document(s) COMPREHENSIVE CHEM PROFILE i [facility] COMPREHENSIVE METABOLIC PANEL Sodium [Moles/volume] in Serum or Plasma 143 mEq/L 136 - 145 [facility] Potassium [Moles/volume] in Serum or Plasma 3.2 mEq/L 3.5 - 5.1 Below low normal [facility] Chloride [Moles/volume] in Serum or Plasma 104 mEq/L 98 - 107 [facility] Carbon dioxide, total [Moles/volume] in Serum or Plasma 30.5 mEq /L 21.0 - 32.0 [facility] Glucose [Mass/volume] in Serum or Plasma 97 mg/dL 70 - 100 [facility] Urea nitrogen [Mass/volume] in Serum or Plasma 30 mg/dL 7 - 18 Above high normal [facility] CREATININE SERUM 2.18 mg/dL 0.70 - 1.30 Above high normal [facility] AGE 80 yrs [facility] HEIGHT [facility] 70.00 [facility] NON-AFR AMR 29 [facility] eGFR AFR AMR 36 [facility] ital BUN/CREAT 14 6 - 25 [facility] l Protein [Mass/volume] in Serum or Plasma 5.7 g/dL 6.0 - 8.3 Below low normal [facility] Albumin [Mass/volume] in Serum or Plasma 1.9 g/dL 3.8 - 5.4 Below low normal [facility] GLOBULIN 3.8 g/dL 2.0 - 4.0 [facility] A/G RATIO 0.5 0.8 - 2.0 Below low normal [facility] Calcium [Mass/volume] in Serum or Plasma 8.5 mg/dL 8.8 - 10.2 Below low normal [facility] Bilirubin.total [Mass/volume] in Serum or Plasma 0.8 mg/dL 0.2 - 1.0 [facility] Bilirubin.direct [Mass/volume] in Serum or Plasma 0.3 mg/dL 0.0 - 0.2 Above high normal [facility] INDIRECT BILI 0.5 mg/dL 0.0 - 1.1 [facility] pital ALK PHOSPHATASE 86 U/L 40 - 129 [facility] ospital Aspartate aminotransferase [Enzymatic ac tivity/volume] in Serum or Plasma by With P-5'-P 36 IU/L 7 - 37 [facility] Alanine aminotransferase [Enzymatic acti vity/volume] in Serum or Plasma by With P-5'-P 32 IU/L 12 - 78 [facility] ANION GAP 9 7 - 15 [facility] l Estimated GFR referenc e range: >60ml/min/1.73m >18 years: Calculated using IDMS traceable Study Equation <18 years: Calculated using IDMS tracable Bedside Schartz Equation ID Date Data Source [id number] 05/16/2020 06:55:00 AM EST [facility] Name Value Range Interpretation Code Description Data Heena rce(s) Supporting Document(s) ACTIVATED PARTIAL THROMBOPLASTIN [facility] ACTIVATED PARTIAL THROMBOPLASTIN HEPARIN? NO [facility] PTT-A 32.8 24.3 - 100 [facility] al New PTT Heparin Therapeutic ra nge effective September 13, 2015 Heparin dose Therapeutic Range 0.1 - 0.3 uL 70.7 - 80.3 seconds 0.3 - 0.7 uL 80.3 - 99.6 seconds New normal reference range effective February 02, 2020 Normal 24.3 - 40.8 seconds ID Date Data Source [id number] 05/16/2020 06:55:00 AM EST [facility] PROTHROMBIN TIME Name Value Range Interpretation Code Description Data Heena rce(s) Supporting Document(s) WARFARIN? NO [facility] l 13.8 INR in Platelet poor plasma by Coagulation assay 1.1 1.0 - 4.5 [facility] Reference ranges Warf corrine (Coumadin) Therapy: 21.6 - 40.7 secs Normal (Non-warfarin Therapy): 10.7 - 15.2 secs New Protime Reference Range as of February 02, 2020 ID Date Data Source [id number] 05/16/2020 06:55:00 AM EST [facility] Name Value Range Interpretation Code Description Data Heena rce(s) Supporting Document(s) CBC [facility] l COMPLETE BLOOD COUNT Leukocytes [#/volume] in Blood by Automated count 6.5 K/uL 4.0 - 10 .0 [facility] Erythrocytes [#/volume] in Blood by Automated count 3.95 M/uL 4.30 - 6.10 Below low normal [facility] Hemoglobin [Mass/volume] in Blood 12.0 g/dL 13.5 - 17.5 Below low no rmal [facility] Hematocrit [Volume Fraction] of Blood by Automated count 37.8 % 39.0 - 50.0 Below low normal [facility] Erythrocyte mean corpuscular volume [Entitic volume] by Auto mated count 95.7 fL 80.0 - 96.0 [facility] Erythrocyte mean corpuscular hemoglobin [Entitic mass] by Automated count 30.4 pg 26.0 - 34.0 [facility] Erythrocyte mean corpuscular hemoglobin concentration [Mass/volume] by Automated count 31.7 g/dL 32.0 - 36.0 [facility] Erythrocyte distribution width [Ratio] by Automated count 16.5 % 11.6 - 14.8 Above high normal [facility] Platelets [#/volume] in Blood by Automated count 213 K/uL 150 - 450 [facility] Platelet mean volume [Entitic volume] in Blood by Automated count 9.1 fL 7.1 - 10.4 [facility] Neutrophils [#/volume] in Blood by Automated count 3.24 K/uL 1.70 - 7.70 [facility] Lymphocytes [#/volume] in Blood by Automated count 1.60 K/uL 1.50 - 6.00 [facility] Monocytes [#/volume] in Blood by Automated count 0.88 K/uL 0.00 - 1. 00 [facility] Eosinophils [#/volume] in Blood by Automated count 0.59 K/uL 0.00 - 0.30 Above high normal [facility] Basophils [#/volume] in Blood by Automated count 0.08 K/uL 0.00 - 0. 10 [facility] 0.09 Urinalysis macro (dipstick) panel - Urine 0.000 10^3/uL 0.000 - 0.012 [facility] Neutrophils/100 leukocytes in Blood by Automated count 50.0 % 42. 2 - 75.2 [facility] Lymphocytes/100 leukocytes in Blood by Automated count 24.7 % 15. 0 - 41.0 [facility] Monocytes/100 leukocytes in Blood by Automated count 13.6 % 0.0 - 12.0 Above high normal [facility] Eosinophils/100 leukocytes in Blood by Automated count 9.1 % 0.0 - 7.0 Above high normal [facility] 1.21.40 NRBC 0.0 % [facility] MANUAL DIFF NOT INDICATED [facility] RBC MORPH NOT INDICATED [facility] ID Date Data Source [id number] 05/15/2020 07:28:00 AM EST [facility] Name Value Range Interpretation Code Description Data Heena rce(s) Supporting Document(s) Glucose [Moles/volume] in Capillary blood by Glucometer 107 mg/d L 70 - 100 Above high normal [facility] RESULTS < 40 mg/dL OR > 500 mg /dL WILL REQUIRE CONFIRMATION BY LAB ID Date Data Source [id number] 05/14/2020 09:19:40 AM EST [facility] Name Value Range Interpretation Code Description Data Heena rce(s) Supporting Document(s) Progress Note [facility] ABTBJa5mWhTGOoxgyB3VSBKsBJ4kwsc8KAxaX8AiPBScppVbHUCaO6miKINFOXPNLUBeiN4aXMQcOzeL vYm nZRYhFLHCcBlWxBcNdQ7czncx6hAO8FPQaVixcJM6BqTq2QNUpS4IeSDXbYWNpi9SwJn8+GsP7acMzuP r1aF8RW4AQSYfI74skWd0zHVFiwOyqwOPf0wMGvhfUv7WuctcFBTNmKVLUXMtJXPXVI51MDTOZJeGFIG famq9ub8JaDy9bFdrN57/ZrfmxtVVb+2f7/Zldp4AU yBOrw1l2japPcJixubHAYOtDqIPD8xo09iPFqqLImZhQZ6tDOQvBRm0KKmJ46fWScePmTT+I68VEDktf 6wjWc8+Manoj+0Llwg2T9/Haiecvf6/8qxCnPUeoXtBwMxClESakEu36vPQcPCebMMvf9YSVCJCm6qAg6 [file] u9QVtl0iIw8nhOz0+ELECTROTYPE FINISHER/Yq11csPGGWtRHnbZW4969Wgj/z/dC+8hzl8e5gGSpwEbHdqgd3IJkfmdAAbM [file] NTc+IQsuGK2EwHalODMfWw5+MrP6JYB5cSHnDdyrSTB2TTskZPKTYgv= ID Date Data Source [id number] 05/14/2020 08:08:00 AM EST [facility] Name Value Range Interpretation Code Description Data Heena rce(s) Supporting Document(s) RESP PROFILE RP2.1 NASAL PCR [facility] \\BLDo\\RESPIRATORY PROFILE NASAL PHARYNGEAL BY PCR\\BLDx\\ \\BLDo\\DETECTED _NONE \\BLDx\\ 05/14/20.0933.TMG. \\BLDo\\EQUIVOCAL _NONE \\BLDx\\ 05/14/20.0933.TMG. VIRUSES ADENOVIRUS NOT DETECTED NORMAL: NOT DETECTED [facility] CORONAVIRUS 229E NOT DETECTED NORMAL: NOT DETECTED [facility] CORONAVIRUS HKU1 NOT DETECTED NORMAL: NOT DETECTED [facility] CORONAVIRUS NL63 NOT DETECTED NORMAL: NOT DETECTED [facility] CORONAVIRUS OC43 NOT DETECTED NORMAL: NOT DETECTED [facility] 43462-5 NOT DETECTED NORMAL: NOT DETECTED [facility] REPORT TO DEPARTMENT OF HEAL TH HUMAN METAPNEUMO NOT DETECTED NORMAL: NOT DETECTED [facility] HUMAN RHINO/ENTERO NOT DETECTED NORMAL: NOT DETECTED [facility] NOT DETECTEDNOT DETECTEDNOT DETECTEDNOT DETECTED PARAINFLUENZA V3 NOT DETECTED NORMAL: NOT DETECTED [facility] NOT DETECTED RSV NOT DETECTED NORMAL: NOT DETECTED [facility] BACTERIANOT DET ECTEDNOT DETECTEDNOT DETECTEDNOT DETECTED TESTING PERFORMED USING THE NeurOp RP2.1 MULTIPLEXED NUCLEIC ACID TEST. THIS TEST HAS NOT BEEN FDA CLEARED OR APPROVED; THIS TEST HAS BEEN AUTHORIZED BY FDA UNDER AN EUA FOR USE BY AUTHORIZED LABORATORIES; THIS TEST HAS BEEN AUTHORIZED ONLY FOR THE DETECTION AND DIFFERENTATION OF NUCLEI ACID OF SARS-CoV-2 FROM MULTIPLE RESPIRATORY VIRAL AND BACTERIAL ORGANIMS; AND THIS TEST IS ONLY AUTHORIZED FOR THE DURATION OF THE DECLARATION THAT CIRCUMSTANCES EXIST JUSTIFYING THE AUTHORIZATION OF EMERGENCY USE OF IN VITRO DIAGNOSTIC TESTS FOR THE DETECTION AND/OR DIAGNOSIS OF COVID-19 UNDER SECTION 564(b)(1) OF THE ACT, 21 U.S.C. 360bbb-3(b) (1), UNLESS THE AUTHORIZATION IS TERMINATED OR REVOKED SOONER. ID Date Data Source [id number] 05/14/2020 07:34:00 AM EST [facility] Name Value Range Interpretation Code Description Data Heena rce(s) Supporting Document(s) Glucose [Moles/volume] in Capillary blood by Glucometer 92 mg/dL 70 - 100 [facility] RESULTS < 40 mg/dL OR > 500 mg /dL WILL REQUIRE CONFIRMATION BY LAB ID Date Data Source [id number] 05/13/2020 07:37:00 AM EST [facility] Name Value Range Interpretation Code Description Data Heena rce(s) Supporting Document(s) Glucose [Moles/volume] in Capillary blood by Glucometer 93 mg/dL 70 - 100 [facility] RESULTS < 40 mg/dL OR > 500 mg /dL WILL REQUIRE CONFIRMATION BY LAB ID Date Data Source [id number] 05/12/2020 07:45:00 AM EST [facility] Name Value Range Interpretation Code Description Data Heena rce(s) Supporting Document(s) Glucose [Moles/volume] in Capillary blood by Glucometer 86 mg/dL 70 - 100 [facility] RESULTS < 40 mg/dL OR > 500 mg /dL WILL REQUIRE CONFIRMATION BY LAB ID Date Data Source [id number] 05/11/2020 06:20:52 PM EST [facility] Name Value Range Interpretation Code Description Data Heena rce(s) Supporting Document(s) Progress Note [facility] NOGVDl9dMgJXSjkpwZ7CNMEsMK9hosi4GWhsV3MeEMWmezReEOEwP0glTPXBLNNKVQUpiT9gVPPhUpfZ vYm gRLSaTQOGrGzEhQxXdA3gjzno0jEH2VMXvJpnyOM1QtDc6DNFjP4RiPWWzAQSrs6LfLl4+ScE8nqXglC n2rG5FM5UGDHqE63eyKc0eFKQlmWtfjUVm6aSFbxbTb2RshvsWKMVaPCOKQDrXAJFEZ97ZVJHZTpTSKY axka0jc8KiQo8eYtqE56/ZrfmxtVVb+2f7/Cpeh9ZH hMJgz5d4kedLbPfzufFPPNfHjPEF7rd84bPSlhGLbQiSN7xAGNnILa8TJkX53eJXyrAnDX+H59LPTjrq 6wjWc8+Manoj+1Sdkb8A3/Haiecvf6/9umRwASekFmNfQvXxSEevRa05iSUlFLnrNJjt1FJAADEe7iNx9 [file] m7AGbb8fOu1maOa8+ELECTROTYPE FINISHER/Tb15xxMEAIrKDpuJH7554Iag/z/dC+8qtu8l5bZRooBnFdwzc0BFonhuHPrU [file] CjAwMDAwMDAxNDUgMDAwMDAgbiAKMDAwMDAwMjcwMi SmQOLlWAPlHIahAFFgDZKaTcFxWSTvVPOmZL3bFgHaETGbWEM6JSDmLHWyWIAtjvEZCATaFXRhSvemFD YyKSMbTUMxCDdqFXJqIYSxEYOeCAIwBFNwFR3hErDfIVKkZtAcOKHjGXUiENZpvcWPIFPgJVBvZiijNM GhJIUbNRIwUNwiSIEiDGLwVTujLQLaJAZaIW6tJyZq EBXsVRZ9WNxdAVTiVDRlfpFYPBKhZGPhUYW8HLMpIFFuKNBdXAihCDRnZEAsPtzcVGZqKGUlHF1bLpFr RDXdEdT8HGbuOJFxBRIqmoQQYMUyKDNgJQGySgBnMPQvSFYhPZehVDFjNGRhTtDnHBGnJNJmOB9nEsBm MDAwMjUwOTUgMDAwMDAgbiAKMDAwMDAyNTMwOCAwMD IzCVCfMOdqZEXySXZ4CDZ9JVAuSQFxDM3gNoUoGUMoLxP8CoIqKJLnEBGiqdVKoPBuxItwrhm9XXlmAO 0At814OHLqJSLBXeBnA8qmTo6eVFSrQAIPJGZuKZHhVgnGPdr9JxD5IhA7JomxYHI2U7Y1CQMzAaE9FD U5LoPgPy6bSPJUHGQPJizFCzZ1HJXWEvkUWwQHQHWU EGI2MjFBLyFcWl9OCDGkL2v6JISsYFo+FhcxwJRnfCwzRCBPXwCsQalWIONZP5ET ID Date Data Source [id number] 05/11/2020 08:01:00 AM EST [facility] Name Value Range Interpretation Code Description Data Heena rce(s) Supporting Document(s) Glucose [Moles/volume] in Capillary blood by Glucometer 88 mg/dL 70 - 100 [facility] RESULTS < 40 mg/dL OR > 500 mg /dL WILL REQUIRE CONFIRMATION BY LAB ID Date Data Source [id number] 05/10/2020 07:27:00 AM [facility] Name Value Range Interpretation Code Description Data Heena rce(s) Supporting Document(s) Glucose [Moles/volume] in Capillary blood by Glucometer 91 mg/dL 70 - 100 [facility] RESULTS < 40 mg/dL OR > 500 mg /dL WILL REQUIRE CONFIRMATION BY LAB ID Date Data Source [id number] 05/09/2020 07:16:00 AM EST [facility] Name Value Range Interpretation Code Description Data Heena rce(s) Supporting Document(s) Glucose [Moles/volume] in Capillary blood by Glucometer 94 mg/dL 70 - 100 [facility] RESULTS < 40 mg/dL OR > 500 mg /dL WILL REQUIRE CONFIRMATION BY LAB ID Date Data Source [id number] 05/08/2020 07:14:00 AM [facility] Value Range Interpretation Code Description Data Heena rce(s) Supporting Document(s) Glucose [Moles/volume] in Capillary blood by Glucometer 80 mg/dL 70 - 100 [facility] RESULTS < 40 mg/dL OR > 500 mg /dL WILL REQUIRE CONFIRMATION BY LAB ID Date Data Source [id number] 05/07/2020 07:21:00 AM [facility] Value Range Interpretation Code Description Data Heena rce(s) Supporting Document(s) Glucose [Moles/volume] in Capillary blood by Glucometer 84 mg/dL 70 - 100 [facility] RESULTS < 40 mg/dL OR > 500 mg /dL WILL REQUIRE CONFIRMATION BY LAB ID Date Data Source [id number] 05/06/2020 11:17:30 AM [facility] Value Range Interpretation Code Description Data Heena rce(s) Supporting Document(s) Progress Note [facility] pital WEMYPl3tHrOXEfypgR5QBMTuPI9xjla5HPftK4SdJLUuxsOlSJUoH8nxSNRAJJSALQEbyJ0cMOLhZpxZ vYm jSJWsSJJZzXxGmNlLlM7oegpa8iLD8XEGhThvsFM1YzOx7GYQtT1QwWBPvICExx8TiIo6+JrM8nbSpqT n4zH0NR3EBLGeR74wlIc0nEEPdbXacyIMn7fVJojfVa8GuvzzZNJFqJXMWRGrXSGNXC64OHVGFEuVRJI nbqh6sl0YyIk6cGufP88/ZrfmxtVVb+2f7/Vuuq5VD hAIaw2o3qlyQfUxbbmEWFGuCtTZW8qv39qPCluRHoHxQU8aGSKqKFx1NWdZ17lBIdhLtEO+W59NIHhfj 6wjWc8+Manoj+3Tujm6P3/Haiecvf6/1paWeSNlcRsIxNcBfJAxaGl45bXDdAPvwZWfr1WTSRAHt1lAk2 [file] p8VKnb5wEh9xcBd9+ELECTROTYPE FINISHER/Kl63ndAVGFwCOebUE7080Vcl/z/dC+9vwm1c8uTLzeMxUbicy3FBieeyNPlT [file] ODIgMDAwMDAgbiAKMDAwMDAyNTEwOSAwMDAwMCBuIA idVADjGNX7MTWkTUOxLKWnQW6mHbRpUBOfLiQxYwCiCMIdLJZwimCLUHKvDELuSFXsKNAzVNWmQWVoYW bdRYUzRMXsBHipIDIhVMYgVN0fZlLtZCCrLha5JVYlLFZcFALwejNEXMGvOPKyXDD5RFWiAXBvDEUfGP cgBRAtEGOwBgTaCUBmXPOkKC6zNzXfPBDyUqO1Wihx APRgOGYwjwVNBXYdKETfVYy5CTSoOPVcONKeRAk0syNjlMBxQho5TtCqL2Sie8MuZsTlGUASTBIbSA3c veU8XDLzSweyOG9ATKJpMQH9AfWdHujRCXdBTHVcBuY9FyDnECP3P7H0GLJDApWnTkR3EuXHPZAfMGN3 R6UCFNBRVhfOCHBJAbruSlaYAsO4PvD+ENerBK3J aXplIDMwCj4+XuF9EJX7yOAaPrngQTIcPheyUGJELyx= ID Date Data Source [id number] 05/06/2020 07:06:00 AM [facility] Name Value Range Interpretation Code Description Data Heena rce(s) Supporting Document(s) Glucose [Moles/volume] in Capillary blood by Glucometer 80 mg/dL 70 - 100 [facility] RESULTS < 40 mg/dL OR > 500 mg /dL WILL REQUIRE CONFIRMATION BY LAB ID Date Data Source [id number] 05/05/2020 07:19:00 AM [facility] Value Range Interpretation Code Description Data Heena rce(s) Supporting Document(s) Glucose [Moles/volume] in Capillary blood by Glucometer 83 mg/dL 70 - 100 [facility] RESULTS < 40 mg/dL OR > 500 mg /dL WILL REQUIRE CONFIRMATION BY LAB ID Date Data Source [id number] 05/04/2020 07:47:00 AM [facility] Value Range Interpretation Code Description Data Heena rce(s) Supporting Document(s) Glucose [Moles/volume] in Capillary blood by Glucometer 97 mg/dL 70 - 100 [facility] RESULTS < 40 mg/dL OR > 500 mg /dL WILL REQUIRE CONFIRMATION BY LAB ID Date Data Source [id number] 05/03/2020 07:39:00 AM [facility] Value Range Interpretation Code Description Data Heena rce(s) Supporting Document(s) Glucose [Moles/volume] in Capillary blood by Glucometer 95 mg/dL 70 - 100 [facility] RESULTS < 40 mg/dL OR > 500 mg /dL WILL REQUIRE CONFIRMATION BY LAB ID Date Data Source [id number] 05/02/2020 08:00:00 AM [facility] Value Range Interpretation Code Description Data Heena rce(s) Supporting Document(s) Glucose [Moles/volume] in Capillary blood by Glucometer 96 mg/dL 70 - 100 [facility] RESULTS < 40 mg/dL OR > 500 mg /dL WILL REQUIRE CONFIRMATION BY LAB ID Date Data Source [id number] 05/01/2020 07:44:00 AM [facility] Value Range Interpretation Code Description Data Heena rce(s) Supporting Document(s) Glucose [Moles/volume] in Capillary blood by Glucometer 103 mg/d L 70 - 100 Above high normal [facility] RESULTS < 40 mg/dL OR > 500 mg /dL WILL REQUIRE CONFIRMATION BY LAB ID Date Data Source [id number] 04/30/2020 08:15:00 PM EST [facility] Name Value Range Interpretation Code Description Data Heena rce(s) Supporting Document(s) Glucose [Moles/volume] in Capillary blood by Glucometer 144 mg/d L 70 - 100 Above high normal [facility] RESULTS < 40 mg/dL OR > 500 mg /dL WILL REQUIRE CONFIRMATION BY LAB ID Date Data Source [id number] 04/30/2020 01:20:54 PM EST [facility] Name Value Range Interpretation Code Description Data Heena rce(s) Supporting Document(s) Progress Note [facility] LNBQEl8rRxDNUjqdnC0TBZSqOP3voua8RWwrF3LpDZQhduBbIMXeW8thJNSDDTEKVXHkhM3yNMQzBjqT vYm mTJDnEJTVcMbOkUuZtU2sqaje4iPI8MWFcYtesDI7UpUa9NZTtK1LqDCFsKAAfv9VhCu4+LcV0fkHzhN n8jG6SW6XLZLtO39ivId2fAFIngVuoqEDk0fSLeygSu3VlcfyDMATlVCDUBKmKBTBDJ98KETUDNdEFCW twqs8tl2TtWh5wDsbF04/ZrfmxtVVb+2f7/Adot3KK rNHhx0m2fzxFbLeabaEUTAwHcMZK7xl21sYJhyFEcXpKX4rDFFnLYa7QVvH41dNYshUrSD+C29ATWkpw 6wjWc8+Manoj+3Uegc0H8/Haiecvf6/2ddBhYAenEoZcHtEaYKigVl19hVPvAEupEFdw9VMCYLXu8eKu8 [file] m1MAry4pEw7ebQf5+ELECTROTYPE FINISHER/Eb14oyVBDUvELoiFE8635Sfd/z/dC+8lep7s5mDPlmQnPwmwm6BFotgaRVyY [file] XSA+PgplbmRvYmoKeHJlZgowIDMwCjAwMDAwMDAwMD NkHmM8XfIdXyKHDFGtREDlSEA9IZHbZTQgSJFpZPzoCELzIYIkGrn8APRpPLGqET7fEoNoUJFsTyOuTS isSQSfFVXjaaTOLRWgMSGvELXrLSZlOHVdSQBhDVisNXFeOSPjRFL8OKPaFDAjEQ4tTqBmXEWdLUY2GO IgMDAwMDAgbiAKMDAwMDAwMjcyMiAwMDAwMCBuIAow LLAcNQSjLeS8EDWeSZOcOO0mGfVmIMDzPTY9REjzWTRlCOObzpCYDFBvCDPiJfSpEzDnQVPhPTVaWAse DTIpELSaYZqxVEJaAZUeWC9iOyJcDSDgKTD3SpcfEPPiLLIzreBWCUOaPXGjJqu1LQYmIYVqOYZqPGrw NFIoMSExKJw1LGHbKISdYP4qBsBtWVPnCkVzAYiyMV KrBJGserRGEKXbZPIoIOF4QVSwNZPrULVbPCqkNEYgAGImTCz9XEQkSJOwZY1oFtVpHXDeYlTqVSTtAB IuUUDowrSKGDUyDKMlSeCeQHHmLVLyXFEsTIowYPWcCXW4EeJ5IWYpMGEcBZ1jPfRkYVQlCbe3KIJrSM AwMDAgbiAKMDAwMDAyNTQzOCAwMDAwMCBuIAowMDAw DYK8FNm5HUWzULGqKK9dMkKeRMIwEiT2EmkhSSTzJZUtufFKHUWcVNIpXTO5PEDaPPYdMJFgMHouCAIq QQMiJkO0RYIaGSXxII3jMwYzXOPfBpB5HvflGTIxLFMjfdIRWELcKYNhIBc9GqIjQLJeDYKoKAnbLDVw YHXkADb1DUNjPJBgGF4tBeGsVNpxINDKDIsRDBGfJq 1qwTGnEXLsWnjtSN1CmvLnBZCyXMDNPfAlO9aVTGh2WDQ8JAO0BHABRfhPDdHRVXUfVtHFIHNjWHDbEQ ZBODg+MJu1CUg5Xjc0YuHsZGGDFWO9AGFaLsSGKyH5DHCSCmI7TQ2qJoPnJ4YvppYuMkKZJh9Ly1Lhum T7gqQpDhXbGoZ7QzGhUX9DTt== ID Date Data Source [id number] 04/30/2020 07:32:00 AM [facility] Name Value Range Interpretation Code Description Data Heena rce(s) Supporting Document(s) Glucose [Moles/volume] in Capillary blood by Glucometer 100 mg/dL 70 - 100 [facility] RESULTS < 40 mg/dL OR > 500 mg /dL WILL REQUIRE CONFIRMATION BY LAB ID Date Data Source [id number] 04/29/2020 07:37:00 AM [facility] Name Value Range Interpretation Code Description Data Heena rce(s) Supporting Document(s) Glucose [Moles/volume] in Capillary blood by Glucometer 107 mg/d L 70 - 100 Above high normal [facility] RESULTS < 40 mg/dL OR > 500 mg /dL WILL REQUIRE CONFIRMATION BY LAB ID Date Data Source [id number] 04/28/2020 07:46:00 AM [facility] Name Value Range Interpretation Code Description Data Heena rce(s) Supporting Document(s) Glucose [Moles/volume] in Capillary blood by Glucometer 83 mg/dL 70 - 100 [facility] RESULTS < 40 mg/dL OR > 500 mg /dL WILL REQUIRE CONFIRMATION BY LAB ID Date Data Source [id number] 04/27/2020 07:22:00 AM [facility] Name Value Range Interpretation Code Description Data Heena rce(s) Supporting Document(s) Glucose [Moles/volume] in Capillary blood by Glucometer 104 mg/d L 70 - 100 Above high normal [facility] RESULTS < 40 mg/dL OR > 500 mg /dL WILL REQUIRE CONFIRMATION BY LAB ID Date Data Source [id number] 04/26/2020 09:01:00 PM [facility] Name Value Range Interpretation Code Description Data Heena rce(s) Supporting Document(s) Glucose [Moles/volume] in Capillary blood by Glucometer 118 mg/d L 70 - 100 Above high normal [facility] RESULTS < 40 mg/dL OR > 500 mg /dL WILL REQUIRE CONFIRMATION BY LAB ID Date Data Source [id number] 04/26/2020 04:25:00 PM EST [facility] Name Value Range Interpretation Code Description Data Heena rce(s) Supporting Document(s) Glucose [Moles/volume] in Capillary blood by Glucometer 130 mg/d L 70 - 100 Above high normal [facility] RESULTS < 40 mg/dL OR > 500 mg /dL WILL REQUIRE CONFIRMATION BY LAB ID Date Data Source [id number] 04/26/2020 11:41:00 AM [facility] Name Value Range Interpretation Code Description Data Heena rce(s) Supporting Document(s) Glucose [Moles/volume] in Capillary blood by Glucometer 105 mg/d L 70 - 100 Above high normal [facility] RESULTS < 40 mg/dL OR > 500 mg /dL WILL REQUIRE CONFIRMATION BY LAB ID Date Data Source [id number] 04/26/2020 07:35:00 AM [facility] Name Value Range Interpretation Code Description Data Heena rce(s) Supporting Document(s) Glucose [Moles/volume] in Capillary blood by Glucometer 83 mg/dL 70 - 100 [facility] RESULTS < 40 mg/dL OR > 500 mg /dL WILL REQUIRE CONFIRMATION BY LAB ID Date Data Source [id number] 04/26/2020 07:10:00 AM EST [facility] Name Value Range Interpretation Code Description Data Heena rce(s) Supporting Document(s) COMPREHENSIVE CHEM PROFILE [facility] COMPREHENSIVE METABOLIC PANEL Sodium [Moles/volume] in Serum or Plasma 139 mEq/L 136 - 145 [facility] Potassium [Moles/volume] in Serum or Plasma 3.8 mEq/L 3.5 - 5.1 [facility] Chloride [Moles/volume] in Serum or Plasma 104 mEq/L 98 - 107 [facility] Carbon dioxide, total [Moles/volume] in Serum or Plasma 26.1 mEq /L 21.0 - 32.0 [facility] Glucose [Mass/volume] in Serum or Plasma 96 mg/dL 70 - 100 [facility] Urea nitrogen [Mass/volume] in Serum or Plasma 33 mg/dL 7 - 18 Above high normal [facility] CREATININE SERUM 1.84 mg/dL 0.70 - 1.30 Above high normal [facility] AGE 80 yrs [facility] HEIGHT 7070.00 [facility] eGFR NON-AFR AMR 36 [facility] eGFR AFR AMR 43 [facility] ital BUN/CREAT 18 6 - 25 [facility] Protein [Mass/volume] in Serum or Plasma 5.7 g/dL 6.0 - 8.3 Below low normal [facility] Albumin [Mass/volume] in Serum or Plasma 1.8 g/dL 3.8 - 5.4 Below low normal [facility] GLOBULIN 3.9 g/dL 2.0 - 4.0 [facility] A/G RATIO 0.5 0.8 - 2.0 Below low normal [facility] Calcium [Mass/volume] in Serum or Plasma 8.6 mg/dL 8.8 - 10.2 Below low normal [facility] Bilirubin.total [Mass/volume] in Serum or Plasma 1.0 mg/dL 0.2 - 1.0 [facility] Bilirubin.direct [Mass/volume] in Serum or Plasma 0.3 mg/dL 0.0 - 0.2 Above high normal [facility] INDIRECT BILI 0.7 mg/dL 0.0 - 1.1 [facility] pital ALK PHOSPHATASE 81 U/L 40 - 129 [facility] ospital Aspartate aminotransferase [Enzymatic ac tivity/volume] in Serum or Plasma by With P-5'-P 148 IU/L 7 - 37 Above high normal [facility] ital Alanine aminotransferase [Enzymatic acti vity/volume] in Serum or Plasma by With P-5'-P 152 IU/L 12 - 78 [facility] ANION GAP 9 7 - 15 [facility] l Estimated GFR referenc e range: >60ml/min/1.73m >18 years: Calculated using IDMS traceable Study Equation <18 years: Calculated using IDMS tracable Bedside Schartz Equation ID Date Data Source [id number] 04/26/2020 07:10:00 AM EST [facility] Name Value Range Interpretation Code Description Data Heena rce(s) Supporting Document(s) CBC [facility] l COMPLETE BLOOD COUNT Leukocytes [#/volume] in Blood by Automated count 6.7 K/uL 4.0 - 10 .0 [facility] Erythrocytes [#/volume] in Blood by Automated count 4.25 M/uL 4.30 - 6.10 Below low normal [facility] Hemoglobin [Mass/volume] in Blood 13.1 g/dL 13.5 - 17.5 Below low no rmal [facility] Hematocrit [Volume Fraction] of Blood by Automated count 40.0 % 3 9.0 - 50.0 [facility] Erythrocyte mean corpuscular volume [Entitic volume] by Auto mated count 94.1 fL 80.0 - 96.0 [facility] Erythrocyte mean corpuscular hemoglobin [Entitic mass] by Automated count 30.8 pg 26.0 - 34.0 [facility] Erythrocyte mean corpuscular hemoglobin concentration [Mass/volume] by Automated count 32.8 g/dL 32.0 - 36.0 [facility] Erythrocyte distribution width [Ratio] by Automated count 15.6 % 11.6 - 14.8 Above high normal [facility] Platelets [#/volume] in Blood by Automated count 125 K/uL 150 - 450 Below low normal [facility] Platelet mean volume [Entitic volume] in Blood by Automated count 9.8 fL 7.1 - 10.4 [facility] Neutrophils [#/volume] in Blood by Automated count 4.58 K/uL 1.70 - 7.70 [facility] Lymphocytes [#/volume] in Blood by Automated count 1.10 K/uL 1.50 - 6.00 Below low normal [facility] Monocytes [#/volume] in Blood by Automated count 0.51 K/uL 0.00 - 1. 00 [facility] Eosinophils [#/volume] in Blood by Automated count 0.39 K/uL 0.00 - 0.30 Above high normal [facility] Basophils [#/volume] in Blood by Automated count 0.05 K/uL 0.00 - 0. 10 [facility] 0.02 Urinalysis macro (dipstick) panel - Urine 0.000 10^3/uL 0.000 - 0.012 [facility] Neutrophils/100 leukocytes in Blood by Automated count 68.8 % 42. 2 - 75.2 [facility] Lymphocytes/100 leukocytes in Blood by Automated count 16.5 % 15. 0 - 41.0 [facility] Monocytes/100 leukocytes in Blood by Automated count 7.7 % 0.0 - 12.0 [facility] Eosinophils/100 leukocytes in Blood by Automated count 5.9 % 0.0 - 7.0 [facility] 0.80.30 NRBC 0.0 % [facility] MANUAL DIFF NOT INDICATED [facility] RBC MORPH NOT INDICATED [facility] ID Date Data Source [id number] 04/25/2020 09:03:00 PM EST [facility] Name Value Range Interpretation Code Description Data Heena rce(s) Supporting Document(s) Glucose [Moles/volume] in Capillary blood by Glucometer 149 mg/d L 70 - 100 Above high normal [facility] RESULTS < 40 mg/dL OR > 500 mg /dL WILL REQUIRE CONFIRMATION BY LAB ID Date Data Source [id number] 04/25/2020 07:19:21 PM EST [facility] Name Value Range Interpretation Code Description Data Heena rce(s) Supporting Document(s) Admission Note [facility] DTSHBv6gRgBVPwjebJ4DTOFaXD8neyg6CKloH6CaFXYeivYgPYTgC7njDYCVTOHDTIQfpF3gNRWdCsiC vYm pFRKjVDZKlRvVtLeEdL6fganq9cZV3UMUiQetcLB0ZgBw1JDWoH9TvTXOdPZPfj0GmIt4+NwQ5woFkvX q8fR8YE2HHYMlM62mmBj2pZCKzyZdypVCn9hDQpuvZl5DiiopSSAGlQBDGAFrXYQDNQ38EFQJLXnKNBY veem3iv7MjHw2oWuqL26/ZrfmxtVVb+2f7/Mcbw7TU qBRrg7i5xlcQjWmkpxJQOYrNnOBJ2wn63rTLiqNOmKzZX2uQCRsZHb6IIxP58yZXhuQlXR+S12AJSbze 6wjWc8+Manoj+4Byax2A7/Haiecvf6/2vbWpVUhqEnZiYmInJJpwGc38kWZbQIzhKKnf2NHVLAZx3bUt7 [file] s1INch7mFk5uyXw0+ELECTROTYPE FINISHER/Ej03whLANBlLFfdRD9305Qwi/z/dC+2kfy5u5oGXfxCkZmimh1DUpqwjLQwG [file] LcJvJ7ChtyEvXjxBBo7Ur8NvrbK6wwTtNdJ3AqwhXwJtYD3LUa== ID Date Data Source [id number] 04/23/2020 11:51:00 AM EST [facility] Name Value Range Interpretation Code Description Data Heena rce(s) Supporting Document(s) SARS coronavirus 2 RNA [Presence] in Res piratory specimen by LUIS FERNANDO with probe detection NEGATIVE [facility] This lab was ordered by [facility] a nd reported by [facility]. ID Date Data Source [id number] 04/06/2020 01:30:00 PM EST [facility] Name Value Range Interpretation Code Description Data Heena rce(s) Supporting Document(s) SARS coronavirus 2 RNA [Presence] in Res piratory specimen by LUIS FERNANDO with probe detection POSITIVE [facility] This lab was ordered by [facility] a nd reported by [facility]. ID Date Data Source [id number] 01/24/2020 10:40:00 AM EST [facility] INFORMATIONPatient MRN Name Date of Age Gend*PT [id number] Ana Nicole 1940 79 years M ---PT Location Admission Date/Time Visit ID Attending Provider --- --- --- --- EPI ID CSN Admitting Provider [id number] ---[facility] [id number] [facility], [address] (First Floor)[place], [place] [address]Fc.: Fax: Vatient: Ana Nicole : 2Date: 01/24/20CARDIOLOGY ELECTROPHYSIOLOGY TELEMEDICINE CONSULTPatient was identified by name and date of .Verbal consent was obtained from the patient for this telemedicine visit.Patient is aware of the risks, limitations, and benefits of a telemedicinevisit.This telemedicine assessment was conducted remotely with the assistance ofClick Contactic communication technology. Telephone Only Codes 45123: 21-30 minutesof medical discussion: Telephone Only .Subjective:I [...] Date Biventricular ICD (implantable cardioverter-defibrillator) in place 2005 epicardial lead placed 2006 an [facility]. 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 Patent MARC to mLAD. LV EF 25%. CKD (chronic kidney disease) CVA (cerebral vascular accident) 1997 DM (diabetes mellitus) EGD 05/2015 [facility], reported negative HLD (hyperlipidemia) HTN (hypertension) GA (myocardial infarction) 1976 medical management Morbid obesity KENJI on CPAP PFTs 11/21/2015 78% FVC, 80% FEV1, 96% DLCO. Regadenoson PET 06/01/2016 EF 28%, extensive infarct without ischemia Ventricular tachycardia On amiodarone since 07/2012FAMILY HISTORY: family history includes Myocardial Infarction (GA) in hisfather.SOCIAL HISTORY: reports that he quit [...] 45 tablet, Rfl: 3ALLERGIES: is allergic to magen inhibitor s.Objective:PHYSICAL EXAMINATION: Deferred due to Telemedicine [...] benefitsFollow Up generator replacementSignature: Chris Carrington MD, [facility], RSCardiac Electrophysiology and Arrhythmia ServiceDate: January 24, 2020Time: 10:35 AMThis document or parts of this document, were dictated using Netskopeware. A reasonable attempt at proofreading has been made to minimize errors.Please call with any questions or corrections. Name Value Range Interpretation Code Description Data Heena rce(s) Supporting Document(s) Procedure Social History Code Duration Value Status Description Data Source(s ) Smoking 02/15/2021 12:00:00 AM EST Patient is a former smoker completed Patient is a former smoker MEDENT ([facility], [facility]) Smoking 11/28/2020 12:00:00 AM EDT Former Smoker completed Former Smoker eCW1 ([facility]) Smoking 08/16/2020 12:00:00 AM EDT Former Smoker completed Former Smoker eCW1 ([facility]) Alcohol intake 05/20/2020 12:00:00 AM EST Ex-drinker (finding) comp leted Ex- drinker (finding) [facility] Smoking 05/20/2020 12:00:00 AM EST Former smoker completed Former smoker [facility] Alcohol intake 05/17/2020 12:00:00 AM EST Not Currently completed [facility] Smoking 05/17/2020 12:00:00 AM EST Former smoker completed Former smoker [facility] Smoking 02/02/2020 12:00:00 AM EST Former Smoker completed Former Smoker eCW1 ([facility]) Smoking 02/02/2020 12:00:00 AM EST Former Smoker completed Former Smoker eCW1 ([facility]) Alcohol intake 01/23/2020 12:00:00 AM EST Not Currently completed [facility] Smoking 01/23/2020 12:00:00 AM EST Former smoker completed Former smoker [facility] Vital Signs ID Date Data Source UNK Name Value Range Interpretation Code Description Data Source(s) Systolic blood pressure 120 mm[Hg] 120 mm[Hg] M EDENT ([facility], [facility]) Diastolic blood pressure 70 mm[Hg] 70 mm[Hg] [facility] Heart rate 70 /min 70 /min [facility] ([facility], [facility]) Respiratory rate 16 /min 16 /min [facility] ( [facility]) Oxygen saturation in Arterial blood by Pulse oximetry 90 % 90 % [facility] ([facility]) Body temperature 99.3 [degF] 99.3 [degF] [facility] ([facility]) Body weight 294.00 [lb_av] 294.00 [lb_av] MEDEN T ([facility], [facility]) Body height 68 [in_i] 68 [in_i] [facility] ([facility]) 5'8" Body mass index (BMI) [Ratio] 44.7 kg/m2 44.7 k g/m2 [facility] ([facility]) Systolic blood pressure 100 mm[Hg] 100 mm[Hg] [facility] Diastolic blood pressure 60 mm[Hg] 60 mm[Hg] [facility] Heart rate 64 /min 64 /min [facility] Respiratory rate 16 /min 16 /min [facility] Body height 177.8 cm 177.8 cm [facility] Body weight 136.079 kg 136.079 kg [facility] Body mass index (BMI) [Ratio] 43.05 kg/m2 43.05 kg/m2 [facility] Body height 177.8 cm 177.8 cm [facility] Diastolic blood pressure 60 mm[Hg] 60 mm[Hg] [facility] Respiratory rate 16 /min 16 /min [facility] Systolic blood pressure 104 mm[Hg] 104 mm[Hg] [facility] Body mass index (BMI) [Ratio] 43.48 kg/m2 43.48 kg/m2 [facility] Heart rate 64 /min 64 /min [facility] Body weight 137.44 kg 137.44 kg [facility] Body weight 295 [lb_av] 295 [lb_av] eCW1 ([facility]) Body weight 133.81 kg 133.81 kg [facility] ([facility]) Body height 69 [in_i] 69 [in_i] W1 ([facility]) Body mass index (BMI) [Ratio] 43.56 kg/m2 43.56 kg/m2 W1 ([facility]) Heart rate 70 /min 70 /min eCW1 ([facility]) Respiratory rate 18 /min 18 /min eCW1 ([facility] Body temperature 97.4 [degF] 97.4 [degF] eCW1 ( [facility]) Systolic blood pressure 124 mm[Hg] 124 mm[Hg] e CW1 ([facility]) Diastolic blood pressure 64 mm[Hg] 64 mm[Hg] eCW1 ([facility]) Systolic blood pressure 124 mm[Hg] 124 mm[Hg] [facility] Diastolic blood pressure 72 mm[Hg] 72 mm[Hg] [facility] Heart rate 68 /min 68 /min [facility] Respiratory rate 16 /min 16 /min [facility] Body height 177.8 cm 177.8 cm [facility] Body weight 137.44 kg 137.44 kg [facility] Body mass index (BMI) [Ratio] 43.48 kg/m2 43.48 kg/m2 [facility] Body height 69 [in_i] 69 [in_i] eCW1 ([facility]) Body weight 295 [lb_av] 295 [lb_av] eCW1 ([facility]) Body mass index (BMI) [Ratio] 43.56 kg/m2 43.56 kg/m2 W1 ([facility]) Heart rate 74 /min 74 /min eCW1 ([facility]) Respiratory rate 20 /min 20 /min eCW1 ([facility]) Body temperature 98.0 [degF] 98.0 [degF] eCW1 ( [facility]) Systolic blood pressure 130 mm[Hg] 130 mm[Hg] e CW1 ([facility]) Diastolic blood pressure 62 mm[Hg] 62 mm[Hg] eCW1 ([facility]) Heart rate 70 /min 70 /min [facility] Respiratory rate 16 /min 16 /min [facility] Body height 177.8 cm 177.8 cm [facility] Body weight 135.626 kg 135.626 kg [facility] Body mass index (BMI) [Ratio] 42.90 kg/m2 42.90 kg/m2 [facility] Systolic blood pressure 110 mm[Hg] 110 mm[Hg] [facility] Diastolic blood pressure 64 mm[Hg] 64 mm[Hg] [facility] Systolic blood pressure 108 mm[Hg] 108 mm[Hg] [facility] Diastolic blood pressure 50 mm[Hg] 50 mm[Hg] [facility] Heart rate 70 /min 70 /min [facility] Body height 177.8 cm 177.8 cm [facility] Body weight 140.161 kg 140.161 kg [facility] Body mass index (BMI) [Ratio] 44.34 kg/m2 44.34 kg/m2 [facility] Oxygen saturation in Arterial blood by Pulse oximetry 97 % 97 % [facility] Body temperature 36.06 Oly 36.06 Oly [facility] Systolic blood pressure 96 mm[Hg] 96 mm[Hg] [facility] Diastolic blood pressure 50 mm[Hg] 50 mm[Hg] [facility] Oxygen saturation in Arterial blood by Pulse oximetry 92 % 92 % [facility] Heart rate 70 /min 70 /min [facility] Respiratory rate 18 /min 18 /min [facility] Body height 175.3 cm 175.3 cm [facility] Body weight 129.729 kg 129.729 kg [facility] Body mass index (BMI) [Ratio] 42.23 kg/m2 42.23 kg/m2 [facility] Patient Treatment Plan of Care Planned Activity Planned Date Details Description Data Source (s) clopidogrel 75 MG Oral Tablet 11/27/2020 12:00:00 AM EDT [facility] Rosuvastatin calcium 40 MG Oral Tablet 11/27/2020 12:00:00 AM EDT [facility] Amiodarone hydrochloride 200 MG Oral Tablet 11/27/2020 12:00:00 AM EDT [facility] torsemide 20 MG Oral Tablet 09/02/2020 12:00:00 AM EDT [facility] Rosuvastatin calcium 40 MG Oral Tablet 09/02/2020 12:00:00 AM EDT [facility] Amiodarone hydrochloride 200 MG Oral Tablet 09/02/2020 12:00:00 AM EDT [facility] Spironolactone 25 MG Oral Tablet 08/22/2020 12:00:00 AM EDT [facility] torsemide 20 MG Oral Tablet 06/14/2020 12:00:00 AM EDT [facility] clopidogrel 75 MG Oral Tablet 06/07/2020 12:00:00 AM EDT [facility] Amiodarone hydrochloride 200 MG Oral Tablet 03/21/2020 12:00:00 AM EST [facility] Furosemide 40 MG Oral Tablet 03/21/2020 12:00:00 AM EST [facility] Rosuvastatin calcium 40 MG Oral Tablet 03/21/2020 12:00:00 AM EST [facility] Betamethasone 0.5 MG/ML Topical Cream 02/02/2020 12:00:00 AM EST eCW1 ([facility]) Betamethasone 0.5 MG/ML Topical Cream 02/02/2020 12:00:00 AM EST eCW1 ([facility]) Metoprolol Tartrate 25 MG Oral Tablet 11/16/2019 12:00:00 AM EDT [facility] 24 HR Oxybutynin chloride 10 MG Extended Release Oral Tablet 08/16/2019 12:00:00 AM EDT [facility] Spironolactone 25 MG Oral Tablet 06/20/2019 12:00:00 AM EDT [facility] atorvastatin 20 MG Oral Tablet [facility] Bumetanide 1 MG Oral Tablet [facility] Magnesium Chloride 535 MG Delayed Release Oral Tablet [facility] tramadol hydrochloride 50 MG Oral Tablet [facility]
--- OUTSIDE RECORDS SUMMARY | 2021-02-15 13:17 | CCD ---
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 Name Role Phone Feliciano FOX JR PA-C Unavailable Unavailable DOMINIQUE WINN J CORINNE PA-C Unavailable Unavailable PICKERAL , [...] PA-C Unavailable Unavailable Radha Giordano Unavailable Unavailable Giordano, [...] Giordano, L Zita PA Unavailable Unavailable DR MD KELTON OCAMPO Unavailable Unavailable MD ARIAN ENNIS Unavailable Unavailable Eli, N Arian INSURANCE CLAIMS REPRESENTATIVE Unavailable Unavailable Sparks, N Arian INSURANCE CLAIMS REPRESENTATIVE Unavailable Unavailable Eli, N Arian INSURANCE CLAIMS REPRESENTATIVE Unavailable Unavailable Eli, N Arian INSURANCE CLAIMS REPRESENTATIVE Unavailable Unavailable Eli, N Arian INSURANCE CLAIMS REPRESENTATIVE Unavailable Unavailable Sparks, N Arian INSURANCE CLAIMS REPRESENTATIVE Unavailable Unavailable Eli, N Arian INSURANCE CLAIMS REPRESENTATIVE Unavailable Unavailable Eli, N Arian INSURANCE CLAIMS REPRESENTATIVE Unavailable Unavailable Sparks, N Arian INSURANCE CLAIMS REPRESENTATIVE Unavailable Unavailable Sparks, N Arian INSURANCE CLAIMS REPRESENTATIVE Unavailable Unavailable Sparks, N Arian INSURANCE CLAIMS REPRESENTATIVE Unavailable Unavailable Sparks, N Arian INSURANCE CLAIMS REPRESENTATIVE Unavailable Unavailable Eli, N Arian INSURANCE CLAIMS REPRESENTATIVE Unavailable Unavailable Sparks, N Arian INSURANCE CLAIMS REPRESENTATIVE Unavailable Unavailable Eli, N Arian INSURANCE CLAIMS REPRESENTATIVE Unavailable Unavailable Sparks, N Arian INSURANCE CLAIMS REPRESENTATIVE Unavailable Unavailable Sparks, N Arian INSURANCE CLAIMS REPRESENTATIVE Unavailable Unavailable Eli, N Arian INSURANCE CLAIMS REPRESENTATIVE Unavailable Unavailable Sparks, N Arian INSURANCE CLAIMS REPRESENTATIVE Unavailable Unavailable Sparks, N Arian INSURANCE CLAIMS REPRESENTATIVE Unavailable Unavailable Sparks, N Arian INSURANCE CLAIMS REPRESENTATIVE Unavailable Unavailable Sparks, N Arian INSURANCE CLAIMS REPRESENTATIVE Unavailable Unavailable Sparks, N Arian INSURANCE CLAIMS REPRESENTATIVE Unavailable Unavailable Eli, N Arian INSURANCE CLAIMS REPRESENTATIVE Unavailable Unavailable Sparks, N Arian INSURANCE CLAIMS REPRESENTATIVE Unavailable Unavailable Eli, N Arian INSURANCE CLAIMS REPRESENTATIVE Unavailable Unavailable Eli, N Arian INSURANCE CLAIMS REPRESENTATIVE Unavailable Unavailable Eli, N Arian INSURANCE CLAIMS REPRESENTATIVE Unavailable Unavailable Sparks, N Arian INSURANCE CLAIMS REPRESENTATIVE Unavailable Unavailable Sparks, N Arian INSURANCE CLAIMS REPRESENTATIVE Unavailable Unavailable Sparks, N Arian INSURANCE CLAIMS REPRESENTATIVE Unavailable Unavailable Sparks, N Arian INSURANCE CLAIMS REPRESENTATIVE Unavailable Unavailable Sparks, N Arian INSURANCE CLAIMS REPRESENTATIVE Unavailable Unavailable Al Kari, A Chris GARNETT [...] is protected by Article 27-F of the [facility] Public Health law. If you continue you may have access to information: Regarding HIV / AIDS; Provided by facilities licensed or operated by the [facility] Office of Mental Health; or Provided by the [facility] Office for People With Developmental Disabilities. If such information is present, then the following [facility] mandated warning applies: This information has been [...] Known Drug Allergies No Known Drug Allergies [facility] Family History Family Member Name Family Member Gender Family Member Status Date o f Status Description Data Source(s) Unknown Male Encounters Encounter Providers Location Date Indications Data Source(s ) Outpatient Attender: CORINNE Osullivan Garcia Rachel laboy 02/15/2021 10:00:00 AM EST [facility] Outpatient Attender: Arian GONZALEZ.ELSA-SJP.ELSA 021 12:00:00 AM EST - 01/28/2021 10:53:58 AM EST [facility] Outpatient Attender: Arian POSTELSA-SJP.ELSA 12/16/2020 12 :00:00 AM EDT [facility] Outpatient SJPJennyCT-SJP.SYR 12/12/2020 02:40:23 PM EDT [facility] [place] [address] [address] 11/28/2020 12:00:00 AM EDT eCW1 ([facility]) Outpatient Attender: Arian POSTELSA-SJP.ELSA 021 12:00:00 AM EDT - 10/29/2020 01:59:44 PM EDT [facility] Outpatient SJP.ELSA-SJP 09/07/2020 11:46:58 AM EDT [facility] Outpatient SJP.ELSA-SJP.ELSA 09/05/2020 12:00:00 AM EDT [facility] [place] [address] [address] 08/16/2020 12:00:00 AM EDT eCW1 ([facility]) Outpatient ESTHERPJennyCT-SJP.SYR 08/09/2020 02:11:02 PM EDT [facility] Unknown [address] [address] 06/27/2020 12:00:00 AM EDT eCW1 ([facility]) Outpatient Attender: Arian Benitez NP SJP.ELSA-SJP.ELSA 021 02:39:45 PM EDT - 06/25/2020 03:30:28 PM EDT [facility] Outpatient SJP.ELSA-SJP 06/17/2020 10:30:45 AM EDT [facility] Outpatient Attender: Zita RUSSELL SJP.ELSA-SJP.ELSA 04/2020 12:00:00 AM EDT - 06/14/2020 04:33:08 PM EDT [facility] Outpatient SJP.ELSA-SJP.ELSA 06/13/2020 10:50:49 AM EDT [facility] Outpatient SJP.ELSA-SJP.ELSA 05/31/2020 12:00:00 AM EDT [facility] 05/23/2020 12:00:00 AM EST - 08:36:36 AM EST NETSMART ([facility]) Outpatient Attender: Chris Tinsley MD Admitter: Chris Tinsley MDReferrer: Chris Tinsley MD ES1-SJ.CVAU 05/17/2020 11:34:00 AM EST - 05/17/2020 02:17:00 PM EST [facility] Patient discharged. Outpatient [id number] 05/14/2020 02:13:29 PM EST [facility] Inpatient Attender: DR ENDER Young er: DR HANDLEY TRANReferrer: DR HANDLEY TRANConsultant: ARIAN ENNIS [phone] 04/25/2020 05:29:00 PM EST - 05/21/2020 10:00:00 AM EST SWING BED [facility] SWING BED Patient discharged. Outpatient Attender: Chris Tinsley MDAdmitter: Chris Lee MD ES1-SJ.CVAU 03/27/2020 09:31:31 AM EST [facility] Outpatient [id number] 03/26/2020 10:44:38 AM EST [facility] [place] [address] [address] 02/02/2020 12:00:00 AM EST eCW1 ([facility]) [facility] [address] [address] 01/31/2020 12:00:00 AM EST eCW1 ([facility]) Outpatient Attender: Chris Tinsley MDReferrer: Arian dukes NP BF-BF.CVS 01/24/2020 07:13:08 AM EST [facility] Outpatient SJP.CT-SJP.SYR 01/05/2020 09:46:15 AM EDT [facility] Outpatient Attender: Arian POSTELSA-SJP.ELSA 020 12:00:00 AM EDT - 01/02/2020 03:34:02 PM EDT [facility] Immunizations Vaccine Date Status Description Data Source(s) COVID-19 VACCINE Moderna 02/07/2021 12:00:00 AM EST completed [facility] Vaccine Series Complete: YESThis Data wa s Submitted to [facility] Via [employer]. COVID-19 VACCINE Alverto 05/20/2020 12:00:00 AM EST completed [facility] Vaccine Series Complete: YESThis Data wa s Submitted to [facility] [employer]. Medications Medication Brand Name Start Date Product Form Dose Route Admi nistrative Instructions Pharmacy Instructions Status Indications Reaction Description Data Source(s) Spironolactone 25 MG Oral Tablet Spironolactone 02/15/2021 12:00:00 A M EST active MEDENT ([facility], [facility]) clopidogrel 75 MG Oral Tablet [Plavix] Plavix 02/15/2021 12:00:00 A M EST active MEDENT ([facility], [facility]) Rosuvastatin calcium 40 MG Oral Tablet rosuvastatin (C RESTOR) 40 MG tablet rosuvastatin (CRESTOR) 40 MG tablet 11/27/2020 12:00:00 AM EDT 40 mg Oral active Take 1 tablet (40 mg total) by m outh daily [facility] Amiodarone hydrochloride 200 MG Oral Tablet amiodarone (PACERONE) 200 MG tablet amiodarone (PACERONE) 200 MG tablet 11/27/2020 12:00:00 AM EDT 200 mg Oral active Take 1 tablet (200 mg total) by mouth daily [facility] clopidogrel 75 MG Oral Tablet clopidogrel (Plavix) 75 MG tablet clopidogrel (Plavix) 75 MG tablet 11/27/2020 12:00:00 AM EDT 75 mg Oral active Cardiomyopathy, ischemic Take 1 tablet (75 mg total) by mout h daily [facility] Cardiomyopathy, ischemic torsemide 20 MG Oral Tablet torsemide (DEMADEX) 20 MG tablet torsemide (DEMADEX) 20 MG tablet 09/02/2020 12:00:00 AM EDT 20 mg Oral active Cardiomyopathy, ischemic Take 1 tablet (20 mg total) by mouth batool ly [facility] Cardiomyopathy, ischemic Amiodarone hydrochloride 200 MG Oral Tablet amiodarone (PACERONE) 200 MG tablet amiodarone (PACERONE) 200 MG tablet 09/02/2020 12:00:00 AM EDT 200 mg Oral active Take 1 tablet (200 mg total) by mouth daily [facility] Rosuvastatin calcium 40 MG Oral Tablet rosuvastatin (C RESTOR) 40 MG tablet rosuvastatin (CRESTOR) 40 MG tablet 09/02/2020 12:00:00 AM EDT 40 mg Oral active Take 1 tablet (40 mg total) by m outh daily [facility] Spironolactone 25 MG Oral Tablet spironolactone (ALDAC TONE) 25 MG tablet spironolactone (ALDACTONE) 25 MG tablet 08/22/2020 12:00:00 AM EDT active TAKE 1/2 TABLET BY MOUTH ONCE A DAY [facility] torsemide 20 MG Oral Tablet torsemide (DEMADEX) 20 MG tablet torsemide (DEMADEX) 20 MG tablet 06/14/2020 12:00:00 AM EDT 20 mg Oral active Cardiomyopathy, ischemic Take 1 tablet (20 mg total) by mouth batool ly [facility] Cardiomyopathy, ischemic clopidogrel 75 MG Oral Tablet clopidogrel (PLAVIX) 75 MG tablet clopidogrel (PLAVIX) 75 MG tablet 06/07/2020 12:00:00 AM EDT 75 mg Oral active Cardiomyopathy, ischemic Take 1 tablet (75 mg total) by mout h daily [facility] Cardiomyopathy, ischemic normal saline flush 0.9 % injection 3 mL 27443-825-59 05/17/2020 02:00:00 PM EST 3 mL Intravenous active 3 mL , Intravenous, Every 8 hours (scheduled), First dose on Wed05/17/20 at 1400, Pre-op
Rapid push positive pressure flushing shall be performed with a 10 cc normal saline syringe to check the PATENCY of a PIV site prior to any infusion therapy initiation unless resistance is met.
[facility] Medication administered onsite Magnesium Chloride 0.43164 MEQ/ML / Pota ssium Chloride 0.0497 MEQ/ML / Sodium Acetate 0.0163 MEQ/ML / Sodium Chloride 0.0899 MEQ/ML / Sodium gluconate 5.02 MG/ML Injectable Solution [Normosol-R] electrolyte-R (NORMOSOL-R/PLASMALYTE-R) solution electrolyte-R (NORMOSOL-R/PLASMALYTE-R) solution 05/17 01:00:00 PM EST Intravenous active at 3 0 mL/hr, Intravenous, Continuous, Starting Wed05/17/20 at 1300, Pre-op [facility] Medication administered onsite Epinephrine 0.01 MG/ML / Lidocaine [place] chloride 10 MG/ML Injectable Solution lidocaine-EPINEPHrine (XYLOCAINE W/EPI) 1 %-1:369035 injection lidocaine- EPINEPHrine (XYLOCAINE W/EPI) 1 %-1:140172 injection 05/17/2020 12:50:31 PM EST active As needed, Start ing Wed05/17/20 at 1250, Intra-Procedure [facility] Medication administered onsite 2 ML Midazolam 1 MG/ML Injection midazolam (VERSED) in jection midazolam (VERSED) injection 05/17/2020 12:45:53 PM EST active As needed, Starting Wed05/17/20 at 1245, Intra-Procedure [facility] Medication administered onsite fentaNYL Citrate (PF) (SUBLIMAZE) injection 6449-7945-29 05/17/2020 12:45:48 PM EST active As neede d, Starting Wed05/17/20 at 1245, Intra-Procedure [facility] Medication administered onsite Cefazolin 1000 MG Injection ceFAZolin (ANCEF) injectio n ceFAZolin (ANCEF) injection 05/17/2020 12:45:35 PM EST active As needed, Starting 05/17/20 at 1245, Intra-Procedure [facility] Medication administered onsite Furosemide 40 MG Oral Tablet furosemide (LASIX) 40 MG tablet furosemide (LASIX) 40 MG tablet 03/21/2020 12:00:00 AM EST abort ed TAKE 1 TABLET BY MOUTH DAILY [facility] Rosuvastatin calcium 40 MG Oral Tablet rosuvastatin (C RESTOR) 40 MG tablet rosuvastatin (CRESTOR) 40 MG tablet 03/21/2020 12:00:00 AM EST aborted Hyperlipidemia, unspecified hyperlipidemia type TAKE 1 TABLET BY MOUTH DAILY [facility] Hyperlipidemia, unspecified hyperlipidem ia type Amiodarone hydrochloride 200 MG Oral Tablet amiodarone (PACERONE) 200 MG tablet amiodarone (PACERONE) 200 MG tablet 03/21/2020 12:00:00 AM EST active TAKE 1 TABLET BY MOUTH DAILY [facility] Betamethasone 0.5 MG/ML Topical Cream Betamethasone Di propionate 0.05 % Betamethasone Dipropionate 0.05 % 02/02/2020 12:00:00 AM EST 1.0 {application} suspended Betamethasone Dipropio paul 0.05 % eCW1 ([facility]) Betamethasone 0.5 MG/ML Topical Cream Betamethasone Di propionate 0.05 % Betamethasone Dipropionate 0.05 % 02/02/2020 12:00:00 AM EST 1.0 {application} active Betamethasone Dipropiona te 0.05 % eCW1 ([facility]) Betamethasone 0.5 MG/ML Topical Cream Betamethasone Di propionate 0.05 % Betamethasone Dipropionate 0.05 % 02/02/2020 12:00:00 AM EST 1.0 {application} active Betamethasone Dipropiona te 0.05 % eCW1 ([facility]) Betamethasone 0.5 MG/ML Topical Cream Betamethasone Di propionate 0.05 % Betamethasone Dipropionate 0.05 % 02/02/2020 12:00:00 AM EST 1.0 {application} active Betamethasone Dipropiona te 0.05 % eCW1 ([facility]) Metoprolol Tartrate 25 MG Oral Tablet me toprolol tartrate (LOPRESSOR) 25 MG tablet metoprolol tartrate (LOPRESSOR) 25 MG tablet 11/16/2019 12:0 0:00 AM EDT 25 mg Oral aborted Take 1 tablet (2 5 mg total) by mouth 2 (two) times a day [facility] 24 HR Oxybutynin chloride 10 MG Extended Release Oral Tablet oxybutynin (DITROPAN-XL) 10 MG 24 hr tablet oxybutynin (DITROPAN-XL) 10 MG 24 hr tablet 08/16/2019 12:00:00 AM EDT 10 mg Oral aborted Take 1 tablet (10 mg total) by mouth daily [facility] Spironolactone 25 MG Oral Tablet spironolactone (ALDAC TONE) 25 MG tablet spironolactone (ALDACTONE) 25 MG tablet 06/20/2019 12:00:00 AM EDT 12.5 mg Oral aborted Take 0.5 tablets (12 .5 mg total) by mouth daily [facility] Magnesium Chloride 535 MG Delayed Releas e Oral Tablet magnesium chloride ER (SLOW-MAG) 535 (64 MG) MG TBCR magnesium chloride ER (SLOW-MAG) 535 (64 MG) MG TBCR 64 mg Oral aborted Take 64 mg by mout h 2 (two) times a day [facility] atorvastatin 20 MG Oral Tablet atorvastatin (LIPITOR) 20 MG tablet atorvastatin (LIPITOR) 20 MG tablet 20 mg Oral aborted T herlinda 20 mg by mouth daily [facility] Bumetanide 1 MG Oral Tablet bumetanide (BUMEX) 1 MG ta blet bumetanide (BUMEX) 1 MG tablet 1 mg Oral aborted Take 1 mg by m outh daily [facility] tramadol hydrochloride 50 MG Oral Tablet traMADol (ULT TISHA) 50 MG tablet traMADol (ULTRAM) 50 MG tablet 50 mg Oral aborted Take 50 mg by mouth every 6 (six) hours as needed for pain [facility] Insurance Providers Payer name Policy type / Coverage type Policy ID Covered green party ID Covered green party's relationship to olivas Policy Olivas Plan Information WORKER'S COMP [id number] Emp [id number] WORKER'S COMP [id number] Emp [id number] WORKER'S COMP [id number] Emp [id number] WORKER'S COMP UNAVAILABLE Emp UNAV AILABLE Special Funds Cons[employer]Com Workers Compensation [id number] Self 1 [id number] Special Funds Cons[employer]Com Workers Compensation [id number] Self 1 [id number] Special Funds [employer]Com Workers Compensation [id number] Self 1 [id number] WORKER'S COMP [id number] SPECIAL FUNDS 8 [id number] 1 [id number] Special Funds Cons[employer]Com Workers Compensation [id number] Self 1 [id number] WORKER'S COMP [id number] Emp [id number] WORKER'S COMP [id number] Emp [id number] WORKER'S COMP [id number] Emp [id number] WORKER'S COMP [id number] Emp [id number] WORKER'S COMP [id number] Emp [id number] WORKER'S COMP [id number] Emp [id number] WORKER'S COMP [id number] xxxxxxxxxxx [id number] Special Funds Cons[employer]Com Workers Compensation [id number] Self Medicare Natl Govt Servic Medicare Primary [id number] Self 0 [id number] Medicare Natl Govt Servic Medicare Primary [id number] Self 0 [id number] Medicare Natl Govt Servic Medicare Primary [id number] Self 0 [id number] Medicare Natl Govt Servic Medicare Primary [id number] Self Medicare Natl Govt Servic Medicare Primary [id number] Self 0 [id number] MEDICARE 4 [id number] 1 [id number] A [facility] [employer] (HMO) [id number] Se lf o [employer] (HMO) [id number] Self Y [id number] [facility] [employer] Maintenance [employer] (HMO) [id number] Self [id number] [facility] [employer] Maintenance Organization (HMO) [id number] Self Y [id number] [facility] [employer] (HMO) [id number] Self Y [id number] [employer] Medicare Commercial [id number] Self [id number] [employer] Medicare Commercial [id number] Self [id number] [employer] Medicare Commercial Advantage 200 Ppo [id number] Self Advantage 200 Ppo [employer] Medicare Commercial [id number] Self [id number] [employer] Medicare Commercial [id number] Self [id number] SPECIAL FUNDS CONSERVATION-DEW [id number] SP [id number] SPECIAL FUNDS CONSERVATION-DEW [id number] SP [id number] SPECIAL FUNDS CONSERVATION-DEW [id number] SP [id number] SPECIAL FUNDS CONSERVATION-DEW [id number] SP [id number] SPECIAL FUNDS CONSERVATION-DEW [id number] SP [id number] COMMERCIAL GENERIC [id number] Sola [id number] COMMERCIAL GENERIC [id number] Sola [id number] COMMERCIAL GENERIC [id number] xxxxxxxxxxx [id number] COMMERCIAL GENERIC [id number] Sola [id number] COMMERCIAL GENERIC [id number] Sola [id number] INSURANCE COVID-19 [id number] xxxxx [id number] WORKER'S COMP UNAVAILABLE Sola UNAV AILABLE WORKER'S COMP [id number] Sola [id number] A [employer] [id number] SP [id number] ELIER CLAIM ADMIN WORK COMP [id number] SP [id number] [employer]-IP [id number] undefined [id number] [employer] HE[employer] PLANS - IP [id number] undefined [id number] [employer]UM [place] CCN [id number] SP [id number] [employer] [place] O [id number] S [id number] SPECIAL FUNDS CONSERVATION-DEW [id number] SP [id number] SPECIAL FUNDS CONSERVATION-DEW [id number] SP [id number] ADMINSTRATION -O/P [id number] 18 [id number] ANSI-Commercial [id number] ANSI-Commercial [id number] ANSI-Commercial [id number] [employer] Commercial [id number] Self [id number] [employer] Commercial [id number] Self [id number] TOD[employer]YS OPTIONS [id number] SP [id number] MEDICARE [id number] SP [id number] A [employer] Commercial [id number] Self [id number] [place] Medigap Part B [id number] Self [id number] [place] Medigap Part B [id number] [id number] [id number] Self [id number] [place] Medigap Part B [id number] [id number] [id number] Self [id number] SPECIAL FUNDS CONSERVATION-DEW [id number] SP [id number] [place] Medigap Part B [id number] [id number] Self [id number] [employer]IONS [id number] SP [id number] [place] Medigap Part B [id number] Self [place] Commercial [id number] Self SELF PAY UNAVAILABLE SP UNAVAILA BLE TOD[employer] OPTIONS/BRAZILIAN P [id number] S [id number] SPECIAL FUNDS P [id number] S [id number] SELF PAY 2 UNAVAILABLE 1 UNAVAILA BLE [employer] [id number] SPECIAL FUNDS CONSERVATION-DEW [id number] SP [id number] [facility] [id number] Problems, Conditions, and Diagnoses Code Display Name Description Problem Type Effective Dates Data Source(s) 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 Presence of automatic (implantable) card Diagnosis 01/28/2021 10:20:37 AM EST [facility] I47.2 Ventricular tachycardia Ventricular tachycardia Diagno sis 01/28/2021 10:20:37 AM EST [facility] I25.5 Ischemic cardiomyopathy Ischemic cardiomyopathy Diagno sis 01/28/2021 10:20:37 AM EST [facility] 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 Atherosclerotic heart disease of [place] Diagnosis 01/28/2021 10:20:37 AM EST [facility] 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 ther terminal computer operator (current) drug therapy Diagnosis 12/16/2020 10:51:48 AM EDT [facility] E66.01 Morbid (severe) obesity due to excess ca lories Morbid (severe) obesity due to excess ca Diagnosis 06/14/2020 02:56:54 PM EDT [facility] K219 Gastro-esophageal reflux disease without esophagitis Gastro-esophageal reflux disease without esophagitis Diagnosis 04/25/2020 05:29:00 PM [facility] I10 Essential (primary) hypertension Essential (primary) h ypertension Diagnosis 04/25/2020 05:29:00 PM [facility] I509 Heart failure, unspecified Heart failure, unspecified Diagnosis 04/25/2020 05:29:00 PM [facility] 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 Diagnosis 04/25/2020 05:29:00 PM EST [facility] I2510 Atherosclerotic heart diseas e [place] coronary artery without angina pectoris Atherosclerotic heart disease of [place] coronary artery without angina pectoris Diagnosis 04/25/2020 05:29:00 PM [facility] E119 Type 2 diabetes mellitus without complic ations Type 2 diabetes mellitus without complications Diagnosis 04/25/2020 05:29:00 PM EST [facility] R5381 Other malaise Other malaise Diagnosis 04/25/2020 05:29:00 PM EST [facility] U071 COVID-19 COVID-19 Diagnosis 04/25/2020 05:29:00 PM MIYA Palacios [facility] Z5189 Encounter for other specified aftercare Encounter for other specified aftercare Diagnosis 04/25/2020 05:29:00 PM [facility] Z01.810 Preop cardiovascular exam Preop cardiovascular exam [id number] 01/28/2021 12:00:00 AM EST [facility] U07.1 COVID-19 COVID-19 Problem 05/01/2020 12:00:00 AM MIYA Palacios CYNTHIA ([facility]) Surgeries/Procedures Procedure Description Date Indications Data Source(s) OFFICE OUTPATIENT NEW 45 MINUTES 02/15/2021 12:00:00 A M EST MEDENT ([facility], [facility]) POCT AMB EKG <td>POCT AMB EKG</td><td>Gian chandler</td><td>06/14/2020 4:46 PM EDT</td><td> Ventricular tachycardia, nonsustained Cardiomyopathy, ischemic Automatic implantable cardioverter-defibrillator</td><td> </td> 06/14/2020 08:46:00 PM EDT Automatic implantable cardioverter-defib rillatorCardiomyopathy, ischemicVentricular tachycardia, nonsustained [facility] Automatic implantable cardioverter-defib rillator Cardiomyopathy, ischemic Ventricular tachycardia, nonsustained EP STUDY <td>EP STUDY</td><td>Routine </td><td>05/17/2020 12:57 PM EST</td><td> Ventricular tachycardia, nonsustained</td><td> </td> 05/17/2020 05:57:54 PM EST Ventricular tachycardia, nonsustained [facility] Ventricular tachycardia, nonsustained GLUC BLD GLUC MNTR DEV CLEARED FDA SPEC HOME USE <td>P OCT GLUCOSE</td><td>Routine</td><td>05/17/2020 11:55 AM EST</td><td></td><td> </td> 05/17/2020 04:55:00 PM [facility] TROPONIN QUANTITATIVE <td>TROPONIN I</td><td>Routine</td><td>04/07/2020</td><td></td><td> </td> 04/07/2020 12:00:00 AM EST [facility] BASIC METABOLIC PANEL CALCIUM TOTAL <td>BASIC METABOLI C PANEL</td><td>Routine</td><td>04/07/2020</td><td></td><td> </td> 04/07/2020 12:00:00 AM [facility] Results ID Date Data Source [id number] 12/17/2020 10:03:11 PM EDT [facility] Name Value Range Interpretation Code Description Data Heena rce(s) Supporting Document(s) WBC 6.1 10*3/uL (4.1-11.0) [facility] RBC 4.58 10*6/uL (4.60-6.10) L [facility] HGB 14.0 g/dL (13.5-18.0) [facility] HCT 44.3 % (41.0-53.0) [facility] MCV 96.8 fL (80.0-95.0) H [facility] MCH 30.6 pg (27.0-32.0) [facility] MCHC 31.6 g/dL (32.0-36.0) L [facility] RDW 19.7 % (10.5-14.5) H [facility] PLT 182 10*3/uL (150-450) [facility] MPV 9.3 fL (7.1-10.7) [facility] ID Date Data Source [id number] 09/07/2020 11:45:41 AM EDT [facility] Name Value Range Interpretation Code Description Data Heena rce(s) Supporting Document(s) &PDF [facility] AZIVRa8mIsTUSfGp63/XOFpgWQNza5PbOOaqZTf1EIhnVDVkU5MwgOhyVRrQP9fZMXBbK0kVDVzWVHNK 0b3 [file] dGVyIFsvRmxhdGVEZWNvZGVdDQo+Fo5Ix5UpEHXrGBzInAJnNVGrEgCNVEPh/5+HxBV++f//alteration tailor+338g SOJeD7K9PAc+GmA6SrIV/aSUJ4FOz+n//92sHLeXIRlaPG0unV3F8Y51tqpiKJLg9fU4Ai+BAr0+J/+l QwX8f/8Hg3/AACY9a9MOmXgAX5XDH2tQl/kzF67qaX 8uQTNBOF1TVD7QXY5zz7QqMDBaDRbjuaFaYrwFIlGlPHViw5FpDDx5SI3QTOMdGEapMD8QU1CqZQM4O1 F5JtS8qOQyZT6vJ0TaUtPxMR0fmWj6A6JmlYDUKVMXe37fz75bomTtWM2Fa3uhqlWhZOHzX7CqibcoHN BAWb3PdVA1qDLlSh9WWDvfoQDlNNTpGQKhI3OyXUEl OJ3QyOu7SZAuYx5SeOT8GDJhU41cXZ2VOpJnA5COROUpEVM8MDQzSjSNKm0+NUkomNBiUK4QYqbH+/// PwMYBGRUQBADbvAfDECKEyqIV4+nMBmqnM0oJb4ZEkHjhs+hoYFE/xaQqJ64+ELWghQFHqjRgTV+IVqw fhjpM1dJBvmtw7ytM7Xc7wWJ2ORhSanpEuPEtsMv+A FmSCSWE8f5VYbnciQkwEQoUM9KNeFeXU6biz8OBdUkLPJoJupLBjkcFJypqlEvQlcBTkCiOGQdAgbTCk k9OCisBW7Tjj5qS6E3LXmbTIZWE1RcxHWrMC1fU7GWD0chUDgyZk7NEwBrZ2XxzvDxJLnyS7IhAOBfNF XaPn8DRFVeWZ2AOYAmAfFsCXWVPlKsDHPzYaHeYYpd KNDSXUimWGEqE0TpWZHwSFEmEx3NYHWcRR6GMAYnUJJvZTT+Bx6XWDKhSB9kybJmmBQ5WHLedN5wHXOp UPHiQPDTJuRdXDXuoE0mFMYaWyJyYTNMMxPbYIYgrB8tLuHfNgFqYRNJGxIuBTHcfM9mIqOcEDJrDTAP JtGeXJPqbO8aQERvNEIgRNYCNyDjSDOcpB9cFFYmTQ AwIFI+Fa1CSPZiDRz3V8G0MENpMXf4Q7DAA6YVVCTzFVpfXXcuBRQbMRb7E3K5UHGwL7FJS3Ijwyakxk 4+FO7BU76NNQUrOEb8V3C3dYGwG1E4iRzStZZ5OY6DZO6HsWe2pYVsmF7+JD4NY2DEXyXmUKw9D3R0aT GfZ7P1uZeVuFK9HF9XXK3TlEVuKFKodtAtTd4sA5JI PTdFPcQOQDO3XN9UwAMhDF1YhNHBA8MmrJVbEl3aMJvieMCfjI0oHe5wFFmyQC8CKmDJIFbBQQP3DD0F kYJnNA8XvUUVC7RxlTPiXj5xBVsoeICrga5+SU5NYSIcPr2OAi7+MCggimVzWjmCDrZiNSZji3VxMFl6 SB0IIC7paLwbBDG3Op1JcPE5vLTkH3zRVQ7DqPVjZ5 2vcORmXFJgKy2STuM0ppGlbA2YPR50wHHdi3T9QHFjD1xaDPfjd22uQPqfWNzOAN7yAKCSUJneOBstOC R1FtVcgvhkAULiKf1WQkPqXCq7oU7exJC8YYJ0TonxjLLeNQzgJlPfEgBbJbN6tOmclft0PVrlUG7lCI puczptZXRhLyc+AXbrXTXgIRMaByfVVUDhvP4ytrS3 zvUuFVqjjJAzGs8ir4e5MnoiSi5mXc7zDFw0GsFsOfLmODQpMw6gcI92DNipumQzJm6XYwLcHRB4H5Lf ZjpSREY+EScdSUkwzKl9hUKuEYZuZl1JBNAwEFBrXGUbIROqVCDbCZMcYVKtSDOqCYJnADSpDDWbTPTx ICAgICAgICAgICAgICAgICAgICAgICAgICAgICAgIC HpLONiWAThYKRtHZCfMVWiLVOkTWNpQHSrNXWaCIDbQW6GWCZeYYQaOPHsVBVmBVYdDKHtCVFjPILwWX AgICAgICAgICAgICAgICAgICAgICAgICAgICAgICAgICAgICAgICAgICAgICAgICAgICAgICAgICAgIC RcHFPzKEQeWSXoNYLzNU2OSSXeMUFzJONgNTNbUTGz ICAgICAgICAgICAgICAgICAgICAgICAgICAgICAgICAgICAgICAgICAgICAgICAgICAgICAgICAgICAg ZATnDAAbECOqCXKeHGHvIXJkDEBxGTExZF5GKNOkWVNxKIYrZVXfEXYtLOMuXHPjERLtMHBkPNVjAHBs ICAgICAgICAgICAgICAgICAgICAgICAgICAgICAgIC IqSDWlHUVdBNKbRXHhARKnCCAnNGPmFGEjZSIfXFNaYLJjJY3ADNBoBRYcBBJlQGSoUENwKIJoHNSmNM AgICAgICAgICAgICAgICAgICAgICAgICAgICAgICAgICAgICAgICAgICAgICAgICAgICAgICAgICAgIC WaSWSfFMTyQMZkMBUqILVbHJ7ZILNvDHSgCSDyTDQt ICAgICAgICAgICAgICAgICAgICAgICAgICAgICAgICAgICAgICAgICAgICAgICAgICAgICAgICAgICAg ZSSdIQHiYHUnJBXrJGYoSITpEPDuLDHzUJJtTR8BDQHlJOIlDSGuUHEyQGUrTZZuZGUvLVFiAMUjKMHm ICAgICAgICAgICAgICAgICAgICAgICAgICAgICAgIC SnBOZxTUVpNBBkBBNaQCZrEQZdWVGxINGtDMDhEPVdQUYbQZYuDW6EGEZbJZZlRDMjZMLxSEZaEOLuXB AgICAgICAgICAgICAgICAgICAgICAgICAgICAgICAgICAgICAgICAgICAgICAgICAgICAgICAgICAgIC EbFBTvNGJxFLUjGSYbMJIuFGXsVW0EFRRiXAQbZRBp ICAgICAgICAgICAgICAgICAgICAgICAgICAgICAgICAgICAgICAgICAgICAgICAgICAgICAgICAgICAg GCKjJZUhMSQmKGZoCFVrUSBtIDBdGECeSVKaJJTeSN4RIFMzIRGhCVFwMAPqZDEfSFDtYIJuHTYxSLFb ICAgICAgICAgICAgICAgICAgICAgICAgICAgICAgIC CgHOCmOOKsPNRkEGQpUVQtAUKtXSKbSTNsPBOlXDIrBLMxFYPqKAQiAU7GDB73oXIyf5P2DHWmCY4aae c/Vi3WHYzgwmEojUNmAB7MJyRqAU9nyg4LRiUoVB6xrs7JGJsZPvShB9H6nMEaQGWwPFTJKcSiE74ySX nxHh48UUiyBPCuXkEkWYa0Gy8QIjFiS6bqCEWkLwZ4 YQOeYkY2TEFyOwBgRPatLY6Dj6EgqVZqXMa+Uv6ZLX6lz7AcFXxfTqHcCA8pnq7MDKzOYvSlB3X7zVVo T6X0AAbcCt6SXGCmMJKsSfTmSGASRWnwBU7AGN9udhF5SX8CzHNiNKCfNCOxoOFlRLi4T54bbNWhWYrc IK1YVKB+Lee Ann+Oq3NWXUkCDTvBHKjCxUzNKIXQlJgY2 6blAZlZBIxEEVgNERtNk9WBSIcK9SspeLnmRayotPkOAEvUKRBML2SSNulttGriMGokYgwHC75bYxtSM 0BEu4XHmRoIN1sok7WjVKhHn4VYYCrKB6IRNNjQLOmLSOgORB6PJQcHiFrRIeoPUKqOLSpVPY3ZXPfAB DvVD0REzXpPGDlCOn1UgIyCBDaSHEtmd8SKGGpMVTn GDOhUCMeGDJpRQBuSWmrDSXaIQVwRNs2ERPfLFJaWJ2VZuWoKDFvLHV5OZBzZWHdFSAkcp4WZOIwJUIu Bnq1FRHdPUYqZHBdYXllRKDkXPV6CxOyAAAaOKZdVS3WSwAlHVCoRNC2NJQgGCLsPNWykm0CQNCdCIIu YSvtZrJtQRRqEGOtTUihTYAeLWW5PFG4MVTsSNGoCH 6KErRrMUImQLMhOIHqIGWlWMQtvn7TDSLvCSDuCoH9DAEeDKVnPNOsCRuxTYWnENM1VZKvSVXoNKYhJK 2OCfPlQPTtNBl6IjobHPDrNBFpla4TGQQvUSVrNwP8INRfOYQyNALrDSfxYONjVJOhRIVtZLQsJFQcLN 7QZeEbVHGqFNQjZoNqJZKnDIZnmy1BHGDjQGUtIaT8 JLRqAADfBDTrVSgfYNVnNSNtYLPqVBGzJTNoUP7NKcWvRCOqBAMkPTMdBHNbZDAkrz7EBNVkBPBtZKKq SODyDPXzQAPrRBdrXTQeOQL6HtZgPIExXTUpAO6XYdQhNFIrKPM4HRMzDZIjXYJwwu3ZRLYkONWjYXlx NWGlXFBoUEOeBSllUJXnZQA9UFT3FDAfVSGyYY5FSo PrEHDyQIZsFohuPRKhWWAqsv5DCLNyKEJqRfT7XKZeNVBvHCEdMSgoYPZqWHZ1XSg7RKUyZNRdRY3CQt NoPYOiVNpdBIGuLEMrFBDang1CFECbVEMzGeM5JqOmIINgEHToEYqaDVXgKNW4OyX8BYLrLUIiQN5FEo VwJARkJElxRWvdIOZlBJExgw7MSDGbWGGtNPrhSmRu SRNoPVRzTCc5nfVdlJQiXNe8PR0YK0OifuIpGcKXZd0Ah918WUYdBNRnZm5LQ0fnYu9yXOTmHXVPMd0Z EPn4DEAyGptvTsBpIyL7SsA6VXQ6VXRbPlW5UYGoSWNjGsG+VYkcHVH0RXWvABWmHIJ4UPHzQed6CYQc JvJhOaS8RXMiKi7qTJYPRm8+WTicvQGnwUtaFVANGgN3JRJqCPpaVBKIJt7D ID Date Data Source [id number] 06/17/2020 10:29:35 AM EDT [facility] Name Value Range Interpretation Code Description Data Heena rce(s) Supporting Document(s) &PDF [facility] GJYYEm0nBsJJNuCj59/QQEbxDJNlp7OgDIeqLPq4CSfpUSIyN0BkjSouMMyWV4yDBCUrJ4pIRHtNHCWQ vci [file] ogICAgICAgICAgICAgICAgICAgICAgICAgICAgICAgICAgICAgICAgICAgICAgICAgICAgICAgICAgIC AgICAgICAgICAgICAgICAgICAgICAgICAgICAgICAg ICAgICAgICAgDQogICAgICAgICAgICAgICAgICAgICAgICAgICAgICAgICAgICAgICAgICAgICAgICAg ICAgICAgICAgICAgICAgICAgICAgICAgICAgICAgICAgICAgICAgICAgICAgICAgICAgDQogICAgICAg ICAgICAgICAgICAgICAgICAgICAgICAgICAgICAgIC AgICAgICAgICAgICAgICAgICAgICAgICAgICAgICAgICAgICAgICAgICAgICAgICAgICAgICAgICAgIC AgDQogICAgICAgICAgICAgICAgICAgICAgICAgICAgICAgICAgICAgICAgICAgICAgICAgICAgICAgIC AgICAgICAgICAgICAgICAgICAgICAgICAgICAgICAg ICAgICAgICAgICAgDQogICAgICAgICAgICAgICAgICAgICAgICAgICAgICAgICAgICAgICAgICAgICAg ICAgICAgICAgICAgICAgICAgICAgICAgICAgICAgICAgICAgICAgICAgICAgICAgICAgICAgDQogICAg ICAgICAgICAgICAgICAgICAgICAgICAgICAgICAgIC AgICAgICAgICAgICAgICAgICAgICAgICAgICAgICAgICAgICAgICAgICAgICAgICAgICAgICAgICAgIC AgICAgDQogICAgICAgICAgICAgICAgICAgICAgICAgICAgICAgICAgICAgICAgICAgICAgICAgICAgIC AgICAgICAgICAgICAgICAgICAgICAgICAgICAgICAg ICAgICAgICAgICAgICAgDQogICAgICAgICAgICAgICAgICAgICAgICAgICAgICAgICAgICAgICAgICAg ICAgICAgICAgICAgICAgICAgICAgICAgICAgICAgICAgICAgICAgICAgICAgICAgICAgICAgICAgDQog ICAgICAgICAgICAgICAgICAgICAgICAgICAgICAgIC AgICAgICAgICAgICAgICAgICAgICAgICAgICAgICAgICAgICAgICAgICAgICAgICAgICAgICAgICAgIC AgICAgICAgDQogICAgICAgICAgICAgICAgICAgICAgICAgICAgICAgICAgICAgICAgICAgICAgICAgIC AgICAgICAgICAgICAgICAgICAgICAgICAgICAgICAg YBWlRZPbPOMuLKOjROJcQSVtSXf6J9vaHEGnAZNzGT8aYXz5Kj0+XNwXOqMmAYQ5puLskN4FXH0qa6Qx UCkpGWUsh2EhBMq6YC5YIYZgFZilRR3HGQldgf6KAWBsMUTvoJLFi9xvMmBlJUV9AUKkHeivKF9NGNLl M7gfzlMjHPVnXZNCDUssNDNVFE6OQoPkL9PxlM24II INCj4+QMlcfdNrMfzEImT6NVJfs9MgIFy9HV5UTFFxSExgFW0IHJRriI0uPUzdYA9CWmQuZOGhAOPDCo ItX04xbELeKCe1L7QsYiOpZQJsOxqnSCWqDUdjMwBkEXEyFhGqVTqtSB9+ID4+DDxrTT6YSVfqhzEcTZ LiSe5JTJHkEOI2OUJsyQYlDcHhCOKTZIbfCI3WpZOn BEZ2wC0sAXasACWiCRVxR6eLDrOrsEowVY21cFikowClrDIlMBs+Kc8OJJ3dw3GiEOt8deJnKLqzXZQ1 CZbrUMScFTCcZRVxFEA7SMC3YXVDOqUdPMVzOIFeFMpeZZWyRRHeba2PVPTiTNMpTdD4JrFsMFOfLQBa NWqvVVZtETE1XZL1DTPjLSCoFU3XCxAaBONvIMMzXA YzVQBoOMZnnl2OSLZhLKWgXdDnCrDoDJMpZVQyAMbnHQZgGQQwEyX9KOHpYMBcYJ8KKcZnLJKqYIY2ES emPMIfFSGzrv9AZIHaGBJnRGP5DsKgYOZmAGJwDOiiODXyQEM8IcAbNDGqDSZfQJ1BYbIoJTVyKSO9ZM llABFaOHBeqm8DLVQyDJFjQGg2IJLjEFMkSLWsRAak TMHiSWP0MIA7LRVbTWMxQV4JPdPwDOUbRKxlYOzrHTJeBXYslf7TEUKlSJXbAxW1JlOtZHAdUXEqGHbg DABrWCVxCmYvXNZvUQOpIZ6LJfRwUNPyRLF5RzFrAGEkICQdeq6OOYIfKDHjAxnnPqQiYTTfXEBpOAgf IOLtKNAsNYkgAZYjWDBhWH4OUlVqIFNzXVQxUEryEM SuKGRdpb1MCDBuLWYrUZA1IHLnQGPwAMFoYGlqWUFxUWP4KnD1UPWrQVQcWM7RJsLzBQKkIYE6UGikZT HaJSLhpj6NFVIlLSUxOLXkRsTjRYHvNQWuRVpqNFIlZAWkQBMpATEyRKXhXS4ZEjElMXTtViT5QfqpSI PiBHOjmc4ONKRoHJYmUBMqHfZhNXXsUFDdIUi3usDw iIVyWKt5FB4BL6XmhiVcLbxVNk2Xl038VTQ4SRYzGz5WU4aiBt4rHPAeZWSUGv1ACDs5CNW4TuK5QRsc WCPvQEshNmZmZ3WwBuFpZUK2YLH4EiW+EYm3DGwpTHTfRKW1KeW2IEChIXY2NxT2XfT4JEkePxiiMz7l XSANCj4+JTvyeFLckVbpKQUKQyK1FSt7CHmnRAMJUr4Z ID Date Data Source [id number] 05/21/2020 08:54:12 AM EST [facility] Name Value Range Interpretation Code Description Data Heena rce(s) Supporting Document(s) Discharge Note [facility] PVNJDi8jCcPYYadhwE8MHUCzQN6gztd1SPmiM4SwYUSbkvRgXXFfZ6vvMEYBBKTGXFKgaI4yLVElCksH vYm qIUVpKAGCjTtFcVyPzT3ichky0zTZ1PVTzJvyuTW9BfGf6UZTkC5KeBOSjIUBpl8WdPx7+NkW1tcYpoT z8cV7EE3USCOnZ19ggEc3xQKXtrZjvoMFm5wQNrqaLc0BcvpdHHVWqFVMCTBkJTRUXZ20YJUOTZfGFUJ kqtn5sq5IsKd5fOarB63/ZrfmxtVVb+2f7/Pfco7OJ aPBee2u3usgOqGqppjYUQRnRrJZF2by49vANotLQwJgTE8lYREbJHz1AUsR09rUPfzOmGO+M55TJBujh 6wjWc8+Manoj+1Lkdz9B3/Haiecvf6/8mwZoOAfbWgZbUnQoVCdiDo49bMHjRYmoMSvn2LMKPWIp5zCd3 [file] a7RZtf6eUk2gpYl4+PHLEBOTOMY SPECIALIST/Ug28mrADMStMXdxUP1319Gep/z/dC+4rbs1z2hNNygQkNodqg1CAulrjYMfL [file] 9GCg== ID Date Data Source [id number] 05/21/2020 07:06:00 AM EST [facility] Name Value Range Interpretation Code Description Data Heena rce(s) Supporting Document(s) Glucose [Moles/volume] in Capillary blood by Glucometer 90 mg/dL 70 - 100 [facility] RESULTS < 40 mg/dL OR > 500 mg /dL WILL REQUIRE CONFIRMATION BY LAB ID Date Data Source [id number] 05/20/2020 07:18:00 AM EST [facility] Name Value Range Interpretation Code Description Data Heena rce(s) Supporting Document(s) Glucose [Moles/volume] in Capillary blood by Glucometer 94 mg/dL 70 - 100 [facility] RESULTS < 40 mg/dL OR > 500 mg /dL WILL REQUIRE CONFIRMATION BY LAB ID Date Data Source [id number] 05/19/2020 07:51:00 AM EST [facility] Name Value Range Interpretation Code Description Data Heena rce(s) Supporting Document(s) Glucose [Moles/volume] in Capillary blood by Glucometer 75 mg/dL 70 - 100 [facility] RESULTS < 40 mg/dL OR > 500 mg /dL WILL REQUIRE CONFIRMATION BY LAB ID Date Data Source [id number] 05/18/2020 08:31:00 AM EST [facility] Name Value Range Interpretation Code Description Data Heena rce(s) Supporting Document(s) Glucose [Moles/volume] in Capillary blood by Glucometer 109 mg/d L 70 - 100 Above high normal [facility] RESULTS < 40 mg/dL OR > 500 mg /dL WILL REQUIRE CONFIRMATION BY LAB ID Date Data Source [id number] 05/18/2020 07:35:00 AM EST [facility] Name Value Range Interpretation Code Description Data Heena rce(s) Supporting Document(s) BASIC METABOLIC PANEL [facility] BASIC METABOLIC PANEL Sodium [Moles/volume] in Serum or Plasma 144 mEq/L 136 - 145 [facility] Potassium [Moles/volume] in Serum or Plasma 4.2 mEq/L 3.5 - 5.1 [facility] Chloride [Moles/volume] in Serum or Plasma 107 mEq/L 98 - 107 [facility] Carbon dioxide, total [Moles/volume] in Serum or Plasma 28.5 mEq /L 21.0 - 32.0 [facility] Glucose [Mass/volume] in Serum or Plasma 96 mg/dL 70 - 100 [facility] Urea nitrogen [Mass/volume] in Serum or Plasma 27 mg/dL 7 - 18 Above high normal [facility] CREATININE SERUM 1.98 mg/dL 0.70 - 1.30 Above high normal [facility] AGE 80 yrs [facility] HEIGHT 70.00 INCHES [facility] eGFR NON-AFR AMR 33 [facility] eGFR AFR AMR 40 [facility] BUN/CREAT 14 6 - 25 [facility] Calcium [Mass/volume] in Serum or Plasma 8.3 mg/dL 8.8 - 10.2 Below low normal [facility] ANION GAP 9 7 - 15 [facility] Estimated GFR reference r frederick: > 60 mL/min/1.73m >18 years: Calculated using IDMS traceable MDRD Study Equation <18 years: Calculated using IDMS traceable Bedside [facility] Equation ID Date Data Source [id number] 05/18/2020 07:35:00 AM EST [facility] Name Value Range Interpretation Code Description Data Heena rce(s) Supporting Document(s) CBC [facility] COMPLETE BLOOD COUNT Leukocytes [#/volume] in Blood by Automated count 6.2 K/uL 4.0 - 10 .0 [facility] Erythrocytes [#/volume] in Blood by Automated count 3.95 M/uL 4.30 - 6.10 Below low normal [facility] Hemoglobin [Mass/volume] in Blood 11.9 g/dL 13.5 - 17.5 Below low no rmal [facility] Hematocrit [Volume Fraction] of Blood by Automated count 38.2 % 39.0 - 50.0 Below low normal [facility] Erythrocyte mean corpuscular volume [Entitic volume] by Auto mated count 96.7 fL 80.0 - 96.0 Above high normal [facility] Erythrocyte mean corpuscular hemoglobin [Entitic mass] by Automated count 30.1 pg 26.0 - 34.0 [facility] Erythrocyte mean corpuscular hemoglobin concentration [Mass/volume] by Automated count 31.2 g/dL 32.0 - 36.0 Below low normal [facility] cecile Erythrocyte distribution width [Ratio] by Automated count 16.9 % 11.6 - 14.8 Above high normal [facility] Platelets [#/volume] in Blood by Automated count 186 K/uL 150 - 450 [facility] Platelet mean volume [Entitic volume] in Blood by Automated count 9.5 fL 7.1 - 10.4 [facility] Neutrophils [#/volume] in Blood by Automated count 3.63 K/uL 1.70 - 7.70 [facility] Lymphocytes [#/volume] in Blood by Automated count 1.16 K/uL 1.50 - 6.00 Below low normal [facility] Monocytes [#/volume] in Blood by Automated count 0.79 K/uL 0.00 - 1. 00 [facility] Eosinophils [#/volume] in Blood by Automated count 0.53 K/uL 0.00 - 0.30 Above high normal [facility] Basophils [#/volume] in Blood by Automated count 0.05 K/uL 0.00 - 0. 10 [facility] 0.04 Urinalysis macro (dipstick) panel - Urine 0.000 10^3/uL 0.000 - 0.012 [facility] Neutrophils/100 leukocytes in Blood by Automated count 58.7 % 42. 2 - 75.2 [facility] Lymphocytes/100 leukocytes in Blood by Automated count 18.7 % 15. 0 - 41.0 [facility] Monocytes/100 leukocytes in Blood by Automated count 12.7 % 0.0 - 12.0 Above high normal [facility] Eosinophils/100 leukocytes in Blood by Automated count 8.5 % 0.0 - 7.0 Above high normal [facility] 0.80.60 NRBC 0.0 % [facility] MANUAL DIFF NOT INDICATED [facility] RBC MORPH NOT INDICATED [facility] ID Date Data Source [id number] 05/17/2020 01:07:53 PM EST [facility] Name Value Range Interpretation Code Description Data Heena rce(s) Supporting Document(s) &PDF [facility] KNNQUw9cKwHIZtYc93/FHTtuWRKku6FuWYjsXCr9YYitVGLeG2AzeIsuIXyIG4eRESPpQ6xIDDiUUZUA vci wRiNvnSMC1c7UrhDByP66owD5mHULia96rDSbjDK7+DQplbmRvYmoNCjQgMCBvYmoNCiAgPDwvRmlsdG UoAI4PcFH5IYIwT52qAFUpIQAcR4KmLTWtHcf+Yt7ACTItdLJgWG6SHnuS7Fgfw+M2Ev9+gX3SCHlbea F24jNlyVPa2ZnRVb5XJ+Daq6BrW1vcDdl0gFQROdW/ fUlRr+Zb1WGm7/EBXxBbA8D/1ZowurBcXYSJx0+iz3AqqEF+qR/JiOCCLj31p7gmtkzbbCh7HyCovsJC F8ZdTiaRcNDU3YmUxW5ieQJKWrUFqzZMQLC3lRl/Oiy2TwI4ORIM3d5HPR2EORIZVvFeFO6A45r/RTf/ FdUDEWc3CMOVWJhUbFZIPjRwQ6CVDLDpYlKjPp2lM0 [file] wr89SoIhipjPxOeAlfU56uxlVhspUb2KjKjz94/León [file] HQIXMIvcTI1GKJ2djkW6GM2GoLWdSDZjVZXifBHgPOj3H69gbQJlABduTA8QRVR+Lee Ann+Nj6YLFIsKKZh SVDoXfCaTYTEAzLiL0TcJ1BOy8UgO8VsSB43tXrnrf LfLLdpFD9XPF8sSYFmXUIAQO4CkJIgxD2nohEfGQWwQPKVDhWgW30olDMwLQQpXVT4MTYfLj3NTBByY7 ZnwlDviStvtpOhBFIvGPJEQU4ZXGjjztJdeONldDapWS35lFxqIS8XZh8POhGqNV3scz0EbFHgYp6UHX E3KJ0PTVHmPTGrBYGaMXD6LEIvQaJuWKnaIUWlHMIa BBD0WHDrEMUtWB9DYjDjOTMiCLOhGLXtWWBnCVXlhl3GTLGoZTOvShzbABKoIZVmJOXvCPbwDUGqYRIt VFbfEDKaQFKeMV6HGvExIOSyMRA3YGBjQWFrRUFhic1MXWYkYOVqXHEzFzZyXNHbNDVwPBszGXIxNNV9 XeroUDOrFIXwTG9JRqIoPHJrWAi0AuTjFAZsTNHnhn 5AMFSvOPJhKHxwDjOeBFEbLEDwOVqzBWDiFHL9OSF7ERYySSInAM9BQxQkDSKmZHkkDapwEGOnSCUlus 2PNYRvUKMaJGRfGXZgCOAlHUKjGAyrUBXsDBY1IybcAGPsMBYwGK8FUxRpDOQuCDx9DgHeYZZoTGWpvn 7KCRIwOXNwOApmENBhVCMzGHKxDLsaPJRpAYB4PTjh ESSwCZPrAL9NUhTnUKDxZwUvVZfoXCMkMFDeya4JIQZsQDXaJtKsJuRfGNNrOBWbPBjqZUXkVZZ2PrFt QCSzJHGqZB2KYmOeRJDqUeSiJeYoQXSvSNAhtr2GPWEgJNDrKPF7UkAyYPOxHBVlNZvpUBGvSZLfHKRm IMJqAMNdSX8KFhFsKHKhIbF8YyEhFZVvGHQncn6SXK YkZYRcVKr3EMPtKAFhVNMkJOgtLSSiYPNsXRZ1ZNSyZDXzST7UMsBqPXBzGGJ1MovjSPVdKTNggd8GWR WzHEJyVhS8CwGzSMSgSHOzZRupOQBbCAK3JACkBFAaEERsUL6CVsMfWXDoWQq1HqWgEAQeVEOfcs1EHB WhZTKvDLEsYFUjDXVrHYUvWLbsTTMlKTR1SrScFNSi PATzCI0MOgSiJMGqQTKgCuCiZHJnAOPtci2MUAGiIJEtBLJ4SUJgYXFoVMHaPOieXICnNGMnIILsXXKt RJCeQJ5LDbIdIRWwRNHjEPZbKSMqUYWtyx9NQWTbPXTmFlF7DTXvFSVfBGKnFIgxNGMySYO8YYp2UHBk GYJpHR0NUrAlUAIuKZpuXwFzNMQhFLNqgb2KTNWpDK UnTWBoOlMqGFKiFDYcJOmuHRGqZSGnAaHnCNMvFNXfFQ3HSrKxDFumVHXCWhb2GOrcH1g4YOH2XL8UP1 Ygt8TtXIAkBQLQTCnzVM9jxvHuIFVeIh9CW5uAVcfvMyFdR9AoTwWqJhWwJAH9VTMvA1FnXmacFAWuYP oxWd3kLSG0EHUzCrM3UwLfNGS9Iyg8RDIoYIEdV0Mv QhK6E6OjFvTjKO1RJr8DAhS8OJY3nRQcQj0GHcY2NzSIZyBzRW9BXHm= ID Date Data Source [id number] 05/17/2020 11:57:57 AM EST [facility] Name Value Range Interpretation Code Description Data Heena rce(s) Supporting Document(s) POC NOVA GLU 101 mg/dL (70-99) H [facility] [place] PERFORMED BY [facility] CLINICAL STAFF ID Date Data Source [id number] 05/17/2020 11:45:57 AM EST [facility] NT INFORMATIONPatient MRN Name Date of Age Gend*PT [id number] WilfredojoseykishoreAna 1940 80 years M HOPPT Location Admission Date/Time Visit ID Attending ProviderCV-05/17/20 1134 --- Chris Carrington MD([id number]) EPI ID CSN Admitting Provider [id number] Chris Pierce MD([id number])History and PhysicalPatient Name: Ana Rivera: 1940The patient presents for ICD generator replacement1Past Medical History:Diagnosis Date Biventricular ICD (implantable cardioverter-defibrillator) in place 2004 epicardial lead placed 2006 an [facility]. 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 Patent MARC to mLAD. LV EF 25%. CKD (chronic kidney disease) CVA (cerebral vascular accident) 1997 DM (diabetes mellitus) EGD 05/2015 [facility], reported negative HLD (hyperlipidemia) HTN (hypertension) ME (myocardial infarction) 1976 medical management Morbid obesity KENJI on CPAP PFTs 11/21/2015 78% FVC, 80% FEV1, 96% DLCO. Regadenoson PET 06/01/2016 EF 28%, extensive infarct without ischemia Ventricular tachycardia On amiodarone since 07/2012Pa Surgical History:Procedure Laterality Date ANKLE SURGERY Left [...] inhibitorsPhysical ExamGeneral: NADHEENT: NC/ATNeck: JVP FlatLungs: CTAHeart: [id number]: This is a 80 years male who presents for ICD generatorreplacement. The risks including but not limited to vascular injury, infection,hematoma formation and were all explained. The patient is agreeable toproceed.Signature: Chris Pierce MD, [facility], [facility]ITALCardiac Electrophysiology and Arrhythmia ServiceDate: May 17, 2020Time: 11:45 AMThis document or parts of this document, were dictated using [employer]. A reasonable attempt at proofreading has been made to minimize errors.Please call with any questions or corrections. Name Value Range Interpretation Code Description Data Heena rce(s) Supporting Document(s) ID Date Data Source [id number] 05/17/2020 07:05:00 AM EST [facility] Name Value Range Interpretation Code Description [facility]) Phosphate [Mass/volume] in Serum or Plasma 3.5 mg/dL 2.5 - 4.9 [facility] ID Date Data Source [id number] 05/17/2020 07:05:00 AM EST [facility] Name Value Range Interpretation Code Description Data [facility] rce(s) Supporting Document(s) Magnesium [Mass/volume] in Serum or Plasma 2.0 mg/dL 1.8 - 2.4 [facility] ID Date Data Source [id number] 05/17/2020 07:05:00 AM [facility] Name Value Range Interpretation Code Description Data [facility] rce(s) Supporting Document(s) LIVER PROFILE [facility] pital HEPATIC PANEL Protein [Mass/volume] in Serum or Plasma 5.3 g/dL 6.0 - 8.3 Below low normal [facility] Albumin [Mass/volume] in Serum or Plasma 2.1 g/dL 3.8 - 5.4 Below low normal [facility] GLOBULIN 3.2 g/dL 2.0 - 4.0 [facility] A/G RATIO 0.7 0.8 - 2.0 Below low normal [facility] Bilirubin.total [Mass/volume] in Serum or Plasma 0.7 mg/dL 0.2 - 1.0 [facility] Bilirubin.direct [Mass/volume] in Serum or Plasma 0.3 mg/dL 0.0 - 0.2 Above high normal [facility] INDIRECT BILI 0.4 mg/dL 0.0 - 1.1 [facility] pital ALK PHOSPHATASE 92 U/L 40 - 129 [facility] ospital Aspartate aminotransferase [Enzymatic ac tivity/volume] in Serum or Plasma by With P-5'-P 38 IU/L 7 - 37 Above high normal [facility] ital Alanine aminotransferase [Enzymatic acti vity/volume] in Serum or Plasma by With P-5'-P 34 IU/L 12 - 78 [facility] ID Date Data Source [id number] 05/17/2020 07:05:00 AM EST [facility] Name Value Range Interpretation Code Description Data Heena rce(s) Supporting Document(s) BASIC METABOLIC PANEL [facility] BASIC METABOLIC PANEL Sodium [Moles/volume] in Serum or Plasma 143 mEq/L 136 - 145 [facility] Potassium [Moles/volume] in Serum or Plasma 3.4 mEq/L 3.5 - 5.1 Below low normal [facility] Chloride [Moles/volume] in Serum or Plasma 105 mEq/L 98 - 107 [facility] Carbon dioxide, total [Moles/volume] in Serum or Plasma 29.2 mEq /L 21.0 - 32.0 [facility] Glucose [Mass/volume] in Serum or Plasma 93 mg/dL 70 - 100 [facility] Urea nitrogen [Mass/volume] in Serum or Plasma 29 mg/dL 7 - 18 Above high normal [facility] CREATININE SERUM 2.15 mg/dL 0.70 - 1.30 Above high normal [facility] AGE 80 yrs [facility] HEIGHT 70.00 INCHES [facility] ital eGFR NON-AFR AMR 30 [facility] eGFR AFR AMR 36 [facility] ital BUN/CREAT 13 6 - 25 [facility] Calcium [Mass/volume] in Serum or Plasma 8.2 mg/dL 8.8 - 10.2 Below low normal [facility] ANION GAP 9 7 - 15 [facility] Estimated GFR reference r frederick: > 60 mL/min/1.73m >18 years: Calculated using IDMS traceable MDRD Study Equation <18 years: Calculated using IDMS traceable [facility] Equation ID Date Data Source [id number] 05/17/2020 07:05:00 AM EST [facility] Name Value Range Interpretation Code Description Data Heena rce(s) Supporting Document(s) CBC [facility] COMPLETE BLOOD COUNT Leukocytes [#/volume] in Blood by Automated count 6.3 K/uL 4.0 - 10 .0 [facility] Erythrocytes [#/volume] in Blood by Automated count 4.04 M/uL 4.30 - 6.10 Below low normal [facility] Hemoglobin [Mass/volume] in Blood 12.2 g/dL 13.5 - 17.5 Below low no rmal [facility] Hematocrit [Volume Fraction] of Blood by Automated count 38.9 % 39.0 - 50.0 Below low normal [facility] Erythrocyte mean corpuscular volume [Entitic volume] by Auto mated count 96.3 fL 80.0 - 96.0 Above high normal [facility] Erythrocyte mean corpuscular hemoglobin [Entitic mass] by Automated count 30.2 pg 26.0 - 34.0 [facility] Erythrocyte mean corpuscular hemoglobin concentration [Mass/volume] by Automated count 31.4 g/dL 32.0 - 36.0 Below low normal [facility]ecile Erythrocyte distribution width [Ratio] by Automated count 16.6 % 11.6 - 14.8 Above high normal [facility] Platelets [#/volume] in Blood by Automated count 211 K/uL 150 - 450 [facility] Platelet mean volume [Entitic volume] in Blood by Automated count 9.3 fL 7.1 - 10.4 [facility] Neutrophils [#/volume] in Blood by Automated count 3.18 K/uL 1.70 - 7.70 [facility] Lymphocytes [#/volume] in Blood by Automated count 1.38 K/uL 1.50 - 6.00 Below low normal [facility] Monocytes [#/volume] in Blood by Automated count 0.85 K/uL 0.00 - 1. 00 [facility] Eosinophils [#/volume] in Blood by Automated count 0.73 K/uL 0.00 - 0.30 Above high normal [facility] Basophils [#/volume] in Blood by Automated count 0.06 K/uL 0.00 - 0. 10 [facility] 0.07 Urinalysis macro (dipstick) panel - Urine 0.000 10^3/uL 0.000 - 0.012 [facility] Neutrophils/100 leukocytes in Blood by Automated count 50.7 % 42. 2 - 75.2 [facility] Lymphocytes/100 leukocytes in Blood by Automated count 22.0 % 15. 0 - 41.0 [facility] Monocytes/100 leukocytes in Blood by Automated count 13.6 % 0.0 - 12.0 Above high normal [facility] Eosinophils/100 leukocytes in Blood by Automated count 11.6 % 0.0 - 7.0 Above high normal [facility] 1.01.10 NRBC 0.0 % [facility] MANUAL DIFF NOT INDICATED [facility] RBC MORPH NOT INDICATED [facility] ID Date Data Source [id number] 05/16/2020 07:38:00 AM EST [facility] Name Value Range Interpretation Code Description Data Heena rce(s) Supporting Document(s) Glucose [Moles/volume] in Capillary blood by Glucometer 92 mg/dL 70 - 100 [facility] RESULTS < 40 mg/dL OR > 500 mg /dL WILL REQUIRE CONFIRMATION BY LAB ID Date Data Source [id number] 05/16/2020 06:55:00 AM EST [facility] Name Value Range Interpretation Code Description Data Heena rce(s) Supporting Document(s) COMPREHENSIVE CHEM PROFILE i [facility] COMPREHENSIVE METABOLIC PANEL Sodium [Moles/volume] in Serum or Plasma 143 mEq/L 136 - 145 [facility] Potassium [Moles/volume] in Serum or Plasma 3.2 mEq/L 3.5 - 5.1 Below low normal [facility] Chloride [Moles/volume] in Serum or Plasma 104 mEq/L 98 - 107 [facility] Carbon dioxide, total [Moles/volume] in Serum or Plasma 30.5 mEq /L 21.0 - 32.0 [facility] Glucose [Mass/volume] in Serum or Plasma 97 mg/dL 70 - 100 [facility] Urea nitrogen [Mass/volume] in Serum or Plasma 30 mg/dL 7 - 18 Above high normal [facility] CREATININE SERUM 2.18 mg/dL 0.70 - 1.30 Above high normal [facility] AGE 80 yrs [facility]IGHT [facility] 70.00 [facility] eGFR NON-AFR AMR 29 [facility] eGFR AFR AMR 36 [facility] BUN/CREAT 14 6 - 25 [facility] Protein [Mass/volume] in Serum or Plasma 5.7 g/dL 6.0 - 8.3 Below low normal [facility] Albumin [Mass/volume] in Serum or Plasma 1.9 g/dL 3.8 - 5.4 Below low normal [facility] GLOBULIN 3.8 g/dL 2.0 - 4.0 [facility] A/G RATIO 0.5 0.8 - 2.0 Below low normal [facility] Calcium [Mass/volume] in Serum or Plasma 8.5 mg/dL 8.8 - 10.2 Below low normal [facility] Bilirubin.total [Mass/volume] in Serum or Plasma 0.8 mg/dL 0.2 - 1.0 [facility] Bilirubin.direct [Mass/volume] in Serum or Plasma 0.3 mg/dL 0.0 - 0.2 Above high normal [facility] INDIRECT BILI 0.5 mg/dL 0.0 - 1.1 [facility] pital ALK PHOSPHATASE 86 U/L 40 - 129 [facility] ospital Aspartate aminotransferase [Enzymatic ac tivity/volume] in Serum or Plasma by With P-5'-P 36 IU/L 7 - 37 [facility] Alanine aminotransferase [Enzymatic acti vity/volume] in Serum or Plasma by With P-5'-P 32 IU/L 12 - 78 [facility] ANION GAP 9 7 - 15 [facility] Estimated GFR referenc e range: >60ml/min/1.73m >18 years: Calculated using IDMS traceable Study Equation <18 years: Calculated using IDND tracable Bedside Schartz Equation ID Date Data Source [id number] 05/16/2020 06:55:00 AM EST [facility] Name Value Range Interpretation Code Description Data Heena rce(s) Supporting Document(s) ACTIVATED PARTIAL THROMBOPLASTIN [facility] ACTIVATED PARTIAL THROMBOPLASTIN HEPARIN? NO [facility] PTT-A 32.8 24.3 - 100 [facility] New PTT Heparin Therapeutic ra nge effective September 13, 2015 Heparin dose Therapeutic Range 0.1 - 0.3 uL 70.7 - 80.3 seconds 0.3 - 0.7 uL 80.3 - 99.6 seconds New normal reference range effective February 02, 2020 Normal 24.3 - 40.8 seconds ID Date Data Source [id number] 05/16/2020 06:55:00 AM EST [facility] PROTHROMBIN TIME Name Value Range Interpretation Code Description Data Heena rce(s) Supporting Document(s) WARFARIN? NO [facility] 13.8 INR in Platelet poor plasma by Coagulation assay 1.1 1.0 - 4.5 [facility] Reference ranges Warf corrine (Coumadin) Therapy: 21.6 - 40.7 secs Normal (Non-warfarin Therapy): 10.7 - 15.2 secs New Protime Reference Range as of February 02, 2020 ID Date Data Source [id number] 05/16/2020 06:55:00 AM EST [facility] Name Value Range Interpretation Code Description Data Heena rce(s) Supporting Document(s) CBC [facility] COMPLETE BLOOD COUNT Leukocytes [#/volume] in Blood by Automated count 6.5 K/uL 4.0 - 10 .0 [facility] Erythrocytes [#/volume] in Blood by Automated count 3.95 M/uL 4.30 - 6.10 Below low normal [facility] Hemoglobin [Mass/volume] in Blood 12.0 g/dL 13.5 - 17.5 Below low no rmal [facility] Hematocrit [Volume Fraction] of Blood by Automated count 37.8 % 39.0 - 50.0 Below low normal [facility] Erythrocyte mean corpuscular volume [Entitic volume] by Auto mated count 95.7 fL 80.0 - 96.0 [facility] Erythrocyte mean corpuscular hemoglobin [Entitic mass] by Automated count 30.4 pg 26.0 - 34.0 [facility] Erythrocyte mean corpuscular hemoglobin concentration [Mass/volume] by Automated count 31.7 g/dL 32.0 - 36.0 [facility] Erythrocyte distribution width [Ratio] by Automated count 16.5 % 11.6 - 14.8 Above high normal [facility] Platelets [#/volume] in Blood by Automated count 213 K/uL 150 - 450 [facility] Platelet mean volume [Entitic volume] in Blood by Automated count 9.1 fL 7.1 - 10.4 [facility] Neutrophils [#/volume] in Blood by Automated count 3.24 K/uL 1.70 - 7.70 [facility] Lymphocytes [#/volume] in Blood by Automated count 1.60 K/uL 1.50 - 6.00 [facility] Monocytes [#/volume] in Blood by Automated count 0.88 K/uL 0.00 - 1. 00 [facility] Eosinophils [#/volume] in Blood by Automated count 0.59 K/uL 0.00 - 0.30 Above high normal [facility] Basophils [#/volume] in Blood by Automated count 0.08 K/uL 0.00 - 0. 10 [facility] 0.09 Urinalysis macro (dipstick) panel - Urine 0.000 10^3/uL 0.000 - 0.012 [facility] Neutrophils/100 leukocytes in Blood by Automated count 50.0 % 42. 2 - 75.2 [facility] Lymphocytes/100 leukocytes in Blood by Automated count 24.7 % 15. 0 - 41.0 [facility] Monocytes/100 leukocytes in Blood by Automated count 13.6 % 0.0 - 12.0 Above high normal [facility] Eosinophils/100 leukocytes in Blood by Automated count 9.1 % 0.0 - 7.0 Above high normal [facility] 1.21.40 NRBC 0.0 % [facility] MANUAL DIFF NOT INDICATED [facility] RBC MORPH NOT INDICATED [facility] ID Date Data Source [id number] 05/15/2020 07:28:00 AM EST [facility] Name Value Range Interpretation Code Description Data Heena rce(s) Supporting Document(s) Glucose [Moles/volume] in Capillary blood by Glucometer 107 mg/d L 70 - 100 Above high normal [facility] RESULTS < 40 mg/dL OR > 500 mg /dL WILL REQUIRE CONFIRMATION BY LAB ID Date Data Source [id number] 05/14/2020 09:19:40 AM EST [facility] Name Value Range Interpretation Code Description Data Heena rce(s) Supporting Document(s) Progress Note [facility] pital HEEQCu0jCsQOFdeatS1WWHJsTO6nuse6YXbxP2PhMIXlkiBsQHEuG3dgCEKHCRRMAIPztG7gHWJfYgjL vYm jSAOuNFIQfRjQwOgXwT5obfrg7hJB9EFWyNhvkME8EjAi3YIUgP2MbZJDlQSQft3WbMv7+QvW8cfAxqH s5xS2EJ7PBIOjA97quBo2qNVJqpXkjxTAl0nAClaoGq0MommjEIMAcAIFYKEwPNMTNH74HPVPLEhGKJA iuuh5ka6YtWl5sXofZ76/ZrfmxtVVb+2f7/Rmwp7WH xSIlc1p2okdLaAukyvMTJQaNaWZO4in38vLBzfCGeBjHI6xDGWhGLt7DMiH91mSGeoVsYM+E81FOZzpn 6wjWc8+Manoj+9Szfj3J0/Haiecvf6/1xeEvQSpbYgHfPzTbKBmoDs77iCQvTBwrIPdq2PTKAVLb7oWf5 [file] z2IUut2lWf7sqRu7+PHLEBOTOMY SPECIALIST/Bx69zwFQKNbCBvsLF9062Qqp/z/dC+8agw3p0oVJkuKiGjraw4RQnhuhEKtW [file] NTc+RKcdLU3FeSztRYJdSw3+WpJ3UYJ7vJFmJbbjTQE6FWvwTAJRUyy= ID Date Data Source [id number] 05/14/2020 08:08:00 AM EST [facility] Name Value Range Interpretation Code Description Data Heena rce(s) Supporting Document(s) RESP PROFILE RP2.1 NASAL PCR [facility] \\BLDo\\RESPIRATORY PROFILE NASAL PHARYNGEAL BY PCR\\BLDx\\ \\BLDo\\DETECTED _NONE \\BLDx\\ 05/14/20.0933.TMG. \\BLDo\\EQUIVOCAL _NONE \\BLDx\\ 05/14/20.0933.TMG. VIRUSES ADENOVIRUS NOT DETECTED NORMAL: NOT DETECTED [facility] CORONAVIRUS 229E NOT DETECTED NORMAL: NOT DETECTED [facility] CORONAVIRUS HKU1 NOT DETECTED NORMAL: NOT DETECTED [facility] CORONAVIRUS NL63 NOT DETECTED NORMAL: NOT DETECTED [facility] CORONAVIRUS OC43 NOT DETECTED NORMAL: NOT DETECTED [facility] [id number] NOT DETECTED NORMAL: NOT DETECTED [facility] RE[facility] HUMAN METAPNEUMO NOT DETECTED NORMAL: NOT DETECTED [facility] HUMAN RHINO/ENTERO NOT DETECTED NORMAL: NOT DETECTED [facility] NOT DETECTEDNOT DETECTEDNOT DETECTEDNOT DETECTED PARAINFLUENZA V3 NOT DETECTED NORMAL: NOT DETECTED [facility] NOT DETECTED RSV NOT DETECTED NORMAL: NOT DETECTED [facility] BACTERIANOT DET ECTEDNOT DETECTEDNOT DETECTEDNOT DETECTED TESTING PERFORMED USING THE [employer] RP2.1 MULTIPLEXED NUCLEIC ACID TEST. THIS TEST [...] OR REVOKED SOONER. ID Date Data Source [id number] 05/14/2020 07:34:00 AM EST [facility] Name Value Range Interpretation Code Description Data Heena rce(s) Supporting Document(s) Glucose [Moles/volume] in Capillary blood by Glucometer 92 mg/dL 70 - 100 [facility] RESULTS < 40 mg/dL OR > 500 mg /dL WILL REQUIRE CONFIRMATION BY LAB ID Date Data Source [id number] 05/13/2020 07:37:00 AM EST [facility] Name Value Range Interpretation Code Description Data Heena rce(s) Supporting Document(s) Glucose [Moles/volume] in Capillary blood by Glucometer 93 mg/dL 70 - 100 [facility] RESULTS < 40 mg/dL OR > 500 mg /dL WILL REQUIRE CONFIRMATION BY LAB ID Date Data Source [id number] 05/12/2020 07:45:00 AM EST [facility] Name Value Range Interpretation Code Description Data Heena rce(s) Supporting Document(s) Glucose [Moles/volume] in Capillary blood by Glucometer 86 mg/dL 70 - 100 [facility] RESULTS < 40 mg/dL OR > 500 mg /dL WILL REQUIRE CONFIRMATION BY LAB ID Date Data Source [id number] 05/11/2020 06:20:52 PM EST [facility] Name Value Range Interpretation Code Description Data Heena rce(s) Supporting Document(s) Progress Note [facility] HCIMJb9wDbUEUowboY3VEIWhVK6gtef3QRubN1EtEPGzwoNuWTBhG5xbINBSKKKRDIHncN1rVMNiUfcT vYm xKMUfWOFJgQiXqAkEfO2iwjuc2iZF1AHRaKpjsLL2TcTv8YUZbX6KlRIVaFVFtc3UnAa4+PdI3seHxuV n6sH9QI2DFPSsR99ljYv7ySVWnwCbhoKOc9sALajfJm8WuipeYMMWiESIHQRiARQUGX55SFEQFLiGETI oabj6cr2TgTl9dLxhS01/ZrfmxtVVb+2f7/Znzq3CT zUQhq3n8qjvXqNmcnzINZIxSmNWU0oi19mVSawBLiKmZM4jQUGvSZr0NLuY25xZIayOfFP+X32YEUfev 6wjWc8+Manoj+2Qjwa0Z5/Haiecvf6/8tpNwFJwzHkYjAaFuOJbbXz61dQRkJRsjSPie1THYBPNr9bAm3 [file] k9GCqk9sJo5dsUu3+PHLEBOTOMY SPECIALIST/Vg86pdAWDNnBJzdLT3774Zck/z/dC+3wgy1g9hOWjmNiVnlhk9QGopzvWBgN [file] CjAwMDAwMDAxNDUgMDAwMDAgbiAKMDAwMDAwMjcwMi VjYCHcAUUlOUtkWMPcZAEtJsTwOHTqFZTqBI6rLjByHNTqIJZ1VJPrQMFdOZAucgOTGDBaDLKwZsbbOE HzWAZgFMWzJBixNDVhXNLiLNUzCZDzEUUhYF2lQrNfUQQbVyShBQWoFECwNMWpbxERLTToBSQrNhnzBD RmYYRpMZMvWOlfNZRdZDPyAHjoDOHvMRDgYG3wGpDj LBRgNYC7ZDywEOGxEKUkkeSQKRPjYGDnPLU6PVOpPJDnNDNiZIrsEMJyLVHdBmbuXBScUURjQW8qWoQv TESqOjR1GThrTBQuXXMihaKDPYDvTQCqTEKuLoAgTOZiQBTgIKjwLJOmVBVaMxPmBLPfYDMzCB7dXmLl MDAwMjUwOTUgMDAwMDAgbiAKMDAwMDAyNTMwOCAwMD PjDLMiEPntWJUpZKG8XGT0PLNaTUEdLP7dSsDiKOFiJhL1ViCdYIYbINWvodDOqJZzsOtaqtl6HNaaOB 5Gg832KBTsDKBRTtGrW3vcXp9tFLQsFAHNLVDrQFMuOmvQNob8EtO8LjD8VrlgNLZ6N2U5WQUxPfW4BO F3HbHiJl7qELRUIECGYlrGQxZ7VCYBZzqEEwFXYPTY TFD8YlUWLwEeVd2NISGfC0m7UHVbWXu+OxnmgOIzdVkuZXWGHbAeXutOSDZAP1YZ ID Date Data Source [id number] 05/11/2020 08:01:00 AM EST [facility] Name Value Range Interpretation Code Description Data Heena rce(s) Supporting Document(s) Glucose [Moles/volume] in Capillary blood by Glucometer 88 mg/dL 70 - 100 [facility] RESULTS < 40 mg/dL OR > 500 mg /dL WILL REQUIRE CONFIRMATION BY LAB ID Date Data Source [id number] 05/10/2020 07:27:00 AM [facility] Name Value Range Interpretation Code Description Data Heena rce(s) Supporting Document(s) Glucose [Moles/volume] in Capillary blood by Glucometer 91 mg/dL 70 - 100 [facility] RESULTS < 40 mg/dL OR > 500 mg /dL WILL REQUIRE CONFIRMATION BY LAB ID Date Data Source [id number] 05/09/2020 07:16:00 AM [facility] Value Range Interpretation Code Description Data Heena rce(s) Supporting Document(s) Glucose [Moles/volume] in Capillary blood by Glucometer 94 mg/dL 70 - 100 [facility] RESULTS < 40 mg/dL OR > 500 mg /dL WILL REQUIRE CONFIRMATION BY LAB ID Date Data Source [id number] 05/08/2020 07:14:00 AM [facility] Value Range Interpretation Code Description Data Heena rce(s) Supporting Document(s) Glucose [Moles/volume] in Capillary blood by Glucometer 80 mg/dL 70 - 100 [facility] RESULTS < 40 mg/dL OR > 500 mg /dL WILL REQUIRE CONFIRMATION BY LAB ID Date Data Source [id number] 05/07/2020 07:21:00 AM [facility] Value Range Interpretation Code Description Data Heena rce(s) Supporting Document(s) Glucose [Moles/volume] in Capillary blood by Glucometer 84 mg/dL 70 - 100 [facility] RESULTS < 40 mg/dL OR > 500 mg /dL WILL REQUIRE CONFIRMATION BY LAB ID Date Data Source [id number] 05/06/2020 11:17:30 AM [facility] Value Range Interpretation Code Description Data Heena rce(s) Supporting Document(s) Progress Note [facility] pital YEIKMz7bDuKQHxblxF5OWMHvCL5ilkv5ETuwH7RrBVVtvkBcSMDzJ0jvBQMASCYRNVLnlV5fYBDlZxmL vYm iHYNlNHOPzXcDtYlHlR3rlbab2wNZ0VHZdSbwrOM3XwVd3OIMvP2DxKBZbXYNcw0ObVi0+HiE7nsNokC v1sP4EY0HAYFkR41hhKx2xWVEcgLxtuICb7jWOvvsDl0RyuiaLWGLiURZGOWcBJPTZY71CCGPUCrZOXQ dhbo1zg9VaUa4vPopJ86/ZrfmxtVVb+2f7/Zzue5PA vCAgk5h4ajmJyGmijnTKKPxAgPOM0ym28jHKraORrIzGY3zQIQuPZp0DPbU47gLRcbNlQO+M95HHTqce 6wjWc8+Manoj+9Pjgv7H9/Haiecvf6/9gvYtSRhdAfKnUsGqAKyiLy34oBRmPEpkRPih3YEOGHDr2zVy3 [file] o6IRgi5nKe4gmNf4+PHLEBOTOMY SPECIALIST/Ib50kvNVGDuMVbdOQ5949Hml/z/dC+6jvf3g1zTEbjQwYrdya6JBiynzAEcP [file] ODIgMDAwMDAgbiAKMDAwMDAyNTEwOSAwMDAwMCBuIA ffPHQfNFG6QWLvFXVzTKKeBG7lLwXlZENfWuWvNjUmFMSbXATbfoCNLBOlVZEkNRYpFDTdCMFrOCIsYN icWUAwEMWhNQheTRBjMNYhZX9zOoPvKSXuSuo7JIYkTZVwEBScvtCPOAVoLVRlIGP7GXOoSBUgHWNaTE igGSFqPNMrTxIiJMXrWLAeHN4mKeIcKJNnCtN3Gauj NATfOLBpwmEVKDNkMGQxZGl2MLKbFGRoBYLwRTm5noBtmLUcUgy1UcGcT2Olc0VuEcVbRVNOUARmCU8q glK1VKEfNkzbZM0YWGIgQBA1RxFqLfnVHObQJOQaIzI8PxYcHYJ3G5G9QCGQGeAhOxW6NiRYSGKzMSD1 C0DQOKHWXhfONROXCfaiVzkIDfY6DhP+HLroJT8F aXplIDMwCj4+SlW8BHQ2vMUmWzdjOUKgCrddYJUTZdy= ID Date Data Source [id number] 05/06/2020 07:06:00 AM [facility] Name Value Range Interpretation Code Description Data Heena rce(s) Supporting Document(s) Glucose [Moles/volume] in Capillary blood by Glucometer 80 mg/dL 70 - 100 [facility] RESULTS < 40 mg/dL OR > 500 mg /dL WILL REQUIRE CONFIRMATION BY LAB ID Date Data Source [id number] 05/05/2020 07:19:00 AM [facility] Name Value Range Interpretation Code Description Data Heena rce(s) Supporting Document(s) Glucose [Moles/volume] in Capillary blood by Glucometer 83 mg/dL 70 - 100 [facility] RESULTS < 40 mg/dL OR > 500 mg /dL WILL REQUIRE CONFIRMATION BY LAB ID Date Data Source [id number] 05/04/2020 07:47:00 AM [facility] Value Range Interpretation Code Description Data Heena rce(s) Supporting Document(s) Glucose [Moles/volume] in Capillary blood by Glucometer 97 mg/dL 70 - 100 [facility] RESULTS < 40 mg/dL OR > 500 mg /dL WILL REQUIRE CONFIRMATION BY LAB ID Date Data Source [id number] 05/03/2020 07:39:00 AM [facility] Value Range Interpretation Code Description Data Heena rce(s) Supporting Document(s) Glucose [Moles/volume] in Capillary blood by Glucometer 95 mg/dL 70 - 100 [facility] RESULTS < 40 mg/dL OR > 500 mg /dL WILL REQUIRE CONFIRMATION BY LAB ID Date Data Source [id number] 05/02/2020 08:00:00 AM [facility] Value Range Interpretation Code Description Data Heena rce(s) Supporting Document(s) Glucose [Moles/volume] in Capillary blood by Glucometer 96 mg/dL 70 - 100 [facility] RESULTS < 40 mg/dL OR > 500 mg /dL WILL REQUIRE CONFIRMATION BY LAB ID Date Data Source [id number] 05/01/2020 07:44:00 AM [facility] Value Range Interpretation Code Description Data Heena rce(s) Supporting Document(s) Glucose [Moles/volume] in Capillary blood by Glucometer 103 mg/d L 70 - 100 Above high normal [facility] RESULTS < 40 mg/dL OR > 500 mg /dL WILL REQUIRE CONFIRMATION BY LAB ID Date Data Source [id number] 04/30/2020 08:15:00 PM EST [facility] Name Value Range Interpretation Code Description Data Heena rce(s) Supporting Document(s) Glucose [Moles/volume] in Capillary blood by Glucometer 144 mg/d L 70 - 100 Above high normal [facility] RESULTS < 40 mg/dL OR > 500 mg /dL WILL REQUIRE CONFIRMATION BY LAB ID Date Data Source [id number] 04/30/2020 01:20:54 PM EST [facility] Name Value Range Interpretation Code Description Data Heena rce(s) Supporting Document(s) Progress Note [facility] RIYVAw2gApJNVqeilB8JRIDqCV5olgn1VDblD5VcVMAozcXyFSLhB9uaJSCZDNXYHQAewY0lSYNiIlwL vYm kOKVvEDEEdPoVeMdVoJ5jjokt0fMW5OFYtOdsaOF6XpMe6FEDzG2KjGMZuPZUdj9AqYf8+YlF6fkLqdI b7uG8LD4KWCCbX69bjEa8fUBNjsIkepKTd5xXDaawBt3RoivrBUNUkDJOFNTtPTXGGH30BPSJBAwUAOH osww2sa8HvHe8kUtgK02/ZrfmxtVVb+2f7/Eqnh4TS rQTha2q0zbpQnQnqfnCTTEmPpCZP0xs79xMVlkZToDmIA1dSUOiFAn6ZZtA74zSWywPjUQ+B87NFCrif 6wjWc8+Manoj+6Mcvd9X3/Haiecvf6/3yhZrLWsxMnVyXyNhNCbgZk92hCSyLDpwWIcw0MOQFAJf8dJt6 [file] v1PZej4lZf8vcEn7+PHLEBOTOMY SPECIALIST/Ae95bwBCSTjHJnwXC7749Awu/z/dC+6czw6c5eXWugVvPuktp7LWgtjrHVnD [file] XSA+PgplbmRvYmoKeHJlZgowIDMwCjAwMDAwMDAwMD UsKmL7QgIxUgBJAQNeMXUjCBO9QYSrMWDiYFSmFYzxWGRnKLSgHja9BODlKCTmOY3dAqNfCGCtRcBrZL wjHXNnULBprbBSAHByXKPyPVDgPKUxMVBgYROvMHjuDYYiGGXkTJR9KLPkUWUbQZ2aJoSoNHKrWRZ1ZI IgMDAwMDAgbiAKMDAwMDAwMjcyMiAwMDAwMCBuIAow EYItHAImMiP4JCQaQJKfOX6uUlYdDRAsSNM3GAvhXFTfVRVdzrVHQXTzIFUrEsZrXpLmXMJeFQCuMMbn XCGdAYRxBBxmIWUkJOPnES5iLwHhHMDoEUB1NjlcOPLiCVPutvXZDSAqVCGlJsj4WQHsYMOmNQArRPls PMZkDHRmBUr3VEHaXABpMM5wUqNxHXAjJuZyGDatDF BrEFWczfJOHJCxVCSbSVR9VVEqNWZmLUGqMSrrQPOfEVFcRFj2FKXgZSShAM2yKpKtGKZkThZqZIMaBN UgBJLiqcVILCFsCNLwHxKoMNRyTEPqPPEtYFvuGQZeLEZ3RwG3UWOxGUEyTW8nExYaQLFmZiq8BOMmWE AwMDAgbiAKMDAwMDAyNTQzOCAwMDAwMCBuIAowMDAw YBQ0BEi6SINuYBZcPU7fZqOyTWSmGgK4DdcpIXNzZRTuxsERRARmFNUiKIV3FAVjAOBhSXQmRJoxSBWq XTNtNiB7LXDqKOWbCU9cUkOhLSIjPmJ0DfbcDJBkNAIavfESNIHqLDOjLOj1FgPnHSDoSUTqCPkwCKWf WLTjJLp6IHKbEUJoUZ8uNnReWDpxZYIJPUyKKCFsCe 3rrZTsPXJfMsyqXZ8RsuQvLHRiCQQXVaTyW6cVRUs5KPE6IRX6RTVMKsaWJeYZNGHpMqBKYRQdRNAnJM ZBODg+OUk3HOv6Gnh8DzTtEQGROGD2DACcIkOLZgG5UQCYEbV1CV7jIcCkG9KupfMgOvCSLo6Ea7Uckn P4ynXrMcYpMzH9DcCkQA4IOg== ID Date Data Source [id number] 04/30/2020 07:32:00 AM [facility] Name Value Range Interpretation Code Description Data Heena rce(s) Supporting Document(s) Glucose [Moles/volume] in Capillary blood by Glucometer 100 mg/dL 70 - 100 [facility] RESULTS < 40 mg/dL OR > 500 mg /dL WILL REQUIRE CONFIRMATION BY LAB ID Date Data Source [id number] 04/29/2020 07:37:00 AM [facility] Name Value Range Interpretation Code Description Data Heena rce(s) Supporting Document(s) Glucose [Moles/volume] in Capillary blood by Glucometer 107 mg/d L 70 - 100 Above high normal [facility] RESULTS < 40 mg/dL OR > 500 mg /dL WILL REQUIRE CONFIRMATION BY LAB ID Date Data Source [id number] 04/28/2020 07:46:00 AM [facility] Name Value Range Interpretation Code Description Data Heena rce(s) Supporting Document(s) Glucose [Moles/volume] in Capillary blood by Glucometer 83 mg/dL 70 - 100 [facility] RESULTS < 40 mg/dL OR > 500 mg /dL WILL REQUIRE CONFIRMATION BY LAB ID Date Data Source [id number] 04/27/2020 07:22:00 AM [facility] Name Value Range Interpretation Code Description Data Heena rce(s) Supporting Document(s) Glucose [Moles/volume] in Capillary blood by Glucometer 104 mg/d L 70 - 100 Above high normal [facility] RESULTS < 40 mg/dL OR > 500 mg /dL WILL REQUIRE CONFIRMATION BY LAB ID Date Data Source [id number] 04/26/2020 09:01:00 PM [facility] Name Value Range Interpretation Code Description Data Heena rce(s) Supporting Document(s) Glucose [Moles/volume] in Capillary blood by Glucometer 118 mg/d L 70 - 100 Above high normal [facility] RESULTS < 40 mg/dL OR > 500 mg /dL WILL REQUIRE CONFIRMATION BY LAB ID Date Data Source [id number] 04/26/2020 04:25:00 PM [facility] Name Value Range Interpretation Code Description Data Heena rce(s) Supporting Document(s) Glucose [Moles/volume] in Capillary blood by Glucometer 130 mg/d L 70 - 100 Above high normal [facility] RESULTS < 40 mg/dL OR > 500 mg /dL WILL REQUIRE CONFIRMATION BY LAB ID Date Data Source [id number] 04/26/2020 11:41:00 AM [facility] Name Value Range Interpretation Code Description Data Heena rce(s) Supporting Document(s) Glucose [Moles/volume] in Capillary blood by Glucometer 105 mg/d L 70 - 100 Above high normal [facility] RESULTS < 40 mg/dL OR > 500 mg /dL WILL REQUIRE CONFIRMATION BY LAB ID Date Data Source [id number] 04/26/2020 07:35:00 AM [facility] Name Value Range Interpretation Code Description Data Heena rce(s) Supporting Document(s) Glucose [Moles/volume] in Capillary blood by Glucometer 83 mg/dL 70 - 100 [facility] RESULTS < 40 mg/dL OR > 500 mg /dL WILL REQUIRE CONFIRMATION BY LAB ID Date Data Source [id number] 04/26/2020 07:10:00 AM EST [facility] Name Value Range Interpretation Code Description Data Heena rce(s) Supporting Document(s) COMPREHENSIVE CHEM PROFILE i [facility] COMPREHENSIVE METABOLIC PANEL Sodium [Moles/volume] in Serum or Plasma 139 mEq/L 136 - 145 [facility] Potassium [Moles/volume] in Serum or Plasma 3.8 mEq/L 3.5 - 5.1 [facility] Chloride [Moles/volume] in Serum or Plasma 104 mEq/L 98 - 107 [facility] Carbon dioxide, total [Moles/volume] in Serum or Plasma 26.1 mEq /L 21.0 - 32.0 [facility] Glucose [Mass/volume] in Serum or Plasma 96 mg/dL 70 - 100 [facility] Urea nitrogen [Mass/volume] in Serum or Plasma 33 mg/dL 7 - 18 Above high normal [facility] CREATININE SERUM 1.84 mg/dL 0.70 - 1.30 Above high normal [facility] AGE 80 yrs [facility] HEIGHT 7070.00 [facility] eGFR NON-AFR AMR 36 [facility] eGFR AFR AMR 43 [facility] ital BUN/CREAT 18 6 - 25 [facility] Protein [Mass/volume] in Serum or Plasma 5.7 g/dL 6.0 - 8.3 Below low normal [facility] Albumin [Mass/volume] in Serum or Plasma 1.8 g/dL 3.8 - 5.4 Below low normal [facility] GLOBULIN 3.9 g/dL 2.0 - 4.0 [facility] A/G RATIO 0.5 0.8 - 2.0 Below low normal [facility] Calcium [Mass/volume] in Serum or Plasma 8.6 mg/dL 8.8 - 10.2 Below low normal [facility] Bilirubin.total [Mass/volume] in Serum or Plasma 1.0 mg/dL 0.2 - 1.0 [facility] Bilirubin.direct [Mass/volume] in Serum or Plasma 0.3 mg/dL 0.0 - 0.2 Above high normal [facility] INDIRECT BILI 0.7 mg/dL 0.0 - 1.1 [facility] pital ALK PHOSPHATASE 81 U/L 40 - 129 [facility] ospital Aspartate aminotransferase [Enzymatic ac tivity/volume] in Serum or Plasma by With P-5'-P 148 IU/L 7 - 37 Above high normal [facility] ital Alanine aminotransferase [Enzymatic acti vity/volume] in Serum or Plasma by With P-5'-P 152 IU/L 12 - 78 [facility] ANION GAP 9 7 - 15 [facility] Estimated GFR referenc e range: >60ml/min/1.73m >18 years: Calculated using IDMS traceable Study Equation <18 years: Calculated using IDMS tracable Bedside Schartz Equation ID Date Data Source [id number] 04/26/2020 07:10:00 AM EST [facility] Name Value Range Interpretation Code Description Data Heena rce(s) Supporting Document(s) CBC [facility] COMPLETE BLOOD COUNT Leukocytes [#/volume] in Blood by Automated count 6.7 K/uL 4.0 - 10 .0 [facility] Erythrocytes [#/volume] in Blood by Automated count 4.25 M/uL 4.30 - 6.10 Below low normal [facility] Hemoglobin [Mass/volume] in Blood 13.1 g/dL 13.5 - 17.5 Below low no rmal [facility] Hematocrit [Volume Fraction] of Blood by Automated count 40.0 % 3 9.0 - 50.0 [facility] Erythrocyte mean corpuscular volume [Entitic volume] by Auto mated count 94.1 fL 80.0 - 96.0 [facility] Erythrocyte mean corpuscular hemoglobin [Entitic mass] by Automated count 30.8 pg 26.0 - 34.0 [facility] Erythrocyte mean corpuscular hemoglobin concentration [Mass/volume] by Automated count 32.8 g/dL 32.0 - 36.0 [facility] Erythrocyte distribution width [Ratio] by Automated count 15.6 % 11.6 - 14.8 Above high normal [facility] Platelets [#/volume] in Blood by Automated count 125 K/uL 150 - 450 Below low normal [facility] Platelet mean volume [Entitic volume] in Blood by Automated count 9.8 fL 7.1 - 10.4 [facility] Neutrophils [#/volume] in Blood by Automated count 4.58 K/uL 1.70 - 7.70 [facility] Lymphocytes [#/volume] in Blood by Automated count 1.10 K/uL 1.50 - 6.00 Below low normal [facility] Monocytes [#/volume] in Blood by Automated count 0.51 K/uL 0.00 - 1. 00 [facility] Eosinophils [#/volume] in Blood by Automated count 0.39 K/uL 0.00 - 0.30 Above high normal [facility] Basophils [#/volume] in Blood by Automated count 0.05 K/uL 0.00 - 0. 10 [facility] 0.02 Urinalysis macro (dipstick) panel - Urine 0.000 10^3/uL 0.000 - 0.012 [facility] Neutrophils/100 leukocytes in Blood by Automated count 68.8 % 42. 2 - 75.2 [facility] Lymphocytes/100 leukocytes in Blood by Automated count 16.5 % 15. 0 - 41.0 [facility] Monocytes/100 leukocytes in Blood by Automated count 7.7 % 0.0 - 12.0 [facility] Eosinophils/100 leukocytes in Blood by Automated count 5.9 % 0.0 - 7.0 [facility] 0.80.30 NRBC 0.0 % [facility] DIFF NOT INDICATED [facility] ospital RBC MORPH NOT INDICATED [facility] pital ID Date Data Source [id number] 04/25/2020 09:03:00 PM EST [facility] Name Value Range Interpretation Code Description Data Heena rce(s) Supporting Document(s) Glucose [Moles/volume] in Capillary blood by Glucometer 149 mg/d L 70 - 100 Above high normal [facility] RESULTS < 40 mg/dL OR > 500 mg /dL WILL REQUIRE CONFIRMATION BY LAB ID Date Data Source [id number] 04/25/2020 07:19:21 PM EST [facility] Name Value Range Interpretation Code Description Data Heena rce(s) Supporting Document(s) Admission Note Abraham mcgheetal XZSXGx0uUfOLThtigJ3AGNMaTK9tawv0KRvpR1FeAZXgqoVfMHIbE6izMZMZHOIBUVIugK2vXGFfTlaI vYm lNTCsKHJPsQcVdEgJvJ5tglmk5rSE8JWGxClblKB5QwCu9SULiZ8LlVDCzIPEul7KhVv8+VxO3bjWcvL h6kX8HZ5VIMHhX54ynCg1eQLNotUdgmHAa4aNEgslAf7CsouwFKEPmKHKLKOgTJIIHF52SZKTZVaEJHA schr5zh3AeHe1wVelW52/ZrfmxtVVb+2f7/Bzsx1BQ uIWyv6l0uzoEpXqfozCYXNzSgFOP7xr15nARhsMRlBxXI5yZFMaBKj9LFfQ01dAZsxGvBK+F37QBFrzf 6wjWc8+Manoj+7Zmqt9G8/Haiecvf6/5bvReQLbqGsLzMzNdDTtxXi65xURsAKxtOSrz5GXWIGVb9aJk2 [file] c0VGpr4fAy6pcYu4+PHLEBOTOMY SPECIALIST/Zf28izEFBMyBYtvKY3757Zfp/z/dC+5bwn6h0tPHarWfMbubf6JAinvrOEoX [file] GuZxE4HkhmVvDwoJFn7Ur8GjdyV0cvXoXnY9UtvfQdVgEV0GKa== ID Date Data Source [id number] 04/23/2020 11:51:00 AM EST [facility] Name Value Range Interpretation Code Description Data Heena rce(s) Supporting Document(s) SARS coronavirus 2 RNA [Presence] in Res piratory specimen by LUIS FERNANDO with probe detection NEGATIVE [facility] This lab was ordered by [facility] a nd reported by [facility]. ID Date Data Source [id number] 04/06/2020 01:30:00 PM EST [facility] Name Value Range Interpretation Code Description Data Heena rce(s) Supporting Document(s) SARS coronavirus 2 RNA [Presence] in Res piratory specimen by LUIS FERNANDO with probe detection POSITIVE [facility] This lab was ordered by [facility] a nd reported by [facility]. ID Date Data Source [id number] 01/24/2020 10:40:00 AM EST [facility] INFORMATIONPatient MRN Name Date of Age Gend*PT [id number] Ana Nicole 1940 79 years M ---PT Location Admission Date/Time Visit ID Attending Provider --- --- --- --- EPI ID CSN Admitting Provider [id number] ---[facility] [id number] [facility], [address] (First Floor)[place], [place] [address]Ng.: Fax: Patient: Ana Nicole : 2Date: 01/24/20CARDIOLOGY ELECTROPHYSIOLOGY TELEMEDICINE CONSULTPatient was identified by name and date of .Verbal consent was obtained from the patient for this telemedicine visit.Patient is aware of the risks, limitations, and benefits of a telemedicinevisit.This telemedicine assessment was conducted remotely with the assistance of[employer] communication technology. Telephone Only Codes 00544: 21-30 minutesof medical discussion: Telephone Only .Subjective:I [...] place 2005 epicardial lead placed 2006 an [facility]. Pulse genreplacement 2013 [facility] CABG 2005 MARC to LAD, LV aneurysmectomy Cardiac catheterization 2005 [facility]. Patent MARC to mLAD. LV EF 25%. CKD (chronic kidney disease) CVA (cerebral vascular accident) 1997 DM (diabetes mellitus) EGD 05/2015 [facility], reported negative HLD (hyperlipidemia) HTN (hypertension) ME (myocardial infarction) 1976 medical management Morbid obesity KENJI on CPAP PFTs 11/21/2015 78% FVC, 80% FEV1, 96% DLCO. Regadenoson PET 06/01/2016 EF 28%, extensive infarct without ischemia Ventricular tachycardia On amiodarone since 07/2012FAMILY HISTORY: family history includes Myocardial Infarction (ME) in hisfather.SOCIAL HISTORY: reports that he quit [...] benefitsFollow Up generator replacementSignature: Chris Carrington MD, [facility], [facility]ITALCardiac Electrophysiology and Arrhythmia ServiceDate: January 24, 2020Time: 10:35 AMThis document or parts of this document, were dictated using Equivalent DATA[employer]. A reasonable attempt at proofreading has been made to minimize errors.Please call with any questions or corrections. Name Value Range Interpretation Code Description Data Heena rce(s) Supporting Document(s) Procedure Social History Code Duration Value Status Description Data Source(s ) Smoking 02/15/2021 12:00:00 AM EST Patient is a former smoker completed Patient is a former smoker MEDENT ([facility], [facility]) Smoking 11/28/2020 12:00:00 AM EDT Former Smoker completed Former Smoker eCW1 ([facility]) Smoking 08/16/2020 12:00:00 AM EDT Former Smoker completed Former Smoker eCW1 ([facility]) Alcohol intake 05/20/2020 12:00:00 AM EST Ex-drinker (finding) comp leted Ex- drinker (finding) [facility] Smoking 05/20/2020 12:00:00 AM EST Former smoker completed Former smoker [facility] Alcohol intake 05/17/2020 12:00:00 AM EST Not Currently completed [facility] Smoking 05/17/2020 12:00:00 AM EST Former smoker completed Former smoker [facility] Smoking 02/02/2020 12:00:00 AM EST Former Smoker completed Former Smoker eCW1 ([facility]) Smoking 02/02/2020 12:00:00 AM EST Former Smoker completed Former Smoker eCW1 ([facility]) Alcohol intake 01/23/2020 12:00:00 AM EST Not Currently completed [facility] Smoking 01/23/2020 12:00:00 AM EST Former smoker completed Former smoker [facility] Vital Signs ID Date Data Source UNK Name Value Range Interpretation Code Description Data Source(s) Systolic blood pressure 120 mm[Hg] 120 mm[Hg] M EDENT ([facility], [facility]) Diastolic blood pressure 70 mm[Hg] 70 mm[Hg] [facility] ([facility]) Heart rate 70 /min 70 /min [facility] ([facility], [facility]) Respiratory rate 16 /min 16 /min [facility] ( [facility]) Oxygen saturation in Arterial blood by Pulse oximetry 90 % 90 % [facility] ([facility]) Body temperature 99.3 [degF] 99.3 [degF] [facility] ([facility], [facility]) Body weight 294.00 [lb_av] 294.00 [lb_av] MEDEN T ([facility], [facility]) Body height 68 [in_i] 68 [in_i] [facility] ([facility]) 5'8" Body mass index (BMI) [Ratio] 44.7 kg/m2 44.7 k g/m2 [facility] ([facility]) Systolic blood pressure 100 mm[Hg] 100 mm[Hg] [facility] Diastolic blood pressure 60 mm[Hg] 60 mm[Hg] [facility] Heart rate 64 /min 64 /min [facility] Respiratory rate 16 /min 16 /min [facility] Body height 177.8 cm 177.8 cm [facility] Body weight 136.079 kg 136.079 kg [facility] Body mass index (BMI) [Ratio] 43.05 kg/m2 43.05 kg/m2 [facility] Respiratory rate 16 /min 16 /min [facility] Body height 177.8 cm 177.8 cm [facility] Systolic blood pressure 104 mm[Hg] 104 mm[Hg] [facility] Diastolic blood pressure 60 mm[Hg] 60 mm[Hg] [facility] Heart rate 64 /min 64 /min [facility] Body weight 137.44 kg 137.44 kg [facility] Body mass index (BMI) [Ratio] 43.48 kg/m2 43.48 kg/m2 [facility] Body weight 295 [lb_av] 295 [lb_av] eCW1 ([facility]) Body weight 133.81 kg 133.81 kg [facility] ([facility]) Body height 69 [in_i] 69 [in_i] eCW1 ([facility]) Body mass index (BMI) [Ratio] 43.56 kg/m2 43.56 kg/m2 W1 ([facility]) Heart rate 70 /min 70 /min eCW1 ([facility]) Respiratory rate 18 /min 18 /min eCW1 ([facility]) Body temperature 97.4 [degF] 97.4 [degF] eCW1 ( [facility]) Systolic blood pressure 124 mm[Hg] 124 mm[Hg] e CW1 ([facility]) Diastolic blood pressure 64 mm[Hg] 64 mm[Hg] eCW1 ([facility]) Systolic blood pressure 124 mm[Hg] 124 mm[Hg] [facility] Diastolic blood pressure 72 mm[Hg] 72 mm[Hg] [facility] Heart rate 68 /min 68 /min [facility] Respiratory rate 16 /min 16 /min [facility] Body height 177.8 cm 177.8 cm [facility] Body weight 137.44 kg 137.44 kg [facility] Body mass index (BMI) [Ratio] 43.48 kg/m2 43.48 kg/m2 [facility] Respiratory rate 20 /min 20 /min eCW1 ([facility]) Body weight 295 [lb_av] 295 [lb_av] eCW1 ([facility]) Body height 69 [in_i] 69 [in_i] eCW1 ([facility]) Body mass index (BMI) [Ratio] 43.56 kg/m2 43.56 kg/m2 eCW1 ([facility]) Heart rate 74 /min 74 /min eCW1 ([facility]) Body temperature 98.0 [degF] 98.0 [degF] eCW1 ( [facility]) Systolic blood pressure 130 mm[Hg] 130 mm[Hg] e CW1 ([facility]) Diastolic blood pressure 62 mm[Hg] 62 mm[Hg] eCW1 ([facility]) Systolic blood pressure 110 mm[Hg] 110 mm[Hg] [facility] Diastolic blood pressure 64 mm[Hg] 64 mm[Hg] [facility] Heart rate 70 /min 70 /min [facility] Respiratory rate 16 /min 16 /min [facility] Body height 177.8 cm 177.8 cm [facility] Body weight 135.626 kg 135.626 kg [facility] Body mass index (BMI) [Ratio] 42.90 kg/m2 42.90 kg/m2 [facility] Systolic blood pressure 108 mm[Hg] 108 mm[Hg] [facility] Diastolic blood pressure 50 mm[Hg] 50 mm[Hg] [facility] Heart rate 70 /min 70 /min [facility] Body height 177.8 cm 177.8 cm [facility] Body weight 140.161 kg 140.161 kg [facility] Body mass index (BMI) [Ratio] 44.34 kg/m2 44.34 kg/m2 [facility] Oxygen saturation in Arterial blood by Pulse oximetry 97 % 97 % [facility] Systolic blood pressure 96 mm[Hg] 96 mm[Hg] [facility] Diastolic blood pressure 50 mm[Hg] 50 mm[Hg] [facility] Heart rate 70 /min 70 /min [facility] Body temperature 36.06 Oly 36.06 Oly [facility] Oxygen saturation in Arterial blood by Pulse oximetry 92 % 92 % [facility] Respiratory rate 18 /min 18 /min [facility] Body height 175.3 cm 175.3 cm [facility] Body weight 129.729 kg 129.729 kg [facility] Body mass index (BMI) [Ratio] 42.23 kg/m2 42.23 kg/m2 [facility] Patient Treatment Plan of Care Planned Activity Planned Date Details Description Data Source (s) clopidogrel 75 MG Oral Tablet 11/27/2020 12:00:00 AM EDT [facility] Rosuvastatin calcium 40 MG Oral Tablet 11/27/2020 12:00:00 AM EDT [facility] Amiodarone hydrochloride 200 MG Oral Tablet 11/27/2020 12:00:00 AM EDT [facility] torsemide 20 MG Oral Tablet 09/02/2020 12:00:00 AM EDT [facility] Rosuvastatin calcium 40 MG Oral Tablet 09/02/2020 12:00:00 AM EDT [facility] Amiodarone hydrochloride 200 MG Oral Tablet 09/02/2020 12:00:00 AM EDT [facility] Spironolactone 25 MG Oral Tablet 08/22/2020 12:00:00 AM EDT [facility] torsemide 20 MG Oral Tablet 06/14/2020 12:00:00 AM EDT [facility] clopidogrel 75 MG Oral Tablet 06/07/2020 12:00:00 AM EDT [facility] Amiodarone hydrochloride 200 MG Oral Tablet 03/21/2020 12:00:00 AM EST [facility] Furosemide 40 MG Oral Tablet 03/21/2020 12:00:00 AM EST [facility] Rosuvastatin calcium 40 MG Oral Tablet 03/21/2020 12:00:00 AM EST [facility] Betamethasone 0.5 MG/ML Topical Cream 02/02/2020 12:00:00 AM EST eCW1 ([facility]) Betamethasone 0.5 MG/ML Topical Cream 02/02/2020 12:00:00 AM EST eCW1 ([facility]) Metoprolol Tartrate 25 MG Oral Tablet 11/16/2019 12:00:00 AM EDT [facility] 24 HR Oxybutynin chloride 10 MG Extended Release Oral Tablet 08/16/2019 12:00:00 AM EDT [facility] Spironolactone 25 MG Oral Tablet 06/20/2019 12:00:00 AM EDT [facility] atorvastatin 20 MG Oral Tablet [facility] Bumetanide 1 MG Oral Tablet [facility] Magnesium Chloride 535 MG Delayed Release Oral Tablet [facility] tramadol hydrochloride 50 MG Oral Tablet [facility]
[2021-02-15 13:50] LABS: VENOUS BASE EXCESS 6.2 (-2.0-2.0); VENOUS HCO3 31.5 MEQ/L (23.0-27.0); VENOUS O2 SATURATION 79.6 % (60.0-80.0); VENOUS PARTIAL PRESSURE CO2 46.8 mmHg (38.0-50.0); VENOUS PARTIAL PRESSURE O2 42.8 mmHg (30.0-50.0); VENOUS PH 7.446 UNITS (7.330-7.430); VENOUS STANDARD HCO3 29.6 MEQ/L; VENOUS TOTAL CO2 32.9 MEQ/L (24.0-28.0)
[2021-02-15 13:56] LABS: BASO % 0.3 % (0.0-1.0); HEMATOCRIT 49.8 % (42.0-52.0); LYMPH # 1.5 10^3/uL (1.5-5.0); LYMPH % 13.3 % (24.0-44.0); MEAN CORPUSCULAR HEMOGLOBIN 29.4 pg (27.0-33.0); MEAN CORPUSCULAR HGB CONC 32.1 g/dl (32.0-36.5); MEAN CORPUSCULAR VOLUME 91.5 fl (80.0-96.0); MONO # 1.2 10^3/uL (0.0-0.8); MONO % 10.4 % (2.0-8.0); NEUTROPHILS # 8.8 10^3/uL (1.5-8.5); NEUTROPHILS % 75.6 % (36.0-66.0); PLATELET COUNT, AUTOMATED 198 10^3/uL (150-450); RED BLOOD COUNT 5.44 10^6/uL (4.30-6.10); WHITE BLOOD COUNT 11.6 10^3/uL (4.0-10.0)
[2021-02-15 14:07] LABS: INR 1.14; PARTIAL THROMBOPLASTIN TIME 29.4 SECONDS (25.9-37.0)
--- NOTE | 2021-02-15 14:08 | REP ---
INDICATION: DYSPNEA/COUGH. COMPARISON: Comparison chest x-ray April 17, 2020. TECHNIQUE: Sitting portable chest radiograph, two views. FINDINGS: Cardiomegaly is again observed unchanged. A multilead pacemaker is seen in the right heart view of the left side as before. Monitoring electrodes are present. There is an infiltrate in the left perihilar region inferior and medial to the pacemaker power plant which does not appear to have been present previously. No infiltrate noted on the right. Patient is status post prior median sternotomy. There is some vascular congestion. IMPRESSION: Cardiomegaly with pacemaker and prior sternotomy. Left mid lung zone infiltrate consistent with pneumonia. No pleural effusion. <Electronically signed by Bonifacio Davis > 02/15/21 [id number]
[2021-02-15 14:34] LABS: ALBUMIN 3.1 GM/DL (3.2-5.2); BILIRUBIN,DIRECT 0.5 MG/DL (0.0-0.2); BILIRUBIN,TOTAL 1.4 MG/DL (0.2-1.0); CALCIUM LEVEL 9.6 MG/DL (8.8-10.2); CREATININE FOR GFR 1.94 MG/DL (0.70-1.30); GLOMERULAR FILTRATION RATE 35.8 (>42); POTASSIUM SERUM 3.1 MEQ/L (3.5-5.1); THYROID STIMULATING HORMONE 0.597 uIU/ML (0.358-3.740); TOTAL PROTEIN 8.2 GM/DL (6.4-8.2)
[2021-02-15] MEDS ORDERED: cefTRIAXone SOD 2 GM in D5W MINI-BAG PLUS 50 ML IV ONE (15:00)
--- NOTE | 2021-02-15 16:41 | ECGEPIP ---
[facility] - ED Test Date: 2021-02-15 Pat Name: ANA BERMAN Department: Room: - Gender: Male Box Car Bracer: VLA : 1940 Requested By: JERMAINE Cote Order Number: [id number] Reading MD: Evelina Adan Measurements Intervals [place] Rate: 73 P: DC: 256 QRS: 214 QRSD: 144 T: -31 QT: 540 QTc: 594 Interpretive Statements AV dual-paced rhythm with prolonged AV conduction with occasional premature ventricular complexes similar 04/17/20 Electronically Signed on 02-15-2021 16:40:27 EST by Evelina Adan
[2021-02-15] MEDS ORDERED: HOME MED LIST COMPLETE! XX SCH (17:25)
[2021-02-15] MEDS ORDERED: DEXTROMETHORPHAN 60MG/10ML SUSP 90ML BTL(DELSYM) PO PRN (17:50)
--- NOTE | 2021-02-15 18:06 | HPEPDOC ---
General Date of Admission 02/15/21 Date of Service: Feb 15, 2021 Chief Complaint The patient is a 80-year-old male admitted with a reason for visit of Short Of Breath. History of Present Illness 80-year-old male with multiple medical problems presented to the emergency room via ambulance for cough shortness of breath and wheezing. Patient reports that 6 days ago he started with a cold he had runny nose nasal congestion for 2 days and then that resolved and he started having a cough. The cough was dry irritating and would not get better and then he started wheezing and becoming short of breath so called the ambulance today and was brought to the emergency room. Chest x-ray in the emergency room showed Cardiomegaly with pacemaker and prior sternotomy. Left mid lung zone infiltrate consistent with pneumonia. No pleural effusion. His respiratory panel came back positive for RSV. He is adm itted for RSV infection with possible superadded bacterial pneumonia Home Medications Scheduled Albuterol Sulfate (Proair Hfa) 8.5 Gm Hfa.aer.ad, 2 PUFF INH QID Amiodarone HCl (Amiodarone HCl) 200 Mg Tab, 200 MG PO DAILY, (Reported) Aspirin (Aspirin) 325 Mg Tablet, 325 MG PO QHS, (Reported) Cefdinir (Cefdinir) 300 Mg Capsule, 1 CAP PO BID Cholecalciferol (Vitamin D3) (Vitamin D3) 125 Mcg Tablet, 125 MCG PO DAILY, (Reported) Clopidogrel Bisulfate (Plavix) 75 Mg Tablet, 75 MG PO DAILY, (Reported) Magnesium Chloride (Mag64) 64 Mg Tabcr, 64 MG PO BID, (Reported) Prednisone (Prednisone) 20 Mg Tablet, 40 MG PO DAILY Rosuvastatin Calcium (Rosuvastatin Calcium) 40 Mg Tablet, 40 MG PO QHS, (Reported) Spironolactone (Spironolactone) 25 Mg Tablet, 12.5 MG PO DAILY, (Reported) Scheduled PRN Docusate Sodium (Colace) 100 Mg Cap, 100 MG PO BID PRN for CONSTIPATION, (Reported) Allergies Coded Allergies: No Known Allergies (Verified , 03/10/04) Past Medical History Medical History DM, CAD s/p CABG, hx of VT (s/p AICD on amiodarone), HTN, Systolic CHF with EF of 20% to 25%, CKD stage 3, HLD, GERD, KENJI, COVID-19 infection in Mar 2020 Surgical History CABG 2004- patient does not remember exactly Cardiac cath and stent placement AICD implantation Ankle ORIF Family History Mother- [place] Father- [place] Social History * Smoker: Denies Alcohol: Denies Drugs: denies A-FIB/CHADSVASC A-FIB History Current/History of A-Fib/PAF?: No Review of Systems Constitutional: Reports: Weight Loss (Intentional); Denies: Chills, Fever, Night Sweats Eyes: Denies: Pain, Vision change ENT: Reports: Sinus Congestion; Denies: Head Aches, Ear Pain, Dysphagia Skin: Denies: Rash, Lesions, Breakdown Pulmonary: Reports: Dyspnea, Cough Cardiovascular: Denies: Chest Pain, Palpitations, Orthopnea, Paroxysmal Noc. Dyspnea, Lt Headedness Gastrointestinal: Denies: Nausea, Vomiting, Abdominal Pain, Diarrhea Genitourinary: Denies: Dysuria, Frequency, Incontinence, Retention Musculoskeletal: Reports: Back Pain; Denies: Neck Pain, Joint Pain, Muscle Pain, Spasms Neurological: Denies: Weakness, Numbness, Change in speech, Confusion Physical Examination General Exam: Positive: Alert, Cooperative, No Acute Distress Eye Exam: Positive: PERRLA, Conjunctiva & lids normal, EOMI; Negative: Sclera icteric ENT Exam: Positive: Atraumatic, Mucous membr. moist/pink, Pharynx Normal Neck Exam: Positive: Supple; Negative: JVD, thyromegaly Chest Exam: Positive: Rales, Rhonchi, Wheezing Heart Exam: Positive: Rate Normal, Regular Rhythm, Normal S1, Normal S2; Negative: Murmurs, Rubs Telemetry: Positive: Other Telemetry: (Paced rhythm) Abdomen Exam: Positive: Normal bowel sounds, Soft, Other (Obese); Negative: Tenderness Extremity Exam: Negative: Clubbing, Cyanosis, Edema Skin Exam: Positive: Nl turgor and temperature; Negative: Breakdown, Lesion Psych Exam: Positive: Memory Intact, Oriented x 3 Vital Signs Vital Signs Date Time Temp Pulse Resp B/P (MAP) Pulse Ox O2 Delivery O2 Flow Rate FiO2 02/15/21 17:00 98.1 152/91 (111) 93 Nasal Cannula 2.0 02/15/21 16:30 69 20 Laboratory Data Labs 24H Laboratory Tests 2 02/15/21 13:36: Immature Granulocyte % (Auto) 0.4, Neutrophils (%) (Auto) 75.6H, Lymphocytes (%) (Auto) 13.3L, Monocytes (%) (Auto) 10.4H, Eosinophils (%) (Auto) 0.0, Basophils (%) (Auto) 0.3, Neutrophils # (Auto) 8.8H, Lymphocytes # (Auto) 1.5, Monocytes # (Auto) 1.2H, Eosinophils # (Auto) 0.0, Basophils # (Auto) 0.0, Nucleated Red Blood Cells % (auto) 0.0, Anion Gap 10, Glomerular Filtration Rate 35.8L, Lactic Acid Level 1.9, Calcium Level 9.6, Total Bilirubin 1.4H, Direct Bilirubin 0.5H, Aspartate Amino Transf (AST/SGOT) 40H, Alanine Aminotransferase (ALT/SGPT) 34, Alkaline Phosphatase 82, QO-Mru-A-Type Natriuretic Peptide 78772Y, Total Protein 8.2, Albumin 3.1L, Albumin/Globulin Ratio 0.6, Thyroid Stimulating Hormone (TSH) 0.597 02/15/21 13:41: POC Troponin I (Misc) 0.15H 02/15/21 13:43: Prothrombin Time 15.0H, Prothromb Time International Ratio 1.14, Activated Partial Thromboplast Time 29.4, Blood Gas Bicarbonate Standard 29.6, Venous Blood pH 7.446H, Venous Blood Partial Pressure CO2 46.8, Venous Blood Partial Pressure O2 42.8, Venous Blood Total Carbon Dioxide 32.9H, Venous Blood HCO3 31.5H, Venous Blood Oxygen Saturation 79.6, Venous Blood Base Excess 6.2H 02/15/21 16:42: POC Troponin I (Misc) 0.14H CBC/BMP Laboratory Tests 02/15/21 13:36 Microbiology Microbiology 02/15/21 Respiratory Virus Panel (PCR) ([facility]) - Final, Complete Respiratory Syncytial Virus 02/15/21 Blood Culture, Received Pending 02/15/21 Blood Culture, Received Pending Assessment/Plan 80 year old male with PMH CAD s/p CABG, hx of VT (s/p AICD on amiodarone), HTN, Systolic CHF, CKD stage 3, HLD, GERD, Morbid obesity with KENJI with recent COVID- 19 infection presented to the emergency room via ambulance for cough shortness of breath and wheezing. Patient reports that 6 days ago he started with a cold he had runny nose nasal congestion for 2 days and then that resolved and he started having a cough. The cough was dry irritating and would not get better and then he started wheezing and becoming short of breath so called the ambulance today and was brought to the emergency room. Chest x-ray in the emergency room showed Cardiomegaly with pacemaker and prior sternotomy. Left mid lung zone infiltrate consistent with pneumonia. No pleural effusion. His respiratory panel came back positive for RSV. He is admitted for RSV infection with possible superadded bacterial pneumonia RSV infection with likely secondary bacterial pneumonia We will give albuterol budesonide and a dose of prednisone Also cover with ceftriaxone for possible superadded bacterial pneumonia. Cough syrup for symptomatic cough HTN c/w metoprolol. HLD rosuvastatin CAD s/p CABG. c/w ASA, statin, Plavix. Follows with Dr. Barker outpatient. CKD stage 3 Creatinine at baseline. Hx Ventricular tachycardia s/p AICD c/w Amiodarone. 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 euvolemic at present the BNP is over 11,000 Continue with spironolactone, will add Lasix daily Morbid obesity/ BMI 43.5 complicating care KENJI reports compliant with CPAP at home Plan / VTE VTE Prophylaxis Ordered?: Yes Esther Wheeler MD Feb 15, 2021 17:17
[2021-02-15] MEDS ORDERED: ALBUTEROL SULFATE 2.5 MG/0.5 ML INH NEB SOLN NEB ONE (18:15)
[2021-02-15 18:26] LABS: HEMOGLOBIN A1c 6.4 %
[2021-02-15] MEDS ORDERED: POTASSIUM CHLORIDE 10MEQ SR TABLET PO ONE (18:30)
[2021-02-15] MEDS ORDERED: predniSONE 20 MG TAB PO ONE (18:30)
[2021-02-15] MEDS: FUROSEMIDE 40 MG TAB PO SCH (18:50)
[2021-02-15] MEDS: BUDESONIDE 0.5 MG/2 ML INHALATION SUSPENSION INH SCH (21:32)
[2021-02-15] MEDS: LEVALBUTEROL 1.25 MG/0.5 ML CONCENTRATE NEB INH SCH (21:33)
[2021-02-15 21:57] VITALS: BP 138/60
[2021-02-16] MEDS: ROSUVASTATIN 10 MG TAB (CRESTOR) PO SCH ×2 (00:19→21:32)
[2021-02-16] MEDS: ASPIRIN 325 MG TAB PO SCH ×2 (00:19→21:32)
[2021-02-16] MEDS: LEVALBUTEROL 1.25 MG/0.5 ML CONCENTRATE NEB INH SCH ×4 (02:00→20:23)
[2021-02-16 06:00] VITALS: BP 104/61
[2021-02-16] MEDS: PANTOPRAZOLE 40MG TAB (PROTONIX) PO SCH (08:49)
[2021-02-16] MEDS: CLOPIDOGREL 75 MG TAB PO SCH (08:49)
[2021-02-16] MEDS: AMIODARONE 200 MG TAB (PACERONE) PO SCH (08:49)
[2021-02-16] MEDS: predniSONE 20 MG TAB PO SCH (08:49)
[2021-02-16] MEDS: FUROSEMIDE 40 MG TAB PO SCH (08:49)
[2021-02-16] MEDS: SPIRONOLACTONE 12.5MG PER 1/2 TABLET PO SCH (08:49)
[2021-02-16] MEDS: BUDESONIDE 0.5 MG/2 ML INHALATION SUSPENSION INH SCH ×2 (08:54→20:23)
[2021-02-16 09:06] LABS: BASO % 0.2 % (0.0-1.0); HEMATOCRIT 46.4 % (42.0-52.0); HEMOGLOBIN 15.2 g/dl (13.5-17.5); LYMPH # 1.1 10^3/uL (1.5-5.0); LYMPH % 11.7 % (24.0-44.0); MEAN CORPUSCULAR HEMOGLOBIN 29.6 pg (27.0-33.0); MEAN CORPUSCULAR HGB CONC 32.8 g/dl (32.0-36.5); MEAN CORPUSCULAR VOLUME 90.4 fl (80.0-96.0); MONO # 0.3 10^3/uL (0.0-0.8); MONO % 3.6 % (2.0-8.0); NEUTROPHILS # 7.8 10^3/uL (1.5-8.5); NEUTROPHILS % 84.1 % (36.0-66.0); PLATELET COUNT, AUTOMATED 189 10^3/uL (150-450); RED BLOOD COUNT 5.13 10^6/uL (4.30-6.10); WHITE BLOOD COUNT 9.2 10^3/uL (4.0-10.0)
[2021-02-16 09:29] LABS: CALCIUM LEVEL 9.4 MG/DL (8.8-10.2); CREATININE FOR GFR 2.1 MG/DL (0.70-1.30); GLOMERULAR FILTRATION RATE 32.7 (>42); POTASSIUM SERUM 3.4 MEQ/L (3.5-5.1)
--- NOTE | 2021-02-16 13:32 | IPNPDOC ---
Subjective Date Seen The patient was seen on 02/16/21. Subjective Chief Complaint/HPI No issues overnight. Reports that wheezing and coughing is a better this morning. Says his shortness of breath is also better. Had a low-grade fever of 100.3 last night. No audible wheezing heard today Objective Physical Examination General Exam: Positive: Alert, Cooperative, No Acute Distress Eye Exam: Positive: PERRLA, Conjunctiva & lids normal, EOMI; Negative: Sclera icteric ENT Exam: Positive: Atraumatic, Mucous membr. moist/pink, Pharynx Normal Neck Exam: Positive: Supple; Negative: JVD, thyromegaly Chest Exam: Positive: Clear to auscultation, Diminished; Negative: Rhonchi, Wheezing Heart Exam: Positive: Rate Normal, Regular Rhythm, Normal S1, Normal S2; Negative: Murmurs, Rubs Abdomen Exam: Positive: Normal bowel sounds, Soft, Other (Obese); Negative: Tenderness Extremity Exam: Negative: Clubbing, Cyanosis, Edema Skin Exam: Positive: Nl turgor and temperature; Negative: Breakdown, Lesion Psych Exam: Positive: Memory Intact, Oriented x 3 Assessment /Plan Assessment 80 year old male with PMH CAD s/p CABG, hx of VT (s/p AICD on amiodarone), HTN, Systolic CHF, CKD stage 3, diabetes, HLD, GERD, Morbid obesity with KENJI with recent COVID-19 infection presented to the emergency room via ambulance for cough shortness of breath and wheezing. Patient reports that 6 days ago he started with a cold he had runny nose nasal congestion for 2 days and then that resolved and he started having a cough. The cough was dry irritating and would not get better and then he started wheezing and becoming short of breath so called the ambulance today and was brought to the emergency room. Chest x-ray in the emergency room showed Cardiomegaly with pacemaker and prior sternotomy. Left mid lung zone infiltrate consistent with pneumonia. No pleural effusion. His respiratory panel came back positive for RSV. He is admitted for RSV infection with possible superadded bacterial pneumonia RSV infection with likely secondary bacterial pneumonia Current albuterol, budesonide, prednisone Also cover with ceftriaxone for possible superadded bacterial pneumonia. Cough syrup for symptomatic cough HTN c/w metoprolol. HLD rosuvastatin CAD s/p CABG. c/w ASA, statin, Plavix. Follows with Dr. Barker outpatient. CKD stage 3 Creatinine at baseline. Hx Ventricular tachycardia s/p AICD c/w Amiodarone. 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 euvolemic at present the BNP is over 11,000 Continue with spironolactone, will add Lasix daily Morbid obesity/ BMI 43.5 complicating care KENJI reports compliant with CPAP at home History of diabetes A1c now 6.4 It is diet controlled at present Patient also reports that he has lost 25 pounds of weight intentionally over this year. We will cover with lispro sliding scale as the patient is going to be on prednisone. Plan/VTE VTE Prophylaxis Ordered?: Yes VS, I&O, 24H, Fishbone Vital Signs/I&O Vital Signs Date Time Temp Pulse Resp B/P (MAP) Pulse Ox O2 Delivery O2 Flow Rate FiO2 02/16/21 06:00 97.8 71 18 104/61 (75) 93 Nasal Cannula 2.0 I&O- Last 24 Hours up to 6 AM 02/16/21 06:00 Intake Total 360 ml Output Total 0 ml Balance 360 ml Laboratory Data 24H LABS Laboratory Tests 2 02/15/21 13:36: Immature Granulocyte % (Auto) 0.4, Neutrophils (%) (Auto) 75.6H, Lymphocytes (%) (Auto) 13.3L, Monocytes (%) (Auto) 10.4H, Eosinophils (%) (Auto) 0.0, Basophils (%) (Auto) 0.3, Neutrophils # (Auto) 8.8H, Lymphocytes # (Auto) 1.5, Monocytes # (Auto) 1.2H, Eosinophils # (Auto) 0.0, Basophils # (Auto) 0.0, Nucleated Red Blood Cells % (auto) 0.0, Anion Gap 10, Glomerular Filtration Rate 35.8L, Estimated Mean Plasma Glucose 137H, Hemoglobin A1c 6.4, Lactic Acid Level 1.9, Calcium Level 9.6, Total Bilirubin 1.4H, Direct Bilirubin 0.5H, Aspartate Amino Transf (AST/SGOT) 40H, Alanine Aminotransferase (ALT/SGPT) 34, Alkaline Phosphatase 82, FF-Sse-K-Type Natriuretic Peptide 66829C, Total Protein 8.2, A lbumin 3.1L, Albumin/Globulin Ratio 0.6, Thyroid Stimulating Hormone (TSH) 0.597 02/15/21 13:41: POC Troponin I (Misc) 0.15H 02/15/21 13:43: Prothrombin Time 15.0H, Prothromb Time International Ratio 1.14, Activated Partial Thromboplast Time 29.4, Blood Gas Bicarbonate Standard 29.6, Venous Blood pH 7.446H, Venous Blood Partial Pressure CO2 46.8, Venous Blood Partial Pressure O2 42.8, Venous Blood Total Carbon Dioxide 32.9H, Venous Blood HCO3 31.5H, Venous Blood Oxygen Saturation 79.6, Venous Blood Base Excess 6.2H 02/15/21 16:42: POC Troponin I (Misc) 0.14H CBC/BMP Laboratory Tests 02/15/21 13:36 Microbiology Microbiology 02/15/21 Respiratory Virus Panel (PCR) ([facility]) - Final, Complete Respiratory Syncytial Virus 02/15/21 Blood Culture, Received Pending 02/15/21 Blood Culture, Received Pending Esther Wheeler MD Feb 16, 2021 07:12
[2021-02-16 14:00] VITALS: BP 120/90
[2021-02-16] MEDS ORDERED: POTASSIUM CHLORIDE 10MEQ SR TABLET PO ONE (14:00)
[2021-02-16] MEDS: cefTRIAXone SOD 1 GM in D5W MINI-BAG PLUS 50 ML IV SCH (15:03)
--- NOTE | 2021-02-16 17:23 | ECGEPIP ---
[facility] - ED Test Date: 2021-02-15 Pat Name: ANA BERMAN Department: Room: [place] [address] Gender: Male Director Of State: [place] : 1940 Requested By: JERMAINE Cote Order Number: [id number] Reading MD: Evelina Adan Measurements Intervals [place] Rate: 70 P: WA: 250 QRS: 201 QRSD: 146 T: -28 QT: 474 QTc: 511 Interpretive Statements AV dual-paced rhythm with prolonged AV conduction similar 04/17/20 Electronically Signed on 02-16-2021 17:22:48 EST by Evelina Adan
[2021-02-16 22:00] VITALS: BP 108/56
[2021-02-17] MEDS: LEVALBUTEROL 1.25 MG/0.5 ML CONCENTRATE NEB INH SCH ×4 (02:00→20:27)
[2021-02-17 05:50] VITALS: BP 112/58
[2021-02-17] MEDS: BUDESONIDE 0.5 MG/2 ML INHALATION SUSPENSION INH SCH ×2 (07:27→20:27)
[2021-02-17] MEDS: PANTOPRAZOLE 40MG TAB (PROTONIX) PO SCH (08:45)
[2021-02-17] MEDS: predniSONE 20 MG TAB PO SCH (08:45)
[2021-02-17] MEDS: CLOPIDOGREL 75 MG TAB PO SCH (09:12)
[2021-02-17] MEDS: AMIODARONE 200 MG TAB (PACERONE) PO SCH (09:12)
[2021-02-17] MEDS: SPIRONOLACTONE 12.5MG PER 1/2 TABLET PO SCH (09:12)
[2021-02-17] MEDS: NYSTATIN 100,000 UNITS/GM TOPICAL PWD 15 GM TOP SCH ×2 (11:47→22:13)
[2021-02-17 14:00] VITALS: BP 122/67
[2021-02-17] MEDS: cefTRIAXone SOD 1 GM in D5W MINI-BAG PLUS 50 ML IV SCH (14:39)
--- NOTE | 2021-02-17 16:49 | IPNPDOC ---
Subjective Date Seen The patient was seen on 02/17/21. Subjective Chief Complaint/HPI Overall feels better. Still continues to have coughing but shortness of breath is getting better. Objective Physical Examination General Exam: Positive: Alert, Cooperative, No Acute Distress Eye Exam: Positive: PERRLA, Conjunctiva & lids normal, EOMI; Negative: Sclera icteric ENT Exam: Positive: Atraumatic, Mucous membr. moist/pink, Pharynx Normal Neck Exam: Positive: Supple; Negative: JVD, thyromegaly Chest Exam: Positive: Clear to auscultation, Diminished; Negative: Rhonchi, Wheezing Heart Exam: Positive: Rate Normal, Regular Rhythm, Normal S1, Normal S2; Negative: Murmurs, Rubs Abdomen Exam: Positive: Normal bowel sounds, Soft, Other (Obese); Negative: Tenderness Extremity Exam: Negative: Clubbing, Cyanosis, Edema Skin Exam: Positive: Nl turgor and temperature; Negative: Breakdown, Lesion Psych Exam: Positive: Memory Intact, Oriented x 3 Assessment /Plan Assessment 80 year old male with PMH CAD s/p CABG, hx of VT (s/p AICD on amiodarone), HTN, Systolic CHF, CKD stage 3, diabetes, HLD, GERD, Morbid obesity with KENJI with recent COVID-19 infection presented to the emergency room via ambulance for cough shortness of breath and wheezing. Patient reports that 6 days ago he started with a cold he had runny nose nasal congestion for 2 days and then that resolved and he started having a cough. The cough was dry irritating and would not get better and then he started wheezing and becoming short of breath so called the ambulance today and was brought to the emergency room. Chest x-ray in the emergency room showed Cardiomegaly with pacemaker and prior sternotomy. Left mid lung zone infiltrate consistent with pneumonia. No pleural effusion. His respiratory panel came back positive for RSV. He is admitted for RSV infection with possible superadded bacterial pneumonia RSV infection with likely secondary bacterial pneumonia Current albuterol, budesonide, prednisone Also cover with ceftriaxone for possible superadded bacterial pneumonia. Cough syrup for symptomatic cough HTN c/w metoprolol. HLD rosuvastatin CAD s/p CABG. c/w ASA, statin, Plavix. Follows with Dr. Barker outpatient. CKD stage 3 Creatinine at baseline. Hx Ventricular tachycardia s/p AICD c/w Amiodarone. 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 euvolemic at present the BNP is over 11,000 Continue with spironolactone, will add Lasix daily Chronic elevation of troponin with a flat curve 0.15 to 0.14 likely due to chronic CHF and CKD Morbid obesity/ BMI 43.5 complicating care KENJI reports compliant with CPAP at home History of diabetes A1c now 6.4 It is diet controlled at present Patient also reports that he has lost 25 pounds of weight intentionally over this year. We will cover with lispro sliding scale as the patient is going to be on p rednisone. Plan/VTE VTE Prophylaxis Ordered?: Yes VS, I&O, 24H, Fishbone Vital Signs/I&O Vital Signs Date Time Temp Pulse Resp B/P (MAP) Pulse Ox O2 Delivery O2 Flow Rate FiO2 02/17/21 05:50 96.3 92 18 112/58 (76) 93 Nasal Cannula 02/16/21 22:00 2.0 I&O- Last 24 Hours up to 6 AM 02/17/21 06:00 Intake Total 1430 ml Output Total 0 ml Balance 1430 ml Laboratory Data 24H LABS Laboratory Tests 2 02/16/21 08:50: Immature Granulocyte % (Auto) 0.4, Neutrophils (%) (Auto) 84.1H, Lymphocytes (%) (Auto) 11.7L, Monocytes (%) (Auto) 3.6, Eosinophils (%) (Auto) 0.0, Basophils (%) (Auto) 0.2, Neutrophils # (Auto) 7.8, Lymphocytes # (Auto) 1.1L, Monocytes # (Auto) 0.3, Eosinophils # (Auto) 0.0, Basophils # (Auto) 0.0, Nucleated Red Blood Cells % (auto) 0.0, Anion Gap 8, Glomerular Filtration Rate 32.7L, Calcium Level 9.4, OZ-Sro-I-Type Natriuretic Peptide 82815E CBC/BMP Laboratory Tests 02/16/21 08:50 Microbiology Microbiology 02/15/21 Respiratory Virus Panel (PCR) ([facility]ON[facility]) - Final, Complete Respiratory Syncytial Virus 02/15/21 Blood Culture - Preliminary, Resulted No growth after 24 hours . All specim... 02/15/21 Blood Culture - Preliminary, Resulted No growth after 24 hours . All specim... Esther Wheeler MD Feb 17, 2021 08:02
[2021-02-17 17:52] LABS: BASO % 0.1 % (0.0-1.0); HEMATOCRIT 45.7 % (42.0-52.0); HEMOGLOBIN 14.7 g/dl (13.5-17.5); LYMPH # 0.3 10^3/uL (1.5-5.0); MEAN CORPUSCULAR HEMOGLOBIN 29.7 pg (27.0-33.0); MEAN CORPUSCULAR HGB CONC 32.2 g/dl (32.0-36.5); MEAN CORPUSCULAR VOLUME 92.3 fl (80.0-96.0); MONO # 0.5 10^3/uL (0.0-0.8); MONO % 4.7 % (2.0-8.0); NEUTROPHILS # 10.4 10^3/uL (1.5-8.5); NEUTROPHILS % 91.5 % (36.0-66.0); PLATELET COUNT, AUTOMATED 202 10^3/uL (150-450); RED BLOOD COUNT 4.95 10^6/uL (4.30-6.10); WHITE BLOOD COUNT 11.4 10^3/uL (4.0-10.0)
[2021-02-17 21:00] VITALS: BP 151/68
[2021-02-17] MEDS: ROSUVASTATIN 10 MG TAB (CRESTOR) PO SCH (22:14)
[2021-02-17] MEDS: ASPIRIN 325 MG TAB PO SCH (22:14)
[2021-02-18] MEDS: LEVALBUTEROL 1.25 MG/0.5 ML CONCENTRATE NEB INH SCH ×2 (01:21→07:31)
[2021-02-18 05:59] VITALS: BP 105/77
[2021-02-18 06:37] LABS: CALCIUM LEVEL 8.5 MG/DL (8.8-10.2); CREATININE FOR GFR 1.91 MG/DL (0.70-1.30); GLOMERULAR FILTRATION RATE 36.5 (>42); POTASSIUM SERUM 3.6 MEQ/L (3.5-5.1)
[2021-02-18] MEDS: BUDESONIDE 0.5 MG/2 ML INHALATION SUSPENSION INH SCH (07:31)
[2021-02-18] MEDS ORDERED: PRED20TA PO (08:04)
[2021-02-18] MEDS ORDERED: CEFD300CAP PO (08:04)
[2021-02-18] MEDS ORDERED: PROAAER10 INH (08:04)
[2021-02-18] MEDS: PANTOPRAZOLE 40MG TAB (PROTONIX) PO SCH (09:06)
[2021-02-18] MEDS: NYSTATIN 100,000 UNITS/GM TOPICAL PWD 15 GM TOP SCH (09:06)
[2021-02-18] MEDS: CLOPIDOGREL 75 MG TAB PO SCH (09:06)
[2021-02-18] MEDS: AMIODARONE 200 MG TAB (PACERONE) PO SCH (09:06)
[2021-02-18] MEDS: predniSONE 20 MG TAB PO SCH (09:06)
[2021-02-18] MEDS: SPIRONOLACTONE 12.5MG PER 1/2 TABLET PO SCH (09:06)
--- NOTE | 2021-02-18 10:46 | DS.PDOC ---
Discharge Summary General Date of Admission Feb 15, 2021 at 17:49 Date of Discharge 02/18/21 Discharge Summary PROCEDURES PERFORMED DURING STAY: [None]. DISCHARGE DIAGNOSES: RSV infection Secondary bacterial pneumonia Intertriginous candidiasis SECONDARY DIAGNOSIS: DM diet controlled, CAD s/p CABG in 2004 and also cardiac stent, hx of VT s/p AICD, HTN, Systolic CHF with EF of 20% to 25%, CKD stage 3, HLD, GERD, KENJI, COVID-19 infection in Mar 2020, Morbid obesity COMPLICATIONS/CHIEF COMPLAINT: Hypoxia, Pneumonia, Rsv Infection. HOSPITAL COURSE: 80 year old male with PMH CAD s/p CABG, hx of VT (s/p AICD on amiodarone), HTN, Systolic CHF, CKD stage 3, diabetes, HLD, GERD, Morbid obesity with KENJI with recent COVID-19 infection presented to the emergency room via ambulance for cough shortness of breath and wheezing. Patient reports that 6 days ago he started with a cold he had runny nose nasal congestion for 2 days and then that resolved and he started having a cough. The cough was dry irritating and would not get better and then he started wheezing and becoming short of breath so called the ambulance today and was brought to the emergency room. Chest x-ray in the emergency room showed Cardiomegaly with pacemaker and prior sternotomy. Left mid lung zone infiltrate consistent with pneumonia. No pleural effusion. His respiratory panel came back positive for RSV. He is admitted for RSV infection with possible superadded bacterial pneumonia RSV infection with likely secondary bacterial pneumonia continue albuterol and prednisone cefdinir on discharge HTN c/w metoprolol. HLD rosuvastatin CAD s/p CABG and stents c/w ASA, statin, Plavix. Follows with Dr. Barker outpatient. CKD stage 3 Creatinine at baseline. Hx Ventricular tachycardia s/p AICD c/w Amiodarone. Chronic Systolic and diastolic CHF with mild pulmonary hypertension echo from 04/12/20, showing EF 20%-25%, global hypokinesis of L ventricle. euvolemic at present the BNP is over 11,000 Continue with spironolactone, will add Lasix daily Chronic elevation of troponin with a flat curve 0.15 to 0.14 likely due to chronic CHF and CKD Morbid obesity/ BMI 43.5 complicating care KENJI reports compliant with CPAP at home History of diabetes A1c now 6.4 It is diet controlled at present Patient also reports that he has lost 25 pounds of weight intentionally over this year. We will cover with lispro sliding scale as the patient is going to be on prednisone. DISCHARGE MEDICATIONS: Please see below. ALLERGIES: Please see below. PHYSICAL EXAMINATION ON DISCHARGE: VITAL SIGNS: Please see below. General Exam: Positive: Alert, Cooperative, No Acute Distress Eye Exam: Positive: PERRLA, Conjunctiva & lids normal, EOMI; Negative: Sclera icteric ENT Exam: Positive: Atraumatic, Mucous membr. moist/pink, Pharynx Normal Neck Exam: Positive: Supple; Negative: JVD, thyromegaly Chest Exam: Positive: Clear to auscultation, Diminished; Negative: Rhonchi, Wheezing Heart Exam: Positive: Rate Normal, Regular Rhythm, Normal S1, Normal S2; Negative: Murmurs, Rubs Abdomen Exam: Positive: Normal bowel sounds, Soft, Other (Obese); Negative: Tenderness Extremity Exam: Negative: Clubbing, Cyanosis, Edema Skin Exam: Positive: Nl turgor and temperature; Negative: Breakdown, Lesion Psych Exam: Positive: Memory Intact, Oriented x 3 LABORATORY DATA: Please see below. IMAGING: Cardiomegaly is again observed unchanged. A multilead pacemaker is seen in the right heart view of the left side as before. Monitoring electrodes are present. There is an infiltrate in the left perihilar region inferior and medial to the pacemaker power plant which does not appear to have been present previously. No infiltrate noted on the right. Patient is status post prior median sternotomy. There is some vascular congestion. IMPRESSION: Cardiomegaly with pacemaker and prior sternotomy. Left mid lung zone infiltrate consistent with pneumonia. No pleural effusion. ACTIVITY: [As tolerated]. DIET: As tolerated DISCHARGE PLAN: Home DISPOSITION: . DISCHARGE INSTRUCTIONS: PMD in 1 week DISCHARGE CONDITION: [Stable]. TIME SPENT ON DISCHARGE: 40 minutes. Vital Signs/I&Os Vital Signs Date Time Temp Pulse Resp B/P (MAP) Pulse Ox O2 Delivery O2 Flow Rate FiO2 02/18/21 09:11 94 Nasal Cannula 1.0 02/18/21 05:59 96.5 72 18 105/77 (86) I&O- Last 24 Hours up to 6 AM 02/18/21 06:00 Intake Total 400 ml Balance 400 ml Laboratory Data Labs 24H Laboratory Tests 2 02/17/21 17:05: Immature Granulocyte % (Auto) 0.7, Neutrophils (%) (Auto) 91.5H, Lymphocytes (%) (Auto) 3.0L, Monocytes (%) (Auto) 4.7, Eosinophils (%) (Auto) 0.0, Basophils (%) (Auto) 0.1, Neutrophils # (Auto) 10.4H, Lymphocytes # (Auto) 0.3L, Monocytes # (Auto) 0.5, Eosinophils # (Auto) 0.0, Basophils # (Auto) 0.0, Nucleated Red Blood Cells % (auto) 0.0 02/18/21 06:01: Anion Gap 8, Glomerular Filtration Rate 36.5L, Calcium Level 8.5L CBC/BMP Laboratory Tests 02/17/21 17:05 02/18/21 06:01 Microbiology Microbiology 02/15/21 Respiratory Virus Panel (PCR) ([facility]) - Final, Complete Respiratory Syncytial Virus 02/15/21 Blood Culture - Preliminary, Resulted No Growth after 48 hours. All Specime... 02/15/21 Blood Culture - Preliminary, Resulted No Growth after 48 hours. All Specime... Discharge Medications Scheduled Albuterol Sulfate (Proair Hfa) 8.5 Gm Hfa.aer.ad, 2 PUFF INH QID Amiodarone HCl (Amiodarone HCl) 200 Mg Tab, 200 MG PO DAILY, (Reported) Aspirin (Aspirin) 325 Mg Tablet, 325 MG PO QHS, (Reported) Cefdinir (Cefdinir) 300 Mg Capsule, 1 CAP PO BID Cholecalciferol (Vitamin D3) (Vitamin D3) 125 Mcg Tablet, 125 MCG PO DAILY, (Reported) Clopidogrel Bisulfate (Plavix) 75 Mg Tablet, 75 MG PO DAILY, (Reported) Magnesium Chloride (Mag64) 64 Mg Tabcr, 64 MG PO BID, (Reported) Prednisone (Prednisone) 20 Mg Tablet, 40 MG PO DAILY Rosuvastatin Calcium (Rosuvastatin Calcium) 40 Mg Tablet, 40 MG PO QHS, (Reported) Spironolactone (Spironolactone) 25 Mg Tablet, 12.5 MG PO DAILY, (Reported) Scheduled PRN Docusate Sodium (Colace) 100 Mg Cap, 100 MG PO BID PRN for CONSTIPATION, (Reported) Allergies Coded Allergies: No Known Allergies (Verified , 03/10/04) Esther Wheeler MD Feb 18, 2021 10:46
== END 2021-02-18 13:52 | disposition home or self-care (01) | DRG 139 ==
LOC: M ED 13:03 → M ED INP 17:49 → ENRESERV 21:30 → M MSPAV 21:57
PROVIDERS: ADMIT Internal Medicine Nephrology; ATTEND Internal Medicine Nephrology
DX: J15.9 Unspecified bacterial pneumonia (principal); I47.2 Ventricular tachycardia; I27.20 Pulmonary hypertension, unspecified; Z68.41 Body mass index [BMI] 40.0-44.9, adult; I13.0 Hypertensive heart and chronic kidney disease with heart failure and stage 1 through stage 4 chronic kidney disease, or unspecified chronic kidney disease; E66.01 Morbid (severe) obesity due to excess calories; I50.42 Chronic combined systolic (congestive) and diastolic (congestive) heart failure; E11.9 Type 2 diabetes mellitus without complications; N18.30 Chronic kidney disease, stage 3 unspecified; Z95.810 Presence of automatic (implantable) cardiac defibrillator; Z79.82 Long term (current) use of aspirin; Z79.899 Other long term (current) drug therapy; I25.10 Atherosclerotic heart disease of native coronary artery without angina pectoris; Z95.5 Presence of coronary angioplasty implant and graft; K21.9 Gastro-esophageal reflux disease without esophagitis; G47.33 Obstructive sleep apnea (adult) (pediatric); Z86.16 Personal history of COVID-19; B37.2 Candidiasis of skin and nail; J06.9 Acute upper respiratory infection, unspecified; Z20.822 Contact with and (suspected) exposure to COVID-19

== ENCOUNTER → 2021-06-27 | Outpatient (CLI) | payer OTHER ==
[~2021-06-27] MED LIST changes: -AMIO200T3 PO; +AMIO200T49 PO; +CEFD300CAP PO; +ISOVUE-300 61% 50ML VIAL As Ordered ONE; +LIDOCAINE 1% MDV 20ML VIAL As Ordered ONE; +PRED20TA PO; +PROAAER10 INH; +TORS20TA2 PO; +VITACAP8 PO
== END ==
LOC: M IRPRO 09:44
PROVIDERS: ATTEND Orthopaedic Surgery
DX: Z47.1 Aftercare following joint replacement surgery (principal); M25.551 Pain in right hip; Z96.641 Presence of right artificial hip joint
CPT/HCPCS: 20610; 77002; Q9967

== ENCOUNTER → 2021-08-20 | Outpatient (CLI) | payer OTHER ==
[~2021-08-20] MED LIST changes: -ISOVUE-300 61% 50ML VIAL As Ordered ONE; -LIDOCAINE 1% MDV 20ML VIAL As Ordered ONE
[2021-08-20 14:29] LABS: APPEARANCE, URINE CLEAR (CLEAR); BACTERIA, URINE AUTO 1+ (NEGATIVE); BILIRUBIN, URINE AUTO NEGATIVE (NEGATIVE); BLOOD, URINE BLOOD NEGATIVE (NEGATIVE); COLOR, URINE YELLOW (YELLOW); GLUCOSE, URINE (UA) AUTO NEGATIVE (NEGATIVE); KETONE, URINE AUTO NEGATIVE (NEGATIVE); LEUKOCYTE ESTERASE, URINE AUTO NEGATIVE (NEGATIVE); MUCUS, URINE SMALL (NEGATIVE); NITRITE, URINE AUTO NEGATIVE (NEGATIVE); PROTEIN, URINE AUTO NEGATIVE (NEGATIVE); RBC, URINE AUTO 0 /HPF (0-3); SPECIFIC GRAVITY URINE AUTO 1.008 (1.002-1.035); SQUAMOUS EPITHELIAL CELL UR AU 0 /HPF (0-6); UROBILINOGEN, URINE AUTO 0.2 mg/dL (0.0-2.0); WBC, URINE AUTO 0 /HPF (0-3)
== END ==
LOC: M LAB 13:51
PROVIDERS: ATTEND Orthopaedic Surgery
DX: T84.030A Mechanical loosening of internal right hip prosthetic joint, initial encounter (principal); Y83.1 Surgical operation with implant of artificial internal device as the cause of abnormal reaction of the patient, or of later complication, without mention of misadventure at the time of the procedure

== ENCOUNTER → 2021-08-21 | Outpatient (CLI) | payer OTHER ==
[2021-08-21 16:16] LABS: INR 1.01; PROTHROMBIN TIME 13.7 SECONDS (12.7-14.5)
[2021-08-21 16:37] LABS: CALCIUM LEVEL 9.5 MG/DL (8.8-10.2); CREATININE FOR GFR 2.09 MG/DL (0.70-1.30); GLOMERULAR FILTRATION RATE 32.8 (>42); POTASSIUM SERUM 3.8 MEQ/L (3.5-5.1)
== END ==
LOC: M LAB 15:26
PROVIDERS: ATTEND Nurse Practitioner Family
DX: Z01.818 Encounter for other preprocedural examination (principal); M16.9 Osteoarthritis of hip, unspecified

== ENCOUNTER → 2021-08-24 | Outpatient (CLI) | payer OTHER | LOC: M LABSMTC 10:49 | PROVIDERS: ATTEND Orthopaedic Surgery | DX: Z01.818 Encounter for other preprocedural examination (principal); Z11.52 Encounter for screening for COVID-19 ==

== ENCOUNTER 2022-03-17 12:15 | Emergency (ER) | payer OTHER ==
[~2022-03-17] VITALS: Ht 172.7 cm; Wt 136.4 kg
[~2022-03-17 12:15] MED LIST changes: +CLOP75TA99 PO; +LEVO1TAB40 PO; -LEVO750T13 PO; -PLAV1TAB2 PO
[2022-03-17] MEDS: traMADol 50 MG TAB PO ONE (17:07)
[2022-03-17] MEDS ORDERED: HYDR-3713 PO ×2 (19:19→19:26)
[2022-03-17] MEDS ORDERED: MIRA3350 PO (19:26)
[2022-03-17] MEDS: NORCO, ANEXSIA 5/325MG TABLET (HYDROcodone/ACETAMINOPHEN) PO ONE (19:30)
[2022-03-17 19:38] VITALS: BP 130/64
== END 2022-03-17 19:40 | disposition home or self-care (01) ==
LOC: M ED 12:15
DX: S32.018A Other fracture of first lumbar vertebra, initial encounter for closed fracture (principal); W01.0XXA Fall on same level from slipping, tripping and stumbling without subsequent striking against object, initial encounter; E11.9 Type 2 diabetes mellitus without complications; E55.9 Vitamin D deficiency, unspecified; G47.33 Obstructive sleep apnea (adult) (pediatric); Z79.51 Long term (current) use of inhaled steroids; Z79.82 Long term (current) use of aspirin; Z79.4 Long term (current) use of insulin; Z87.891 Personal history of nicotine dependence

== ENCOUNTER 2023-01-27 11:20 | Inpatient (IN) | payer OTHER ==
[~2023-01-27] VITALS: Ht 172.7 cm; Wt 132.3 kg
[~2023-01-27 11:20] MED LIST changes: +HYDR-3713 PO; +MIRA3350 PO
[2023-01-27] MEDS ORDERED: ISOVUE-370 76% 100ML VIAL As Ordered ONE (12:56)
[2023-01-27 13:04] LABS: BASO # 0.1 10^3/uL (0.0-0.2); BASO % 0.6 % (0.0-1.0); EOS # 0.6 10^3/uL (0.0-0.5); EOS % 7.1 % (0.0-3.0); LYMPH # 1.5 10^3/uL (1.5-5.0); LYMPH % 18.9 % (24.0-44.0); MEAN CORPUSCULAR HEMOGLOBIN 31.7 pg (27.0-33.0); MEAN CORPUSCULAR HGB CONC 32.6 g/dl (32.0-36.5); MEAN CORPUSCULAR VOLUME 97.3 fl (80.0-96.0); MONO # 0.6 10^3/uL (0.0-0.8); MONO % 6.9 % (2.0-8.0); NEUTROPHILS # 5.2 10^3/uL (1.5-8.5); NEUTROPHILS % 64.5 % (36.0-66.0); PLATELET COUNT, AUTOMATED 162 10^3/uL (150-450); RED BLOOD COUNT 4.42 10^6/uL (4.30-6.10)
[2023-01-27 13:24] LABS: ALBUMIN 2.5 G/DL (3.2-5.2); BILIRUBIN,DIRECT 0.3 MG/DL (<0.4); BILIRUBIN,TOTAL 0.6 MG/DL (0.3-1.2); CK-MB VALUE MASS 1.5 NG/ML (<3.6); CREATININE FOR GFR 2.88 MG/DL (0.70-1.30); GLOMERULAR FILTRATION RATE 22.6 (>35); POTASSIUM SERUM 3.2 MMOL/L (3.5-5.1); TOTAL PROTEIN 5.8 G/DL (5.7-8.2)
[2023-01-27 13:25] LABS: FREE T4 1.2 NG/DL (0.89-1.76)
[2023-01-27 13:26] LABS: THYROID STIMULATING HORMONE 1.315 uIU/ML (0.55-4.78)
[2023-01-27 13:29] LABS: MB/CK RELATIVE INDEX 2.67 (< OR =4)
[2023-01-27] MEDS ORDERED: POTASSIUM CHLORIDE 10MEQ SR TABLET PO ONE (13:35)
[2023-01-27] MEDS ORDERED: NS 1,000 ML IV SCH (13:40)
[2023-01-27] MEDS ORDERED: MED REC IN PROGRESS XX SCH (14:15)
[2023-01-27 14:51] LABS: MB/CK RELATIVE INDEX 4.44 (< OR =4)
[2023-01-27] MEDS ORDERED: VENTAER INH (15:06)
[2023-01-27] MEDS ORDERED: METO50TA7 PO (15:45)
[2023-01-27] MEDS ORDERED: ASPI81TA26 PO (15:45)
[2023-01-27] MEDS ORDERED: MIRA3350 PO (15:47)
[2023-01-27] MEDS ORDERED: HOME MED LIST COMPLETE! XX SCH (16:00)
[2023-01-27 17:06] LABS: MAGNESIUM LEVEL 2.4 MG/DL (1.8-2.4)
[2023-01-27 17:17] LABS: HEMOGLOBIN A1c 5.4 % (4.0-6.0)
[2023-01-27 17:38] VITALS: BP 110/50; TEMP 97.2; O2SAT 97
[2023-01-27] MEDS ORDERED: GLUCOSE 4GM CHEW TABLET PO PRN (18:15)
[2023-01-27] MEDS ORDERED: DEXTROSE 50% 50ML SYRINGE IV PRN (18:15)
[2023-01-27] MEDS ORDERED: GLUCAGON INJ 1MG VIAL SC PRN (18:15)
[2023-01-27 19:40] VITALS: BP 88/50; TEMP 97.2; O2SAT 94
[2023-01-27 19:57] VITALS: BP 96/42
[2023-01-27] MEDS: ROSUVASTATIN 10 MG TAB (CRESTOR) PO SCH (20:09)
[2023-01-27] MEDS: METOPROLOL TART 50 MG TAB PO SCH (20:11)
[2023-01-27] MEDS: NYSTATIN CREAM 15GM TOP SCH (20:20)
[2023-01-27 21:15] VITALS: BP 100/40
[2023-01-28 04:44] VITALS: BP 100/40; TEMP 97.3; O2SAT 92
[2023-01-28 05:00] LABS: BASO # 0.1 10^3/uL (0.0-0.2); BASO % 0.8 % (0.0-1.0); EOS # 1.3 10^3/uL (0.0-0.5); EOS % 12.7 % (0.0-3.0); HEMATOCRIT 39.2 % (42.0-52.0); HEMOGLOBIN 12.7 g/dl (13.5-17.5); LYMPH # 3.9 10^3/uL (1.5-5.0); LYMPH % 38.7 % (24.0-44.0); MEAN CORPUSCULAR HEMOGLOBIN 31.6 pg (27.0-33.0); MEAN CORPUSCULAR HGB CONC 32.4 g/dl (32.0-36.5); MEAN CORPUSCULAR VOLUME 97.5 fl (80.0-96.0); MONO # 0.8 10^3/uL (0.0-0.8); MONO % 8.1 % (2.0-8.0); NEUTROPHILS # 3.8 10^3/uL (1.5-8.5); NEUTROPHILS % 37.6 % (36.0-66.0); PLATELET COUNT, AUTOMATED 159 10^3/uL (150-450); RED BLOOD COUNT 4.02 10^6/uL (4.30-6.10); WHITE BLOOD COUNT 10.1 10^3/uL (4.0-10.0)
[2023-01-28 05:30] LABS: CALCIUM LEVEL 7.8 MG/DL (8.3-10.6); CREATININE FOR GFR 2.99 MG/DL (0.70-1.30); GLOMERULAR FILTRATION RATE 21.6 (>35); POTASSIUM SERUM 3.8 MMOL/L (3.5-5.1)
[2023-01-28] MEDS ORDERED: NS 1,000 ML IV ONE (07:10)
[2023-01-28 07:45] VITALS: BP 112/46; TEMP 97.5; O2SAT 94
[2023-01-28] MEDS ORDERED: LEVEMIR (INSULIN DETEMIR) 1 UNITS/0.01ML SC SCH (09:00)
[2023-01-28] MEDS: ASPIRIN 81MG ENTERIC TABLET PO SCH (09:14)
[2023-01-28] MEDS: AMIODARONE 200 MG TAB (PACERONE) PO SCH (09:14)
[2023-01-28] MEDS: MAGNESIUM GLUCONATE 500 MG TAB PO SCH (09:15)
[2023-01-28] MEDS: METOPROLOL TART 50 MG TAB PO SCH (09:20)
[2023-01-28] MEDS: NYSTATIN CREAM 15GM TOP SCH ×2 (09:20→19:52)
[2023-01-28 11:05] VITALS: BP 100/60
[2023-01-28 11:28] LABS: PERCENT SATURATION 34.7 % (19.7-50.0)
[2023-01-28 11:30] LABS: FERRITIN 151.2 NG/ML (10.5-307.3)
[2023-01-28 11:31] LABS: FOLATE 9.2 NG/ML (>5.4)
[2023-01-28 12:00] VITALS: BP 90/52; TEMP 97.7; O2SAT 94
[2023-01-28 12:43] LABS: APPEARANCE, URINE CLOUDY (CLEAR); BACTERIA, URINE AUTO 1+ (NEGATIVE); BILIRUBIN, URINE AUTO NEGATIVE (NEGATIVE); BLOOD, URINE BLOOD NEGATIVE (NEGATIVE); COLOR, URINE YELLOW (YELLOW); GLUCOSE, URINE (UA) AUTO 1+ mg/dL (NEGATIVE); KETONE, URINE AUTO NEGATIVE (NEGATIVE); LEUKOCYTE ESTERASE, URINE AUTO 3+ (NEGATIVE); NITRITE, URINE AUTO POSITIVE (NEGATIVE); PROTEIN, URINE AUTO 2+ mg/dL (NEGATIVE); RBC, URINE AUTO 0 /HPF (0-3); SPECIFIC GRAVITY URINE AUTO 1.015 (1.002-1.035); SQUAMOUS EPITHELIAL CELL UR AU 1 /HPF (0-6); WBC, URINE AUTO TNTC /HPF (0-3)
[2023-01-28 13:11] LABS: CREATININE,RANDOM URINE 80.6 MG/DL
[2023-01-28] MEDS ORDERED: PREVNAR-20 VACCINE 0.5ML SYRINGE IM.IMMUN ONE (14:00)
[2023-01-28] MEDS ORDERED: FLUZONE HIGH DOSE(65YR UP)QUAD/PF 240MCG/0.7ML SYRINGE IM.IMMUN ONE (14:00)
[2023-01-28 16:00] VITALS: BP 104/60; TEMP 97.5; O2SAT 95
[2023-01-28 19:43] VITALS: BP 106/56; TEMP 97.7; O2SAT 94
[2023-01-28] MEDS: METOPROLOL TART 25 MG TABLET PO SCH (19:48)
[2023-01-28] MEDS: ROSUVASTATIN 10 MG TAB (CRESTOR) PO SCH (19:52)
[2023-01-29 05:34] VITALS: BP 109/55; TEMP 97.2; O2SAT 93
[2023-01-29 06:06] LABS: BASO # 0.1 10^3/uL (0.0-0.2); BASO % 1.3 % (0.0-1.0); EOS # 1.2 10^3/uL (0.0-0.5); EOS % 14.9 % (0.0-3.0); HEMATOCRIT 37.8 % (42.0-52.0); HEMOGLOBIN 12.4 g/dl (13.5-17.5); LYMPH % 25.1 % (24.0-44.0); MEAN CORPUSCULAR HGB CONC 32.8 g/dl (32.0-36.5); MEAN CORPUSCULAR VOLUME 97.7 fl (80.0-96.0); MONO # 0.7 10^3/uL (0.0-0.8); MONO % 8.8 % (2.0-8.0); NEUTROPHILS # 3.6 10^3/uL (1.5-8.5); NEUTROPHILS % 46.3 % (36.0-66.0); PLATELET COUNT, AUTOMATED 156 10^3/uL (150-450); RED BLOOD COUNT 3.87 10^6/uL (4.30-6.10); WHITE BLOOD COUNT 7.8 10^3/uL (4.0-10.0)
[2023-01-29 06:34] LABS: CALCIUM LEVEL 7.7 MG/DL (8.3-10.6); CREATININE FOR GFR 2.3 MG/DL (0.70-1.30); GLOMERULAR FILTRATION RATE 29.3 (>35); POTASSIUM SERUM 4.1 MMOL/L (3.5-5.1)
[2023-01-29] MEDS ORDERED: LEVEMIR (INSULIN DETEMIR) 1 UNITS/0.01ML SC SCH ×2 (09:00)
[2023-01-29] MEDS: METOPROLOL TART 25 MG TABLET PO SCH ×2 (09:00→20:30)
[2023-01-29] MEDS: NYSTATIN CREAM 15GM TOP SCH ×2 (09:12→20:31)
[2023-01-29] MEDS: MAGNESIUM GLUCONATE 500 MG TAB PO SCH (09:16)
[2023-01-29] MEDS: AMIODARONE 200 MG TAB (PACERONE) PO SCH (09:16)
[2023-01-29] MEDS: ASPIRIN 81MG ENTERIC TABLET PO SCH (09:16)
[2023-01-29 11:48] VITALS: BP 126/58
[2023-01-29] MEDS: TORSEMIDE 20 MG TAB PO SCH (11:48)
[2023-01-29] MEDS: SPIRONOLACTONE 12.5MG PER 1/2 TABLET PO SCH (11:48)
[2023-01-29 14:00] VITALS: BP 110/62; TEMP 97.9; O2SAT 96
[2023-01-29 20:00] VITALS: BP 144/65; TEMP 97.7; O2SAT 19
[2023-01-29] MEDS: ROSUVASTATIN 10 MG TAB (CRESTOR) PO SCH (20:28)
[2023-01-30 06:00] VITALS: BP 108/54; TEMP 97.5; O2SAT 94
[2023-01-30] MEDS ORDERED: LevoFLOXacin 750 MG TABLET PO SCH (06:00)
[2023-01-30] MEDS ORDERED: traMADol 50 MG TAB PO ONE (06:00)
[2023-01-30 06:10] LABS: BASO # 0.1 10^3/uL (0.0-0.2); BASO % 0.9 % (0.0-1.0); EOS % 13.5 % (0.0-3.0); HEMATOCRIT 37.7 % (42.0-52.0); HEMOGLOBIN 12.2 g/dl (13.5-17.5); MEAN CORPUSCULAR HEMOGLOBIN 31.5 pg (27.0-33.0); MEAN CORPUSCULAR HGB CONC 32.4 g/dl (32.0-36.5); MEAN CORPUSCULAR VOLUME 97.4 fl (80.0-96.0); MONO # 0.7 10^3/uL (0.0-0.8); MONO % 9.3 % (2.0-8.0); NEUTROPHILS # 3.6 10^3/uL (1.5-8.5); NEUTROPHILS % 46.6 % (36.0-66.0); PLATELET COUNT, AUTOMATED 151 10^3/uL (150-450); RED BLOOD COUNT 3.87 10^6/uL (4.30-6.10); WHITE BLOOD COUNT 7.6 10^3/uL (4.0-10.0)
[2023-01-30 06:44] LABS: CALCIUM LEVEL 7.8 MG/DL (8.3-10.6); CREATININE FOR GFR 2.19 MG/DL (0.70-1.30); POTASSIUM SERUM 4.1 MMOL/L (3.5-5.1)
[2023-01-30 07:55] VITALS: BP 97/44; TEMP 97.7; O2SAT 92
[2023-01-30 08:45] VITALS: BP_SYST 88; BP_DIAS 44; BP_DIAS 48
[2023-01-30] MEDS: MAGNESIUM GLUCONATE 500 MG TAB PO SCH (08:50)
[2023-01-30] MEDS: ASPIRIN 81MG ENTERIC TABLET PO SCH (08:51)
[2023-01-30] MEDS: NYSTATIN CREAM 15GM TOP SCH ×2 (08:51→20:46)
[2023-01-30] MEDS: METOPROLOL TART 25 MG TABLET PO SCH (09:00)
[2023-01-30] MEDS: SPIRONOLACTONE 12.5MG PER 1/2 TABLET PO SCH (09:00)
[2023-01-30] MEDS: TORSEMIDE 20 MG TAB PO SCH (09:00)
[2023-01-30] MEDS: AMIODARONE 200 MG TAB (PACERONE) PO SCH (09:45)
[2023-01-30 14:00] VITALS: BP 110/48; TEMP 97.3; O2SAT 96
[2023-01-30] MEDS: ROSUVASTATIN 10 MG TAB (CRESTOR) PO SCH (20:46)
[2023-01-30] MEDS: METOPROLOL TART 12.5 MG PER 1/2 TAB PO SCH (20:46)
[2023-01-31 06:00] VITALS: BP 109/55; TEMP 97; O2SAT 94
[2023-01-31 06:28] LABS: BASO # 0.1 10^3/uL (0.0-0.2); BASO % 0.9 % (0.0-1.0); EOS # 1.1 10^3/uL (0.0-0.5); EOS % 12.3 % (0.0-3.0); HEMATOCRIT 38.6 % (42.0-52.0); HEMOGLOBIN 12.6 g/dl (13.5-17.5); LYMPH # 2.1 10^3/uL (1.5-5.0); LYMPH % 23.7 % (24.0-44.0); MEAN CORPUSCULAR HEMOGLOBIN 32.4 pg (27.0-33.0); MEAN CORPUSCULAR HGB CONC 32.6 g/dl (32.0-36.5); MEAN CORPUSCULAR VOLUME 99.2 fl (80.0-96.0); MONO # 0.7 10^3/uL (0.0-0.8); MONO % 7.6 % (2.0-8.0); NEUTROPHILS # 4.7 10^3/uL (1.5-8.5); NEUTROPHILS % 52.8 % (36.0-66.0); PLATELET COUNT, AUTOMATED 169 10^3/uL (150-450); RED BLOOD COUNT 3.89 10^6/uL (4.30-6.10); WHITE BLOOD COUNT 8.8 10^3/uL (4.0-10.0)
[2023-01-31 06:52] LABS: CREATININE FOR GFR 2.08 MG/DL (0.70-1.30); GLOMERULAR FILTRATION RATE 32.9 (>35); POTASSIUM SERUM 4.3 MMOL/L (3.5-5.1)
[2023-01-31 09:34] VITALS: BP 109/55
[2023-01-31] MEDS: TORSEMIDE 20 MG TAB PO SCH (09:34)
[2023-01-31] MEDS: AMIODARONE 200 MG TAB (PACERONE) PO SCH (09:34)
[2023-01-31] MEDS: METOPROLOL TART 12.5 MG PER 1/2 TAB PO SCH (09:34)
[2023-01-31] MEDS: NYSTATIN CREAM 15GM TOP SCH (09:35)
[2023-01-31] MEDS: ASPIRIN 81MG ENTERIC TABLET PO SCH (09:35)
[2023-01-31] MEDS: SPIRONOLACTONE 12.5MG PER 1/2 TABLET PO SCH (09:35)
[2023-01-31] MEDS ORDERED: METO1TAB87 PO (09:36)
[2023-01-31] MEDS ORDERED: INSULANT SC (09:36)
[2023-01-31] MEDS ORDERED: LEVO1TAB40 PO (09:36)
[2023-01-31] MEDS ORDERED: METO50TA7 PO (09:37)
[2023-01-31] MEDS: MAGNESIUM GLUCONATE 500 MG TAB PO SCH (09:37)
== END 2023-01-31 11:32 | disposition home or self-care (01) | DRG 638 ==
LOC: M ED 11:20 → EDBD 11:20 → M ED INP 11:21 → M MSPAV 17:45 → OBSVTOIN 01-28 18:44
PROVIDERS: ADMIT Internal Medicine Nephrology; ATTEND Internal Medicine Nephrology
DX: E11.649 Type 2 diabetes mellitus with hypoglycemia without coma (principal); Z68.41 Body mass index [BMI] 40.0-44.9, adult; I50.42 Chronic combined systolic (congestive) and diastolic (congestive) heart failure; I13.0 Hypertensive heart and chronic kidney disease with heart failure and stage 1 through stage 4 chronic kidney disease, or unspecified chronic kidney disease; N39.0 Urinary tract infection, site not specified; I69.351 Hemiplegia and hemiparesis following cerebral infarction affecting right dominant side; I95.89 Other hypotension; N17.9 Acute kidney failure, unspecified; N18.4 Chronic kidney disease, stage 4 (severe); B96.5 Pseudomonas (aeruginosa) (mallei) (pseudomallei) as the cause of diseases classified elsewhere; E66.01 Morbid (severe) obesity due to excess calories; E87.6 Hypokalemia; E11.22 Type 2 diabetes mellitus with diabetic chronic kidney disease; I25.10 Atherosclerotic heart disease of native coronary artery without angina pectoris; I25.5 Ischemic cardiomyopathy; I27.20 Pulmonary hypertension, unspecified; E78.5 Hyperlipidemia, unspecified; K21.9 Gastro-esophageal reflux disease without esophagitis; G47.33 Obstructive sleep apnea (adult) (pediatric); E55.9 Vitamin D deficiency, unspecified; Z96.641 Presence of right artificial hip joint; Z87.891 Personal history of nicotine dependence; Z95.5 Presence of coronary angioplasty implant and graft; Z86.16 Personal history of COVID-19; Z95.810 Presence of automatic (implantable) cardiac defibrillator; Z79.82 Long term (current) use of aspirin; Z79.4 Long term (current) use of insulin; Z79.899 Other long term (current) drug therapy; Z20.822 Contact with and (suspected) exposure to COVID-19; D64.9 Anemia, unspecified; I25.2 Old myocardial infarction

== ENCOUNTER 2023-03-07 16:55 | Inpatient (IN) | payer MEDICARE, OTHER ==
[~2023-03-07] VITALS: Ht 175.3 cm; Wt 125.8 kg
[~2023-03-07 16:55] MED LIST changes: +ASPI81TA26 PO; +METO50TA7 PO; +VENTAER INH
[2023-03-07] MEDS ORDERED: NS 500 ML IV ONE (17:10)
[2023-03-07] MEDS ORDERED: ACETAMINOPHEN 325 MG TAB PO ONE (17:15)
[2023-03-07 17:37] LABS: BASO % 0.3 % (0.0-1.0); EOS # 0.6 10^3/uL (0.0-0.5); HEMATOCRIT 42.1 % (42.0-52.0); HEMOGLOBIN 13.8 g/dl (13.5-17.5); LYMPH # 0.6 10^3/uL (1.5-5.0); LYMPH % 5.3 % (24.0-44.0); MEAN CORPUSCULAR HEMOGLOBIN 32.7 pg (27.0-33.0); MEAN CORPUSCULAR HGB CONC 32.8 g/dl (32.0-36.5); MEAN CORPUSCULAR VOLUME 99.8 fl (80.0-96.0); MONO # 0.2 10^3/uL (0.0-0.8); MONO % 2.2 % (2.0-8.0); NEUTROPHILS % 85.7 % (36.0-66.0); PLATELET COUNT, AUTOMATED 158 10^3/uL (150-450); RED BLOOD COUNT 4.22 10^6/uL (4.30-6.10); WHITE BLOOD COUNT 10.5 10^3/uL (4.0-10.0)
[2023-03-07] MEDS ORDERED: cefTRIAXone SOD 2 GM in D5W MINI-BAG PLUS 50 ML IV ONE (17:40)
[2023-03-07] MEDS ORDERED: LIDOCAINE 2% 5ML JELLY UROJET TOP ONE (17:40)
[2023-03-07] MEDS ORDERED: DOXYCYCLINE HYCLATE 100 MG in D5W MINI-BAG PLUS 100 ML IV ONE (17:40)
[2023-03-07 18:26] LABS: CPK CREATINE PHOSPHOKINASE 68 U/L (46-171)
[2023-03-07 18:27] LABS: ALBUMIN 2.9 G/DL (3.2-5.2); ALKALINE PHOSPHATASE 91 U/L (46-116); ALT/SGPT 41 U/L (7.0-40); AST/SGOT 63 U/L (<34); BILIRUBIN,DIRECT 0.4 MG/DL (<0.4); BLOOD UREA NITROGEN 35 MG/DL (9-23); CALCIUM LEVEL 8.4 MG/DL (8.3-10.6); CARBON DIOXIDE LEVEL 26 MMOL/L (20-31); CHLORIDE LEVEL 104 MMOL/L (98-107); CK-MB VALUE MASS < 1.0 NG/ML (<3.6); CREATININE FOR GFR 2.21 MG/DL (0.70-1.30); GLOMERULAR FILTRATION RATE 30.6 (>35); GLUCOSE, FASTING 140 MG/DL (74-106); MAGNESIUM LEVEL 2.3 MG/DL (1.8-2.4); MB/CK RELATIVE INDEX 1.47 (< OR =4); POTASSIUM SERUM 3.9 MMOL/L (3.5-5.1); SODIUM LEVEL 136 MMOL/L (136-145); TOTAL PROTEIN 6.5 G/DL (5.7-8.2)
[2023-03-07 18:28] LABS: THYROID STIMULATING HORMONE 1.714 uIU/ML (0.55-4.78); THYROXINE (T4) 7.6 UG/DL (4.5-10.9)
[2023-03-07 18:49] LABS: CK-MB VALUE MASS < 1.0 NG/ML (<3.6)
[2023-03-07 18:51] LABS: CPK CREATINE PHOSPHOKINASE 60 U/L (46-171); MB/CK RELATIVE INDEX 1.66 (< OR =4)
[2023-03-07] MEDS ORDERED: DEXTROSE 50% 50ML SYRINGE IV PRN (19:35)
[2023-03-07] MEDS ORDERED: ACETAMINOPHEN TAB 650MG DOSE (2X325MG) PO PRN (19:35)
[2023-03-07] MEDS ORDERED: GLUCOSE 4GM CHEW TABLET PO PRN (19:35)
[2023-03-07] MEDS ORDERED: GLUCAGON INJ 1MG VIAL SC PRN (19:35)
[2023-03-07] MEDS ORDERED: METO50TA7 PO (20:03)
[2023-03-07] MEDS ORDERED: LANTINJ4 SC (20:03)
[2023-03-07] MEDS ORDERED: VITA500C24 PO (20:06)
[2023-03-07] MEDS ORDERED: FINA5TAB2 PO (20:06)
[2023-03-07] MEDS ORDERED: B-COTAB4 PO (20:06)
[2023-03-07] MEDS ORDERED: HOME MED LIST COMPLETE! XX SCH (20:15)
[2023-03-07] MEDS ORDERED: LEVALBUTEROL 1.25MG 0.5ML CONCENTRATE NEB INH PRN (20:50)
[2023-03-07] MEDS: INSULIN LISPRO (NovoLOG) PER UNIT SC SCH (21:00)
[2023-03-07] MEDS: FINASTERIDE 5MG TAB PO SCH (22:23)
[2023-03-07] MEDS: ASPIRIN 81MG ENTERIC TABLET PO SCH (22:23)
[2023-03-07] MEDS: ROSUVASTATIN 10 MG TAB (CRESTOR) PO SCH (22:23)
[2023-03-07] MEDS: LEVEMIR (INSULIN DETEMIR) 1 UNITS/0.01ML SC SCH (22:23)
[2023-03-07 23:18] VITALS: BP 104/45; TEMP 97.3; O2SAT 96
[2023-03-07] MEDS: METOPROLOL TART 25 MG TABLET PO SCH (23:24)
[2023-03-07] MEDS: MAGNESIUM GLUCONATE 500 MG TAB PO SCH (23:49)
[2023-03-07] MEDS: POTASSIUM CHLORIDE 10MEQ SR TABLET PO SCH (23:49)
[2023-03-08] VITALS (7 sets, daily range): BP systolic 102–140; BP diastolic 47–85; TEMP 97.2–101.2; O2SAT 94–97
[2023-03-08] MEDS: INSULIN LISPRO (NovoLOG) PER UNIT SC SCH ×4 (07:30→20:05)
[2023-03-08] MEDS: METOPROLOL TART 25 MG TABLET PO SCH ×2 (09:00→21:14)
[2023-03-08] MEDS: ENOXAPARIN 30MG/0.3ML SYRINGE (J1650 PER 10MG) SC SCH (09:33)
[2023-03-08] MEDS: LEVEMIR (INSULIN DETEMIR) 1 UNITS/0.01ML SC SCH ×2 (09:34→21:00)
[2023-03-08] MEDS: VITAMIN B COMPLEX/VIT C CAP PO SCH (09:34)
[2023-03-08] MEDS: POTASSIUM CHLORIDE 10MEQ SR TABLET PO SCH (09:34)
[2023-03-08] MEDS: VITAMIN D 1,000 INTERNATIONAL UNITS TABLET PO SCH (09:34)
[2023-03-08] MEDS: AMIODARONE 200 MG TAB (PACERONE) PO SCH (09:35)
[2023-03-08] MEDS: ASCORBIC ACID 500 MG TAB PO SCH (09:35)
[2023-03-08] MEDS: TORSEMIDE 20 MG TAB PO SCH (09:35)
[2023-03-08] MEDS: SPIRONOLACTONE 12.5MG PER 1/2 TABLET PO SCH ×2 (09:36→17:30)
[2023-03-08 12:49] LABS: CREATININE FOR GFR 2.34 MG/DL (0.70-1.30); GLOMERULAR FILTRATION RATE 28.6 (>35); POTASSIUM SERUM 4.1 MMOL/L (3.5-5.1)
[2023-03-08] MEDS ORDERED: cefTRIAXone SOD 1 GM in D5W MINI-BAG PLUS 50 ML IV SCH (18:00)
[2023-03-08] MEDS: FINASTERIDE 5MG TAB PO SCH (20:59)
[2023-03-08] MEDS: MAGNESIUM GLUCONATE 500 MG TAB PO SCH (20:59)
[2023-03-08] MEDS: ROSUVASTATIN 10 MG TAB (CRESTOR) PO SCH (20:59)
[2023-03-08] MEDS: ASPIRIN 81MG ENTERIC TABLET PO SCH (20:59)
[2023-03-09 05:47] VITALS: BP 92/52
[2023-03-09 06:00] VITALS: BP 92/52; TEMP 98.7; O2SAT 98
[2023-03-09] MEDS: INSULIN LISPRO (NovoLOG) PER UNIT SC SCH ×4 (07:30→21:00)
[2023-03-09] MEDS: VITAMIN D 1,000 INTERNATIONAL UNITS TABLET PO SCH (08:50)
[2023-03-09] MEDS: ENOXAPARIN 30MG/0.3ML SYRINGE (J1650 PER 10MG) SC SCH (08:50)
[2023-03-09] MEDS: POTASSIUM CHLORIDE 10MEQ SR TABLET PO SCH (08:51)
[2023-03-09] MEDS: AMIODARONE 200 MG TAB (PACERONE) PO SCH ×2 (08:53→11:10)
[2023-03-09] MEDS: VITAMIN B COMPLEX/VIT C CAP PO SCH (08:53)
[2023-03-09] MEDS: ASCORBIC ACID 500 MG TAB PO SCH (08:54)
[2023-03-09] MEDS: NYSTATIN 100,000 UNITS/GM TOPICAL PWD 15GM TOP SCH (08:57)
[2023-03-09] MEDS: METOPROLOL TART 12.5 MG PER 1/2 TAB PO SCH ×2 (09:00→21:57)
[2023-03-09 09:28] LABS: HEMOGLOBIN 12.4 g/dl (13.5-17.5); MEAN CORPUSCULAR HGB CONC 32.6 g/dl (32.0-36.5); MEAN CORPUSCULAR VOLUME 98.2 fl (80.0-96.0); PLATELET COUNT, AUTOMATED 140 10^3/uL (150-450); RED BLOOD COUNT 3.87 10^6/uL (4.30-6.10); WHITE BLOOD COUNT 14.7 10^3/uL (4.0-10.0)
[2023-03-09 09:30] LABS: CALCIUM LEVEL 8.7 MG/DL (8.3-10.6); CREATININE FOR GFR 2.35 MG/DL (0.70-1.30); GLOMERULAR FILTRATION RATE 28.5 (>35); MAGNESIUM LEVEL 2.4 MG/DL (1.8-2.4); POTASSIUM SERUM 3.9 MMOL/L (3.5-5.1)
[2023-03-09] MEDS: LEVEMIR (INSULIN DETEMIR) 1 UNITS/0.01ML SC SCH ×2 (10:55→21:58)
[2023-03-09] MEDS: TORSEMIDE 20 MG TAB PO SCH (11:09)
[2023-03-09] MEDS: SPIRONOLACTONE 12.5MG PER 1/2 TABLET PO SCH ×2 (11:09→17:20)
[2023-03-09 14:00] VITALS: BP 110/52; TEMP 97; O2SAT 92
[2023-03-09 16:15] VITALS: BP 102/58; TEMP 97.5; O2SAT 97
[2023-03-09] MEDS ORDERED: LevoFLOXacin 750 MG TABLET PO SCH (18:00)
[2023-03-09] MEDS: MAGNESIUM GLUCONATE 500 MG TAB PO SCH (21:54)
[2023-03-09] MEDS: ROSUVASTATIN 10 MG TAB (CRESTOR) PO SCH (21:55)
[2023-03-09] MEDS: ASPIRIN 81MG ENTERIC TABLET PO SCH (21:57)
[2023-03-09] MEDS: FINASTERIDE 5MG TAB PO SCH (21:58)
[2023-03-09 22:00] VITALS: BP 108/51; TEMP 97.2; O2SAT 94
[2023-03-10 06:00] VITALS: BP 98/58; TEMP 97.3; O2SAT 93
[2023-03-10 06:08] LABS: HEMATOCRIT 37.5 % (42.0-52.0); HEMOGLOBIN 12.2 g/dl (13.5-17.5); MEAN CORPUSCULAR HEMOGLOBIN 32.1 pg (27.0-33.0); MEAN CORPUSCULAR HGB CONC 32.5 g/dl (32.0-36.5); MEAN CORPUSCULAR VOLUME 98.7 fl (80.0-96.0); PLATELET COUNT, AUTOMATED 162 10^3/uL (150-450); WHITE BLOOD COUNT 11.9 10^3/uL (4.0-10.0)
[2023-03-10 06:53] LABS: CALCIUM LEVEL 8.5 MG/DL (8.3-10.6); CREATININE FOR GFR 2.52 MG/DL (0.70-1.30); GLOMERULAR FILTRATION RATE 26.3 (>35); POTASSIUM SERUM 3.9 MMOL/L (3.5-5.1)
[2023-03-10] MEDS: INSULIN LISPRO (NovoLOG) PER UNIT SC SCH ×4 (07:21→20:48)
[2023-03-10] MEDS: NYSTATIN 100,000 UNITS/GM TOPICAL PWD 15GM TOP SCH (09:00)
[2023-03-10] MEDS ORDERED: LEVEMIR (INSULIN DETEMIR) 1 UNITS/0.01ML SC SCH (09:00)
[2023-03-10] MEDS: SPIRONOLACTONE 12.5MG PER 1/2 TABLET PO SCH ×2 (09:13→18:10)
[2023-03-10] MEDS: METOPROLOL TART 12.5 MG PER 1/2 TAB PO SCH ×2 (09:14→20:48)
[2023-03-10] MEDS: VITAMIN B COMPLEX/VIT C CAP PO SCH (09:14)
[2023-03-10] MEDS: TORSEMIDE 20 MG TAB PO SCH (09:14)
[2023-03-10] MEDS: ASCORBIC ACID 500 MG TAB PO SCH (09:15)
[2023-03-10] MEDS: VITAMIN D 1,000 INTERNATIONAL UNITS TABLET PO SCH (09:15)
[2023-03-10] MEDS: POTASSIUM CHLORIDE 10MEQ SR TABLET PO SCH (09:15)
[2023-03-10] MEDS: AMIODARONE 200 MG TAB (PACERONE) PO SCH (09:15)
[2023-03-10] MEDS: ENOXAPARIN 30MG/0.3ML SYRINGE (J1650 PER 10MG) SC SCH (09:16)
[2023-03-10 14:00] VITALS: BP 102/48; TEMP 97; O2SAT 94
[2023-03-10] MEDS: ROSUVASTATIN 10 MG TAB (CRESTOR) PO SCH (20:47)
[2023-03-10] MEDS: ASPIRIN 81MG ENTERIC TABLET PO SCH (20:47)
[2023-03-10] MEDS: FINASTERIDE 5MG TAB PO SCH (20:47)
[2023-03-10] MEDS: MAGNESIUM GLUCONATE 500 MG TAB PO SCH (20:47)
[2023-03-11 06:00] VITALS: BP 90/50; TEMP 97.5; O2SAT 93
[2023-03-11 06:21] LABS: HEMATOCRIT 39.7 % (42.0-52.0); HEMOGLOBIN 12.8 g/dl (13.5-17.5); MEAN CORPUSCULAR HEMOGLOBIN 31.4 pg (27.0-33.0); MEAN CORPUSCULAR HGB CONC 32.2 g/dl (32.0-36.5); MEAN CORPUSCULAR VOLUME 97.3 fl (80.0-96.0); PLATELET COUNT, AUTOMATED 163 10^3/uL (150-450); RED BLOOD COUNT 4.08 10^6/uL (4.30-6.10); WHITE BLOOD COUNT 7.7 10^3/uL (4.0-10.0)
[2023-03-11 06:45] LABS: CALCIUM LEVEL 8.4 MG/DL (8.3-10.6); CREATININE FOR GFR 2.43 MG/DL (0.70-1.30); GLOMERULAR FILTRATION RATE 27.4 (>35); POTASSIUM SERUM 4.3 MMOL/L (3.5-5.1)
[2023-03-11] MEDS: INSULIN LISPRO (NovoLOG) PER UNIT SC SCH ×4 (07:30→19:43)
[2023-03-11] MEDS: METOPROLOL TART 12.5 MG PER 1/2 TAB PO SCH ×3 (09:00→20:36)
[2023-03-11] MEDS: SPIRONOLACTONE 12.5MG PER 1/2 TABLET PO SCH ×3 (09:00→18:23)
[2023-03-11] MEDS: TORSEMIDE 20 MG TAB PO SCH ×2 (09:00→10:49)
[2023-03-11] MEDS: NYSTATIN 100,000 UNITS/GM TOPICAL PWD 15GM TOP SCH (09:00)
[2023-03-11 09:49] VITALS: BP 82/40
[2023-03-11] MEDS: CEFEPIME HCL 1 GM in D5W MINI-BAG PLUS 50 ML IV SCH (09:50)
[2023-03-11] MEDS: VITAMIN B COMPLEX/VIT C CAP PO SCH (09:52)
[2023-03-11] MEDS: AMIODARONE 200 MG TAB (PACERONE) PO SCH (09:52)
[2023-03-11] MEDS: ASCORBIC ACID 500 MG TAB PO SCH (09:52)
[2023-03-11] MEDS: ENOXAPARIN 30MG/0.3ML SYRINGE (J1650 PER 10MG) SC SCH (09:52)
[2023-03-11] MEDS: POTASSIUM CHLORIDE 10MEQ SR TABLET PO SCH (09:53)
[2023-03-11] MEDS: VITAMIN D 1,000 INTERNATIONAL UNITS TABLET PO SCH (09:56)
[2023-03-11 14:00] VITALS: BP 128/65; TEMP 97.7; O2SAT 94
[2023-03-11 18:00] VITALS: BP 105/42
[2023-03-11 20:35] VITALS: BP 109/45; TEMP 97.7; O2SAT 93
[2023-03-11] MEDS: MAGNESIUM GLUCONATE 500 MG TAB PO SCH (20:35)
[2023-03-11] MEDS: FINASTERIDE 5MG TAB PO SCH (20:35)
[2023-03-11] MEDS: ASPIRIN 81MG ENTERIC TABLET PO SCH (20:35)
[2023-03-11] MEDS: ROSUVASTATIN 10 MG TAB (CRESTOR) PO SCH (20:36)
[2023-03-12 05:57] LABS: HEMOGLOBIN 12.5 g/dl (13.5-17.5); MEAN CORPUSCULAR HEMOGLOBIN 31.7 pg (27.0-33.0); MEAN CORPUSCULAR HGB CONC 32.9 g/dl (32.0-36.5); MEAN CORPUSCULAR VOLUME 96.4 fl (80.0-96.0); PLATELET COUNT, AUTOMATED 174 10^3/uL (150-450); RED BLOOD COUNT 3.94 10^6/uL (4.30-6.10); WHITE BLOOD COUNT 7.2 10^3/uL (4.0-10.0)
[2023-03-12 06:00] VITALS: BP 99/51; TEMP 97.5; O2SAT 95
[2023-03-12 06:20] LABS: CALCIUM LEVEL 8.1 MG/DL (8.3-10.6); CREATININE FOR GFR 2.4 MG/DL (0.70-1.30); GLOMERULAR FILTRATION RATE 27.8 (>35); POTASSIUM SERUM 4.1 MMOL/L (3.5-5.1)
[2023-03-12 08:19] VITALS: BP 100/53
[2023-03-12] MEDS: METOPROLOL TART 12.5 MG PER 1/2 TAB PO SCH ×2 (08:22→21:24)
[2023-03-12] MEDS: INSULIN LISPRO (NovoLOG) PER UNIT SC SCH ×4 (08:22→21:00)
[2023-03-12] MEDS: ASCORBIC ACID 500 MG TAB PO SCH (08:22)
[2023-03-12] MEDS: VITAMIN B COMPLEX/VIT C CAP PO SCH (08:23)
[2023-03-12] MEDS: POTASSIUM CHLORIDE 10MEQ SR TABLET PO SCH (08:23)
[2023-03-12] MEDS: VITAMIN D 1,000 INTERNATIONAL UNITS TABLET PO SCH (08:23)
[2023-03-12] MEDS: AMIODARONE 200 MG TAB (PACERONE) PO SCH (08:23)
[2023-03-12] MEDS: SPIRONOLACTONE 12.5MG PER 1/2 TABLET PO SCH ×2 (08:23→16:58)
[2023-03-12] MEDS: TORSEMIDE 20 MG TAB PO SCH (08:25)
[2023-03-12] MEDS: CEFEPIME HCL 1 GM in D5W MINI-BAG PLUS 50 ML IV SCH (08:26)
[2023-03-12] MEDS: NYSTATIN 100,000 UNITS/GM TOPICAL PWD 15GM TOP SCH (08:26)
[2023-03-12] MEDS: ENOXAPARIN 30MG/0.3ML SYRINGE (J1650 PER 10MG) SC SCH (08:26)
[2023-03-12 14:00] VITALS: BP 111/55; TEMP 97.6; O2SAT 93
[2023-03-12 20:30] VITALS: BP 112/49; TEMP 97.5; O2SAT 92
[2023-03-12] MEDS: FINASTERIDE 5MG TAB PO SCH (21:25)
[2023-03-12] MEDS: MAGNESIUM GLUCONATE 500 MG TAB PO SCH (21:25)
[2023-03-12] MEDS: ASPIRIN 81MG ENTERIC TABLET PO SCH (21:25)
[2023-03-12] MEDS: ROSUVASTATIN 10 MG TAB (CRESTOR) PO SCH (21:26)
[2023-03-13] MEDS: HEPARIN SOD (PORCINE) 5000UNITS/ML 1ML VIAL/SYRINGE SQ SCH ×3 (06:17→21:19)
[2023-03-13 06:30] VITALS: BP 92/44; TEMP 97.9; O2SAT 91
[2023-03-13] MEDS: INSULIN LISPRO (NovoLOG) PER UNIT SC SCH ×4 (07:30→21:00)
[2023-03-13] MEDS: VITAMIN D 1,000 INTERNATIONAL UNITS TABLET PO SCH (08:00)
[2023-03-13] MEDS: METOPROLOL TART 12.5 MG PER 1/2 TAB PO SCH ×2 (08:00→21:00)
[2023-03-13] MEDS: AMIODARONE 200 MG TAB (PACERONE) PO SCH (08:00)
[2023-03-13] MEDS: SPIRONOLACTONE 12.5MG PER 1/2 TABLET PO SCH ×2 (08:00→18:20)
[2023-03-13] MEDS: TORSEMIDE 20 MG TAB PO SCH (08:01)
[2023-03-13] MEDS: ASCORBIC ACID 500 MG TAB PO SCH (08:01)
[2023-03-13] MEDS: POTASSIUM CHLORIDE 10MEQ SR TABLET PO SCH (08:01)
[2023-03-13] MEDS: CEFEPIME HCL 1 GM in D5W MINI-BAG PLUS 50 ML IV SCH (08:02)
[2023-03-13] MEDS: NYSTATIN 100,000 UNITS/GM TOPICAL PWD 15GM TOP SCH (08:02)
[2023-03-13] MEDS: VITAMIN B COMPLEX/VIT C CAP PO SCH (08:05)
[2023-03-13 09:00] VITALS: O2SAT 91
[2023-03-13 14:00] VITALS: BP 109/50; TEMP 97.7; O2SAT 94
[2023-03-13] MEDS ORDERED: CEPACOL LOZENGE MT PRN (14:50)
[2023-03-13 19:50] VITALS: BP 83/45; TEMP 97.8; O2SAT 92
[2023-03-13] MEDS: ROSUVASTATIN 10 MG TAB (CRESTOR) PO SCH (21:20)
[2023-03-13] MEDS: FINASTERIDE 5MG TAB PO SCH (21:20)
[2023-03-13] MEDS: ASPIRIN 81MG ENTERIC TABLET PO SCH (21:20)
[2023-03-13] MEDS: MAGNESIUM GLUCONATE 500 MG TAB PO SCH (21:21)
[2023-03-14 05:40] VITALS: BP 96/50; TEMP 97.2; O2SAT 92
[2023-03-14] MEDS: HEPARIN SOD (PORCINE) 5000UNITS/ML 1ML VIAL/SYRINGE SQ SCH ×2 (06:27→12:20)
[2023-03-14] MEDS: INSULIN LISPRO (NovoLOG) PER UNIT SC SCH ×4 (07:30→20:07)
[2023-03-14 09:00] VITALS: O2SAT 93
[2023-03-14] MEDS: SPIRONOLACTONE 12.5MG PER 1/2 TABLET PO SCH ×2 (09:26→18:13)
[2023-03-14] MEDS: AMIODARONE 200 MG TAB (PACERONE) PO SCH (09:26)
[2023-03-14] MEDS: TORSEMIDE 20 MG TAB PO SCH (09:26)
[2023-03-14] MEDS: VITAMIN B COMPLEX/VIT C CAP PO SCH (09:27)
[2023-03-14] MEDS: CEFEPIME HCL 1 GM in D5W MINI-BAG PLUS 50 ML IV SCH (09:27)
[2023-03-14] MEDS: VITAMIN D 1,000 INTERNATIONAL UNITS TABLET PO SCH (09:27)
[2023-03-14] MEDS: METOPROLOL TART 12.5 MG PER 1/2 TAB PO SCH ×2 (09:27→20:21)
[2023-03-14] MEDS: POTASSIUM CHLORIDE 10MEQ SR TABLET PO SCH (09:27)
[2023-03-14] MEDS: ASCORBIC ACID 500 MG TAB PO SCH (09:27)
[2023-03-14] MEDS: NYSTATIN 100,000 UNITS/GM TOPICAL PWD 15GM TOP SCH (09:28)
[2023-03-14 14:00] VITALS: BP 98/50; TEMP 97.7; O2SAT 93
[2023-03-14 18:15] VITALS: BP 110/52
[2023-03-14 20:07] VITALS: BP 125/57; TEMP 97.9; O2SAT 92
[2023-03-14] MEDS: FINASTERIDE 5MG TAB PO SCH (20:21)
[2023-03-14] MEDS: ROSUVASTATIN 10 MG TAB (CRESTOR) PO SCH (20:21)
[2023-03-14] MEDS: MAGNESIUM GLUCONATE 500 MG TAB PO SCH (20:21)
[2023-03-14] MEDS: ASPIRIN 81MG ENTERIC TABLET PO SCH (20:21)
[2023-03-15 04:45] VITALS: BP 90/46; TEMP 97.5; O2SAT 94
[2023-03-15] MEDS: INSULIN LISPRO (NovoLOG) PER UNIT SC SCH (07:20)
[2023-03-15] MEDS: NYSTATIN 100,000 UNITS/GM TOPICAL PWD 15GM TOP SCH (08:40)
[2023-03-15] MEDS: ASCORBIC ACID 500 MG TAB PO SCH (08:41)
[2023-03-15] MEDS: POTASSIUM CHLORIDE 10MEQ SR TABLET PO SCH (08:41)
[2023-03-15] MEDS: SPIRONOLACTONE 12.5MG PER 1/2 TABLET PO SCH (08:41)
[2023-03-15] MEDS: VITAMIN B COMPLEX/VIT C CAP PO SCH (08:41)
[2023-03-15] MEDS: VITAMIN D 1,000 INTERNATIONAL UNITS TABLET PO SCH (08:41)
[2023-03-15 08:42] VITALS: BP 109/48
[2023-03-15] MEDS: CEFEPIME HCL 1 GM in D5W MINI-BAG PLUS 50 ML IV SCH (08:42)
[2023-03-15] MEDS: METOPROLOL TART 12.5 MG PER 1/2 TAB PO SCH (08:42)
[2023-03-15] MEDS: TORSEMIDE 20 MG TAB PO SCH (08:42)
[2023-03-15] MEDS: AMIODARONE 200 MG TAB (PACERONE) PO SCH (08:42)
[2023-03-15] MEDS ORDERED: VENTAER INH (10:44)
== END 2023-03-15 11:56 | disposition home or self-care (01) | DRG 291 ==
LOC: M ED 16:55 → M ED INP 19:33 → M MS5PR 23:10 → M MSPAV 03-09 18:08
PROVIDERS: ADMIT Internal Medicine; ATTEND Student in an Organized Health Care Education/Training Program
DX: I13.0 Hypertensive heart and chronic kidney disease with heart failure and stage 1 through stage 4 chronic kidney disease, or unspecified chronic kidney disease (principal); I50.43 Acute on chronic combined systolic (congestive) and diastolic (congestive) heart failure; N39.0 Urinary tract infection, site not specified; Z68.42 Body mass index [BMI] 45.0-49.9, adult; E87.20 Acidosis, unspecified; I25.10 Atherosclerotic heart disease of native coronary artery without angina pectoris; E11.22 Type 2 diabetes mellitus with diabetic chronic kidney disease; I27.20 Pulmonary hypertension, unspecified; G47.33 Obstructive sleep apnea (adult) (pediatric); E11.649 Type 2 diabetes mellitus with hypoglycemia without coma; N40.1 Benign prostatic hyperplasia with lower urinary tract symptoms; N18.30 Chronic kidney disease, stage 3 unspecified; E66.01 Morbid (severe) obesity due to excess calories; E78.5 Hyperlipidemia, unspecified; K21.9 Gastro-esophageal reflux disease without esophagitis; J20.9 Acute bronchitis, unspecified; R26.89 Other abnormalities of gait and mobility; E55.9 Vitamin D deficiency, unspecified; Z96.641 Presence of right artificial hip joint; Z87.891 Personal history of nicotine dependence; Z95.5 Presence of coronary angioplasty implant and graft; I25.2 Old myocardial infarction; Z95.810 Presence of automatic (implantable) cardiac defibrillator; Z86.16 Personal history of COVID-19; Z79.82 Long term (current) use of aspirin; Z79.4 Long term (current) use of insulin; Z79.899 Other long term (current) drug therapy; Z20.822 Contact with and (suspected) exposure to COVID-19; I25.5 Ischemic cardiomyopathy; Z95.1 Presence of aortocoronary bypass graft

== ENCOUNTER → 2023-04-02 | Outpatient (CLI) | payer MEDICARE, OTHER ==
[~2023-04-02] MED LIST changes: +B-COTAB4 PO; +FINA5TAB2 PO; +LANTINJ4 SC; +VITA500C24 PO
== END ==
LOC: M RAD 10:20
PROVIDERS: ATTEND Internal Medicine
DX: N18.4 Chronic kidney disease, stage 4 (severe) (principal); N28.1 Cyst of kidney, acquired

== ENCOUNTER 2023-07-04 08:11 | Inpatient (IN) | payer OTHER, MEDICARE ==
[~2023-07-04] VITALS: Ht 172.7 cm; Wt 135.6 kg
[~2023-07-04 08:11] MED LIST changes: -B-COTAB4 PO; +VITA1TAB78 PO
[2023-07-04 08:44] LABS: VENOUS BASE EXCESS -2.2 (-2.0-2.0); VENOUS HCO3 23.5 MMOL/L (23.0-27.0); VENOUS PARTIAL PRESSURE CO2 43.5 mmHg (38.0-50.0); VENOUS PARTIAL PRESSURE O2 29.9 mmHg (30.0-50.0); VENOUS STANDARD HCO3 21.8 MMOL/L; VENOUS TOTAL CO2 24.8 MMOL/L (24.0-28.0)
[2023-07-04 08:48] LABS: BASO % 0.2 % (0.0-1.0); EOS # 0.2 10^3/uL (0.0-0.5); EOS % 3.1 % (0.0-3.0); HEMATOCRIT 40.2 % (42.0-52.0); HEMOGLOBIN 13.1 g/dl (13.5-17.5); LYMPH # 0.4 10^3/uL (1.5-5.0); LYMPH % 6.6 % (24.0-44.0); MEAN CORPUSCULAR HEMOGLOBIN 32.6 pg (27.0-33.0); MEAN CORPUSCULAR HGB CONC 32.6 g/dl (32.0-36.5); MONO # 0.1 10^3/uL (0.0-0.8); MONO % 1.3 % (2.0-8.0); NEUTROPHILS # 4.9 10^3/uL (1.5-8.5); NEUTROPHILS % 88.3 % (36.0-66.0); PLATELET COUNT, AUTOMATED 155 10^3/uL (150-450); RED BLOOD COUNT 4.02 10^6/uL (4.30-6.10); WHITE BLOOD COUNT 5.6 10^3/uL (4.0-10.0)
[2023-07-04] MEDS: NS IV ONE (08:57)
[2023-07-04] MEDS: cefTRIAXone SOD 2 GM in D5W MINI-BAG PLUS 50 ML IV ONE (08:57)
[2023-07-04] MEDS: guaiFENesin ER TABLET 600 MG TAB PO SCH (09:00)
[2023-07-04] MEDS: AMIODARONE 200 MG TAB (PACERONE) PO SCH (09:00)
[2023-07-04 09:15] LABS: ALBUMIN 2.8 G/DL (3.2-5.2); BILIRUBIN,DIRECT 0.4 MG/DL (<0.4); CREATININE FOR GFR 2.87 MG/DL (0.70-1.30); GLOMERULAR FILTRATION RATE 22.6 (>35); POTASSIUM SERUM 4.1 MMOL/L (3.5-5.1); TOTAL PROTEIN 6.5 G/DL (5.7-8.2)
[2023-07-04] MEDS: IPRATROPIUM 0.5MG/ALBUTEROL 2.5MG INH SOL UD 3ML (DUONEB) NEB PRN (09:20)
[2023-07-04 09:28] LABS: THYROID STIMULATING HORMONE 1.801 uIU/ML (0.55-4.78)
[2023-07-04] MEDS: methylPREDNISolone 125MG 2ML VIAL IV ONE (10:04)
[2023-07-04] MEDS ORDERED: HOME MED LIST COMPLETE! XX SCH (11:15)
[2023-07-04] MEDS ORDERED: IPRATROPIUM 0.5MG/ALBUTEROL 2.5MG INH SOL UD 3ML (DUONEB) NEB PRN (11:30)
[2023-07-04 13:07] VITALS: BP 102/50; TEMP 97.6; O2SAT 93
[2023-07-04] MEDS ORDERED: CEFEPIME HCL 1 GM in D5W MINI-BAG PLUS 50 ML IV SCH (13:25)
[2023-07-04] MEDS: MIDODRINE 5 MG TAB PO ONE (13:54)
[2023-07-04] MEDS: CEFEPIME HCL 1 GM in D5W MINI-BAG PLUS 50 ML IV SCH (13:55)
[2023-07-04] MEDS: IPRATROPIUM 0.5MG/ALBUTEROL 2.5MG INH SOL UD 3ML (DUONEB) NEB SCH (14:00)
[2023-07-04 14:04] LABS: CK-MB VALUE MASS 1.3 NG/ML (<3.6)
[2023-07-04 14:06] LABS: MB/CK RELATIVE INDEX 1.46 (< OR =4)
[2023-07-04] MEDS ORDERED: MIDODRINE 5 MG TAB PO SCH (16:00)
[2023-07-04] MEDS: methylPREDNISolone 40MG 1ML VIAL IV SCH (17:34)
[2023-07-04] MEDS: NS 1,000 ML IV ONE (18:36)
[2023-07-04 19:19] VITALS: BP 101/41; TEMP 97.9; O2SAT 92
[2023-07-04] MEDS: ASPIRIN 81MG ENTERIC TABLET PO SCH (20:12)
[2023-07-04] MEDS: ROSUVASTATIN 10 MG TAB (CRESTOR) PO SCH (20:12)
[2023-07-04] MEDS: NS 1,000 ML IV SCH (20:13)
[2023-07-04 20:30] VITALS: BP 98/32
[2023-07-04 21:30] VITALS: BP 108/52
[2023-07-04] MEDS: NS 500 ML IV ONE (23:55)
[2023-07-05] VITALS (12 sets, daily range): BP systolic 78–128; BP diastolic 32–72; TEMP 97.2–98.5; O2SAT 92–95
[2023-07-05] MEDS ORDERED: GLUCAGON INJ 1MG VIAL SC PRN (01:55)
[2023-07-05] MEDS ORDERED: GLUCOSE 4 GM CHEW PO PRN (01:55)
[2023-07-05] MEDS ORDERED: DEXTROSE 50% 50ML SYRINGE IV PRN (01:55)
[2023-07-05 03:07] LABS: BASO % 0.2 % (0.0-1.0); HEMATOCRIT 34.3 % (42.0-52.0); LYMPH # 0.6 10^3/uL (1.5-5.0); LYMPH % 3.4 % (24.0-44.0); MEAN CORPUSCULAR HEMOGLOBIN 32.1 pg (27.0-33.0); MEAN CORPUSCULAR HGB CONC 32.1 g/dl (32.0-36.5); MONO # 0.7 10^3/uL (0.0-0.8); MONO % 4.2 % (2.0-8.0); NEUTROPHILS # 14.9 10^3/uL (1.5-8.5); NEUTROPHILS % 91.3 % (36.0-66.0); PLATELET COUNT, AUTOMATED 133 10^3/uL (150-450); RED BLOOD COUNT 3.43 10^6/uL (4.30-6.10); WHITE BLOOD COUNT 16.3 10^3/uL (4.0-10.0)
[2023-07-05 03:28] LABS: CALCIUM LEVEL 7.7 MG/DL (8.3-10.6); CREATININE FOR GFR 2.85 MG/DL (0.70-1.30); GLOMERULAR FILTRATION RATE 22.8 (>35)
[2023-07-05] MEDS: INSULIN LISPRO (NovoLOG) PER UNIT SC SCH ×2 (08:51→20:13)
[2023-07-05] MEDS ORDERED: cefTRIAXone SOD 1 GM in D5W MINI-BAG PLUS 50 ML IV SCH (09:00)
[2023-07-05] MEDS: TORSEMIDE 20 MG TAB PO SCH (11:21)
[2023-07-05] MEDS: SPIRONOLACTONE 25 MG TAB PO SCH (11:22)
[2023-07-05] MEDS: NS 500 ML IV ONE ×2 (14:10→19:56)
[2023-07-05] MEDS: MIDODRINE 5 MG TAB PO ONE (14:11)
[2023-07-05] MEDS: cefTRIAXone SOD 1 GM in D5W MINI-BAG PLUS 50 ML IV SCH (14:25)
[2023-07-05 15:19] LABS: PROCALCITONIN 15.98 ng/ml
[2023-07-05 19:00] LABS: C REACTIVE PROTEIN QUANTITATIV 9.2 MG/DL (<1.0)
[2023-07-06 05:10] VITALS: BP 107/51; TEMP 97.2; O2SAT 94
[2023-07-06 06:00] VITALS: BP 106/52; TEMP 97.2; O2SAT 96
[2023-07-06 06:38] LABS: BASO % 0.1 % (0.0-1.0); HEMATOCRIT 33.7 % (42.0-52.0); HEMOGLOBIN 10.9 g/dl (13.5-17.5); LYMPH # 0.4 10^3/uL (1.5-5.0); LYMPH % 3.2 % (24.0-44.0); MEAN CORPUSCULAR HEMOGLOBIN 32.2 pg (27.0-33.0); MEAN CORPUSCULAR HGB CONC 32.3 g/dl (32.0-36.5); MEAN CORPUSCULAR VOLUME 99.7 fl (80.0-96.0); MONO # 0.5 10^3/uL (0.0-0.8); MONO % 4.2 % (2.0-8.0); NEUTROPHILS # 11.9 10^3/uL (1.5-8.5); NEUTROPHILS % 91.7 % (36.0-66.0); PLATELET COUNT, AUTOMATED 138 10^3/uL (150-450); RED BLOOD COUNT 3.38 10^6/uL (4.30-6.10); WHITE BLOOD COUNT 12.9 10^3/uL (4.0-10.0)
[2023-07-06 07:11] LABS: CALCIUM LEVEL 8.3 MG/DL (8.3-10.6); CREATININE FOR GFR 2.96 MG/DL (0.70-1.30); GLOMERULAR FILTRATION RATE 21.8 (>35)
[2023-07-06 08:39] VITALS: BP 112/60
[2023-07-06] MEDS: CEFEPIME HCL 1 GM in D5W MINI-BAG PLUS 50 ML IV SCH (08:44)
[2023-07-06] MEDS: SODIUM BICARBONATE 325 MG TAB PO SCH (12:17)
[2023-07-06 14:00] VITALS: BP 110/54; TEMP 97.6; O2SAT 94
[2023-07-06] MEDS: DOXYCYCLINE HYCLATE 100MG TABLET PO SCH (20:30)
[2023-07-06 21:10] VITALS: BP 110/60; TEMP 97.3; O2SAT 96
[2023-07-06] MEDS: LIDOCAINE 5% (LIDODERM) PATCH TD SCH (22:16)
[2023-07-07 05:30] VITALS: BP 103/46; TEMP 96.6; O2SAT 99
[2023-07-07 06:43] LABS: HEMATOCRIT 33.3 % (42.0-52.0); HEMOGLOBIN 10.8 g/dl (13.5-17.5); LYMPH # 0.4 10^3/uL (1.5-5.0); LYMPH % 3.7 % (24.0-44.0); MEAN CORPUSCULAR HEMOGLOBIN 32.2 pg (27.0-33.0); MEAN CORPUSCULAR HGB CONC 32.4 g/dl (32.0-36.5); MEAN CORPUSCULAR VOLUME 99.4 fl (80.0-96.0); MONO # 0.4 10^3/uL (0.0-0.8); MONO % 4.2 % (2.0-8.0); NEUTROPHILS # 8.7 10^3/uL (1.5-8.5); NEUTROPHILS % 91.2 % (36.0-66.0); PLATELET COUNT, AUTOMATED 147 10^3/uL (150-450); RED BLOOD COUNT 3.35 10^6/uL (4.30-6.10); WHITE BLOOD COUNT 9.5 10^3/uL (4.0-10.0)
[2023-07-07 07:08] LABS: CALCIUM LEVEL 8.3 MG/DL (8.3-10.6); CREATININE FOR GFR 3.17 MG/DL (0.70-1.30); GLOMERULAR FILTRATION RATE 20.2 (>35); POTASSIUM SERUM 4.3 MMOL/L (3.5-5.1)
[2023-07-07 10:13] VITALS: BP 140/60; TEMP 97.5; O2SAT 93
[2023-07-07 14:24] VITALS: BP 130/62; TEMP 97.2; O2SAT 92
[2023-07-07 19:58] VITALS: BP 122/62; TEMP 97.3; O2SAT 92
[2023-07-08 06:35] LABS: BASO % 0.4 % (0.0-1.0); HEMATOCRIT 34.1 % (42.0-52.0); HEMOGLOBIN 11.2 g/dl (13.5-17.5); LYMPH # 0.4 10^3/uL (1.5-5.0); LYMPH % 4.9 % (24.0-44.0); MEAN CORPUSCULAR HEMOGLOBIN 32.5 pg (27.0-33.0); MEAN CORPUSCULAR HGB CONC 32.8 g/dl (32.0-36.5); MEAN CORPUSCULAR VOLUME 98.8 fl (80.0-96.0); MONO # 0.4 10^3/uL (0.0-0.8); MONO % 5.5 % (2.0-8.0); NEUTROPHILS # 6.5 10^3/uL (1.5-8.5); NEUTROPHILS % 85.8 % (36.0-66.0); PLATELET COUNT, AUTOMATED 145 10^3/uL (150-450); RED BLOOD COUNT 3.45 10^6/uL (4.30-6.10); WHITE BLOOD COUNT 7.6 10^3/uL (4.0-10.0)
[2023-07-08 06:57] VITALS: BP 112/60; TEMP 97.5; O2SAT 92
[2023-07-08 07:11] LABS: CALCIUM LEVEL 8.6 MG/DL (8.3-10.6); CREATININE FOR GFR 3.24 MG/DL (0.70-1.30); GLOMERULAR FILTRATION RATE 19.7 (>35); POTASSIUM SERUM 4.2 MMOL/L (3.5-5.1)
[2023-07-08] MEDS: SODIUM BICARBONATE 325 MG TAB PO ONE (09:41)
[2023-07-08] MEDS ORDERED: LIDO5TD TD (12:33)
[2023-07-08] MEDS ORDERED: PRED20TA PO (12:33)
[2023-07-08] MEDS ORDERED: DOXY100T PO (12:33)
[2023-07-08] MEDS ORDERED: SODI325T9 PO (12:33)
[2023-07-08] MEDS: SODIUM BICARBONATE 325 MG TAB PO SCH (12:43)
[2023-07-08 14:11] VITALS: BP 118/70; TEMP 97; O2SAT 99
[2023-07-09] MEDS ORDERED: predniSONE 20 MG TAB PO SCH (09:00)
[2023-07-12] MEDS ORDERED: PRED20TA PO (17:48)
[2023-07-12] MEDS ORDERED: DOXY100T PO (17:48)
[2023-07-12] MEDS ORDERED: SODI650T PO (17:48)
[2023-07-12] MEDS ORDERED: LIDO1PAD TD (17:48)
== END 2023-07-08 14:55 | disposition home or self-care (01) | DRG 872 ==
LOC: EDBD 08:11 → M ED 08:11 → M ED INP 11:24 → M MS5PR 12:55
PROVIDERS: ADMIT General Practice; ATTEND Hospitalist
PROC: B246ZZZ Ultrasonography of Right and Left Heart (ICD-10-PCS; principal; 2023-07-05)
DX: A41.9 Sepsis, unspecified organism (principal); N39.0 Urinary tract infection, site not specified; N17.9 Acute kidney failure, unspecified; I50.22 Chronic systolic (congestive) heart failure; J44.1 Chronic obstructive pulmonary disease with (acute) exacerbation; I13.0 Hypertensive heart and chronic kidney disease with heart failure and stage 1 through stage 4 chronic kidney disease, or unspecified chronic kidney disease; Z68.41 Body mass index [BMI] 40.0-44.9, adult; S32.019A Unspecified fracture of first lumbar vertebra, initial encounter for closed fracture; J44.0 Chronic obstructive pulmonary disease with (acute) lower respiratory infection; I25.10 Atherosclerotic heart disease of native coronary artery without angina pectoris; I25.2 Old myocardial infarction; G47.33 Obstructive sleep apnea (adult) (pediatric); E86.0 Dehydration; K44.9 Diaphragmatic hernia without obstruction or gangrene; B95.2 Enterococcus as the cause of diseases classified elsewhere; R65.20 Severe sepsis without septic shock; J20.9 Acute bronchitis, unspecified; E11.22 Type 2 diabetes mellitus with diabetic chronic kidney disease; E66.9 Obesity, unspecified; N18.30 Chronic kidney disease, stage 3 unspecified; D64.9 Anemia, unspecified; E78.5 Hyperlipidemia, unspecified; I25.5 Ischemic cardiomyopathy; Z79.4 Long term (current) use of insulin; Z79.52 Long term (current) use of systemic steroids; Z79.899 Other long term (current) drug therapy; Z11.52 Encounter for screening for COVID-19; Z95.810 Presence of automatic (implantable) cardiac defibrillator; Z95.5 Presence of coronary angioplasty implant and graft; Z87.891 Personal history of nicotine dependence; Z96.641 Presence of right artificial hip joint

== ENCOUNTER 2023-08-11 17:45 | Inpatient (IN) | payer OTHER, MEDICARE ==
[2023-08-11] MEDS: ASPIRIN 81MG ENTERIC TABLET PO SCH (01:30)
[~2023-08-11 17:45] MED LIST changes: +DOXY100T PO; +INSULADS INJ; +LIDO1PAD TD; +LIDO5TD TD; +METO1TAB32 PO; +POTA-136 PO; -ROSU40TA4 PO; +ROSU40TA63 PO; +SODI325T9 PO; +SODI650T PO
[2023-08-11 18:38] LABS: BASO # 0.1 10^3/uL (0.0-0.2); BASO % 1.2 % (0.0-1.0); EOS # 1.9 10^3/uL (0.0-0.5); HEMATOCRIT 37.2 % (42.0-52.0); LYMPH # 2.1 10^3/uL (1.5-5.0); LYMPH % 25.3 % (24.0-44.0); MEAN CORPUSCULAR HEMOGLOBIN 32.4 pg (27.0-33.0); MEAN CORPUSCULAR HGB CONC 32.3 g/dl (32.0-36.5); MEAN CORPUSCULAR VOLUME 100.5 fl (80.0-96.0); MONO % 12.4 % (2.0-8.0); NEUTROPHILS # 3.2 10^3/uL (1.5-8.5); NEUTROPHILS % 38.1 % (36.0-66.0); PLATELET COUNT, AUTOMATED 209 10^3/uL (150-450); WHITE BLOOD COUNT 8.4 10^3/uL (4.0-10.0)
[2023-08-11 19:03] LABS: ALBUMIN 2.3 G/DL (3.2-5.2); BILIRUBIN,DIRECT 0.3 MG/DL (<0.4); BILIRUBIN,TOTAL 0.8 MG/DL (0.3-1.2); CALCIUM LEVEL 8.6 MG/DL (8.3-10.6); CREATININE FOR GFR 2.38 MG/DL (0.70-1.30); GLOMERULAR FILTRATION RATE 28.1 (>35); POTASSIUM SERUM 4.1 MMOL/L (3.5-5.1); TOTAL PROTEIN 5.5 G/DL (5.7-8.2)
[2023-08-11 19:05] LABS: THYROXINE (T4) 7.8 UG/DL (4.5-10.9)
[2023-08-11 19:06] LABS: THYROID STIMULATING HORMONE 1.807 uIU/ML (0.55-4.78)
[2023-08-11 19:17] LABS: EOS % 22.3 % (0.0-3.0)
[2023-08-11] MEDS: FUROSEMIDE 40MG/4ML VIAL IV ONE (19:41)
[2023-08-11] MEDS ORDERED: ROSU40TA63 PO (20:24)
[2023-08-11] MEDS ORDERED: ACETAMINOPHEN TAB 650MG DOSE (2X325MG) PO PRN (21:55)
[2023-08-11] MEDS ORDERED: DEXTROSE 50% 50ML SYRINGE IV PRN (22:05)
[2023-08-11] MEDS ORDERED: GLUCOSE 4 GM CHEW PO PRN (22:05)
[2023-08-11] MEDS ORDERED: GLUCAGON INJ 1MG VIAL SC PRN (22:05)
[2023-08-11] MEDS: INSULIN LISPRO (NovoLOG) PER UNIT SC SCH (23:16)
[2023-08-12] MEDS ORDERED: POTA-150 PO (01:04)
[2023-08-12] MEDS ORDERED: METO1TAB32 PO (01:04)
[2023-08-12] MEDS ORDERED: HOME MED LIST COMPLETE! XX SCH (01:05)
[2023-08-12] MEDS: LIDOCAINE 5% (LIDODERM) PATCH TD SCH (04:04)
[2023-08-12 05:19] VITALS: BP 112/53; TEMP 96.7; O2SAT 96
[2023-08-12] MEDS: HEPARIN SOD (PORCINE) 5000UNITS/ML 1ML VIAL/SYRINGE SQ SCH (06:07)
[2023-08-12 07:48] VITALS: BP 122/66; TEMP 96.3; O2SAT 92
[2023-08-12 08:13] LABS: HEMATOCRIT 36.9 % (42.0-52.0); HEMOGLOBIN 11.8 g/dl (13.5-17.5); MEAN CORPUSCULAR HEMOGLOBIN 32.2 pg (27.0-33.0); MEAN CORPUSCULAR VOLUME 100.8 fl (80.0-96.0); PLATELET COUNT, AUTOMATED 193 10^3/uL (150-450); RED BLOOD COUNT 3.66 10^6/uL (4.30-6.10); WHITE BLOOD COUNT 7.8 10^3/uL (4.0-10.0)
[2023-08-12 08:50] LABS: ALBUMIN 2.2 G/DL (3.2-5.2); CALCIUM LEVEL 8.9 MG/DL (8.3-10.6); CREATININE FOR GFR 2.48 MG/DL (0.70-1.30); GLOMERULAR FILTRATION RATE 26.8 (>35); MAGNESIUM LEVEL 2.1 MG/DL (1.8-2.4); POTASSIUM SERUM 3.2 MMOL/L (3.5-5.1); TOTAL PROTEIN 5.3 G/DL (5.7-8.2)
[2023-08-12] MEDS ORDERED: LEVEMIR (INSULIN DETEMIR) 1 UNITS/0.01ML SC SCH (09:00)
[2023-08-12] MEDS ORDERED: FUROSEMIDE 40MG/4ML VIAL IV SCH (09:00)
[2023-08-12] MEDS: METOPROLOL SUCC *XL* 25MG TAB (TopROL *XL*) PO SCH (09:18)
[2023-08-12] MEDS: POTASSIUM CHLORIDE 10MEQ SR TABLET PO SCH (09:19)
[2023-08-12] MEDS: AMIODARONE 200 MG TAB (PACERONE) PO SCH (09:19)
[2023-08-12] MEDS: INSULIN LISPRO (NovoLOG) PER UNIT SC SCH (09:19)
[2023-08-12] MEDS: ROSUVASTATIN 10 MG TAB (CRESTOR) PO SCH (09:19)
[2023-08-12] MEDS: FUROSEMIDE injection 250 MG in D5W 225 ML IV SCH (10:35)
[2023-08-12 11:51] VITALS: BP 122/64; TEMP 97; O2SAT 93
[2023-08-12 14:46] LABS: CALCIUM LEVEL 9.1 MG/DL (8.3-10.6); CREATININE FOR GFR 2.42 MG/DL (0.70-1.30); GLOMERULAR FILTRATION RATE 27.5 (>35); POTASSIUM SERUM 3.5 MMOL/L (3.5-5.1)
[2023-08-12 16:15] VITALS: BP 124/62; TEMP 96.5; O2SAT 93
[2023-08-12] MEDS: NYSTATIN 100,000 UNITS/GM TOPICAL PWD 15GM TOP SCH (16:21)
[2023-08-12] MEDS: POTASSIUM CHLORIDE 10MEQ SR TABLET PO ONE (18:02)
[2023-08-12 20:52] VITALS: BP 92/53; TEMP 96.7; O2SAT 93
[2023-08-13] VITALS (8 sets, daily range): BP systolic 86–118; BP diastolic 42–68; TEMP 96.5–97.3; O2SAT 93–97
[2023-08-13 06:29] LABS: CALCIUM LEVEL 8.4 MG/DL (8.3-10.6); CREATININE FOR GFR 2.55 MG/DL (0.70-1.30); GLOMERULAR FILTRATION RATE 25.9 (>35); POTASSIUM SERUM 3.2 MMOL/L (3.5-5.1)
[2023-08-13] MEDS: POTASSIUM CHLORIDE 10MEQ SR TABLET PO SCH (08:39)
[2023-08-14 01:40] VITALS: BP 106/44; TEMP 97.5; O2SAT 91
[2023-08-14 05:30] VITALS: BP 108/46; TEMP 97.3; O2SAT 89
[2023-08-14 06:28] LABS: CALCIUM LEVEL 8.9 MG/DL (8.3-10.6); CREATININE FOR GFR 2.47 MG/DL (0.70-1.30); GLOMERULAR FILTRATION RATE 26.9 (>35); POTASSIUM SERUM 3.8 MMOL/L (3.5-5.1)
[2023-08-14] MEDS ORDERED: PILL CUTTER 1 EACH XX PRN (08:45)
[2023-08-14] MEDS: FUROSEMIDE 20 MG TAB PO SCH (09:02)
[2023-08-14] MEDS: POTASSIUM CHLORIDE 10MEQ SR TABLET PO SCH (09:02)
[2023-08-14 09:55] VITALS: BP 102/51; TEMP 97.3; O2SAT 92
[2023-08-14 13:40] VITALS: BP 103/52; TEMP 97.2; O2SAT 92
[2023-08-14 17:55] VITALS: BP 102/50; TEMP 97.2; O2SAT 93
[2023-08-14 20:40] VITALS: BP 97/49; TEMP 97.3; O2SAT 92
[2023-08-15 01:40] VITALS: BP 98/51; TEMP 97.2; O2SAT 95
[2023-08-15 06:00] VITALS: BP 126/69; TEMP 97.5; O2SAT 93
[2023-08-15 06:59] LABS: CALCIUM LEVEL 8.7 MG/DL (8.3-10.6); CREATININE FOR GFR 2.41 MG/DL (0.70-1.30); GLOMERULAR FILTRATION RATE 27.7 (>35); MAGNESIUM LEVEL 2.1 MG/DL (1.8-2.4); POTASSIUM SERUM 3.9 MMOL/L (3.5-5.1)
[2023-08-15] MEDS: TORSEMIDE 10 MG TABLET PO SCH (08:27)
[2023-08-15 08:32] VITALS: BP 100/48
[2023-08-15] MEDS ORDERED: POTA-150 PO (08:58)
[2023-08-15] MEDS ORDERED: SODI650T PO (08:58)
[2023-08-15] MEDS ORDERED: TORS20TA2 PO (08:58)
[2023-08-15 10:00] VITALS: BP 130/65; TEMP 97.2; O2SAT 93
== END 2023-08-15 14:28 | disposition home or self-care (01) | DRG 291 ==
LOC: EDBD 17:45 → M ED 17:45 → M ED INP 21:55 → OBSVTOIN 22:22 → M PCU 08-12 04:50 → M MSPAV 08-13 21:04
PROVIDERS: ADMIT Preventive Medicine Undersea and Hyperbaric Medicine; ATTEND Student in an Organized Health Care Education/Training Program
DX: I13.0 Hypertensive heart and chronic kidney disease with heart failure and stage 1 through stage 4 chronic kidney disease, or unspecified chronic kidney disease (principal); I50.23 Acute on chronic systolic (congestive) heart failure; N18.4 Chronic kidney disease, stage 4 (severe); E87.0 Hyperosmolality and hypernatremia; E87.3 Alkalosis; E78.5 Hyperlipidemia, unspecified; E11.22 Type 2 diabetes mellitus with diabetic chronic kidney disease; I25.10 Atherosclerotic heart disease of native coronary artery without angina pectoris; I25.2 Old myocardial infarction; I27.20 Pulmonary hypertension, unspecified; L89.629 Pressure ulcer of left heel, unspecified stage; E66.9 Obesity, unspecified; G47.33 Obstructive sleep apnea (adult) (pediatric); F32.A Depression, unspecified; K21.9 Gastro-esophageal reflux disease without esophagitis; Z96.641 Presence of right artificial hip joint; Z87.891 Personal history of nicotine dependence; Z95.5 Presence of coronary angioplasty implant and graft; Z95.810 Presence of automatic (implantable) cardiac defibrillator; N40.0 Benign prostatic hyperplasia without lower urinary tract symptoms; Z79.82 Long term (current) use of aspirin; Z79.4 Long term (current) use of insulin; Z79.899 Other long term (current) drug therapy; R74.01 Elevation of levels of liver transaminase levels; E87.6 Hypokalemia

== ENCOUNTER 2023-09-02 12:33 | Inpatient (IN) | payer OTHER, MEDICARE ==
[~2023-09-02] VITALS: Ht 172.7 cm; Wt 125.0 kg
[~2023-09-02 12:33] MED LIST changes: +POTA-150 PO
[2023-09-02 13:13] LABS: VENOUS BASE EXCESS 1.7 (-2.0-2.0); VENOUS HCO3 27.7 MMOL/L (23.0-27.0); VENOUS O2 SATURATION 50.5 % (60.0-80.0); VENOUS PARTIAL PRESSURE CO2 49.2 mmHg (38.0-50.0); VENOUS PARTIAL PRESSURE O2 27.5 mmHg (30.0-50.0); VENOUS PH 7.369 UNITS (7.330-7.430); VENOUS STANDARD HCO3 24.8 MMOL/L; VENOUS TOTAL CO2 29.3 MMOL/L (24.0-28.0)
[2023-09-02 13:32] LABS: BASO # 0.1 10^3/uL (0.0-0.2); EOS # 0.1 10^3/uL (0.0-0.5); EOS % 1.3 % (0.0-3.0); HEMATOCRIT 39.2 % (42.0-52.0); HEMOGLOBIN 12.7 g/dl (13.5-17.5); LYMPH # 1.9 10^3/uL (1.5-5.0); LYMPH % 26.6 % (24.0-44.0); MEAN CORPUSCULAR HEMOGLOBIN 31.9 pg (27.0-33.0); MEAN CORPUSCULAR HGB CONC 32.4 g/dl (32.0-36.5); MEAN CORPUSCULAR VOLUME 98.5 fl (80.0-96.0); MONO # 0.9 10^3/uL (0.0-0.8); MONO % 13.3 % (2.0-8.0); NEUTROPHILS # 4.1 10^3/uL (1.5-8.5); NEUTROPHILS % 57.2 % (36.0-66.0); PLATELET COUNT, AUTOMATED 162 10^3/uL (150-450); RED BLOOD COUNT 3.98 10^6/uL (4.30-6.10); WHITE BLOOD COUNT 7.1 10^3/uL (4.0-10.0)
[2023-09-02] MEDS: IPRATROPIUM 0.5MG/ALBUTEROL 2.5MG INH SOL UD 3ML (DUONEB) NEB ONE (13:42)
[2023-09-02 13:51] LABS: INR 1.15; PROTHROMBIN TIME 14.3 SECONDS (12.5-14.5)
[2023-09-02 13:54] LABS: CK-MB VALUE MASS < 1.0 NG/ML (<3.6)
[2023-09-02 13:56] LABS: ALBUMIN 2.6 G/DL (3.2-5.2); ALKALINE PHOSPHATASE 86 U/L (46-116); ALT/SGPT 104 U/L (7.0-40); AST/SGOT 213 U/L (<34); BILIRUBIN,DIRECT 0.6 MG/DL (<0.4); BILIRUBIN,TOTAL 1.2 MG/DL (0.3-1.2); BLOOD UREA NITROGEN 45 MG/DL (9-23); CALCIUM LEVEL 8.7 MG/DL (8.3-10.6); CARBON DIOXIDE LEVEL 32 MMOL/L (20-31); CHLORIDE LEVEL 99 MMOL/L (98-107); CPK CREATINE PHOSPHOKINASE 115 U/L (46-171); CREATININE FOR GFR 3.12 MG/DL (0.70-1.30); GLOMERULAR FILTRATION RATE 20.5 (>35); GLUCOSE, FASTING 94 MG/DL (74-106); MB/CK RELATIVE INDEX 0.86 (< OR =4); POTASSIUM SERUM 3.1 MMOL/L (3.5-5.1); SODIUM LEVEL 139 MMOL/L (136-145); TOTAL PROTEIN 5.9 G/DL (5.7-8.2)
[2023-09-02 13:58] LABS: THYROID STIMULATING HORMONE 1.522 uIU/ML (0.55-4.78)
[2023-09-02] MEDS: POTASSIUM CHLORIDE 10MEQ SR TABLET PO ONE (16:37)
[2023-09-02 17:07] LABS: CK-MB VALUE MASS < 1.0 NG/ML (<3.6)
[2023-09-02 17:08] LABS: CPK CREATINE PHOSPHOKINASE 113 U/L (46-171); MB/CK RELATIVE INDEX 0.88 (< OR =4)
[2023-09-02] MEDS ORDERED: SODI650T PO (19:10)
[2023-09-02] MEDS ORDERED: POTA-136 PO (19:10)
[2023-09-02] MEDS ORDERED: MIDO5TA PO (19:10)
[2023-09-02] MEDS ORDERED: HOME MED LIST COMPLETE! XX SCH (19:15)
[2023-09-02] MEDS ORDERED: CALCIUM CARBONATE 500 MG CHEW U/D PO PRN (20:40)
[2023-09-02] MEDS ORDERED: DEXTROSE 50% 50ML SYRINGE IV PRN (20:40)
[2023-09-02] MEDS ORDERED: ACETAMINOPHEN TAB 650MG DOSE (2X325MG) PO PRN (20:40)
[2023-09-02] MEDS ORDERED: HEPARIN SOD (PORCINE) 5000UNITS/ML 1ML VIAL/SYRINGE SC SCH (20:40)
[2023-09-02] MEDS ORDERED: MIRALAX *UNIT DOSE* 17GM PACKET PO PRN (20:40)
[2023-09-02] MEDS ORDERED: GLUCAGON INJ 1MG VIAL SC PRN (20:40)
[2023-09-02] MEDS ORDERED: GLUCOSE 4 GM CHEW PO PRN (20:40)
[2023-09-02] MEDS: INSULIN LISPRO (NovoLOG) PER UNIT SC SCH (21:30)
[2023-09-02] MEDS: DOCUSATE SODIUM 100MG CAPSULE PO SCH (21:36)
[2023-09-02 22:48] LABS: D-DIMER QUANT 2.53 ug/mL (<0.5); INR 1.11; PARTIAL THROMBOPLASTIN TIME 27.2 SECONDS (24.8-34.2)
[2023-09-02 22:54] LABS: C REACTIVE PROTEIN QUANTITATIV 9.3 MG/DL (<1.0); MAGNESIUM LEVEL 2.3 MG/DL (1.8-2.4)
[2023-09-02 22:58] LABS: FERRITIN 437.2 NG/ML (10.5-307.3)
[2023-09-02 23:08] LABS: PROCALCITONIN 0.44 ng/ml
[2023-09-02] MEDS: METOPROLOL TART 50 MG TAB PO SCH (23:15)
[2023-09-03] VITALS (23 sets, daily range): BP systolic 86–121; BP diastolic 44–58; TEMP 96.3–98.1; O2SAT 90–99
[2023-09-03] MEDS: REMDESIVIR 200 MG in NS 250 ML IV ONE (01:29)
[2023-09-03 05:38] LABS: VENOUS BASE EXCESS 3.8 (-2.0-2.0); VENOUS HCO3 30.2 MMOL/L (23.0-27.0); VENOUS O2 SATURATION 96.3 % (60.0-80.0); VENOUS PARTIAL PRESSURE CO2 52.9 mmHg (38.0-50.0); VENOUS PARTIAL PRESSURE O2 89.3 mmHg (30.0-50.0); VENOUS PH 7.374 UNITS (7.330-7.430); VENOUS STANDARD HCO3 27.8 MMOL/L; VENOUS TOTAL CO2 31.8 MMOL/L (24.0-28.0)
[2023-09-03 05:47] LABS: HEMATOCRIT 38.7 % (42.0-52.0); HEMOGLOBIN 12.6 g/dl (13.5-17.5); MEAN CORPUSCULAR HEMOGLOBIN 32.1 pg (27.0-33.0); MEAN CORPUSCULAR HGB CONC 32.6 g/dl (32.0-36.5); MEAN CORPUSCULAR VOLUME 98.7 fl (80.0-96.0); PLATELET COUNT, AUTOMATED 138 10^3/uL (150-450); RED BLOOD COUNT 3.92 10^6/uL (4.30-6.10); WHITE BLOOD COUNT 6.4 10^3/uL (4.0-10.0)
[2023-09-03 06:20] LABS: PROCALCITONIN 0.44 ng/ml
[2023-09-03 06:23] LABS: ALBUMIN 2.4 G/DL (3.2-5.2); BILIRUBIN,DIRECT 0.6 MG/DL (<0.4); BILIRUBIN,TOTAL 1.1 MG/DL (0.3-1.2); CALCIUM LEVEL 8.2 MG/DL (8.3-10.6); CREATININE FOR GFR 3.03 MG/DL (0.70-1.30); GLOMERULAR FILTRATION RATE 21.2 (>35); MAGNESIUM LEVEL 2.3 MG/DL (1.8-2.4); POTASSIUM SERUM 3.1 MMOL/L (3.5-5.1); TOTAL PROTEIN 5.6 G/DL (5.7-8.2)
[2023-09-03] MEDS: INSULIN LISPRO (NovoLOG) PER UNIT SC SCH (07:30)
[2023-09-03] MEDS: KCL 10MEQ/100ML SWI (KRUN) 10 MEQ in IV 1 EA IV SCH (08:00)
[2023-09-03] MEDS ORDERED: TORSEMIDE 10 MG TABLET PO SCH (09:00)
[2023-09-03] MEDS: LEVEMIR (INSULIN DETEMIR) 1 UNITS/0.01ML SC SCH (09:00)
[2023-09-03] MEDS: MIDODRINE 2.5 MG TAB PO SCH (09:39)
[2023-09-03] MEDS: HEPARIN SOD (PORCINE) 5000UNITS/ML 1ML VIAL/SYRINGE SC SCH (09:39)
[2023-09-03] MEDS: AMIODARONE 200 MG TAB (PACERONE) PO SCH (09:39)
[2023-09-03] MEDS: SODIUM BICARBONATE 325 MG TAB PO SCH (09:39)
[2023-09-03] MEDS: POTASSIUM CHLORIDE 10MEQ SR TABLET PO SCH (09:40)
[2023-09-03 14:57] LABS: CALCIUM LEVEL 8.5 MG/DL (8.3-10.6); GLOMERULAR FILTRATION RATE 21.5 (>35); POTASSIUM SERUM 3.4 MMOL/L (3.5-5.1)
[2023-09-03] MEDS: POTASSIUM CHLORIDE 10MEQ SR TABLET PO ONE (17:27)
[2023-09-03] MEDS: ASPIRIN 81MG ENTERIC TABLET PO SCH (20:50)
[2023-09-03] MEDS: REMDESIVIR 100 MG in NS 250 ML IV SCH (20:51)
[2023-09-04] VITALS (27 sets, daily range): BP systolic 61–117; BP diastolic 26–59; TEMP 96.4–98.2; O2SAT 92–99
[2023-09-04] MEDS: NS 500 ML IV ONE (04:59)
[2023-09-04] MEDS: ALBUTEROL 90 MCG/ACT 8GM HFA INHALER INH PRN (05:01)
[2023-09-04 07:21] LABS: BASO % 0.2 % (0.0-1.0); HEMATOCRIT 36.5 % (42.0-52.0); LYMPH # 1.4 10^3/uL (1.5-5.0); LYMPH % 25.4 % (24.0-44.0); MEAN CORPUSCULAR HEMOGLOBIN 32.1 pg (27.0-33.0); MEAN CORPUSCULAR HGB CONC 32.9 g/dl (32.0-36.5); MEAN CORPUSCULAR VOLUME 97.6 fl (80.0-96.0); MONO # 0.5 10^3/uL (0.0-0.8); MONO % 9.2 % (2.0-8.0); NEUTROPHILS # 3.4 10^3/uL (1.5-8.5); NEUTROPHILS % 64.6 % (36.0-66.0); PLATELET COUNT, AUTOMATED 143 10^3/uL (150-450); RED BLOOD COUNT 3.74 10^6/uL (4.30-6.10); WHITE BLOOD COUNT 5.3 10^3/uL (4.0-10.0)
[2023-09-04 07:58] LABS: ALBUMIN 2.2 G/DL (3.2-5.2); BILIRUBIN,TOTAL 0.7 MG/DL (0.3-1.2); CALCIUM LEVEL 8.4 MG/DL (8.3-10.6); CREATININE FOR GFR 2.88 MG/DL (0.70-1.30); GLOMERULAR FILTRATION RATE 22.5 (>35); MAGNESIUM LEVEL 2.4 MG/DL (1.8-2.4); POTASSIUM SERUM 3.5 MMOL/L (3.5-5.1); TOTAL PROTEIN 5.3 G/DL (5.7-8.2)
[2023-09-04] MEDS: NYSTATIN 100,000 UNITS/GM TOPICAL PWD 15GM TOP SCH (17:11)
[2023-09-05] VITALS (20 sets, daily range): BP systolic 96–110; BP diastolic 50–66; TEMP 96.7–97.8; O2SAT 91–98
[2023-09-05 07:48] LABS: CALCIUM LEVEL 8.2 MG/DL (8.3-10.6); CREATININE FOR GFR 2.67 MG/DL (0.70-1.30); GLOMERULAR FILTRATION RATE 24.6 (>35); MAGNESIUM LEVEL 2.3 MG/DL (1.8-2.4); POTASSIUM SERUM 3.5 MMOL/L (3.5-5.1)
[2023-09-05] MEDS: ALBUTEROL SULFATE 2.5MG/0.5ML INH NEB SOLN NEB PRN (13:53)
[2023-09-06] VITALS (17 sets, daily range): BP systolic 98–121; BP diastolic 50–65; TEMP 96.8–97.6; O2SAT 91–99
[2023-09-06 05:26] LABS: BASO % 0.1 % (0.0-1.0); HEMATOCRIT 34.7 % (42.0-52.0); HEMOGLOBIN 11.4 g/dl (13.5-17.5); LYMPH # 0.8 10^3/uL (1.5-5.0); LYMPH % 10.3 % (24.0-44.0); MEAN CORPUSCULAR HEMOGLOBIN 32.2 pg (27.0-33.0); MEAN CORPUSCULAR HGB CONC 32.9 g/dl (32.0-36.5); MONO # 0.6 10^3/uL (0.0-0.8); MONO % 7.5 % (2.0-8.0); NEUTROPHILS # 6.5 10^3/uL (1.5-8.5); NEUTROPHILS % 81.4 % (36.0-66.0); PLATELET COUNT, AUTOMATED 135 10^3/uL (150-450); RED BLOOD COUNT 3.54 10^6/uL (4.30-6.10)
[2023-09-06 05:44] LABS: CREATININE FOR GFR 2.47 MG/DL (0.70-1.30); GLOMERULAR FILTRATION RATE 26.9 (>35); MAGNESIUM LEVEL 2.2 MG/DL (1.8-2.4); POTASSIUM SERUM 3.8 MMOL/L (3.5-5.1)
[2023-09-06] MEDS: TORSEMIDE 10 MG TABLET PO SCH (13:08)
[2023-09-07] VITALS (7 sets, daily range): BP systolic 100–110; BP diastolic 51–55; TEMP 97.3–97.7; O2SAT 92–98
[2023-09-07 06:06] LABS: BASO % 0.1 % (0.0-1.0); HEMATOCRIT 33.6 % (42.0-52.0); HEMOGLOBIN 10.9 g/dl (13.5-17.5); LYMPH # 1.2 10^3/uL (1.5-5.0); LYMPH % 12.9 % (24.0-44.0); MEAN CORPUSCULAR HEMOGLOBIN 31.7 pg (27.0-33.0); MEAN CORPUSCULAR HGB CONC 32.4 g/dl (32.0-36.5); MEAN CORPUSCULAR VOLUME 97.7 fl (80.0-96.0); MONO # 0.7 10^3/uL (0.0-0.8); MONO % 7.3 % (2.0-8.0); NEUTROPHILS # 7.3 10^3/uL (1.5-8.5); NEUTROPHILS % 78.3 % (36.0-66.0); PLATELET COUNT, AUTOMATED 143 10^3/uL (150-450); RED BLOOD COUNT 3.44 10^6/uL (4.30-6.10); WHITE BLOOD COUNT 9.4 10^3/uL (4.0-10.0)
[2023-09-07 06:37] LABS: CALCIUM LEVEL 7.8 MG/DL (8.3-10.6); CREATININE FOR GFR 2.35 MG/DL (0.70-1.30); GLOMERULAR FILTRATION RATE 28.5 (>35); MAGNESIUM LEVEL 2.2 MG/DL (1.8-2.4); POTASSIUM SERUM 3.7 MMOL/L (3.5-5.1)
[2023-09-07 08:26] LABS: CK-MB VALUE MASS 1.5 NG/ML (<3.6)
[2023-09-07 08:27] LABS: MB/CK RELATIVE INDEX 7.14 (< OR =4)
[2023-09-07 08:28] LABS: ALBUMIN 2.2 G/DL (3.2-5.2); BILIRUBIN,DIRECT 0.3 MG/DL (<0.4); BILIRUBIN,TOTAL 0.6 MG/DL (0.3-1.2); TOTAL PROTEIN 5.2 G/DL (5.7-8.2)
[2023-09-07] MEDS ORDERED: COLA100C5 PO (09:15)
== END 2023-09-07 12:25 | disposition home or self-care (01) | DRG 177 ==
LOC: M ED 12:33 → EDBD 12:33 → M ED INP 20:38 → M PCU 09-03 00:18
PROVIDERS: ADMIT Family Medicine; ATTEND Family Medicine
PROC: 3E0333Z Introduction of Anti-inflammatory into Peripheral Vein, Percutaneous Approach (ICD-10-PCS; principal; 2023-09-03)
PROC: XW033E5 Introduction of Remdesivir Anti-infective into Peripheral Vein, Percutaneous Approach, New Technology Group 5 (ICD-10-PCS; principal; 2023-09-03)
DX: U07.1 COVID-19 (principal); I50.23 Acute on chronic systolic (congestive) heart failure; N17.9 Acute kidney failure, unspecified; N18.4 Chronic kidney disease, stage 4 (severe); I13.0 Hypertensive heart and chronic kidney disease with heart failure and stage 1 through stage 4 chronic kidney disease, or unspecified chronic kidney disease; Z68.41 Body mass index [BMI] 40.0-44.9, adult; I24.89 Other forms of acute ischemic heart disease; I25.10 Atherosclerotic heart disease of native coronary artery without angina pectoris; I25.2 Old myocardial infarction; I25.5 Ischemic cardiomyopathy; Z95.810 Presence of automatic (implantable) cardiac defibrillator; E87.6 Hypokalemia; I95.9 Hypotension, unspecified; R09.02 Hypoxemia; K21.9 Gastro-esophageal reflux disease without esophagitis; E78.5 Hyperlipidemia, unspecified; G47.33 Obstructive sleep apnea (adult) (pediatric); E66.9 Obesity, unspecified; I27.20 Pulmonary hypertension, unspecified; E11.22 Type 2 diabetes mellitus with diabetic chronic kidney disease; M54.9 Dorsalgia, unspecified; G89.29 Other chronic pain; Z96.641 Presence of right artificial hip joint; Z95.828 Presence of other vascular implants and grafts; Z79.82 Long term (current) use of aspirin; Z79.4 Long term (current) use of insulin; Z79.899 Other long term (current) drug therapy

== ENCOUNTER 2023-10-07 13:11 | Inpatient (IN) | payer OTHER, MEDICARE ==
[~2023-10-07] VITALS: Ht 185.4 cm; Wt 118.9 kg
[~2023-10-07 13:11] MED LIST changes: +MIDO5TA PO
[2023-10-07] MEDS: NS 1,000 ML IV SCH (13:40)
[2023-10-07 14:33] LABS: BASO % 0.6 % (0.0-1.0); EOS # 0.2 10^3/uL (0.0-0.5); EOS % 3.1 % (0.0-3.0); HEMATOCRIT 38.1 % (42.0-52.0); HEMOGLOBIN 12.2 g/dl (13.5-17.5); LYMPH # 1.7 10^3/uL (1.5-5.0); LYMPH % 23.6 % (24.0-44.0); MEAN CORPUSCULAR HEMOGLOBIN 31.2 pg (27.0-33.0); MEAN CORPUSCULAR VOLUME 97.4 fl (80.0-96.0); MONO # 0.9 10^3/uL (0.0-0.8); MONO % 12.2 % (2.0-8.0); NEUTROPHILS # 4.2 10^3/uL (1.5-8.5); NEUTROPHILS % 60.2 % (36.0-66.0); PLATELET COUNT, AUTOMATED 174 10^3/uL (150-450); RED BLOOD COUNT 3.91 10^6/uL (4.30-6.10)
[2023-10-07 14:45] LABS: INR 1.19; PROTHROMBIN TIME 14.7 SECONDS (12.5-14.5)
[2023-10-07 15:01] LABS: ALBUMIN 2.4 G/DL (3.2-5.2); BILIRUBIN,DIRECT 0.4 MG/DL (<0.4); CALCIUM LEVEL 8.4 MG/DL (8.3-10.6); CK-MB VALUE MASS 3.6 NG/ML (<3.6); CREATININE FOR GFR 3.7 MG/DL (0.70-1.30); GLOMERULAR FILTRATION RATE 16.9 (>35); MB/CK RELATIVE INDEX 0.81 (< OR =4); POTASSIUM SERUM 3.2 MMOL/L (3.5-5.1); TOTAL PROTEIN 6.2 G/DL (5.7-8.2)
[2023-10-07] MEDS ORDERED: ACET-683 PO (15:32)
[2023-10-07] MEDS ORDERED: HOME MED LIST COMPLETE! XX SCH (15:35)
[2023-10-07] MEDS: ATORVASTATIN 20 MG TAB PO ONE (15:50)
[2023-10-07] MEDS ORDERED: GLUCOSE 4 GM CHEW PO PRN (17:30)
[2023-10-07] MEDS: INSULIN LISPRO (NovoLOG) PER UNIT SC SCH ×2 (17:30→21:00)
[2023-10-07] MEDS ORDERED: GLUCAGON INJ 1MG VIAL SC PRN (17:30)
[2023-10-07] MEDS ORDERED: DEXTROSE 50% 50ML SYRINGE IV PRN (17:30)
[2023-10-07 20:35] VITALS: BP 93/44; TEMP 97.7; O2SAT 92
[2023-10-07] MEDS: ASPIRIN 81MG ENTERIC TABLET PO SCH (21:06)
[2023-10-08] MEDS: ACETAMINOPHEN TAB 650MG DOSE (2X325MG) PO PRN (01:08)
[2023-10-08 04:00] VITALS: BP 91/45; TEMP 97.3; O2SAT 93
[2023-10-08 06:13] LABS: HEMATOCRIT 33.7 % (42.0-52.0); HEMOGLOBIN 10.9 g/dl (13.5-17.5); MEAN CORPUSCULAR HEMOGLOBIN 31.1 pg (27.0-33.0); MEAN CORPUSCULAR HGB CONC 32.3 g/dl (32.0-36.5); MEAN CORPUSCULAR VOLUME 96.3 fl (80.0-96.0); PLATELET COUNT, AUTOMATED 155 10^3/uL (150-450); WHITE BLOOD COUNT 6.4 10^3/uL (4.0-10.0)
[2023-10-08 06:42] LABS: ALBUMIN 2.1 G/DL (3.2-5.2); CALCIUM LEVEL 8.3 MG/DL (8.3-10.6); CREATININE FOR GFR 3.63 MG/DL (0.70-1.30); GLOMERULAR FILTRATION RATE 17.2 (>35); MAGNESIUM LEVEL 2.3 MG/DL (1.8-2.4); POTASSIUM SERUM 2.9 MMOL/L (3.5-5.1); TOTAL PROTEIN 5.4 G/DL (5.7-8.2)
[2023-10-08] MEDS: KCL 10MEQ/100ML SWI (KRUN) 10 MEQ in IV 1 EA IV SCH (08:00)
[2023-10-08] MEDS: ROSUVASTATIN 10 MG TAB (CRESTOR) PO SCH (08:00)
[2023-10-08] MEDS: VITAMIN D 1,000 INTERNATIONAL UNITS TABLET PO SCH (08:00)
[2023-10-08] MEDS: POTASSIUM CHLORIDE 10MEQ SR TABLET PO SCH (08:00)
[2023-10-08] MEDS: AMIODARONE 200 MG TAB (PACERONE) PO SCH (08:01)
[2023-10-08 12:00] VITALS: BP 95/51; TEMP 97.2; O2SAT 96
[2023-10-08 13:17] VITALS: BP_SYST 91; BP_SYST 95; BP_SYST 96; BP_DIAS 47; BP_DIAS 49; BP_DIAS 51
[2023-10-08] MEDS: POTASSIUM CHLORIDE 10MEQ SR TABLET PO ONE ×2 (13:22→20:35)
[2023-10-08] MEDS: TORSEMIDE 10 MG TABLET PO SCH (14:41)
[2023-10-08] MEDS: NYSTATIN 100,000 UNITS/GM TOPICAL PWD 15GM TOP SCH (17:14)
[2023-10-08 20:00] VITALS: BP 94/52; TEMP 97.3; O2SAT 93
[2023-10-08 23:31] VITALS: O2SAT 93
[2023-10-09 04:00] VITALS: BP 96/51; TEMP 97.2; O2SAT 95
[2023-10-09 06:38] LABS: BASO # 0.1 10^3/uL (0.0-0.2); BASO % 0.7 % (0.0-1.0); EOS # 0.4 10^3/uL (0.0-0.5); EOS % 5.6 % (0.0-3.0); HEMATOCRIT 34.7 % (42.0-52.0); HEMOGLOBIN 11.1 g/dl (13.5-17.5); LYMPH # 2.1 10^3/uL (1.5-5.0); LYMPH % 30.4 % (24.0-44.0); MEAN CORPUSCULAR HEMOGLOBIN 31.5 pg (27.0-33.0); MEAN CORPUSCULAR VOLUME 98.6 fl (80.0-96.0); MONO % 14.1 % (2.0-8.0); NEUTROPHILS # 3.4 10^3/uL (1.5-8.5); NEUTROPHILS % 48.9 % (36.0-66.0); PLATELET COUNT, AUTOMATED 148 10^3/uL (150-450); RED BLOOD COUNT 3.52 10^6/uL (4.30-6.10)
[2023-10-09 07:07] LABS: CALCIUM LEVEL 7.9 MG/DL (8.3-10.6); CREATININE FOR GFR 3.41 MG/DL (0.70-1.30); GLOMERULAR FILTRATION RATE 18.5 (>35); MAGNESIUM LEVEL 2.2 MG/DL (1.8-2.4); POTASSIUM SERUM 4.1 MMOL/L (3.5-5.1)
[2023-10-09 09:00] VITALS: BP 92/51
[2023-10-09 10:00] VITALS: BP 95/51
[2023-10-09 11:54] VITALS: BP 97/51
[2023-10-09 12:00] VITALS: BP 111/52; TEMP 97.5; O2SAT 96
[2023-10-09 19:32] VITALS: BP 110/55; TEMP 97.2; O2SAT 96
[2023-10-10 04:13] VITALS: BP 92/46; TEMP 97.3; O2SAT 95
[2023-10-10 06:11] LABS: BASO % 0.4 % (0.0-1.0); EOS # 0.4 10^3/uL (0.0-0.5); EOS % 5.6 % (0.0-3.0); HEMATOCRIT 35.6 % (42.0-52.0); HEMOGLOBIN 11.3 g/dl (13.5-17.5); LYMPH # 1.8 10^3/uL (1.5-5.0); LYMPH % 25.2 % (24.0-44.0); MEAN CORPUSCULAR HEMOGLOBIN 31.4 pg (27.0-33.0); MEAN CORPUSCULAR HGB CONC 31.7 g/dl (32.0-36.5); MEAN CORPUSCULAR VOLUME 98.9 fl (80.0-96.0); MONO # 0.9 10^3/uL (0.0-0.8); MONO % 12.6 % (2.0-8.0); NEUTROPHILS % 55.8 % (36.0-66.0); PLATELET COUNT, AUTOMATED 144 10^3/uL (150-450); WHITE BLOOD COUNT 7.2 10^3/uL (4.0-10.0)
[2023-10-10 06:33] LABS: CALCIUM LEVEL 8.4 MG/DL (8.3-10.6); CREATININE FOR GFR 3.04 MG/DL (0.70-1.30); GLOMERULAR FILTRATION RATE 21.2 (>35); POTASSIUM SERUM 4.1 MMOL/L (3.5-5.1)
[2023-10-10] MEDS: POTASSIUM CHLORIDE 10MEQ SR TABLET PO SCH (08:43)
[2023-10-10 12:00] VITALS: BP 100/49; TEMP 97.9; O2SAT 95
[2023-10-10 19:56] VITALS: BP 105/40; TEMP 97.5; O2SAT 93
[2023-10-10] MEDS: traMADol 50 MG TAB PO ONE (21:13)
[2023-10-10] MEDS: LIDOCAINE 5% (LIDODERM) PATCH TD SCH (21:13)
[2023-10-11 00:14] VITALS: BP 102/41; TEMP 97.1; O2SAT 93
[2023-10-11 04:00] VITALS: BP 102/44; TEMP 97.2; O2SAT 93
[2023-10-11 07:16] LABS: BASO # 0.1 10^3/uL (0.0-0.2); BASO % 0.7 % (0.0-1.0); EOS # 0.4 10^3/uL (0.0-0.5); EOS % 6.6 % (0.0-3.0); HEMATOCRIT 36.4 % (42.0-52.0); HEMOGLOBIN 11.6 g/dl (13.5-17.5); LYMPH # 1.8 10^3/uL (1.5-5.0); LYMPH % 27.3 % (24.0-44.0); MEAN CORPUSCULAR HEMOGLOBIN 31.4 pg (27.0-33.0); MEAN CORPUSCULAR HGB CONC 31.9 g/dl (32.0-36.5); MEAN CORPUSCULAR VOLUME 98.6 fl (80.0-96.0); MONO # 0.8 10^3/uL (0.0-0.8); MONO % 12.5 % (2.0-8.0); NEUTROPHILS # 3.5 10^3/uL (1.5-8.5); NEUTROPHILS % 52.3 % (36.0-66.0); PLATELET COUNT, AUTOMATED 148 10^3/uL (150-450); RED BLOOD COUNT 3.69 10^6/uL (4.30-6.10); WHITE BLOOD COUNT 6.7 10^3/uL (4.0-10.0)
[2023-10-11 07:45] LABS: CALCIUM LEVEL 8.4 MG/DL (8.3-10.6); CREATININE FOR GFR 2.75 MG/DL (0.70-1.30); GLOMERULAR FILTRATION RATE 23.8 (>35); POTASSIUM SERUM 4.2 MMOL/L (3.5-5.1)
[2023-10-11 08:00] VITALS: BP 106/47; TEMP 97.3; O2SAT 96
[2023-10-11 12:00] VITALS: BP 104/47; TEMP 97.3; O2SAT 97
[2023-10-11 16:00] VITALS: BP 133/62; TEMP 97.2; O2SAT 97
[2023-10-11 16:15] LABS: PERCENT SATURATION 22.9 % (19.7-50.0)
[2023-10-11 16:17] LABS: FERRITIN 181.3 NG/ML (10.5-307.3)
[2023-10-11 19:32] VITALS: BP 105/51; TEMP 97.2; O2SAT 97
[2023-10-12 04:27] VITALS: BP 91/41; TEMP 97.5; O2SAT 95
[2023-10-12 06:41] LABS: CREATININE FOR GFR 2.67 MG/DL (0.70-1.30); GLOMERULAR FILTRATION RATE 24.6 (>35)
[2023-10-12 12:00] VITALS: BP 130/66; TEMP 97.3; O2SAT 98
[2023-10-12 19:58] VITALS: BP 125/67; TEMP 97.9; O2SAT 96
[2023-10-12 21:00] VITALS: O2SAT 94
[2023-10-13 03:55] VITALS: BP 144/66; TEMP 97.3; O2SAT 96
[2023-10-13 06:55] LABS: CALCIUM LEVEL 8.5 MG/DL (8.3-10.6); CREATININE FOR GFR 2.4 MG/DL (0.70-1.30); GLOMERULAR FILTRATION RATE 27.8 (>35); MAGNESIUM LEVEL 2.1 MG/DL (1.8-2.4)
[2023-10-13 12:00] VITALS: BP 111/58; TEMP 97.5; O2SAT 95
[2023-10-13] MEDS ORDERED: TORS10TA3 PO (12:01)
== END 2023-10-13 14:06 | DRG 683 ==
LOC: M ED 13:11 → M ED INP 17:12 → M MSPAV 20:35
PROVIDERS: ADMIT Hospitalist; ATTEND Student in an Organized Health Care Education/Training Program
DX: N17.9 Acute kidney failure, unspecified (principal); I50.22 Chronic systolic (congestive) heart failure; I13.0 Hypertensive heart and chronic kidney disease with heart failure and stage 1 through stage 4 chronic kidney disease, or unspecified chronic kidney disease; G47.33 Obstructive sleep apnea (adult) (pediatric); I25.5 Ischemic cardiomyopathy; E78.5 Hyperlipidemia, unspecified; N18.32 Chronic kidney disease, stage 3b; R26.89 Other abnormalities of gait and mobility; E11.22 Type 2 diabetes mellitus with diabetic chronic kidney disease; I25.10 Atherosclerotic heart disease of native coronary artery without angina pectoris; I27.20 Pulmonary hypertension, unspecified; K21.9 Gastro-esophageal reflux disease without esophagitis; M19.90 Unspecified osteoarthritis, unspecified site; Z96.641 Presence of right artificial hip joint; E87.6 Hypokalemia; D64.9 Anemia, unspecified; I95.1 Orthostatic hypotension; W19.XXXA Unspecified fall, initial encounter; E55.9 Vitamin D deficiency, unspecified; Z87.891 Personal history of nicotine dependence; Z79.82 Long term (current) use of aspirin; Z95.810 Presence of automatic (implantable) cardiac defibrillator; Z79.899 Other long term (current) drug therapy; Z86.16 Personal history of COVID-19; Z95.5 Presence of coronary angioplasty implant and graft